=== PATIENT | female | born 1930 | race Caucasian/White ===

== ENCOUNTER 2018-11-11 19:20 | Emergency (ER) | payer OTHER ==
[~2018-11-11] VITALS: Ht 142.2 cm; Wt 69.4 kg
--- OUTSIDE RECORDS SUMMARY | 2018-11-11 19:28 | XMS REPORT | CCD ---
Author Author [facility] Address [address] [place] [address] Phone Care Team Providers Care Intensive Care Unit Nurse Name Role Phone PP Unavailable CCM Unavailable Summary Purpose Interface Exchange Insurance Providers Payer name Policy type / Coverage type Covered republican ID Effective Begin Date Effective End Date [employer] CLAIMS Commercial Insurance [id number] 2017 Unknown Family History Family History data not found Social History Social History Element Codes Description Effective Dates Marital status Unknown [place] 12/08/2017 Number of children Unknown 2 12/08/2017 Employment Unknown Retired 12/08/[address]: 053894030 Never smoker 12/08/[address]: 206668453 Never drinks alcohol 12/08/2017 Allergies, Adverse Reactions, Alerts Substance Reaction Codes Entered Date Inactivated Date Status * NO KNOWN DRUG ALLERGIES Unknown 01/03/2018 No Inactive Date Active Past Medical History Illness Codes Condition Status Onset Date Resolved Date Dizziness and giddiness ICD-9: 780.4 ICD-10: R42 Active 11/07/2018 Unknown Dysuria ICD-9: 788.1 ICD-10: R30.0 Active 11/07/2018 Unknown Atrophy of thyroid (acquired) ICD-9: 244.8 ICD-10: E03.4 Active 01/03/2018 Unknown Chronic kidney disease, stage 3 (moderate) ICD-9: 585.3 ICD-10: N18.3 Active 12/08/2017 Unknown Essential (primary) hypertension ICD-9: 401.1 ICD-10: I10 Active 12/08/2017 Unknown Type 2 diabetes mellitus without complications ICD-9: 250.00 ICD-10: E11.9 Active 12/08/2017 Unknown Encounter for immunization ICD-9: V04.81 ICD-10: Z23 Active 07/18/2018 Unknown Urgency of urination ICD-9: 788.63 ICD-10: R39.15 Active 03/19/2018 Unknown Orthostatic hypotension ICD-9: 458.0 ICD-10: I95.1 Active 02/08/2018 Unknown Urinary tract infection, site not specified ICD-9: 599.0 ICD-10: N39.0 Active 02/08/2018 Unknown Diabetes Unknown Active 12/08/2017 Unknown Hypothryroidism Unknown Active 12/08/2017 Unknown Hypothyroidism, unspecified ICD-9: 244.9 ICD-10: E03.9 Active 12/08/2017 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 ICD-10: Z79.01 Active 12/08/2017 Unknown Problems Condition Codes Effective Dates Condition Status Dizziness and giddiness ICD-9: 780.4 ICD-10: R42 11/07/2018 Active Dysuria ICD-9: 788.1 ICD-10: R30.0 11/07/2018 Active Atrophy of thyroid (acquired) ICD-9: 244.8 ICD-10: E03.4 01/03/2018 Active Chronic kidney disease, stage 3 (moderate) ICD-9: 585.3 ICD-10: N18.3 12/08/2017 Active Essential (primary) hypertension ICD-9: 401.1 ICD-10: I10 12/08/2017 Active Type 2 diabetes mellitus without complications ICD-9: 250.00 ICD-10: E11.9 12/08/2017 Active Encounter for immunization ICD-9: V04.81 ICD-10: Z23 07/18/2018 Active Urgency of urination ICD-9: 788.63 ICD-10: R39.15 03/19/2018 Active Orthostatic hypotension ICD-9: 458.0 ICD-10: I95.1 02/08/2018 Active Urinary tract infection, site not specified ICD-9: 599.0 ICD-10: N39.0 02/08/2018 Active Diabetes Unknown 12/08/2017 Active Hypothryroidism Unknown 12/08/2017 Active Hypothyroidism, unspecified ICD-9: 244.9 ICD-10: E03.9 12/08/2017 Active correction (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 anticoagulants ICD-9: V58.61 ICD-10: Z79.01 12/08/2017 Active Medications Medication Codes Instructions Start Date Stop Date Status Fill Instructions Keflex 500 mg capsule RxNorm: 137282 1 Capsule(s) PO TID 201811/13/2018 Active clopidogrel 75 mg tablet RxNorm: 348622 1 Tablet(s) PO daily 11/01/2019 Active clopidogrel 75 mg tablet RxNorm: 428971 1 Tablet(s) PO daily 11/06/2018 Inactive clopidogrel 75 mg tablet RxNorm: 763453 1 Tablet(s) PO daily 10/29/2018 Inactive omeprazole 10 mg capsule,delayed release RxNorm: 216874 1 Capsule(s) PO daily 10/05/2018 12/28/2019 Active escitalopram 10 mg tablet RxNorm: 003664 TAKE 1 TABLET BY MOUTH ONCE DAILY IN THE EVENING 09/06/2018 No Stop Date Active omeprazole 10 mg capsule,delayed release RxNorm: 994733 1 Capsule(s) PO daily 09/06/2018 10/04/2018 Inactive cyanocobalamin (vit B-12) 1,000 mcg tablet RxNorm: 033090 1 Tablet(s) PO daily 08/08/2018 10/31/2019 Active cyanocobalamin (vit B-12) 1,000 mcg tablet RxNorm: 440877 1 Tablet(s) PO daily 08/08/2018 08/07/2018 Inactive levofloxacin 250 mg tablet RxNorm: 058913 1 Tablet(s) PO daily 06/04/2018 06/08/2018 Inactive levofloxacin 250 mg tablet RxNorm: 227688 1 Tablet(s) PO daily 06/04/2018 06/03/2018 Inactive lisinopril 10 mg tablet RxNorm: 371169 1 Tablet(s) PO daily 05/02/2019 Active Toprol XL 100 mg tablet,extended release RxNorm: 246696 1 Tablet(s) PO daily 05/08/2018 05/02/2019 Active atorvastatin 40 mg tablet RxNorm: 483659 1 Tablet(s) PO QHS No Stop Date Active gabapentin 300 mg capsule RxNorm: 963496 1 Capsule(s) PO TID 04/28/2019 Active levothyroxine 25 mcg tablet RxNorm: 401793 1 Tablet(s) PO daily 05/04/2018 04/28/2019 Active Toprol XL 100 mg tablet,extended release RxNorm: 954386 1 Tablet(s) PO daily 05/04/2018 05/07/2018 Inactive lisinopril 10 mg tablet RxNorm: 919628 1 Tablet(s) PO daily 05/07/2018 Inactive amlodipine 5 mg tablet RxNorm: 103928 1 Tablet(s) PO daily 03/31/2019 Active amlodipine 5 mg tablet RxNorm: 687169 1 Tablet(s) PO daily 07/201804/05/2018 Inactive tolterodine 2 mg tablet RxNorm: 757651 1 Tablet(s) PO QPM 03/1909/24/2018 Inactive nystatin 100,000 unit/gram topical cream RxNorm: 832030 1 Gram(s) TOP TID until healed et then PRN 01/09/2018 No Stop Date Active D/c powder escitalopram 10 mg tablet RxNorm: 887166 1 Tablet(s) PO QPM 07/31/2018 Inactive nystatin (bulk) 100 million unit powder RxNorm: 1 Miscellaneous QID 12/25/2017 01/08/2018 Inactive warfarin 2 mg tablet RxNorm: 312879 1 Tablet(s) PO daily 201701/02/2018 Inactive nystatin (bulk) 100 million unit powder RxNorm: 1 Miscellaneous QID 12/25/2017 12/24/2017 Inactive sitagliptin 50 mg tablet RxNorm: 682567 1 Tablet(s) PO daily 02/07/2018 Inactive tolterodine 1 mg tablet RxNorm: 173135 1 Tablet(s) PO BID 12/1903/18/2018 Inactive warfarin 3 mg tablet RxNorm: 686163 1 Tablet(s) PO UD MWF, 2mg T/Th/Sat/Sun 12/15/2017 01/02/2018 Inactive ciprofloxacin 250 mg tablet RxNorm: 530054 1 Tablet(s) PO BID 12/05/2017 12/09/2017 Inactive multivitamin oral RxNorm: 78847 oral No Start Date Active Xanax 0.25 mg tablet RxNorm: 048848 1 Tablet(s) PO daily as needed No Start Date Active Restasis MultiDose 0.05 % eye drops RxNorm: 348507 1 Drop(s) both ophthalmic (eye ) BID No Start Date Active hydrocodone 5 mg-acetaminophen 325 mg tablet RxNorm: 762182 1 Tablet(s) PO Q6 as needed No Start Date Active Oyster Calcium 375 mg-200 unit-800 unit tablet RxNorm: 2 Tablet(s) PO daily No Start Date Active cyanocobalamin (vit B-12) 1,000 mcg tablet RxNorm: 737813 1 Tablet(s) PO daily No Start Date Active aspirin 81 mg tablet RxNorm: 693286 1 Tablet(s) PO daily No Start Date Active lisinopril 10 mg tablet RxNorm: 842836 1 Tablet(s) PO daily No Start Date 05/03/2018 Inactive levothyroxine 25 mcg tablet RxNorm: 192700 1 Tablet(s) PO daily No Start Date 05/03/2018 Inactive warfarin 2 mg tablet RxNorm: 104763 1 Tablet(s) PO daily No Start Date 12/24/2017 Inactive tolterodine 1 mg tablet RxNorm: 421581 1 Tablet(s) PO BID No Start Date 12/18/2017 Inactive nystatin 100,000 unit/gram topical cream RxNorm: 586415 1 Gram(s) TOP TID until healed et then PRN No Start Date 2017 Inactive omeprazole 10 mg capsule,delayed release RxNorm: 392814 1 Capsule(s) PO daily No Start Date 09/05/2018 Inactive Toprol XL 100 mg tablet,extended release RxNorm: 665146 1 Tablet(s) PO daily No Start Date 05/03/2018 Inactive gabapentin 300 mg capsule RxNorm: 052271 1 Capsule(s) PO TID No Start Date 05/03/2018 Inactive atorvastatin 40 mg tablet RxNorm: 822102 1 Tablet(s) PO QHS No Start Date 05/03/2018 Inactive clopidogrel 75 mg tablet RxNorm: 736164 1 Tablet(s) PO daily No Start Date 10/25/2018 Inactive amlodipine 5 mg tablet RxNorm: 073036 1 Tablet(s) PO daily No Start Date 03/27/2018 Inactive sitagliptin 50 mg tablet RxNorm: 386954 1 Tablet(s) PO daily No Start Date 12/18/2017 Inactive Medication Administered No Medication Administered data Immunizations Vaccine Codes Date Status Influenza CVX: 141 07/18/2018 completed Assessments Condition Codes Effective Dates Dysuria ICD-10: R30.0 ICD-9: 788.1 11/07/2018 Dizziness and giddiness ICD-10: R42 ICD-9: 780.4 11/07/2018 Type 2 diabetes mellitus without complications ICD-10: E11.9 ICD-9: 250.00 09/25/2018 Essential (primary) hypertension ICD-10: I10 ICD-9: 401.1 09/25/2018 Atrophy of thyroid (acquired) ICD-10: E03.4 ICD-9: 244.8 09/25/2018 Chronic kidney disease, stage 3 (moderate) ICD-10: N18.3 ICD-9: 585.3 09/25/2018 Encounter for immunization ICD-10: Z23 ICD-9: V04.81 07/18/2018 Urgency of urination ICD-10: R39.15 ICD-9: 788.63 03/19/2018 Orthostatic hypotension ICD-10: I95.1 ICD-9: 458.0 02/08/2018 Urinary tract infection, site not specified ICD-10: N39.0 ICD-9: 599.0 02/08/2018 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 ICD-9: V58.61 12/08/2017 Other specified hypothyroidism ICD-10: E03.8 ICD-9: 244.8 12/08/2017 Reason For Visit Reason For Visit Effective Dates Notes syncope 11/07/2018 hypertension 09/25/2018 vaccination against influenza 07/18/2018 hypertension 03/19/2018 Hospital Follow Up 02/08/2018 hypertension 01/03/2018 Hospital Follow Up 12/08/2017 Results Observation Observation Code Item Item Code Result Date Urine Culture Ucult Complete >100,000 col/ml aerobic growth sent to ref lab 11/08/2018 Cbc With Differential Ord2 WBC 5.94 K/ul 09/28/2018 Cbc With Differential Ord2 RBC 4.02 M/ul 09/28/2018 Cbc With Differential Ord2 HGB 11.5 g/dl 09/28/2018 Cbc With Differential Ord2 HCT 36.5 % 09/28/2018 Cbc With Differential Ord2 Neut% 56.6 % 09/28/2018 Cbc With Differential Ord2 MCV 90.8 fl 09/28/2018 Cbc With Differential Ord2 Lymph% 32.5 % 09/28/2018 Cbc With Differential Ord2 MCH 28.6 pg 09/28/2018 Cbc With Differential Ord2 Bracken% 8.2 % 09/28/2018 Cbc With Differential Ord2 MCHC 31.5 pg 09/28/2018 Cbc With Differential Ord2 Eos% 2.4 % 09/28/2018 Cbc With Differential Ord2 PLT 191 K/ul 09/28/2018 Cbc With Differential Ord2 Baso% 0.3 % 09/28/2018 Cbc With Differential Ord2 RDW 14.9 % 09/28/2018 Cbc With Differential Ord2 Neut ABS# 3.36 K/ul 09/28/2018 Cbc With Differential Ord2 Lymph ABS# 1.93 K/ul 09/28/2018 Cbc With Differential Ord2 Bracken ABS# 0.5 K/ul 09/28/2018 Cbc With Differential Ord2 Eos ABS# 0.1 K/ul 09/28/2018 Cbc With Differential Ord2 Baso ABS# 0.0 K/ul 09/28/2018 %Hba1C Dsi829 % HbA1c 49786-5 6.6 % 09/28/2018 %Hba1C Tcc147 Gluc Ave 143 mg/dL 09/28/2018 Comp Metabolic Llv996 NA 142 mEq/L 09/28/2018 Comp Metabolic Qes474 K 4.2 mEq/L 09/28/2018 Comp Metabolic Wke490 CL 107 mEq/L 09/28/2018 Comp Metabolic Tba956 CO2 30.0 mEq/L 09/28/2018 Comp Metabolic Xci158 ANION GAP 9 09/28/2018 Comp Metabolic Tgs895 GLUCOSE 117 mg/dL 09/28/2018 Comp Metabolic Eak107 Creat 1.2 mg/dL 09/28/2018 Comp Metabolic Iiz452 eGFR 47 ml/min/1.73m2 09/28/2018 Comp Metabolic Uuh011 BUN 19 mg/dL 09/28/2018 Comp Metabolic Slp713 B/C Ratio 16.5 Ratio 09/28/2018 Comp Metabolic Ncf453 CALCIUM 8.6 mg/dL 09/28/2018 Comp Metabolic Bso914 ALK PHOS 101 U/L 09/28/2018 Comp Metabolic Hoy146 AST(SGOT) 16 U/L 09/28/2018 Comp Metabolic Bdc694 ALT(SGPT) 13 U/L 09/28/2018 Comp Metabolic Uje828 BILI T 0.4 mg/dL 09/28/2018 Comp Metabolic Cfv689 ALBUMIN 3.4 g/dL 09/28/2018 Comp Metabolic Xdc505 TPRO 6.1 g/dL 09/28/2018 Comp Metabolic Dsg114 GLOB 2.7 g/dL 09/28/2018 Comp Metabolic Uwn600 A/G Ratio 1.3 Ratio 09/28/2018 Comp Metabolic Qru542 Osmo 286 mOsmo 09/28/2018 Tsh Ord6 TSH (3rd IS) 0.80 uIU/mL 09/28/2018 Lipid Ord30 CHOL 89 mg/dL 09/28/2018 Lipid Ord30 HDL 33.0 mg/dl 09/28/2018 Lipid Ord30 TRIG 78 mg/dL 09/28/2018 Lipid Ord30 LDL 40 mg/dL 09/28/2018 Lipid Ord30 C/HDL 2.7 Ratio 09/28/2018 Pt Kbt8599 PT 17.8 seconds 12/15/2017 Pt Bew7343 INR 1.5 12/15/2017 Pt Sjl8966 Low Intensity - 1.5-2.0 12/15/2017 Pt Nol0400 Mod intensity - 2.0-3.0 12/15/2017 Pt Zgq5577 Hi intensity - 3.0-4.0 12/15/2017 Urinalysis Ord28 U-Color Yellow 12/12/2017 Urinalysis Ord28 U-Clarity Clear 12/12/2017 Urinalysis Ord28 U-Gluc Negative 12/12/2017 Urinalysis Ord28 U-Bili Negative 12/12/2017 Urinalysis Ord28 U-Ketone Negative 12/12/2017 Urinalysis Ord28 U-SG 1.015 12/12/2017 Urinalysis Ord28 U-Blood Negative 12/12/2017 Urinalysis Ord28 U-pH 7.0 12/12/2017 Urinalysis Ord28 U-Protein Negative 12/12/2017 Urinalysis Ord28 U-Urobilin 0.2 E.U./dL E.U./dL 12/12/2017 Urinalysis Ord28 U-Nitrites Negative 12/12/2017 Urinalysis Ord28 U-Leuk Trace 12/12/2017 Urinalysis Ord28 U-Bact RARE 12/12/2017 Urinalysis Ord28 U-Squamous Epi 0-5 per/HPF 12/12/2017 Urinalysis Ord28 U-Crystal None per/HPF 12/12/2017 Urinalysis Ord28 U-Mucus None 12/12/2017 Urinalysis Ord28 U-Renal tubular epi None 12/12/2017 Urinalysis Ord28 U-RBC None per/HPF 12/12/2017 Urinalysis Ord28 U-Transitional epi None per/HPF 12/12/2017 Urinalysis Ord28 U-WBC 0-2 per/HPF 12/12/2017 Urinalysis Ord28 U-Cast None per/HPF 12/12/2017 Urinalysis Ord28 U-VOL VOLUME SUFFICIENT (10mL) 12/12/2017 Urinalysis Ord28 U-Yeast NEGATIVE 12/12/2017 Urinalysis Ord28 U-Com Urine saved if culture needed (specimen acceptable for 48 hours from collection if refrigerated) 12/12/2017 Pt Pjl0901 PT 15.2 seconds 12/11/2017 Pt Jdp0655 INR 1.2 12/11/2017 Pt Fjn3612 Low Intensity - 1.5-2.0 12/11/2017 Pt Oyt6716 Mod intensity - 2.0-3.0 12/11/2017 Pt Fpq0751 Hi intensity - 3.0-4.0 12/11/2017 Pt Lxo6826 PT 14.7 seconds 12/08/2017 Pt Zdv2782 INR 1.2 12/08/2017 Pt Zpj9283 Low Intensity - 1.5-2.0 12/08/2017 Pt Mki1630 Mod intensity - 2.0-3.0 12/08/2017 Pt Vwt8824 Hi intensity - 3.0-4.0 12/08/2017 Review of Systems System Result Effective Dates Constitutional No recent illness 2018 Constitutional No chills 11/07/2018 Constitutional No diaphoresis 11/07/2018 Constitutional No fever 11/07/2018 Eyes No eye erythema 11/07/2018 Ears/Nose/Throat/Neck No nasal discharge 11/07/2018 Cardiovascular No chest pain/pressure Respiratory No cough 11/07/2018 Gastrointestinal No abdominal pain 2018 Genitourinary/Nephrology dysuria 2018 Genitourinary/Nephrology urinary urgency 11/07/2018 Genitourinary/Nephrology urinary frequency 11/07/2018 Neurologic No alteration of consciousness 11/07/2018 Neurologic No mental status change 2018 Neurologic syncope 11/07/2018 Constitutional No recent illness 2018 Constitutional No chills 09/25/2018 Constitutional No diaphoresis 09/25/2018 Constitutional No fever 09/25/2018 Eyes No blindness 09/25/2018 Ears/Nose/Throat/Neck No nasal allergies 09/25/2018 Ears/Nose/Throat/Neck No nasal discharge 09/25/2018 Ears/Nose/Throat/Neck No sore throat 04/2019 Ears/Nose/Throat/Neck No sinus congestion 09/25/2018 Cardiovascular No chest pain/pressure 04/2019 Cardiovascular No dyspnea 09/25/2018 Respiratory No chest congestion 2018 Respiratory No cough 09/25/2018 Gastrointestinal No abdominal pain 2018 Gastrointestinal constipation 09/25/2018 Gastrointestinal No diarrhea 09/25/2018 Gastrointestinal No nausea 09/25/2018 Gastrointestinal No vomiting 09/25/2018 Genitourinary/Nephrology nocturia 2018 Dermatologic No rash 09/25/2018 Neurologic No alteration of consciousness 09/25/2018 Psychiatric anxiety 09/25/2018 Psychiatric depression 09/25/2018 Ears/Nose/Throat/Neck dry mouth 2018 Constitutional No recent illness 2017 Constitutional No chills 03/19/2018 Constitutional No diaphoresis 03/19/2018 Constitutional No fever 03/19/2018 Eyes No blindness 03/19/2018 Ears/Nose/Throat/Neck No nasal allergies 03/19/2018 Ears/Nose/Throat/Neck No nasal discharge 03/19/2018 Ears/Nose/Throat/Neck No sore throat 10/2017 Ears/Nose/Throat/Neck No sinus congestion 03/19/2018 Cardiovascular No chest pain/pressure 10/2017 Cardiovascular No dyspnea 03/19/2018 Respiratory No chest congestion 2017 Respiratory No cough 03/19/2018 Gastrointestinal No abdominal pain 2017 Gastrointestinal constipation 03/19/2018 Gastrointestinal No diarrhea 03/19/2018 Gastrointestinal No nausea 03/19/2018 Gastrointestinal No vomiting 03/19/2018 Dermatologic No rash 03/19/2018 Neurologic No alteration of consciousness 03/19/2018 Psychiatric anxiety 03/19/2018 Psychiatric depression 03/19/2018 Genitourinary/Nephrology nocturia 2017 Constitutional No recent illness 2017 Constitutional No chills 02/08/2018 Constitutional No diaphoresis 02/08/2018 Constitutional No fever 02/08/2018 Eyes No blindness 02/08/2018 Ears/Nose/Throat/Neck No nasal allergies 02/08/2018 Ears/Nose/Throat/Neck No nasal discharge 02/08/2018 Ears/Nose/Throat/Neck No sore throat Ears/Nose/Throat/Neck No sinus congestion 02/08/2018 Cardiovascular No chest pain/pressure Cardiovascular No dyspnea 02/08/2018 Respiratory No chest congestion 2017 Respiratory No cough 02/08/2018 Gastrointestinal No abdominal pain 2017 Gastrointestinal No diarrhea 02/08/2018 Gastrointestinal No nausea 02/08/2018 Gastrointestinal No vomiting 02/08/2018 Musculoskeletal joint complaint 2017 Dermatologic No rash 02/08/2018 Neurologic No alteration of consciousness 02/08/2018 Psychiatric anxiety 02/08/2018 Psychiatric depression 02/08/2018 Constitutional No recent illness 2017 Constitutional No chills 01/03/2018 Constitutional No diaphoresis 01/03/2018 Constitutional No fever 01/03/2018 Eyes No blindness 01/03/2018 Ears/Nose/Throat/Neck No nasal allergies 01/03/2018 Ears/Nose/Throat/Neck No nasal discharge 01/03/2018 Ears/Nose/Throat/Neck No sinus congestion 01/03/2018 Ears/Nose/Throat/Neck No sore throat Cardiovascular No chest pain/pressure Cardiovascular No dyspnea 01/03/2018 Respiratory No chest congestion 2017 Respiratory No cough 01/03/2018 Gastrointestinal No abdominal pain 2017 Gastrointestinal constipation 01/03/2018 Gastrointestinal No diarrhea 01/03/2018 Gastrointestinal No nausea 01/03/2018 Gastrointestinal No vomiting 01/03/2018 Musculoskeletal joint complaint 2017 Dermatologic No rash 01/03/2018 Neurologic No alteration of consciousness 01/03/2018 Psychiatric depression 01/03/2018 Psychiatric anxiety 01/03/2018 Constitutional No recent illness 2017 Constitutional No chills 12/08/2017 Constitutional No diaphoresis 12/08/2017 Constitutional No fever 12/08/2017 Eyes No eye erythema 12/08/2017 Ears/Nose/Throat/Neck No nasal discharge 12/08/2017 Ears/Nose/Throat/Neck No nasal allergies 12/08/2017 Ears/Nose/Throat/Neck No sore throat Ears/Nose/Throat/Neck No sinus congestion 12/08/2017 Cardiovascular No chest pain/pressure Cardiovascular No dyspnea 12/08/2017 Respiratory No cough 12/08/2017 Respiratory No chest congestion 2017 Gastrointestinal No abdominal pain 2017 Gastrointestinal constipation 12/08/2017 Gastrointestinal No diarrhea 12/08/2017 Gastrointestinal No vomiting 12/08/2017 Gastrointestinal No nausea 12/08/2017 Musculoskeletal joint complaint 2017 Dermatologic No rash 12/08/2017 Neurologic No alteration of consciousness 12/08/2017 Physical Exam Exam Name System Name Item Name Status Result Effective Dates Notes Full Exam - General 1994 Constitutional general appearance Overall: well developed 11/07/2018 None Full Exam - General 1994 Constitutional general appearance Overall: in no acute distress 11/07/2018 None Full Exam - General 1994 Constitutional general appearance Overall: well nourished 11/07/2018 None Full Exam - General 1994 Eyes conjunctiva /eyelids Overall: conjunctiva clear 11/07/2018 None Full Exam - General 1994 Eyes conjunctiva /eyelids Overall: cornea clear 11/07/2018 None Full Exam - General 1994 Eyes conjunctiva /eyelids Overall: eyelids normal 11/07/2018 None Full Exam - General 1994 Ears/Nose/Throat lips/teeth/gingiva Overall: benign lips 11/07/2018 None Full Exam - General 1994 Ears/Nose/Throat oral cavity/pharynx/larynx Overall: oral mucosa clear 11/07/2018 None Full Exam - General 1994 Respiratory respiratory effort/rhythm Overall: no retractions 11/07/2018 None Full Exam - General 1994 Respiratory respiratory effort/rhythm Overall: normal rate 11/07/2018 None Full Exam - General 1994 Cardiovascular auscultation of heart Overall: regular rate 11/07/2018 None Full Exam - General 1994 Cardiovascular auscultation of heart Overall: normal heart sounds 11/07/2018 None Full Exam - General 1994 Musculoskeletal head and neck Overall: head atraumatic 11/07/2018 None Full Exam - General 1994 Neurologic cranial nerves Overall: crainial nerves 2 - 12 grossly intact 11/07/2018 None Full Exam - General 1994 Psychiatric orientation/consciousness Overall: oriented to person, place and time 11/07/2018 None Full Exam - General 1994 Psychiatric mood and affect Overall: normal mood and affect 11/07/2018 None Full Exam - General 1994 Constitutional general appearance Overall: well developed 09/25/2018 None Full Exam - General 1994 Constitutional general appearance Overall: in no acute distress 09/25/2018 None Full Exam - General 1994 Constitutional general appearance Overall: well nourished 09/25/2018 None Full Exam - General 1994 Eyes conjunctiva /eyelids Overall: conjunctiva clear 09/25/2018 None Full Exam - General 1995 Eyes conjunctiva /eyelids Overall: cornea clear 09/25/2018 None Full Exam - General 1994 Eyes conjunctiva /eyelids Overall: eyelids normal 09/25/2018 None Full Exam - General 1994 Eyes pupils and irises Overall: pupils equal, round, reactive to light and accomodation 09/25/2018 None Full Exam - General 1994 Ears/Nose/Throat otoscopic exam Overall: external auditory canals clear 09/25/2018 None Full Exam - General 1994 Ears/Nose/Throat otoscopic exam Overall: tympanic membranes clear 09/25/2018 None Full Exam - General 1994 Ears/Nose/Throat lips/teeth/gingiva Overall: benign lips 09/25/2018 None Full Exam - General 1994 Ears/Nose/Throat oral cavity/pharynx/larynx Overall: oral mucosa clear 09/25/2018 None Full Exam - General 1994 Respiratory auscultation Overall: breath sounds clear bilaterally 09/25/2018 None Full Exam - General 1994 Respiratory respiratory effort/rhythm Overall: no retractions 09/25/2018 None Full Exam - General 1994 Respiratory respiratory effort/rhythm Overall: normal rate 09/25/2018 None Full Exam - General 1994 Cardiovascular extremities Overall: no clubbing 09/25/2018 None Full Exam - General 1994 Cardiovascular auscultation of heart Rate: regular rate 09/25/2018 None Full Exam - General 1994 Cardiovascular auscultation of heart Rhythm: regular rhythm 09/25/2018 None Full Exam - General 1994 Abdomen abdominal exam Overall: no tenderness 09/25/2018 None Full Exam - General 1994 Abdomen abdominal exam Overall: normal bowel sounds 09/25/2018 None Full Exam - General 1994 Musculoskeletal head and neck Overall: head atraumatic 09/25/2018 None Full Exam - General 1994 Neurologic cranial nerves Overall: crainial nerves 2 - 12 grossly intact 09/25/2018 None Full Exam - General 1994 Psychiatric orientation/consciousness Overall: oriented to person, place and time 09/25/2018 None Full Exam - General 1994 Psychiatric mood and affect Overall: normal mood and affect 09/25/2018 None Full Exam - General 1994 Psychiatric appearance Overall: well-groomed, good eye contact 09/25/2018 None Full Exam - General 1994 Cardiovascular extremities Edema present: pitting 09/25/2018 2+ bilateral lower extremities Full Exam - General 1994 Constitutional general appearance Overall: well developed 03/19/2018 None Full Exam - General 1994 Constitutional general appearance Overall: in no acute distress 03/19/2018 None Full Exam - General 1994 Constitutional general appearance Overall: well nourished 03/19/2018 None Full Exam - General 1994 Eyes conjunctiva /eyelids Overall: conjunctiva clear 03/19/2018 None Full Exam - General 1994 Eyes conjunctiva /eyelids Overall: cornea clear 03/19/2018 None Full Exam - General 1994 Eyes conjunctiva /eyelids Overall: eyelids normal 03/19/2018 None Full Exam - General 1994 Eyes pupils and irises Overall: pupils equal, round, reactive to light and accomodation 03/19/2018 None Full Exam - General 1994 Ears/Nose/Throat otoscopic exam Overall: external auditory canals clear 03/19/2018 None Full Exam - General 1994 Ears/Nose/Throat otoscopic exam Overall: tympanic membranes clear 03/19/2018 None Full Exam - General 1994 Ears/Nose/Throat lips/teeth/gingiva Overall: benign lips 03/19/2018 None Full Exam - General 1994 Ears/Nose/Throat oral cavity/pharynx/larynx Overall: oral mucosa clear 03/19/2018 None Full Exam - General 1994 Respiratory auscultation Overall: breath sounds clear bilaterally 03/19/2018 None Full Exam - General 1994 Respiratory respiratory effort/rhythm Overall: no retractions 03/19/2018 None Full Exam - General 1994 Respiratory respiratory effort/rhythm Overall: normal rate 03/19/2018 None Full Exam - General 1994 Cardiovascular extremities Overall: no clubbing 03/19/2018 None Full Exam - General 1994 Cardiovascular auscultation of heart Rate: regular rate 03/19/2018 None Full Exam - General 1994 Cardiovascular auscultation of heart Rhythm: regular rhythm 03/19/2018 None Full Exam - General 1994 Abdomen abdominal exam Overall: no tenderness 03/19/2018 None Full Exam - General 1994 Abdomen abdominal exam Overall: normal bowel sounds 03/19/2018 None Full Exam - General 1994 Musculoskeletal head and neck Overall: head atraumatic 03/19/2018 None Full Exam - General 1994 Neurologic cranial nerves Overall: crainial nerves 2 - 12 grossly intact 03/19/2018 None Full Exam - General 1994 Psychiatric orientation/consciousness Overall: oriented to person, place and time 03/19/2018 None Full Exam - General 1994 Psychiatric mood and affect Overall: normal mood and affect 03/19/2018 None Full Exam - General 1994 Psychiatric appearance Overall: well-groomed, good eye contact 03/19/2018 None Full Exam - General 1994 Constitutional general appearance Overall: well developed 02/08/2018 None Full Exam - General 1994 Constitutional general appearance Overall: in no acute distress 02/08/2018 None Full Exam - General 1994 Constitutional general appearance Overall: well nourished 02/08/2018 None Full Exam - General 1994 Eyes conjunctiva /eyelids Overall: conjunctiva clear 02/08/2018 None Full Exam - General 1994 Eyes conjunctiva /eyelids Overall: cornea clear 02/08/2018 None Full Exam - General 1994 Eyes conjunctiva /eyelids Overall: eyelids normal 02/08/2018 None Full Exam - General 1994 Eyes pupils and irises Overall: pupils equal, round, reactive to light and accomodation 02/08/2018 None Full Exam - General 1994 Ears/Nose/Throat otoscopic exam Overall: external auditory canals clear 02/08/2018 None Full Exam - General 1994 Ears/Nose/Throat otoscopic exam Overall: tympanic membranes clear 02/08/2018 None Full Exam - General 1994 Ears/Nose/Throat lips/teeth/gingiva Overall: benign lips 02/08/2018 None Full Exam - General 1994 Ears/Nose/Throat oral cavity/pharynx/larynx Overall: oral mucosa clear 02/08/2018 None Full Exam - General 1994 Respiratory auscultation Overall: breath sounds clear bilaterally 02/08/2018 None Full Exam - General 1994 Respiratory respiratory effort/rhythm Overall: no retractions 02/08/2018 None Full Exam - General 1994 Respiratory respiratory effort/rhythm Overall: normal rate 02/08/2018 None Full Exam - General 1994 Cardiovascular extremities Overall: no clubbing 02/08/2018 None Full Exam - General 1994 Cardiovascular auscultation of heart Rate: regular rate 02/08/2018 None Full Exam - General 1994 Cardiovascular auscultation of heart Rhythm: regular rhythm 02/08/2018 None Full Exam - General 1994 Abdomen abdominal exam Overall: no tenderness 02/08/2018 None Full Exam - General 1994 Abdomen abdominal exam Overall: normal bowel sounds 02/08/2018 None Full Exam - General 1994 Musculoskeletal head and neck Overall: head atraumatic 02/08/2018 None Full Exam - General 1994 Neurologic cranial nerves Overall: crainial nerves 2 - 12 grossly intact 02/08/2018 None Full Exam - General 1994 Psychiatric orientation/consciousness Overall: oriented to person, place and time 02/08/2018 None Full Exam - General 1994 Psychiatric mood and affect Overall: normal mood and affect 02/08/2018 None Full Exam - General 1994 Psychiatric appearance Overall: well-groomed, good eye contact 02/08/2018 None Full Exam - General 1994 Integument inspection of skin Location: right leg 02/08/2018 bruising right hip Full Exam - General 1994 Constitutional general appearance Overall: well developed 01/03/2018 None Full Exam - General 1994 Constitutional general appearance Overall: in no acute distress 01/03/2018 None Full Exam - General 1994 Constitutional general appearance Overall: well nourished 01/03/2018 None Full Exam - General 1994 Eyes conjunctiva /eyelids Overall: conjunctiva clear 01/03/2018 None Full Exam - General 1994 Eyes conjunctiva /eyelids Overall: cornea clear 01/03/2018 None Full Exam - General 1994 Eyes conjunctiva /eyelids Overall: eyelids normal 01/03/2018 None Full Exam - General 1994 Eyes pupils and irises Overall: pupils equal, round, reactive to light and accomodation 01/03/2018 None Full Exam - General 1994 Ears/Nose/Throat otoscopic exam Overall: external auditory canals clear 01/03/2018 None Full Exam - General 1994 Ears/Nose/Throat otoscopic exam Overall: tympanic membranes clear 01/03/2018 None Full Exam - General 1994 Ears/Nose/Throat lips/teeth/gingiva Overall: benign lips 01/03/2018 None Full Exam - General 1994 Ears/Nose/Throat oral cavity/pharynx/larynx Overall: oral mucosa clear 01/03/2018 None Full Exam - General 1994 Respiratory auscultation Overall: breath sounds clear bilaterally 01/03/2018 None Full Exam - General 1994 Respiratory respiratory effort/rhythm Overall: no retractions 01/03/2018 None Full Exam - General 1994 Respiratory respiratory effort/rhythm Overall: normal rate 01/03/2018 None Full Exam - General 1994 Cardiovascular extremities Overall: no clubbing 01/03/2018 None Full Exam - General 1994 Cardiovascular auscultation of heart Rate: regular rate 01/03/2018 None Full Exam - General 1994 Cardiovascular auscultation of heart Rhythm: regular rhythm 01/03/2018 None Full Exam - General 1994 Abdomen abdominal exam Overall: no tenderness 01/03/2018 None Full Exam - General 1994 Abdomen abdominal exam Overall: normal bowel sounds 01/03/2018 None Full Exam - General 1994 Musculoskeletal head and neck Overall: head atraumatic 01/03/2018 None Full Exam - General 1994 Neurologic cranial nerves Overall: crainial nerves 2 - 12 grossly intact 01/03/2018 None Full Exam - General 1994 Psychiatric orientation/consciousness Overall: oriented to person, place and time 01/03/2018 None Full Exam - General 1994 Psychiatric mood and affect Overall: normal mood and affect 01/03/2018 None Full Exam - General 1994 Psychiatric appearance Overall: well-groomed, good eye contact 01/03/2018 None Full Exam - General 1994 Constitutional general appearance Overall: well developed 12/08/2017 None Full Exam - General 1994 Constitutional general appearance Overall: in no acute distress 12/08/2017 None Full Exam - General 1994 Constitutional general appearance Overall: well nourished 12/08/2017 None Full Exam - General 1994 Eyes conjunctiva /eyelids Overall: conjunctiva clear 12/08/2017 None Full Exam - General 1994 Eyes conjunctiva /eyelids Overall: cornea clear 12/08/2017 None Full Exam - General 1994 Eyes conjunctiva /eyelids Overall: eyelids normal 12/08/2017 None Full Exam - General 1994 Eyes pupils and irises Overall: pupils equal, round, reactive to light and accomodation 12/08/2017 None Full Exam - General 1994 Ears/Nose/Throat otoscopic exam Overall: external auditory canals clear 12/08/2017 None Full Exam - General 1994 Ears/Nose/Throat otoscopic exam Overall: tympanic membranes clear 12/08/2017 None Full Exam - General 1994 Ears/Nose/Throat lips/teeth/gingiva Overall: benign lips 12/08/2017 None Full Exam - General 1994 Ears/Nose/Throat oral cavity/pharynx/larynx Overall: oral mucosa clear 12/08/2017 None Full Exam - General 1994 Respiratory respiratory effort/rhythm Overall: normal rate 12/08/2017 None Full Exam - General 1994 Respiratory respiratory effort/rhythm Overall: no retractions 12/08/2017 None Full Exam - General 1994 Respiratory auscultation Overall: breath sounds clear bilaterally 12/08/2017 None Full Exam - General 1994 Cardiovascular auscultation of heart Rhythm: regular rhythm 12/08/2017 None Full Exam - General 1994 Cardiovascular auscultation of heart Rate: regular rate 12/08/2017 None Full Exam - General 1994 Cardiovascular extremities Overall: no clubbing 12/08/2017 None Full Exam - General 1994 Abdomen abdominal exam Overall: normal bowel sounds 12/08/2017 None Full Exam - General 1994 Abdomen abdominal exam Overall: no tenderness 12/08/2017 None Full Exam - General 1994 Musculoskeletal head and neck Overall: head atraumatic 12/08/2017 None Full Exam - General 1994 Neurologic cranial nerves Overall: crainial nerves 2 - 12 grossly intact 12/08/2017 None Full Exam - General 1994 Psychiatric orientation/consciousness Overall: oriented to person, place and time 12/08/2017 None Full Exam - General 1994 Psychiatric mood and affect Overall: normal mood and affect 12/08/2017 None Full Exam - General 1994 Psychiatric appearance Overall: well-groomed, good eye contact 12/08/2017 None Procedures Procedure Codes Date ADMIN INFLUENZA VIRUS VAC CPT-4: G0008 07/18/2018 FLU VACC PRSV FREE INC ANTIG CPT-4: 59357 07/18/2018 Vital Signs Date Vital 11/07/2018 Blood Pressure 1: 110/58 Code : 8480-6 BMI: 30.7 Code : 16549-9 Heart Rate 1 : 70 bpm Height: 4'11" SpO2: 97% Weight: 152 lbs 09/25/2018 Blood Pressure 1: 140/70 Code : 8480-6 BMI: 30.9 Code : 45963-8 Heart Rate 1 : 67 bpm Height: 4'11" SpO2: 91% Weight: 153 lbs 03/19/2018 Blood Pressure 1: 140/58 Code : 8480-6 BMI: 28.5 Code : 38263-7 Heart Rate 1 : 59 bpm Height: 4'11" SpO2: 98% Weight: 141 lbs 02/08/2018 Blood Pressure 1: 130/68 Code : 8480-6 BMI: 28.5 Code : 54424-5 Heart Rate 1 : 73 bpm Height: 4'11" SpO2: 98% Weight: 141 lbs 01/03/2018 Blood Pressure 1: 116/64 Code : 8480-6 BMI: 27.7 Code : 86034-0 Heart Rate 1 : 68 bpm Height: 4'11" SpO2: 98% Weight: 137 lbs 12/08/2017 Blood Pressure 1: 122/74 Code : 8480-6 Heart Rate 1: 79 bpm Height: 4'11" SpO2: 97% Weight: Functional Status No Functional Status data History of Present Illness Symptom Name Status Result Effective Date Notes Quality intermittent 11/07/2018 None Onset and Resolution sudden in onset 11/07/2018 None Onset of Symptom 2 days ago 11/07/2018 None Quality primary hypertension 09/25/2018 None Onset and Resolution ongoing 09/25/2018 None Onset of Symptom during adulthood 09/25/2018 None Blood Pressure Values pt checking blood pressure - see scanned document 09/25/2018 -Checks occasionally Alleviating Factors medication 09/25/2018 None Pertinent Findings Denies dizziness 09/25/2018 -occurs most days Pertinent Findings Denies dyspnea 09/25/2018 None Pertinent Findings edema 09/25/2018 None Quality non-insulin dependent 09/25/2018 None Alleviating Factors medication 09/25/2018 None Exacerbating Factors diet 09/25/2018 None Glucose monitoring Denies does not test 09/25/2018 None hypertension Quality primary hypertension 03/19/2018 None hypertension Onset and Resolution ongoing 03/19/2018 None hypertension Onset of Symptom during adulthood 03/19/2018 None hypertension Alleviating Factors medication 03/19/2018 None hypertension Pertinent Findings dizziness 03/19/2018 -occurs most days hypertension Pertinent Findings Denies dyspnea 03/19/2018 None diabetes mellitus Quality non-insulin dependent 03/19/2018 None diabetes mellitus Alleviating Factors medication 03/19/2018 None diabetes mellitus Exacerbating Factors diet 03/19/2018 None hypertension Blood Pressure Values pt checking blood pressure - see scanned document 03/19/2018 -Checks occasionally hypertension Pertinent Findings edema 03/19/2018 None diabetes mellitus Test results Pt checking blood glucose at home, see scanned readings 2017 None diabetes mellitus Glucose monitoring daily 03/19/2018 None nocturia Quality chronic 03/19/2018 None nocturia Onset and Resolution ongoing 03/19/2018 None nocturia Frequency of Episodes 4-5 times a night 03/19/2018 None nocturia Triggers no known associated factors 03/19/2018 None Hospital Follow Up _ Other: syncope, fall 02/08/2018 UTI, orthostatic hypotension Hospital Follow Up Quality acute 02/08/2018 None Hospital Follow Up Quality improving 02/08/2018 None hypertension Quality primary hypertension 01/03/2018 None hypertension Onset and Resolution ongoing 01/03/2018 None hypertension Onset of Symptom during adulthood 01/03/2018 None hypertension Alleviating Factors medication 01/03/2018 None diabetes mellitus Quality non-insulin dependent 01/03/2018 None diabetes mellitus Alleviating Factors medication 01/03/2018 None diabetes mellitus Exacerbating Factors diet 01/03/2018 None hypertension Blood Pressure Values patient checking blood pressure at home - did not bring in readings 01/03/2018 None hypertension Pertinent Findings Denies dizziness 01/03/2018 None hypertension Pertinent Findings Denies dyspnea 01/03/2018 None diabetes mellitus Test results Pt checking blood glucose readings, did not bring results to clinic 01/03/2018 None diabetes mellitus Glucose monitoring occasional glucose testing 01/03/2018 None hip pain Location on the left 01/03/2018 None hip pain Quality acute 01/03/2018 None hip pain Quality intermittent 01/03/2018 None hip pain Onset and Resolution ongoing 01/03/2018 None hip pain Pertinent Findings swelling 01/03/2018 None hypertension Quality stable 01/03/2018 None Hospital Follow Up _ Other: hip fracture 12/0112/08/2017 None Hospital Follow Up Onset of Symptom 1 weeks ago 12/08/2017 None Hospital Follow Up Onset and Resolution sudden in onset 12/08/2017 None Hospital Follow Up Significant Medical Conditions trauma 12/08/2017 None Hospital Follow Up Mechanism of injury fall 12/08/2017 None Advance Directives No Advance Directive data Encounters Encounter Performer Location Codes Date EST. PATIENT, LEVEL III Diagnosis: Dysuria[ICD10: R30.0] Diagnosis: Dizziness and giddiness[ICD10: R42] [facility] CPT-4: 33598 11/07/2018 [id number]) [id number] EST. PATIENT, LEVEL IV Diagnosis: Essential (primary) hypertension[ICD10: I10] Diagnosis: Chronic kidney disease, stage 3 (moderate)[ICD10: N18.3] Diagnosis: Atrophy of thyroid (acquired)[ICD10: E03.4] Diagnosis: Type 2 diabetes mellitus without complications[ICD10: E11.9] [facility] CPT-4: 70728 09/25/2018 ([id number]) 14560 EST. PATIENT, LEVEL IV Diagnosis: Type 2 diabetes mellitus without complications[ICD10: E11.9] Diagnosis: Atrophy of thyroid (acquired)[ICD10: E03.4] Diagnosis: Essential (primary) hypertension[ICD10: I10] Diagnosis: Urgency of urination[ICD10: R39.15] Jossie Booker MD, [facility] CPT-4: 50438 03/19/2018 ([id number] EST. PATIENT, LEVEL IV Diagnosis: Orthostatic hypotension[ICD10: I95.1] Diagnosis: Urinary tract infection, site not specified[ICD10: N39.0] Diagnosis: Type 2 diabetes mellitus without complications[ICD10: E11.9] Armida Booker MD, [facility] CPT-4: 74275 02/08/2018 ([id number]) [id number] EST. 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] Diagnosis: Type 2 diabetes mellitus without complications[ICD10: E11.9] Diagnosis: Chronic kidney disease, stage 3 (moderate)[ICD10: N18.3] Diagnosis: correction (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 anticoagulants[ICD10: Z79.01] Annika Booker MD, [facility] CPT-4: 28480 12/08/2017 Plan of Care Planned Activity Notes Codes Status Date Visit Plan: UTI - pt with positive urinalysis - culture sent if appropriate. Antibiotic electronically prescribed to pt's pharmacy of choice. Pt to call if symptoms do not improve. 11/07/2018 Appointment: Annika Nguyen WPtel: [address] [place], [place] [id number] (15 min) Moderate 11/07/2018 Patient Education: Patient Medication Summary Completed 11/07/2018 Visit Plan: Hypertension - well controlled - continue with current medications, continue with no added salt diet. Pt has been encouraged to exercise daily. The pt has been advised to call the office if there are any acute concerns about change in blood pressure readings at home. Diabetes Mellitus - controlled - per recent FSBS reports. I have recommended for the patient to have follow up labs prior to the next office visit. The patient has been instructed to continue with current medications as previously directed, continue with regular FSBS monitoring to assure continued control of diabetes. Pt to call for any acute concerns, complaints, or if the blood glucose readings are starting to become less controlled. Dry mouth - stop the TOVIAZ (generic name is Tolterodine) 2mg - as this may be causing the dry mouth - if this does not help the dry mouth - and your bladder spasms start to come back, give the office a call. CKD - check labs. Hypothyroidism - pt with chronic hypothyroidism , continue with current medication, will monitor pt to signs or symptoms of lack of adequate supplementation. Pt is to continue with current dose of medication unless directed otherwise. Check labs at regular intervals q 3 months or q 6 months based on previous levels of control. 09/25/2018 Appointment: Jossie Booker WPtel: [address] [place], [place] [id number] (15 min) Moderate 09/25/2018 Patient Education: Patient Medication Summary Completed 09/25/2018 Patient Education: Diabetes Completed 09/25/2018 Care Plan: Comp Metabolic Pending 09/25/2018 Care Plan: Cbc With Differential Pending 09/25/2018 Care Plan: %Hba1C LOINC : 32211-5 Pending 09/25/2018 Care Plan: Lipid Pending 09/25/2018 Care Plan: Tsh Pending 09/25/2018 Appointment: Injection 07/18/2018 Patient Education: Patient Medication Summary Completed 07/18/2018 Visit Plan: Diabetes Mellitus - controlled - per recent FSBS reports. I have recommended for the patient to have follow up labs prior to the next office visit. The patient has been instructed to continue with current medications as previously directed, continue with regular FSBS monitoring to assure continued control of diabetes. Pt to call for any acute concerns, complaints, or if the blood glucose readings are starting to become less controlled. Hypertension - well controlled - continue with current medications, continue with no added salt diet. Pt has been encouraged to exercise daily. The pt has been advised to call the office if there are any acute concerns about change in blood pressure readings at home. Urinary urgency - change the tolterodine to 2 mg at bedtime. Hypothyroidism - pt with chronic hypothyroidism, continue with current medication, will monitor pt to signs or symptoms of lack of adequate supplementation. Pt is to continue with current dose of medication unless directed otherwise. Check labs at regular intervals wither q 3 months or q 6 months based on previous levels of control. 03/19/2018 Appointment: Jossie Booker WPtel: [address] [facility] [place] (15 min) Moderate 03/19/2018 Patient Education: Patient Medication Summary Completed 03/19/2018 Visit Plan: Sleumbdvnrr-drwzfvsf-bpggacy blood pressures DM -okay to stay off januvia-monitor blood sugars and call if they become elevated UTI-finished treatment 02/08/2018 App[facility]ment: [facility] [phone] [phone] [place] (15 min) Moderate 02/08/2018 Patient Education: Patient Medication Summary Completed 02/08/2018 Visit Plan: Hypertension - well controlled - continue with current medications, continue with no added salt diet. Pt has been encouraged to exercise daily. The pt has been advised to call the office if there are any acute concerns about change in blood pressure readings at home. Diabetes Mellitus - Uncontrolled - per recent FSBS reports. I have recommended for the patient to have follow up labs prior to the next office visit. The patient has been instructed to continue with current medications as previously directed, continue with regular FSBS monitoring to assure continued control of diabetes. Pt to call for any acute concerns, complaints, or if the blood glucose readings are starting to become less controlled. I have recommended for the patient to follow more strictly to the diabetic diet as discussed in clinic to allow for greater blood glucose control. Hypothyroidism - pt with chronic hypothyroidism, continue with current medication, will monitor pt to signs or symptoms of lack of adequate supplementation. Pt is to continue with current dose of medication unless directed otherwise. Check labs at regular intervals wither q 3 months or q 6 months based on previous levels of control. Left hip fracture - healing well - continue with therapy. Depression and anxiety - rx for lexapro to be sent to pharmacy. 01/03/2018 [facility]ment[facility] [phone] [phone] (15 min) Moderate 01/03/2018 Patient Education: Patient Medication Summary Completed 01/03/2018 Visit Plan: Hypertension - well controlled - continue with current medications, continue with no added salt diet. Pt has been encouraged to exercise daily. The pt has been advised to call the office if there are any acute concerns about change in blood pressure readings at home. Diabetes Mellitus - Uncontrolled - per recent FSBS reports. I have recommended for the patient to have follow up labs prior to the next office visit. The patient has been instructed to continue with current medications as previously directed, continue with regular FSBS monitoring to assure continued control of diabetes. Pt to call for any acute concerns, complaints, or if the blood glucose readings are starting to become less controlled. I have recommended for the patient to follow more strictly to the diabetic diet as discussed in clinic to allow for greater blood glucose control. Hypothyroidism - pt with chronic hypothyroidism, continue with current medication, will monitor pt to signs or symptoms of lack of adequate supplementation. Pt is to continue with current dose of medication unless directed otherwise. Check labs at regular intervals wither q 3 months or q 6 months based on previous levels of control. 12/08/2017 Appointment: Annika Nguyen [facility] [facility] Patient 12/08/2017 Patient Education: Patient Medication Summary Completed 12/08/2017 Instructions Comment . Hypertension - well controlled - continue with current medications, continue with no added salt diet. Pt has been encouraged to exercise daily. The pt has been advised to call the office if there are any acute concerns about change in blood pressure readings at home. Diabetes Mellitus - Uncontrolled - per recent FSBS reports. I have recommended for the patient to have follow up labs prior to the next office visit. The patient has been instructed to continue with current medications as previously directed, continue with regular FSBS monitoring to assure continued control of diabetes. Pt to call for any acute concerns, complaints, or if the blood glucose readings are starting to become less controlled. I have recommended for the patient to follow more strictly to the diabetic diet as discussed in clinic to allow for greater blood glucose control. Hypothyroidism - pt with chronic hypothyroidism, continue with current medication, will monitor pt to signs or symptoms of lack of adequate supplementation. Pt is to continue with current dose of medication unless directed otherwise. Check labs at regular intervals wither q 3 months or q 6 months based on previous levels of control. . UTI - pt with positive urinalysis - culture sent if appropriate. Antibiotic electronically prescribed to pt's pharmacy of choice. Pt to call if symptoms do not improve. SIGN A RELEASE SO WE CAN GET YOUR RECORDS FROM [facility] . Jtezhbeqrvm-eguixstx-mvnibqp blood pressures DM-okay to stay off januvia-monitor blood sugars and call if they become elevated UTI-finished treatment stop the TOVIAZ (generic name is Tolterodine) 2mg - as this may be causing the dry mouth - if this does not help the dry mouth - and your bladder spasms start to come back, give the office a call . Hypertension - well controlled - continue with current medications, continue with no added salt diet. Pt has been encouraged to exercise daily. The pt has been advised to call the office if there are any acute concerns about change in blood pressure readings at home. Diabetes Mellitus - controlled - per recent FSBS reports. I have recommended for the patient to have follow up labs prior to the next office visit. The patient has been instructed to continue with current medications as previously directed, continue with regular FSBS monitoring to assure continued control of diabetes. Pt to call for any acute concerns, complaints, or if the blood glucose readings are starting to become less controlled. Dry mouth - stop the TOVIAZ (generic name is Tolterodine) 2mg - as this may be causing the dry mouth - if this does not help the dry mouth - and your bladder spasms start to come back, give the office a call. CKD - check labs. Hypothyroidism - pt with chronic hypothyroidism, continue with current medication, will monitor pt to signs or symptoms of lack of adequate supplementation. Pt is to continue with current dose of medication unless directed otherwise. Check labs at regular intervals q 3 months or q 6 months based on previous levels of control. change the tolterodine to 2 mg at bedtime. . Diabetes Mellitus - controlled - per recent FSBS reports. I have recommended for the patient to have follow up labs prior to the next office visit. The patient has been instructed to continue with current medications as previously directed, continue with regular FSBS monitoring to assure continued control of diabetes. Pt to call for any acute concerns, complaints, or if the blood glucose readings are starting to become less controlled. Hypertension - well controlled - continue with current medications, continue with no added salt diet. Pt has been encouraged to exercise daily. The pt has been advised to call the office if there are any acute concerns about change in blood pressure readings at home. Urinary urgency - change the tolterodine to 2 mg at bedtime. Hypothyroidism - pt with chronic hypothyroidism, continue with current medication, will monitor pt to signs or symptoms of lack of adequate supplementation. Pt is to continue with current dose of medication unless directed otherwise. Check labs at regular intervals wither q 3 months or q 6 months based on previous levels of control. . Hypertension - well controlled - continue with current medications, continue with no added salt diet. Pt has been encouraged to exercise daily. The pt has been advised to call the office if there are any acute concerns about change in blood pressure readings at home. Diabetes Mellitus - Uncontrolled - per recent FSBS reports. I have recommended for the patient to have follow up labs prior to the next office visit. The patient has been instructed to continue with current medications as previously directed, continue with regular FSBS monitoring to assure continued control of diabetes. Pt to call for any acute concerns, complaints, or if the blood glucose readings are starting to become less controlled. I have recommended for the patient to follow more strictly to the diabetic diet as discussed in clinic to allow for greater blood glucose control. Hypothyroidism - pt with chronic hypothyroidism, continue with current medication, will monitor pt to signs or symptoms of lack of adequate supplementation. Pt is to continue with current dose of medication unless directed otherwise. Check labs at regular intervals wither q 3 months or q 6 months based on previous levels of control. Left hip fracture - healing well - continue with therapy. Depression and anxiety - rx for lexapro to be sent to pharmacy.
--- OUTSIDE RECORDS SUMMARY | 2018-11-11 19:29 | XMS REPORT | CCD ---
Author Author [facility] Address [address] [place] [address] Phone Care Team Providers Care Outside Plant Engineer Name Role Phone PP Unavailable CCM Unavailable Summary Purpose Interface Exchange Insurance Providers Payer name Policy type / Coverage type Covered green party ID Effective Begin Date Effective End Date [employer] CLAIMS Commercial Insurance [id number] 2017 Unknown Family History Family History data not found Social History Social History Element Codes Description Effective Dates Marital status Unknown [place] 12/08/2017 Number of children Unknown 2 12/08/2017 Employment Unknown Retired 12/08/[address]: 942586035 Never smoker 12/08/[address]: 448224547 Never drinks alcohol 12/08/2017 Allergies, Adverse Reactions, Alerts Substance Reaction Codes Entered Date Inactivated Date Status * NO KNOWN DRUG ALLERGIES Unknown 01/03/2018 No Inactive Date Active Past Medical History Illness Codes Condition Status Onset Date Resolved Date Dysuria ICD-9: 788.1 ICD-10: R30.0 Active 11/07/2018 [...] ICD-9: 244.9 ICD-10: E03.9 Active 12/08/2017 Unknown lobsterman (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 anticoagulants ICD-9: V58.61 ICD-10: Z79.01 Active 12/08/2017 Unknown Problems Condition Codes Effective Dates Condition Status Dysuria ICD-9: 788.1 ICD-10: R30.0 11/07/2018 Active [...] unspecified ICD-9: 244.9 ICD-10: E03.9 12/08/2017 Active lobsterman (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 anticoagulants ICD-9: V58.61 ICD-10: Z79.01 12/08/2017 Active Medications Medication Codes Instructions Start Date Stop Date Status Fill Instructions Keflex 500 mg capsule RxNorm: 982370 1 Capsule(s) PO TID 201811/13/2018 Active clopidogrel 75 mg tablet RxNorm: 099317 1 Tablet(s) PO daily 11/01/2019 Active clopidogrel 75 mg tablet RxNorm: 548053 1 Tablet(s) PO daily 11/06/2018 Inactive clopidogrel 75 mg tablet RxNorm: 088572 1 Tablet(s) PO daily 10/29/2018 Inactive omeprazole 10 mg capsule,delayed release RxNorm: 334305 1 Capsule(s) PO daily 10/05/2018 12/28/2019 Active escitalopram 10 mg tablet RxNorm: 995035 TAKE 1 TABLET BY MOUTH ONCE DAILY IN THE EVENING 09/06/2018 No Stop Date Active omeprazole 10 mg capsule,delayed release RxNorm: 993446 1 Capsule(s) PO daily 09/06/2018 10/04/2018 Inactive cyanocobalamin (vit B-12) 1,000 mcg tablet RxNorm: 096490 1 Tablet(s) PO daily 08/08/2018 10/31/2019 Active cyanocobalamin (vit B-12) 1,000 mcg tablet RxNorm: 086380 1 Tablet(s) PO daily 08/08/2018 08/07/2018 Inactive levofloxacin 250 mg tablet RxNorm: 551750 1 Tablet(s) PO daily 06/04/2018 06/08/2018 Inactive levofloxacin 250 mg tablet RxNorm: 303022 1 Tablet(s) PO daily 06/04/2018 06/03/2018 Inactive lisinopril 10 mg tablet RxNorm: 961595 1 Tablet(s) PO daily 05/02/2019 Active Toprol XL 100 mg tablet,extended release RxNorm: 986246 1 Tablet(s) PO daily 05/08/2018 05/02/2019 Active atorvastatin 40 mg tablet RxNorm: 364714 1 Tablet(s) PO QHS No Stop Date Active gabapentin 300 mg capsule RxNorm: 512270 1 Capsule(s) PO TID 04/28/2019 Active levothyroxine 25 mcg tablet RxNorm: 136584 1 Tablet(s) PO daily 05/04/2018 04/28/2019 Active Toprol XL 100 mg tablet,extended release RxNorm: 087595 1 Tablet(s) PO daily 05/04/2018 05/07/2018 Inactive lisinopril 10 mg tablet RxNorm: 258288 1 Tablet(s) PO daily 05/07/2018 Inactive amlodipine 5 mg tablet RxNorm: 068695 1 Tablet(s) PO daily 03/31/2019 Active amlodipine 5 mg tablet RxNorm: 733132 1 Tablet(s) PO daily 07/201804/05/2018 Inactive tolterodine 2 mg tablet RxNorm: 690623 1 Tablet(s) PO QPM 03/1909/24/2018 Inactive nystatin 100,000 unit/gram topical cream RxNorm: 025598 1 Gram(s) TOP TID until healed et then PRN 01/09/2018 No Stop Date Active D/c powder escitalopram 10 mg tablet RxNorm: 251807 1 Tablet(s) PO QPM 07/31/2018 Inactive nystatin (bulk) 100 million unit powder RxNorm: 1 Miscellaneous QID 12/25/2017 01/08/2018 Inactive warfarin 2 mg tablet RxNorm: 341774 1 Tablet(s) PO daily 201701/02/2018 Inactive nystatin (bulk) 100 million unit powder RxNorm: 1 Miscellaneous QID 12/25/2017 12/24/2017 Inactive sitagliptin 50 mg tablet RxNorm: 494365 1 Tablet(s) PO daily 02/07/2018 Inactive tolterodine 1 mg tablet RxNorm: 542810 1 Tablet(s) PO BID 12/1903/18/2018 Inactive warfarin 3 mg tablet RxNorm: 803109 1 Tablet(s) PO UD MWF, 2mg T/Th/Sat/Sun 12/15/2017 01/02/2018 Inactive ciprofloxacin 250 mg tablet RxNorm: 107475 1 Tablet(s) PO BID 12/05/2017 12/09/2017 Inactive multivitamin oral RxNorm: 46593 oral No Start Date Active Xanax 0.25 mg tablet RxNorm: 695810 1 Tablet(s) PO daily as needed No Start Date Active Restasis MultiDose 0.05 % eye drops RxNorm: 544420 1 Drop(s) both ophthalmic (eye ) BID No Start Date Active hydrocodone 5 mg-acetaminophen 325 mg tablet RxNorm: 698452 1 Tablet(s) PO Q6 as needed No Start Date Active Oyster Calcium 375 mg-200 unit-800 unit tablet RxNorm: 2 Tablet(s) PO daily No Start Date Active cyanocobalamin (vit B-12) 1,000 mcg tablet RxNorm: 677892 1 Tablet(s) PO daily No Start Date Active aspirin 81 mg tablet RxNorm: 361655 1 Tablet(s) PO daily No Start Date Active lisinopril 10 mg tablet RxNorm: 056118 1 Tablet(s) PO daily No Start Date 05/03/2018 Inactive levothyroxine 25 mcg tablet RxNorm: 115287 1 Tablet(s) PO daily No Start Date 05/03/2018 Inactive warfarin 2 mg tablet RxNorm: 458518 1 Tablet(s) PO daily No Start Date 12/24/2017 Inactive tolterodine 1 mg tablet RxNorm: 340134 1 Tablet(s) PO BID No Start Date 12/18/2017 Inactive nystatin 100,000 unit/gram topical cream RxNorm: 297361 1 Gram(s) TOP TID until healed et then PRN No Start Date 2017 Inactive omeprazole 10 mg capsule,delayed release RxNorm: 170919 1 Capsule(s) PO daily No Start Date 09/05/2018 Inactive Toprol XL 100 mg tablet,extended release RxNorm: 514728 1 Tablet(s) PO daily No Start Date 05/03/2018 Inactive gabapentin 300 mg capsule RxNorm: 542747 1 Capsule(s) PO TID No Start Date 05/03/2018 Inactive atorvastatin 40 mg tablet RxNorm: 037599 1 Tablet(s) PO QHS No Start Date 05/03/2018 Inactive clopidogrel 75 mg tablet RxNorm: 049735 1 Tablet(s) PO daily No Start Date 10/25/2018 Inactive amlodipine 5 mg tablet RxNorm: 517073 1 Tablet(s) PO daily No Start Date 03/27/2018 Inactive sitagliptin 50 mg tablet RxNorm: 093709 1 Tablet(s) PO daily No Start Date 12/18/2017 Inactive Medication Administered No Medication Administered data Immunizations Vaccine Codes Date Status Influenza CVX: 141 07/18/2018 completed Assessments Condition Codes Effective Dates Type 2 diabetes mellitus without complications ICD-10: E11.9 ICD-9: 250.00 09/25/2018 Chronic kidney disease, stage 3 (moderate) ICD-10: N18.3 ICD-9: 585.3 09/25/2018 Atrophy of thyroid (acquired) ICD-10: E03.4 ICD-9: 244.8 09/25/2018 Essential (primary) hypertension ICD-10: I10 ICD-9: 401.1 09/25/2018 Encounter for immunization ICD-10: Z23 ICD-9: V04.81 07/18/2018 Urgency of urination ICD-10: R39.15 ICD-9: 788.63 03/19/2018 Urinary tract infection, site not specified ICD-10: N39.0 ICD-9: 599.0 02/08/2018 Orthostatic hypotension ICD-10: I95.1 ICD-9: 458.0 02/08/2018 Other specified hypothyroidism ICD-10: E03.8 ICD-9: 244.8 12/08/2017 lobsterman (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 anticoagulants ICD-10: Z79.01 ICD-9: V58.61 12/08/2017 Reason For Visit Reason For Visit Effective Dates Notes hypertension 09/25/2018 vaccination against influenza 07/18/2018 hypertension 03/19/2018 Hospital Follow Up 02/08/2018 hypertension 01/03/2018 Hospital Follow Up 12/08/2017 Results Observation Observation Code Item Item Code Result Date Lipid Ord30 CHOL 89 mg/dL 09/28/2018 Lipid Ord30 HDL 33.0 mg/dl 09/28/2018 Lipid Ord30 TRIG 78 mg/dL 09/28/2018 Lipid Ord30 LDL 40 mg/dL 09/28/2018 Lipid Ord30 C/HDL 2.7 Ratio 09/28/2018 Tsh Ord6 TSH (3rd IS) 0.80 uIU/mL 09/28/2018 Comp Metabolic Glo729 NA 142 mEq/L 09/28/2018 Comp Metabolic Zrs963 K 4.2 mEq/L 09/28/2018 Comp Metabolic Lfy857 CL 107 mEq/L 09/28/2018 Comp Metabolic Jnj831 CO2 30.0 mEq/L 09/28/2018 Comp Metabolic Gmd311 ANION GAP 9 09/28/2018 Comp Metabolic Sjo406 GLUCOSE 117 mg/dL 09/28/2018 Comp Metabolic Cnu834 Creat 1.2 mg/dL 09/28/2018 Comp Metabolic Tru421 eGFR 47 ml/min/1.73m2 09/28/2018 Comp Metabolic Dnc905 BUN 19 mg/dL 09/28/2018 Comp Metabolic Gfd861 B/C Ratio 16.5 Ratio 09/28/2018 Comp Metabolic Qdk215 CALCIUM 8.6 mg/dL 09/28/2018 Comp Metabolic Hwh648 ALK PHOS 101 U/L 09/28/2018 Comp Metabolic Tht599 AST(SGOT) 16 U/L 09/28/2018 Comp Metabolic Qjc778 ALT(SGPT) 13 U/L 09/28/2018 Comp Metabolic Ocs987 BILI T 0.4 mg/dL 09/28/2018 Comp Metabolic Xnd876 ALBUMIN 3.4 g/dL 09/28/2018 Comp Metabolic Vxs227 TPRO 6.1 g/dL 09/28/2018 Comp Metabolic Bds887 GLOB 2.7 g/dL 09/28/2018 Comp Metabolic Kzq620 A/G Ratio 1.3 Ratio 09/28/2018 Comp Metabolic Vmf766 Osmo 286 mOsmo 09/28/2018 %Hba1C Vte928 % HbA1c 13807-5 6.6 % 09/28/2018 %Hba1C Lhq420 Gluc Ave 143 mg/dL 09/28/2018 Cbc With Differential Ord2 WBC 5.94 K/ul [...] 28.6 pg 09/28/2018 Cbc With Differential Ord2 [place]% 8.2 % 09/28/2018 Cbc With Differential Ord2 Eos% 2.4 % 09/28/2018 Cbc With Differential Ord2 MCHC 31.5 pg 09/28/2018 Cbc With Differential Ord2 PLT 191 K/ul 09/28/2018 Cbc With Differential Ord2 Baso% 0.3 % 09/28/2018 Cbc With Differential Ord2 RDW 14.9 % 09/28/2018 Cbc With Differential Ord2 Neut ABS# 3.36 K/ul 09/28/2018 Cbc With Differential Ord2 Lymph ABS# 1.93 K/ul 09/28/2018 Cbc With Differential Ord2 [place] ABS# 0.5 K/ul 09/28/2018 Cbc With Differential Ord2 Eos ABS# 0.1 K/ul 09/28/2018 Cbc With Differential Ord2 Baso ABS# 0.0 K/ul 09/28/2018 Pt Czq1437 PT 17.8 seconds 12/15/2017 Pt Iby2670 INR 1.5 12/15/2017 Pt Ycm0338 Low Intensity - 1.5-2.0 12/15/2017 Pt Axy9390 Mod intensity - 2.0-3.0 12/15/2017 Pt Hif9525 Hi intensity - 3.0-4.0 12/15/2017 Urinalysis Ord28 [...] hours from collection if refrigerated) 12/12/2017 Pt Vzz5484 PT 15.2 seconds 12/11/2017 Pt Esl8090 INR 1.2 12/11/2017 Pt Gow5494 Low Intensity - 1.5-2.0 12/11/2017 Pt Gym2455 Mod intensity - 2.0-3.0 12/11/2017 Pt Uii8311 Hi intensity - 3.0-4.0 12/11/2017 Pt Dsr1935 PT 14.7 seconds 12/08/2017 Pt Qnm3619 INR 1.2 12/08/2017 Pt Xxk2313 Low Intensity - 1.5-2.0 12/08/2017 Pt Txq9894 Mod intensity - 2.0-3.0 12/08/2017 Pt Bzp2885 Hi intensity - 3.0-4.0 12/08/2017 Review of [...] 1994 Eyes conjunctiva /eyelids Overall: cornea clear 09/25/2018 None Full Exam - General 1994 Eyes conjunctiva /eyelids Overall: eyelids normal 09/25/2018 None Full Exam - General 1994 Eyes pupils and irises Overall: pupils equal, round, reactive to light and accomodation 09/25/2018 None Full Exam - General 1995 Ears/Nose/Throat otoscopic exam Overall: external auditory canals clear 09/25/2018 None Full Exam - General 1995 Ears/Nose/Throat otoscopic exam Overall: tympanic membranes clear 09/25/2018 None Full Exam - General 1995 Ears/Nose/Throat lips/teeth/gingiva Overall: benign lips 09/25/2018 None [...] FLU VACC PRSV FREE INC ANTIG CPT-4: 20485 07/18/2018 Vital Signs Date Vital 09/25/2018 Blood Pressure 1: 140/70 Code : 8480-6 BMI: 30.9 Code : 66216-1 Heart Rate 1 : 67 bpm Height: 4'11" SpO2: 91% Weight: 153 lbs 03/19/2018 Blood Pressure 1: 140/58 Code : 8480-6 BMI: 28.5 Code : 69687-6 Heart Rate 1 : 59 bpm Height: 4'11" SpO2: 98% Weight: 141 lbs 02/08/2018 Blood Pressure 1: 130/68 Code : 8480-6 BMI: 28.5 Code : 46644-0 Heart Rate 1 : 73 bpm Height: 4'11" SpO2: 98% Weight: 141 lbs 01/03/2018 Blood Pressure 1: 116/64 Code : 8480-6 BMI: 27.7 Code : 68102-6 Heart Rate 1 : 68 bpm Height: 4'11" SpO2: 98% Weight: 137 lbs 12/08/2017 Blood Pressure 1: 122/74 Code : 8480-6 Heart Rate 1: 79 bpm Height: 4'11" SpO2: 97% Weight: Functional Status No Functional Status data History of Present Illness Symptom Name Status Result Effective Date Notes Quality primary hypertension 09/25/2018 None Onset and [...] data Encounters Encounter Performer Location Codes Date ([id number]) [id number] EST. PATIENT, LEVEL IV Diagnosis: Essential (primary) hypertension[ICD10: I10] Diagnosis: Chronic kidney disease, stage 3 (moderate)[ICD10: N18.3] Diagnosis: Atrophy of thyroid (acquired)[ICD10: E03.4] Diagnosis: Type 2 diabetes mellitus without complications[ICD10: E11.9] Jossie Booker MD, [facility] CPT-4: 71256 09/25/[id number]) [id number] EST. PATIENT, LEVEL IV Diagnosis: Type 2 diabetes mellitus without complications[ICD10: E11.9] Diagnosis: Atrophy of thyroid (acquired)[ICD10: E03.4] Diagnosis: Essential (primary) hypertension[ICD10: I10] Diagnosis: Urgency of urination[ICD10: R39.15] Jossie Booker MD, [facility] CPT-4: 79532 03/19/2018 ([id number]) [id number] EST. PATIENT, LEVEL IV Diagnosis: Orthostatic hypotension[ICD10: I95.1] Diagnosis: Urinary tract infection, site not specified[ICD10: N39.0] Diagnosis: Type 2 diabetes mellitus without complications[ICD10: E11.9] Armida Booker MD, [facility] CPT-4: 64185 02/08/2018 ([id number]) [id number] EST. PATIENT, LEVEL IV Diagnosis: Type 2 diabetes mellitus without complications[ICD10: E11.9] Diagnosis: Essential (primary) hypertension[ICD10: I10] Diagnosis: Atrophy of thyroid (acquired)[ICD10: E03.4] Jossie Booker MD, [facility] CPT-4: 47039 01/03/2018 ([id number]) [id number] EST. 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] Diagnosis: Type 2 diabetes mellitus without complications[ICD10: E11.9] Diagnosis: Chronic kidney disease, stage 3 (moderate)[ICD10: N18.3] Diagnosis: lobsterman (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 anticoagulants[ICD10: Z79.01] [facility] CPT-4: 58622 12/08/2017 Plan of Care Planned Activity Notes Codes Status Date Visit Plan: Hypertension - well controlled - [...] of control. 09/25/2018 Appointment: [facility] (15 min) Moderate 09/25/2018 Patient Education: Patient Medication Summary Completed 09/25/2018 Patient Education: Diabetes Completed 09/25/2018 Care Plan: Comp Metabolic Pending 09/25/2018 Care Plan: Cbc With Differential Pending 09/25/2018 Care Plan: %Hba1C LOINC : 14698-0 Pending 09/25/2018 Care Plan: Lipid Pending 09/25/2018 [...] of control. 03/19/2018 Appointment: Jossie Booker WPtel: [phone] [facility] [place] (15 min) Moderate 03/19/2018 Patient Education: Patient Medication Summary Completed 03/19/2018 Visit Plan: Juiakcsvpzk-hllcgaee-gdtytep blood pressures DM -okay to stay off januvia-monitor blood sugars and call if they become elevated UTI-finished treatment 02/08/2018 App[facility]ment: [phone] [phone] [place] (15 min) Moderate 02/08/2018 Patient Education: [...] to pharmacy. 01/03/2018 Appointment: Jossie Booker WPtel: [phone] [facility] (15 min) Moderate 01/03/2018 Patient Education: Patient [...] of control. 12/08/2017 Appointment: Annika Nguyen WPtel: [phone] [facility] New Patient 12/08/2017 Patient Education: Patient Medication [...] months based on previous levels of control. SIGN A RELEASE SO WE CAN GET YOUR RECORDS FROM [facility] . Fuearqhpuue-buofjazx-uwqofnd blood pressures DM-okay to stay off januvia-monitor [...]
--- OUTSIDE RECORDS SUMMARY | 2018-11-11 19:29 | XMS REPORT | CCD ---
Author Author [facility] Address [address] [place] [address] Phone Care Team Providers Care Warehouse Shipping Associate Name Role Phone PP Unavailable CCM Unavailable Summary Purpose Interface Exchange Insurance Providers Payer name Policy type / Coverage type Covered republican ID Effective Begin Date Effective End Date HUMA[employer] CLAIMS Commercial Insurance [id number] 2017 Unknown Family History Family History data not found Social History Social History Element Codes Description Effective Dates Marital status Unknown [place] 12/08/2017 Number of children Unknown 2 12/08/2017 Employment Unknown Retired 12/08/[address]: 414972484 Never smoker 12/08/[address]: 129400231 Never drinks alcohol 12/08/2017 Allergies, Adverse Reactions, Alerts Substance Reaction Codes Entered Date Inactivated Date Status * NO KNOWN DRUG ALLERGIES Unknown 01/03/2018 No Inactive Date Active Past Medical History Illness Codes Condition Status Onset Date Resolved Date Atrophy of thyroid (acquired) ICD-9: 244.8 ICD-10: [...] ICD-9: 244.9 ICD-10: E03.9 Active 12/08/2017 Unknown 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 anticoagulants ICD-9: V58.61 ICD-10: Z79.01 Active 12/08/2017 Unknown Problems Condition Codes Effective Dates Condition Status Atrophy of thyroid (acquired) ICD-9: 244.8 ICD-10: [...] unspecified ICD-9: 244.9 ICD-10: E03.9 12/08/2017 Active 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 anticoagulants ICD-9: V58.61 ICD-10: Z79.01 12/08/2017 Active Medications Medication Codes Instructions Start Date Stop Date Status Fill Instructions clopidogrel 75 mg tablet RxNorm: 445981 1 Tablet(s) PO daily 10/24/2019 Active clopidogrel 75 mg tablet RxNorm: 961675 1 Tablet(s) PO daily 10/29/2018 Inactive omeprazole 10 mg capsule,delayed release RxNorm: 009126 1 Capsule(s) PO daily 10/05/2018 12/28/2019 Active escitalopram 10 mg tablet RxNorm: 602902 TAKE 1 TABLET BY MOUTH ONCE DAILY IN THE EVENING 09/06/2018 No Stop Date Active omeprazole 10 mg capsule,delayed release RxNorm: 707143 1 Capsule(s) PO daily 09/06/2018 10/04/2018 Inactive cyanocobalamin (vit B-12) 1,000 mcg tablet RxNorm: 090246 1 Tablet(s) PO daily 08/08/2018 10/31/2019 Active cyanocobalamin (vit B-12) 1,000 mcg tablet RxNorm: 683065 1 Tablet(s) PO daily 08/08/2018 08/07/2018 Inactive levofloxacin 250 mg tablet RxNorm: 796252 1 Tablet(s) PO daily 06/04/2018 06/08/2018 Inactive levofloxacin 250 mg tablet RxNorm: 186197 1 Tablet(s) PO daily 06/04/2018 06/03/2018 Inactive lisinopril 10 mg tablet RxNorm: 663794 1 Tablet(s) PO daily 05/02/2019 Active Toprol XL 100 mg tablet,extended release RxNorm: 086461 1 Tablet(s) PO daily 05/08/2018 05/02/2019 Active atorvastatin 40 mg tablet RxNorm: 209936 1 Tablet(s) PO QHS No Stop Date Active gabapentin 300 mg capsule RxNorm: 531374 1 Capsule(s) PO TID 04/28/2019 Active levothyroxine 25 mcg tablet RxNorm: 957416 1 Tablet(s) PO daily 05/04/2018 04/28/2019 Active Toprol XL 100 mg tablet,extended release RxNorm: 798641 1 Tablet(s) PO daily 05/04/2018 05/07/2018 Inactive lisinopril 10 mg tablet RxNorm: 555975 1 Tablet(s) PO daily 05/07/2018 Inactive amlodipine 5 mg tablet RxNorm: 439219 1 Tablet(s) PO daily 03/31/2019 Active amlodipine 5 mg tablet RxNorm: 076939 1 Tablet(s) PO daily 07/201804/05/2018 Inactive tolterodine 2 mg tablet RxNorm: 758027 1 Tablet(s) PO QPM 03/1909/24/2018 Inactive nystatin 100,000 unit/gram topical cream RxNorm: 408730 1 Gram(s) TOP TID until healed et then PRN 01/09/2018 No Stop Date Active D/c powder escitalopram 10 mg tablet RxNorm: 050550 1 Tablet(s) PO QPM 07/31/2018 Inactive nystatin (bulk) 100 million unit powder RxNorm: 1 Miscellaneous QID 12/25/2017 01/08/2018 Inactive warfarin 2 mg tablet RxNorm: 492522 1 Tablet(s) PO daily 201701/02/2018 Inactive nystatin (bulk) 100 million unit powder RxNorm: 1 Miscellaneous QID 12/25/2017 12/24/2017 Inactive sitagliptin 50 mg tablet RxNorm: 569927 1 Tablet(s) PO daily 02/07/2018 Inactive tolterodine 1 mg tablet RxNorm: 314749 1 Tablet(s) PO BID 12/1903/18/2018 Inactive warfarin 3 mg tablet RxNorm: 698142 1 Tablet(s) PO UD MWF, 2mg //Sat/Sun 12/15/2017 01/02/2018 Inactive ciprofloxacin 250 mg tablet RxNorm: 789799 1 Tablet(s) PO BID 12/05/2017 12/09/2017 Inactive multivitamin oral RxNorm: 80308 oral No Start Date Active Xanax 0.25 mg tablet RxNorm: 998307 1 Tablet(s) PO daily as needed No Start Date Active Restasis MultiDose 0.05 % eye drops RxNorm: 940003 1 Drop(s) both ophthalmic (eye ) BID No Start Date Active hydrocodone 5 mg-acetaminophen 325 mg tablet RxNorm: 849842 1 Tablet(s) PO Q6 as needed No Start Date Active Oyster Calcium 375 mg-200 unit-800 unit tablet RxNorm: 2 Tablet(s) PO daily No Start Date Active cyanocobalamin (vit B-12) 1,000 mcg tablet RxNorm: 357228 1 Tablet(s) PO daily No Start Date Active aspirin 81 mg tablet RxNorm: 883626 1 Tablet(s) PO daily No Start Date Active lisinopril 10 mg tablet RxNorm: 413476 1 Tablet(s) PO daily No Start Date 05/03/2018 Inactive levothyroxine 25 mcg tablet RxNorm: 210306 1 Tablet(s) PO daily No Start Date 05/03/2018 Inactive warfarin 2 mg tablet RxNorm: 595523 1 Tablet(s) PO daily No Start Date 12/24/2017 Inactive tolterodine 1 mg tablet RxNorm: 069005 1 Tablet(s) PO BID No Start Date 12/18/2017 Inactive nystatin 100,000 unit/gram topical cream RxNorm: 799257 1 Gram(s) TOP TID until healed et then PRN No Start Date 2017 Inactive omeprazole 10 mg capsule,delayed release RxNorm: 136885 1 Capsule(s) PO daily No Start Date 09/05/2018 Inactive Toprol XL 100 mg tablet,extended release RxNorm: 127541 1 Tablet(s) PO daily No Start Date 05/03/2018 Inactive gabapentin 300 mg capsule RxNorm: 054301 1 Capsule(s) PO TID No Start Date 05/03/2018 Inactive atorvastatin 40 mg tablet RxNorm: 639940 1 Tablet(s) PO QHS No Start Date 05/03/2018 Inactive clopidogrel 75 mg tablet RxNorm: 405078 1 Tablet(s) PO daily No Start Date 10/25/2018 Inactive amlodipine 5 mg tablet RxNorm: 551643 1 Tablet(s) PO daily No Start Date 03/27/2018 Inactive sitagliptin 50 mg tablet RxNorm: 723993 1 Tablet(s) PO daily No Start Date [...] not specified ICD-10: N39.0 ICD-9: 599.0 02/08/2018 half-way (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 anticoagulants ICD-10: Z79.01 ICD-9: V58.61 12/08/2017 Other specified hypothyroidism ICD-10: E03.8 ICD-9: 244.8 12/08/2017 Reason For Visit Reason For Visit Effective Dates Notes hypertension 09/25/2018 vaccination against influenza 07/18/2018 hypertension 03/19/2018 Hospital Follow Up 02/08/2018 hypertension 01/03/2018 Hospital Follow Up 12/08/2017 Results Observation Observation Code Item Item Code Result Date Tsh Ord6 TSH (3rd IS) 0.80 uIU/mL 09/28/2018 Lipid Ord30 CHOL 89 mg/dL 09/28/2018 Lipid Ord30 HDL 33.0 mg/dl 09/28/2018 Lipid Ord30 TRIG 78 mg/dL 09/28/2018 Lipid Ord30 LDL 40 mg/dL 09/28/2018 Lipid Ord30 C/HDL 2.7 Ratio 09/28/2018 Comp Metabolic Vkn821 NA 142 mEq/L 09/28/2018 Comp Metabolic Ogb834 K 4.2 mEq/L 09/28/2018 Comp Metabolic Nat540 CL 107 mEq/L 09/28/2018 Comp Metabolic Kti744 CO2 30.0 mEq/L 09/28/2018 Comp Metabolic Gjp742 ANION GAP 9 09/28/2018 Comp Metabolic Bju507 GLUCOSE 117 mg/dL 09/28/2018 Comp Metabolic Jwf818 Creat 1.2 mg/dL 09/28/2018 Comp Metabolic Ekq420 eGFR 47 ml/min/1.73m2 09/28/2018 Comp Metabolic Zjl157 BUN 19 mg/dL 09/28/2018 Comp Metabolic Amj964 B/C Ratio 16.5 Ratio 09/28/2018 Comp Metabolic Euf772 CALCIUM 8.6 mg/dL 09/28/2018 Comp Metabolic Afg778 ALK PHOS 101 U/L 09/28/2018 Comp Metabolic Zxc732 AST(SGOT) 16 U/L 09/28/2018 Comp Metabolic Xjv221 ALT(SGPT) 13 U/L 09/28/2018 Comp Metabolic Ybe365 BILI T 0.4 mg/dL 09/28/2018 Comp Metabolic Fhx652 ALBUMIN 3.4 g/dL 09/28/2018 Comp Metabolic Dgw438 TPRO 6.1 g/dL 09/28/2018 Comp Metabolic Zhy394 GLOB 2.7 g/dL 09/28/2018 Comp Metabolic Fpc523 A/G Ratio 1.3 Ratio 09/28/2018 Comp Metabolic Ipp776 Osmo 286 mOsmo 09/28/2018 %Hba1C Ana260 % HbA1c 17330-3 6.6 % 09/28/2018 %Hba1C Nlr779 Gluc Ave 143 mg/dL 09/28/2018 Cbc With [...] 28.6 pg 09/28/2018 Cbc With Differential Ord2 Miner% 8.2 % 09/28/2018 Cbc With Differential Ord2 [...] 1.93 K/ul 09/28/2018 Cbc With Differential Ord2 Miner ABS# 0.5 K/ul 09/28/2018 Cbc With Differential Ord2 Eos ABS# 0.1 K/ul 09/28/2018 Cbc With Differential Ord2 Baso ABS# 0.0 K/ul 09/28/2018 Pt Etq8588 PT 17.8 seconds 12/15/2017 Pt Bvz1552 INR 1.5 12/15/2017 Pt Aca7765 Low Intensity - 1.5-2.0 12/15/2017 Pt Ull4567 Mod intensity - 2.0-3.0 12/15/2017 Pt Xun9081 Hi intensity - 3.0-4.0 12/15/2017 Urinalysis Ord28 [...] hours from collection if refrigerated) 12/12/2017 Pt Qsv2541 PT 15.2 seconds 12/11/2017 Pt Jau7593 INR 1.2 12/11/2017 Pt Ypy2508 Low Intensity - 1.5-2.0 12/11/2017 Pt Okx8958 Mod intensity - 2.0-3.0 12/11/2017 Pt Ylz9643 Hi intensity - 3.0-4.0 12/11/2017 Pt Lib2046 PT 14.7 seconds 12/08/2017 Pt Vbn8642 INR 1.2 12/08/2017 Pt Xza3044 Low Intensity - 1.5-2.0 12/08/2017 Pt Nwv9558 Mod intensity - 2.0-3.0 12/08/2017 Pt Gvo9456 Hi intensity - 3.0-4.0 12/08/2017 Review of [...] FLU VACC PRSV FREE INC ANTIG CPT-4: 59695 07/18/2018 Vital Signs Date Vital 09/25/2018 Blood Pressure 1: 140/70 Code : 8480-6 BMI: 30.9 Code : 15594-4 Heart Rate 1 : 67 bpm Height: 4'11" SpO2: 91% Weight: 153 lbs 03/19/2018 Blood Pressure 1: 140/58 Code : 8480-6 BMI: 28.5 Code : 10221-9 Heart Rate 1 : 59 bpm Height: 4'11" SpO2: 98% Weight: 141 lbs 02/08/2018 Blood Pressure 1: 130/68 Code : 8480-6 BMI: 28.5 Code : 44018-8 Heart Rate 1 : 73 bpm Height: 4'11" SpO2: 98% Weight: 141 lbs 01/03/2018 Blood Pressure 1: 116/64 Code : 8480-6 BMI: 27.7 Code : 62750-6 Heart Rate 1 : 68 bpm Height: [...] Hospital Follow Up _ Other: hip fracture 3/16 12/08/2017 None Hospital Follow Up Onset of Symptom 1 weeks ago 12/08/2017 None Hospital Follow Up Onset and Resolution sudden in onset 12/08/2017 None Hospital Follow Up Significant Medical Conditions trauma 12/08/2017 None Hospital Follow Up Mechanism of injury fall 12/08/2017 None Advance Directives No Advance Directive data Encounters Encounter Performer Location Codes Date ([id number]) [id number] EST. PATIENT, LEVEL IV Diagnosis: Essential (primary) hypertension[ICD10: I10] Diagnosis: Chronic kidney disease, stage 3 (moderate)[ICD10: N18.3] Diagnosis: Atrophy of thyroid (acquired)[ICD10: E03.4] Diagnosis: Type 2 diabetes mellitus without complications[ICD10: E11.9] Jossie Booker MD, [facility] CPT-4: 91698 09/25/2018 ([id number]) [id number] EST. PATIENT, LEVEL IV Diagnosis: Type 2 diabetes mellitus without complications[ICD10: E11.9] Diagnosis: Atrophy of thyroid (acquired)[ICD10: E03.4] Diagnosis: Essential (primary) hypertension[ICD10: I10] Diagnosis: Urgency of urination[ICD10: R39.15] Jossie Booker MD, [facility] CPT-4: 07949 03/19/2018 ([id number]) [id number] EST. PATIENT, LEVEL IV Diagnosis: Orthostatic hypotension[ICD10: I95.1] Diagnosis: Urinary tract infection, site not specified[ICD10: N39.0] Diagnosis: Type 2 diabetes mellitus without complications[ICD10: E11.9] Armida Booker MD, [facility] CPT-4: 56909 02/08/2018 ([id number]) [id number] EST. PATIENT, LEVEL IV Diagnosis: Type 2 diabetes mellitus without complications[ICD10: E11.9] Diagnosis: Essential (primary) hypertension[ICD10: I10] Diagnosis: Atrophy of thyroid (acquired)[ICD10: E03.4] Jossie Booker MD, [facility] CPT-4: 88841 01/03/2018 ([id number]) [id number] EST. 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] Diagnosis: Type 2 diabetes mellitus without complications[ICD10: E11.9] Diagnosis: Chronic kidney disease, stage 3 (moderate)[ICD10: N18.3] Diagnosis: half-way (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 anticoagulants[ICD10: Z79.01] [facility] CPT-4: 91593 12/08/2017 Plan of Care Planned Activity Notes [...] of control. 09/25/2018 Appointment: Jossie Booker WPtel: [address] [place], [place] [id number] (15 min) Moderate 09/25/2018 Patient Education: Patient Medication Summary Completed 09/25/2018 Patient Education: Diabetes Completed 09/25/2018 Care Plan: Comp Metabolic Pending 09/25/2018 Care Plan: Cbc With Differential Pending 09/25/2018 Care Plan: %Hba1C LOINC : 30739-9 Pending 09/25/2018 Care Plan: Lipid Pending 09/25/2018 [...] of control. 03/19/2018 Appointment: Jossie Booker WPtel: [phone] [facility] (15 min) Moderate 03/19/2018 Patient Education: Patient Medication Summary Completed 03/19/2018 Visit Plan: Xlahrpleiah-mbznripj-zphebhi blood pressures DM -okay to stay off januvia-monitor blood sugars and call if they become elevated UTI-finished treatment 02/08/2018 Appointment: Armida Nicolas WPtel: [phone] (15 min) Moderate 02/08/2018 Patient Education: Patient [...] pharmacy. 01/03/2018 Appointment: [facility] Booker [facility] [phone] [facility] [place] (15 min) Moderate 01/03/2018 Patient Education: Patient [...] of control. 12/08/2017 Appointment: Annika Nguyen WPtel: [phone] [facility] New Patient 12/08/2017 Patient Education: Patient Medication [...] CAN GET YOUR RECORDS FROM [facility] . Wfxuffnrddq-lrsivnrk-lvimdli blood pressures DM-okay to stay off januvia-monitor [...]
--- OUTSIDE RECORDS SUMMARY | 2018-11-11 19:30 | XMS REPORT | CCD ---
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 Role Phone PP Unavailable CCM Unavailable Summary Purpose Interface Exchange Insurance Providers Payer name Policy type / Coverage type Covered green party ID Effective Begin Date Effective End Date [employer] CLAIMS Commercial Insurance [id number] 2017 Unknown Family History Family History data not found Social History Social History Element Codes Description Effective Dates Marital status Unknown [place] 12/08/2017 Number of children Unknown 2 12/08/2017 Employment Unknown Retired 12/08/[address]: 878539534 Never smoker 12/08/[address]: 934413765 Never drinks alcohol 12/08/2017 Allergies, Adverse Reactions, [...] ICD-9: 244.9 ICD-10: E03.9 Active 12/08/2017 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 ICD-9: V58.61 ICD-10: [...] unspecified ICD-9: 244.9 ICD-10: E03.9 12/08/2017 Active 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 ICD-9: V58.61 ICD-10: Z79.01 12/08/2017 Active Medications Medication Codes Instructions Start Date Stop Date Status Fill Instructions clopidogrel 75 mg tablet RxNorm: 155671 1 Tablet(s) PO daily 10/20/2019 Active omeprazole 10 mg capsule,delayed release RxNorm: 271711 1 Capsule(s) PO daily 10/05/2018 12/28/2019 Active escitalopram 10 mg tablet RxNorm: 891215 TAKE 1 TABLET BY MOUTH ONCE DAILY IN THE EVENING 09/06/2018 No Stop Date Active omeprazole 10 mg capsule,delayed release RxNorm: 154050 1 Capsule(s) PO daily 09/06/2018 10/04/2018 Inactive cyanocobalamin (vit B-12) 1,000 mcg tablet RxNorm: 013882 1 Tablet(s) PO daily 08/08/2018 10/31/2019 Active cyanocobalamin (vit B-12) 1,000 mcg tablet RxNorm: 221252 1 Tablet(s) PO daily 08/08/2018 08/07/2018 Inactive levofloxacin 250 mg tablet RxNorm: 294486 1 Tablet(s) PO daily 06/04/2018 06/08/2018 Inactive levofloxacin 250 mg tablet RxNorm: 306196 1 Tablet(s) PO daily 06/04/2018 06/03/2018 Inactive lisinopril 10 mg tablet RxNorm: 421897 1 Tablet(s) PO daily 05/02/2019 Active Toprol XL 100 mg tablet,extended release RxNorm: 713933 1 Tablet(s) PO daily 05/08/2018 05/02/2019 Active atorvastatin 40 mg tablet RxNorm: 655839 1 Tablet(s) PO QHS No Stop Date Active gabapentin 300 mg capsule RxNorm: 578910 1 Capsule(s) PO TID 04/28/2019 Active levothyroxine 25 mcg tablet RxNorm: 922024 1 Tablet(s) PO daily 05/04/2018 04/28/2019 Active Toprol XL 100 mg tablet,extended release RxNorm: 562983 1 Tablet(s) PO daily 05/04/2018 05/07/2018 Inactive lisinopril 10 mg tablet RxNorm: 566840 1 Tablet(s) PO daily 05/07/2018 Inactive amlodipine 5 mg tablet RxNorm: 014810 1 Tablet(s) PO daily 03/31/2019 Active amlodipine 5 mg tablet RxNorm: 810847 1 Tablet(s) PO daily 07/201804/05/2018 Inactive tolterodine 2 mg tablet RxNorm: 475493 1 Tablet(s) PO QPM 03/1909/24/2018 Inactive nystatin 100,000 unit/gram topical cream RxNorm: 550596 1 Gram(s) TOP TID until healed et then PRN 01/09/2018 No Stop Date Active D/c powder escitalopram 10 mg tablet RxNorm: 485346 1 Tablet(s) PO QPM 07/31/2018 Inactive nystatin (bulk) 100 million unit powder RxNorm: 1 Miscellaneous QID 12/25/2017 01/08/2018 Inactive warfarin 2 mg tablet RxNorm: 128769 1 Tablet(s) PO daily 201701/02/2018 Inactive nystatin (bulk) 100 million unit powder RxNorm: 1 Miscellaneous QID 12/25/2017 12/24/2017 Inactive sitagliptin 50 mg tablet RxNorm: 458471 1 Tablet(s) PO daily 02/07/2018 Inactive tolterodine 1 mg tablet RxNorm: 153236 1 Tablet(s) PO BID 12/1903/18/2018 Inactive warfarin 3 mg tablet RxNorm: 442826 1 Tablet(s) PO UD MWF, 2mg T/Th/Sat/Sun 12/15/2017 01/02/2018 Inactive ciprofloxacin 250 mg tablet RxNorm: 205599 1 Tablet(s) PO BID 12/05/2017 12/09/2017 Inactive multivitamin oral RxNorm: 55087 oral No Start Date Active Xanax 0.25 mg tablet RxNorm: 772542 1 Tablet(s) PO daily as needed No Start Date Active Restasis MultiDose 0.05 % eye drops RxNorm: 144589 1 Drop(s) both ophthalmic (eye ) BID No Start Date Active hydrocodone 5 mg-acetaminophen 325 mg tablet RxNorm: 800672 1 Tablet(s) PO Q6 as needed No Start Date Active Oyster Calcium 375 mg-200 unit-800 unit tablet RxNorm: 2 Tablet(s) PO daily No Start Date Active cyanocobalamin (vit B-12) 1,000 mcg tablet RxNorm: 909546 1 Tablet(s) PO daily No Start Date Active aspirin 81 mg tablet RxNorm: 359428 1 Tablet(s) PO daily No Start Date Active lisinopril 10 mg tablet RxNorm: 612893 1 Tablet(s) PO daily No Start Date 05/03/2018 Inactive levothyroxine 25 mcg tablet RxNorm: 808442 1 Tablet(s) PO daily No Start Date 05/03/2018 Inactive warfarin 2 mg tablet RxNorm: 177356 1 Tablet(s) PO daily No Start Date 12/24/2017 Inactive tolterodine 1 mg tablet RxNorm: 537221 1 Tablet(s) PO BID No Start Date 12/18/2017 Inactive nystatin 100,000 unit/gram topical cream RxNorm: 987577 1 Gram(s) TOP TID until healed et then PRN No Start Date 2017 Inactive omeprazole 10 mg capsule,delayed release RxNorm: 038991 1 Capsule(s) PO daily No Start Date 09/05/2018 Inactive Toprol XL 100 mg tablet,extended release RxNorm: 678580 1 Tablet(s) PO daily No Start Date 05/03/2018 Inactive gabapentin 300 mg capsule RxNorm: 363388 1 Capsule(s) PO TID No Start Date 05/03/2018 Inactive atorvastatin 40 mg tablet RxNorm: 298441 1 Tablet(s) PO QHS No Start Date 05/03/2018 Inactive clopidogrel 75 mg tablet RxNorm: 166915 1 Tablet(s) PO daily No Start Date 10/25/2018 Inactive amlodipine 5 mg tablet RxNorm: 767539 1 Tablet(s) PO daily No Start Date 03/27/2018 Inactive sitagliptin 50 mg tablet RxNorm: 982035 1 Tablet(s) PO daily No Start Date [...] not specified ICD-10: N39.0 ICD-9: 599.0 02/08/2018 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 ICD-10: Z79.01 ICD-9: V58.61 12/08/2017 Other specified hypothyroidism ICD-10: E03.8 ICD-9: 244.8 12/08/2017 Reason For Visit Reason For Visit Effective Dates Notes hypertension 09/25/2018 vaccination against influenza 07/18/2018 hypertension 03/19/2018 Hospital Follow Up 02/08/2018 hypertension 01/03/2018 Hospital Follow Up 12/08/2017 Results Observation Observation Code Item Item Code Result Date Cbc With Differential Ord2 WBC 5.94 K/ul [...] 28.6 pg 09/28/2018 Cbc With Differential Ord2 Benzie% 8.2 % 09/28/2018 Cbc With Differential Ord2 [...] 1.93 K/ul 09/28/2018 Cbc With Differential Ord2 Benzie ABS# 0.5 K/ul 09/28/2018 Cbc With Differential Ord2 Eos ABS# 0.1 K/ul 09/28/2018 Cbc With Differential Ord2 Baso ABS# 0.0 K/ul 09/28/2018 %Hba1C Vtd151 % HbA1c 34759-0 6.6 % 09/28/2018 %Hba1C Hon124 Gluc Ave 143 mg/dL 09/28/2018 Comp Metabolic Ahi871 NA 142 mEq/L 09/28/2018 Comp Metabolic Fnk400 K 4.2 mEq/L 09/28/2018 Comp Metabolic Bua029 CL 107 mEq/L 09/28/2018 Comp Metabolic Ndp630 CO2 30.0 mEq/L 09/28/2018 Comp Metabolic Yzh077 ANION GAP 9 09/28/2018 Comp Metabolic Vnu797 GLUCOSE 117 mg/dL 09/28/2018 Comp Metabolic Nan076 Creat 1.2 mg/dL 09/28/2018 Comp Metabolic Ywm828 eGFR 47 ml/min/1.73m2 09/28/2018 Comp Metabolic Sst340 BUN 19 mg/dL 09/28/2018 Comp Metabolic Vnf914 B/C Ratio 16.5 Ratio 09/28/2018 Comp Metabolic Nhq127 CALCIUM 8.6 mg/dL 09/28/2018 Comp Metabolic Lrw543 ALK PHOS 101 U/L 09/28/2018 Comp Metabolic Obx967 AST(SGOT) 16 U/L 09/28/2018 Comp Metabolic Ebc389 ALT(SGPT) 13 U/L 09/28/2018 Comp Metabolic Pvr766 BILI T 0.4 mg/dL 09/28/2018 Comp Metabolic Kfh258 ALBUMIN 3.4 g/dL 09/28/2018 Comp Metabolic Ujt743 TPRO 6.1 g/dL 09/28/2018 Comp Metabolic Lrh604 GLOB 2.7 g/dL 09/28/2018 Comp Metabolic Awi769 A/G Ratio 1.3 Ratio 09/28/2018 Comp Metabolic Rfc983 Osmo 286 mOsmo 09/28/2018 Tsh Ord6 TSH (3rd IS) 0.80 uIU/mL 09/28/2018 Lipid Ord30 CHOL 89 mg/dL 09/28/2018 Lipid Ord30 HDL 33.0 mg/dl 09/28/2018 Lipid Ord30 TRIG 78 mg/dL 09/28/2018 Lipid Ord30 LDL 40 mg/dL 09/28/2018 Lipid Ord30 C/HDL 2.7 Ratio 09/28/2018 Pt Ued3322 PT 17.8 seconds 12/15/2017 Pt Hft7554 INR 1.5 12/15/2017 Pt Qth3671 Low Intensity - 1.5-2.0 12/15/2017 Pt Biy9355 Mod intensity - 2.0-3.0 12/15/2017 Pt Sjv0524 Hi intensity - 3.0-4.0 12/15/2017 Urinalysis Ord28 [...] hours from collection if refrigerated) 12/12/2017 Pt Avg5226 PT 15.2 seconds 12/11/2017 Pt Xrq8136 INR 1.2 12/11/2017 Pt Gns0302 Low Intensity - 1.5-2.0 12/11/2017 Pt Hfr8203 Mod intensity - 2.0-3.0 12/11/2017 Pt Gmi3251 Hi intensity - 3.0-4.0 12/11/2017 Pt Fea6998 PT 14.7 seconds 12/08/2017 Pt Fbf4921 INR 1.2 12/08/2017 Pt Ikx0340 Low Intensity - 1.5-2.0 12/08/2017 Pt Esk9101 Mod intensity - 2.0-3.0 12/08/2017 Pt Ogj2599 Hi intensity - 3.0-4.0 12/08/2017 Review of [...] FLU VACC PRSV FREE INC ANTIG CPT-4: 81018 07/18/2018 Vital Signs Date Vital 09/25/2018 Blood Pressure 1: 140/70 Code : 8480-6 BMI: 30.9 Code : 61985-1 Heart Rate 1 : 67 bpm Height: 4'11" SpO2: 91% Weight: 153 lbs 03/19/2018 Blood Pressure 1: 140/58 Code : 8480-6 BMI: 28.5 Code : 21751-3 Heart Rate 1 : 59 bpm Height: 4'11" SpO2: 98% Weight: 141 lbs 02/08/2018 Blood Pressure 1: 130/68 Code : 8480-6 BMI: 28.5 Code : 28361-4 Heart Rate 1 : 73 bpm Height: 4'11" SpO2: 98% Weight: 141 lbs 01/03/2018 Blood Pressure 1: 116/64 Code : 8480-6 BMI: 27.7 Code : 87072-4 Heart Rate 1 : 68 bpm Height: [...] data Encounters Encounter Performer Location Codes Date ([id number]) [id number] EST. PATIENT, LEVEL IV Diagnosis: Essential (primary) hypertension[ICD10: I10] Diagnosis: Chronic kidney disease, stage 3 (moderate)[ICD10: N18.3] Diagnosis: Atrophy of thyroid (acquired)[ICD10: E03.4] Diagnosis: Type 2 diabetes mellitus without complications[ICD10: E11.9] Jossie Booker MD, [facility] CPT-4: 24522 09/25/2018 ([id number]) [id number] EST. PATIENT, LEVEL IV Diagnosis: Type 2 diabetes mellitus without complications[ICD10: E11.9] Diagnosis: Atrophy of thyroid (acquired)[ICD10: E03.4] Diagnosis: Essential (primary) hypertension[ICD10: I10] Diagnosis: Urgency of urination[ICD10: R39.15] Jossie Booker MD, [facility] CPT-4: 07357 03/19/2018 ([id number]) [id number] EST. PATIENT, LEVEL IV Diagnosis: Orthostatic hypotension[ICD10: I95.1] Diagnosis: Urinary tract infection, site not specified[ICD10: N39.0] Diagnosis: Type 2 diabetes mellitus without complications[ICD10: E11.9] Armida Booker MD, [facility] CPT-4: 60136 02/08/2018 ([id number]) 91620 EST. PATIENT, LEVEL IV Diagnosis: Type 2 diabetes mellitus without complications[ICD10: E11.9] Diagnosis: Essential (primary) hypertension[ICD10: I10] Diagnosis: Atrophy of thyroid (acquired)[ICD10: E03.4] Jossie Booker MD, [facility] CPT-4: 90895 01/03/2018 ([id number]) 53979 EST. 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] Diagnosis: Type 2 diabetes mellitus without complications[ICD10: E11.9] Diagnosis: Chronic kidney disease, stage 3 (moderate)[ICD10: N18.3] Diagnosis: [facility] (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 anticoagulants[ICD10: Z79.01] Annika Booker MD, [facility] CPT-4: 01258 12/08/2017 Plan of Care Planned Activity Notes [...] of control. 09/25/2018 Appointment: Jossie Booker WPtel: [address] [place], [place] [phone] (15 min) Moderate 09/25/2018 Patient Education: Patient Medication Summary Completed 09/25/2018 Patient Education: Diabetes Completed 09/25/2018 Care Plan: Comp Metabolic Pending 09/25/2018 Care Plan: Cbc With Differential Pending 09/25/2018 Care Plan: %Hba1C LOINC : 42339-6 Pending 09/25/2018 Care Plan: Lipid Pending 09/25/2018 [...] of control. 03/19/2018 Appointment: Jossie Booker WPtel: [phone] [facility] [place] (15 min) Moderate 03/19/2018 Patient Education: Patient Medication Summary Completed 03/19/2018 Visit Plan: Zrndtfcilem-cppbefly-ffigkas blood pressures DM -okay to stay off januvia-monitor blood sugars and call if they become elevated UTI-finished treatment 02/08/2018 Appointment: Armida Nicolas WPtel: [phone] [phone] [place] (15 min) Moderate 02/08/2018 Patient Education: [...] pharmacy. 01/03/2018 Appointment: Jossie Booker WPtel: [phone] [facility] [place] (15 min) Moderate 01/03/2018 Patient Education: Patient [...] control. 12/08/2017 [facility] [phone] [phone] [place] New [facility] 12/08/2017 Patient Education: Patient Medication [...] CAN GET YOUR RECORDS FROM [facility] . Ykfmqdjwkig-lxamutrf-syqieox blood pressures DM-okay to stay off januvia-monitor [...]
--- OUTSIDE RECORDS SUMMARY | 2018-11-11 19:31 | XMS REPORT | CCD ---
Author Author [facility] Address [address] [place] [address] Phone Care Team Providers Care Dentist Private Practice Name Role Phone PP Unavailable CCM Unavailable Summary Purpose Interface Exchange Insurance Providers Payer name Policy type / Coverage type Covered democrat ID Effective Begin Date Effective End Date HUMANA CLAIMS Commercial Insurance [id number] 2017 Unknown Family History Family History data not found Social History Social History Element Codes Description Effective Dates Marital status Unknown [place] 12/08/2017 Number of children Unknown 2 12/08/2017 Employment Unknown Retired 12/08/[address]: 766837820 Never smoker 12/08/[address]: 694870160 Never drinks alcohol 12/08/2017 Allergies, Adverse Reactions, [...] ICD-9: 244.9 ICD-10: E03.9 Active 12/08/2017 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 ICD-9: V58.61 ICD-10: [...] unspecified ICD-9: 244.9 ICD-10: E03.9 12/08/2017 Active 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 ICD-9: V58.61 ICD-10: Z79.01 12/08/2017 Active Medications Medication Codes Instructions Start Date Stop Date Status Fill Instructions omeprazole 10 mg capsule,delayed release RxNorm: 703130 1 Capsule(s) PO daily 10/05/2018 12/28/2019 Active escitalopram 10 mg tablet RxNorm: 737486 TAKE 1 TABLET BY MOUTH ONCE DAILY IN THE EVENING 09/06/2018 No Stop Date Active omeprazole 10 mg capsule,delayed release RxNorm: 579017 1 Capsule(s) PO daily 09/06/2018 10/04/2018 Inactive cyanocobalamin (vit B-12) 1,000 mcg tablet RxNorm: 817414 1 Tablet(s) PO daily 08/08/2018 10/31/2019 Active cyanocobalamin (vit B-12) 1,000 mcg tablet RxNorm: 561465 1 Tablet(s) PO daily 08/08/2018 08/07/2018 Inactive levofloxacin 250 mg tablet RxNorm: 835048 1 Tablet(s) PO daily 06/04/2018 06/08/2018 Inactive levofloxacin 250 mg tablet RxNorm: 735203 1 Tablet(s) PO daily 06/04/2018 06/03/2018 Inactive lisinopril 10 mg tablet RxNorm: 389470 1 Tablet(s) PO daily 05/02/2019 Active Toprol XL 100 mg tablet,extended release RxNorm: 940628 1 Tablet(s) PO daily 05/08/2018 05/02/2019 Active atorvastatin 40 mg tablet RxNorm: 860257 1 Tablet(s) PO QHS No Stop Date Active gabapentin 300 mg capsule RxNorm: 969659 1 Capsule(s) PO TID 04/28/2019 Active levothyroxine 25 mcg tablet RxNorm: 373741 1 Tablet(s) PO daily 05/04/2018 04/28/2019 Active Toprol XL 100 mg tablet,extended release RxNorm: 333439 1 Tablet(s) PO daily 05/04/2018 05/07/2018 Inactive lisinopril 10 mg tablet RxNorm: 896812 1 Tablet(s) PO daily 05/07/2018 Inactive amlodipine 5 mg tablet RxNorm: 465981 1 Tablet(s) PO daily 03/31/2019 Active amlodipine 5 mg tablet RxNorm: 566540 1 Tablet(s) PO daily 07/201804/05/2018 Inactive tolterodine 2 mg tablet RxNorm: 599235 1 Tablet(s) PO QPM 03/1909/24/2018 Inactive nystatin 100,000 unit/gram topical cream RxNorm: 190334 1 Gram(s) TOP TID until healed et then PRN 01/09/2018 No Stop Date Active D/c powder escitalopram 10 mg tablet RxNorm: 289041 1 Tablet(s) PO QPM 07/31/2018 Inactive nystatin (bulk) 100 million unit powder RxNorm: 1 Miscellaneous QID 12/25/2017 01/08/2018 Inactive warfarin 2 mg tablet RxNorm: 738260 1 Tablet(s) PO daily 201701/02/2018 Inactive nystatin (bulk) 100 million unit powder RxNorm: 1 Miscellaneous QID 12/25/2017 12/24/2017 Inactive sitagliptin 50 mg tablet RxNorm: 676872 1 Tablet(s) PO daily 02/07/2018 Inactive tolterodine 1 mg tablet RxNorm: 832523 1 Tablet(s) PO BID 12/1903/18/2018 Inactive warfarin 3 mg tablet RxNorm: 533121 1 Tablet(s) PO UD MWF, 2mg //Sat/Sun 12/15/2017 01/02/2018 Inactive ciprofloxacin 250 mg tablet RxNorm: 362470 1 Tablet(s) PO BID 12/05/2017 12/09/2017 Inactive multivitamin oral RxNorm: 74491 oral No Start Date Active Xanax 0.25 mg tablet RxNorm: 158311 1 Tablet(s) PO daily as needed No Start Date Active Restasis MultiDose 0.05 % eye drops RxNorm: 072765 1 Drop(s) both ophthalmic (eye ) BID No Start Date Active hydrocodone 5 mg-acetaminophen 325 mg tablet RxNorm: 359214 1 Tablet(s) PO Q6 as needed No Start Date Active clopidogrel 75 mg tablet RxNorm: 336414 1 Tablet(s) PO daily No Start Date Active Oyster Calcium 375 mg-200 unit-800 unit tablet RxNorm: 2 Tablet(s) PO daily No Start Date Active cyanocobalamin (vit B-12) 1,000 mcg tablet RxNorm: 313843 1 Tablet(s) PO daily No Start Date Active aspirin 81 mg tablet RxNorm: 679406 1 Tablet(s) PO daily No Start Date Active lisinopril 10 mg tablet RxNorm: 055532 1 Tablet(s) PO daily No Start Date 05/03/2018 Inactive levothyroxine 25 mcg tablet RxNorm: 539970 1 Tablet(s) PO daily No Start Date 05/03/2018 Inactive warfarin 2 mg tablet RxNorm: 304195 1 Tablet(s) PO daily No Start Date 12/24/2017 Inactive tolterodine 1 mg tablet RxNorm: 002400 1 Tablet(s) PO BID No Start Date 12/18/2017 Inactive nystatin 100,000 unit/gram topical cream RxNorm: 655509 1 Gram(s) TOP TID until healed et then PRN No Start Date 2017 Inactive omeprazole 10 mg capsule,delayed release RxNorm: 242322 1 Capsule(s) PO daily No Start Date 09/05/2018 Inactive Toprol XL 100 mg tablet,extended release RxNorm: 602196 1 Tablet(s) PO daily No Start Date 05/03/2018 Inactive gabapentin 300 mg capsule RxNorm: 356765 1 Capsule(s) PO TID No Start Date 05/03/2018 Inactive atorvastatin 40 mg tablet RxNorm: 464421 1 Tablet(s) PO QHS No Start Date 05/03/2018 Inactive amlodipine 5 mg tablet RxNorm: 290891 1 Tablet(s) PO daily No Start Date 03/27/2018 Inactive sitagliptin 50 mg tablet RxNorm: 890938 1 Tablet(s) PO daily No Start Date [...] not specified ICD-10: N39.0 ICD-9: 599.0 02/08/2018 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 ICD-10: Z79.01 ICD-9: [...] 28.6 pg 09/28/2018 Cbc With Differential Ord2 Oliver% 8.2 % 09/28/2018 Cbc With Differential Ord2 [...] 1.93 K/ul 09/28/2018 Cbc With Differential Ord2 Oliver ABS# 0.5 K/ul 09/28/2018 Cbc With Differential Ord2 Eos ABS# 0.1 K/ul 09/28/2018 Cbc With Differential Ord2 Baso ABS# 0.0 K/ul 09/28/2018 %Hba1C Zkd361 % HbA1c 05838-5 6.6 % 09/28/2018 %Hba1C Vti800 Gluc Ave 143 mg/dL 09/28/2018 Comp Metabolic Jck318 NA 142 mEq/L 09/28/2018 Comp Metabolic Xom956 K 4.2 mEq/L 09/28/2018 Comp Metabolic Gdf337 CL 107 mEq/L 09/28/2018 Comp Metabolic Seg179 CO2 30.0 mEq/L 09/28/2018 Comp Metabolic Cmr530 ANION GAP 9 09/28/2018 Comp Metabolic Mgv133 GLUCOSE 117 mg/dL 09/28/2018 Comp Metabolic Eqt768 Creat 1.2 mg/dL 09/28/2018 Comp Metabolic Qfu982 eGFR 47 ml/min/1.73m2 09/28/2018 Comp Metabolic Dna382 BUN 19 mg/dL 09/28/2018 Comp Metabolic Sno270 B/C Ratio 16.5 Ratio 09/28/2018 Comp Metabolic Aot218 CALCIUM 8.6 mg/dL 09/28/2018 Comp Metabolic Dtt973 ALK PHOS 101 U/L 09/28/2018 Comp Metabolic Cro540 AST(SGOT) 16 U/L 09/28/2018 Comp Metabolic Iwe677 ALT(SGPT) 13 U/L 09/28/2018 Comp Metabolic Kft135 BILI T 0.4 mg/dL 09/28/2018 Comp Metabolic Tqz438 ALBUMIN 3.4 g/dL 09/28/2018 Comp Metabolic Jnk413 TPRO 6.1 g/dL 09/28/2018 Comp Metabolic Syj899 GLOB 2.7 g/dL 09/28/2018 Comp Metabolic Nhr652 A/G Ratio 1.3 Ratio 09/28/2018 Comp Metabolic Xlf306 Osmo 286 mOsmo 09/28/2018 Tsh Ord6 TSH (3rd IS) 0.80 uIU/mL 09/28/2018 Lipid Ord30 CHOL 89 mg/dL 09/28/2018 Lipid Ord30 HDL 33.0 mg/dl 09/28/2018 Lipid Ord30 TRIG 78 mg/dL 09/28/2018 Lipid Ord30 LDL 40 mg/dL 09/28/2018 Lipid Ord30 C/HDL 2.7 Ratio 09/28/2018 Pt Luo0443 PT 17.8 seconds 12/15/2017 Pt Hun2101 INR 1.5 12/15/2017 Pt Fdi0917 Low Intensity - 1.5-2.0 12/15/2017 Pt Vvy4304 Mod intensity - 2.0-3.0 12/15/2017 Pt Kgn1056 Hi intensity - 3.0-4.0 12/15/2017 Urinalysis Ord28 [...] hours from collection if refrigerated) 12/12/2017 Pt Ajv6626 PT 15.2 seconds 12/11/2017 Pt Onf4202 INR 1.2 12/11/2017 Pt Zep4037 Low Intensity - 1.5-2.0 12/11/2017 Pt Eis2968 Mod intensity - 2.0-3.0 12/11/2017 Pt Ccm6674 Hi intensity - 3.0-4.0 12/11/2017 Pt Pjb7891 PT 14.7 seconds 12/08/2017 Pt Rpu2359 INR 1.2 12/08/2017 Pt Pzu2205 Low Intensity - 1.5-2.0 12/08/2017 Pt Xfm7938 Mod intensity - 2.0-3.0 12/08/2017 Pt Irq9182 Hi intensity - 3.0-4.0 12/08/2017 Review of [...] FLU VACC PRSV FREE INC ANTIG CPT-4: 56786 07/18/2018 Vital Signs Date Vital 09/25/2018 Blood Pressure 1: 140/70 Code : 8480-6 BMI: 30.9 Code : 43449-8 Heart Rate 1 : 67 bpm Height: 4'11" SpO2: 91% Weight: 153 lbs 03/19/2018 Blood Pressure 1: 140/58 Code : 8480-6 BMI: 28.5 Code : 57322-0 Heart Rate 1 : 59 bpm Height: 4'11" SpO2: 98% Weight: 141 lbs 02/08/2018 Blood Pressure 1: 130/68 Code : 8480-6 BMI: 28.5 Code : 26905-9 Heart Rate 1 : 73 bpm Height: 4'11" SpO2: 98% Weight: 141 lbs 01/03/2018 Blood Pressure 1: 116/64 Code : 8480-6 BMI: 27.7 Code : 63724-3 Heart Rate 1 : 68 bpm Height: [...] Directive data Encounters Encounter Performer Location Codes ([id number]) 30888 EST. PATIENT, LEVEL IV Diagnosis: Essential (primary) hypertension[ICD10: I10] Diagnosis: Chronic kidney disease, stage 3 (moderate)[ICD10: N18.3] Diagnosis: Atrophy of thyroid (acquired)[ICD10: E03.4] Diagnosis: Type 2 diabetes mellitus without complications[ICD10: E11.9] [facility] CPT-4: 87699 09/25/2018 ([id number] EST. PATIENT, LEVEL IV Diagnosis: Type 2 diabetes mellitus without complications[ICD10: E11.9] Diagnosis: Atrophy of thyroid (acquired)[ICD10: E03.4] Diagnosis: Essential (primary) hypertension[ICD10: I10] Diagnosis: Urgency of urination[ICD10: R39.15] Jossie Booker MD, [facility] CPT-4: 71925 03/19/2018 ([id number]) [id number] EST. PATIENT, LEVEL IV Diagnosis: Orthostatic hypotension[ICD10: I95.1] Diagnosis: Urinary tract infection, site not specified[ICD10: N39.0] Diagnosis: Type 2 diabetes mellitus without complications[ICD10: E11.9] Armida Booker MD, [facility] CPT-4: 78657 02/08/2018 ([id number]) 41902 EST. PATIENT, LEVEL IV Diagnosis: Type 2 diabetes mellitus without complications[ICD10: E11.9] Diagnosis: Essential (primary) hypertension[ICD10: I10] Diagnosis: Atrophy of thyroid (acquired)[ICD10: E03.4] Jossie Booker MD, [facility] CPT-4: 42283 01/03/2018 ([id number] [id number] EST. 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 09/25/2018 Appointment: [facility]oss[facility] Booker [facility] [phone] [facility] [place] (15 min) Moderate 09/25/2018 Patient Education: Patient Medication Summary Completed 09/25/2018 Patient Education: Diabetes Completed 09/25/2018 Care Plan: Comp Metabolic Pending 09/25/2018 Care Plan: Cbc With Differential Pending 09/25/2018 Care Plan: %Hba1C LOINC : 22794-2 Pending 09/25/2018 Care Plan: Lipid Pending 09/25/2018 [...] of control. 03/19/2018 Appointment: Jossie Booker WPtel: [phone] [facility] [place] (15 min) Moderate 03/19/2018 Patient Education: Patient Medication Summary Completed 03/19/2018 Visit Plan: [place]wbx-wifovxwj-lyxnsdu blood pressures DM -okay to stay off januvia-monitor blood sugars and call if they become elevated UTI-finished treatment 02/08/2018 Appointment: Armida Nicolas WPtel: [phone] [phone] [place] (15 min) Moderate 02/08/2018 Patient [...] to pharmacy. 01/03/2018 Appointment: Jossie Booker WPtel: [facility] [place] (15 min) Moderate 01/03/2018 Patient [...] of control. 12/08/2017 Appointment: Annika Nguyen WPtel: [facility] [place] New Patient 12/08/2017 Patient Education: Patient Medication [...] CAN GET YOUR RECORDS FROM EMA . Axouzecuwsj-ttzpelbb-dsixqft blood pressures DM-okay to stay off januvia-monitor [...]
--- OUTSIDE RECORDS SUMMARY | 2018-11-11 19:32 | XMS REPORT | CCD ---
Author Author [facility] Address [address] [place] [address] Phone Care Team Providers Care Cardiology Consultant Name Role Phone PP Unavailable CCM Unavailable Summary Purpose Interface Exchange Insurance Providers Payer name Policy type / Coverage type Covered republican ID Effective Begin Date Effective End Date HUMANA CLAIMS Commercial Insurance [id number] 2017 Unknown Family History Family History data not found Social History Social History Element Codes Description Effective Dates Marital status Unknown [place] 12/08/2017 Number of children Unknown 2 12/08/2017 Employment Unknown Retired 12/08/[address]: 368077558 Never smoker 12/08/[address]: 744548671 Never drinks alcohol 12/08/2017 Allergies, Adverse Reactions, [...] ICD-10: E03.9 Active 12/08/2017 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 ICD-9: V58.61 ICD-10: [...] 244.9 ICD-10: E03.9 12/08/2017 Active 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 ICD-9: V58.61 ICD-10: Z79.01 12/08/2017 Active Medications Medication Codes Instructions Start Date Stop Date Status Fill Instructions omeprazole 10 mg capsule,delayed release RxNorm: 392071 1 Capsule(s) PO daily 09/06/2018 11/29/2019 Active escitalopram 10 mg tablet RxNorm: 375422 TAKE 1 TABLET BY MOUTH ONCE DAILY IN THE EVENING 09/06/2018 No Stop Date Active cyanocobalamin (vit B-12) 1,000 mcg tablet RxNorm: 824405 1 Tablet(s) PO daily 08/08/2018 10/31/2019 Active cyanocobalamin (vit B-12) 1,000 mcg tablet RxNorm: 319444 1 Tablet(s) PO daily 08/08/2018 08/07/2018 Inactive levofloxacin 250 mg tablet RxNorm: 492344 1 Tablet(s) PO daily 06/04/2018 06/08/2018 Inactive levofloxacin 250 mg tablet RxNorm: 840544 1 Tablet(s) PO daily 06/04/2018 06/03/2018 Inactive lisinopril 10 mg tablet RxNorm: 096839 1 Tablet(s) PO daily 05/02/2019 Active Toprol XL 100 mg tablet,extended release RxNorm: 637070 1 Tablet(s) PO daily 05/08/2018 05/02/2019 Active atorvastatin 40 mg tablet RxNorm: 223256 1 Tablet(s) PO QHS No Stop Date Active gabapentin 300 mg capsule RxNorm: 316150 1 Capsule(s) PO TID 04/28/2019 Active levothyroxine 25 mcg tablet RxNorm: 379043 1 Tablet(s) PO daily 05/04/2018 04/28/2019 Active Toprol XL 100 mg tablet,extended release RxNorm: 045057 1 Tablet(s) PO daily 05/04/2018 05/07/2018 Inactive lisinopril 10 mg tablet RxNorm: 118765 1 Tablet(s) PO daily 05/07/2018 Inactive amlodipine 5 mg tablet RxNorm: 813706 1 Tablet(s) PO daily 03/31/2019 Active amlodipine 5 mg tablet RxNorm: 513471 1 Tablet(s) PO daily 07/201804/05/2018 Inactive tolterodine 2 mg tablet RxNorm: 934284 1 Tablet(s) PO QPM 03/1909/24/2018 Inactive nystatin 100,000 unit/gram topical cream RxNorm: 332666 1 Gram(s) TOP TID until healed et then PRN 01/09/2018 No Stop Date Active D/c powder escitalopram 10 mg tablet RxNorm: 263241 1 Tablet(s) PO QPM 07/31/2018 Inactive nystatin (bulk) 100 million unit powder RxNorm: 1 Miscellaneous QID 12/25/2017 01/08/2018 Inactive warfarin 2 mg tablet RxNorm: 385067 1 Tablet(s) PO daily 201701/02/2018 Inactive nystatin (bulk) 100 million unit powder RxNorm: 1 Miscellaneous QID 12/25/2017 12/24/2017 Inactive sitagliptin 50 mg tablet RxNorm: 427060 1 Tablet(s) PO daily 02/07/2018 Inactive tolterodine 1 mg tablet RxNorm: 019247 1 Tablet(s) PO BID 12/1903/18/2018 Inactive warfarin 3 mg tablet RxNorm: 437795 1 Tablet(s) PO UD MWF, 2mg T/Th/Sat/Sun 12/15/2017 01/02/2018 Inactive ciprofloxacin 250 mg tablet RxNorm: 044135 1 Tablet(s) PO BID 12/05/2017 12/09/2017 Inactive multivitamin oral RxNorm: 38030 oral No Start Date Active Xanax 0.25 mg tablet RxNorm: 262700 1 Tablet(s) PO daily as needed No Start Date Active Restasis MultiDose 0.05 % eye drops RxNorm: 881638 1 Drop(s) both ophthalmic (eye ) BID No Start Date Active hydrocodone 5 mg-acetaminophen 325 mg tablet RxNorm: 836937 1 Tablet(s) PO Q6 as needed No Start Date Active clopidogrel 75 mg tablet RxNorm: 765340 1 Tablet(s) PO daily No Start Date Active Oyster Calcium 375 mg-200 unit-800 unit tablet RxNorm: 2 Tablet(s) PO daily No Start Date Active cyanocobalamin (vit B-12) 1,000 mcg tablet RxNorm: 172846 1 Tablet(s) PO daily No Start Date Active aspirin 81 mg tablet RxNorm: 372885 1 Tablet(s) PO daily No Start Date Active lisinopril 10 mg tablet RxNorm: 950200 1 Tablet(s) PO daily No Start Date 05/03/2018 Inactive levothyroxine 25 mcg tablet RxNorm: 322317 1 Tablet(s) PO daily No Start Date 05/03/2018 Inactive warfarin 2 mg tablet RxNorm: 694817 1 Tablet(s) PO daily No Start Date 12/24/2017 Inactive tolterodine 1 mg tablet RxNorm: 702119 1 Tablet(s) PO BID No Start Date 12/18/2017 Inactive nystatin 100,000 unit/gram topical cream RxNorm: 710489 1 Gram(s) TOP TID until healed et then PRN No Start Date 2017 Inactive omeprazole 10 mg capsule,delayed release RxNorm: 942167 1 Capsule(s) PO daily No Start Date 09/05/2018 Inactive Toprol XL 100 mg tablet,extended release RxNorm: 432637 1 Tablet(s) PO daily No Start Date 05/03/2018 Inactive gabapentin 300 mg capsule RxNorm: 668174 1 Capsule(s) PO TID No Start Date 05/03/2018 Inactive atorvastatin 40 mg tablet RxNorm: 252895 1 Tablet(s) PO QHS No Start Date 05/03/2018 Inactive amlodipine 5 mg tablet RxNorm: 947872 1 Tablet(s) PO daily No Start Date 03/27/2018 Inactive sitagliptin 50 mg tablet RxNorm: 223460 1 Tablet(s) PO daily No Start Date [...] not specified ICD-10: N39.0 ICD-9: 599.0 02/08/2018 [facility] (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 anticoagulants ICD-10: Z79.01 ICD-9: [...] 28.6 pg 09/28/2018 Cbc With Differential Ord2 [place]% 8.2 % 09/28/2018 Cbc With Differential Ord2 [...] 1.93 K/ul 09/28/2018 Cbc With Differential Ord2 [place] ABS# 0.5 K/ul 09/28/2018 Cbc With Differential Ord2 Eos ABS# 0.1 K/ul 09/28/2018 Cbc With Differential Ord2 Baso ABS# 0.0 K/ul 09/28/2018 Pt Sal0962 PT 17.8 seconds 12/15/2017 Pt Zim7040 INR 1.5 12/15/2017 Pt Hre8792 Low Intensity - 1.5-2.0 12/15/2017 Pt Vdm3357 Mod intensity - 2.0-3.0 12/15/2017 Pt Ckq9378 Hi intensity - 3.0-4.0 12/15/2017 Urinalysis Ord28 [...] hours from collection if refrigerated) 12/12/2017 Pt Mbk0153 PT 15.2 seconds 12/11/2017 Pt Fvw9874 INR 1.2 12/11/2017 Pt Dpr5303 Low Intensity - 1.5-2.0 12/11/2017 Pt Ynz3952 Mod intensity - 2.0-3.0 12/11/2017 Pt Yxv6580 Hi intensity - 3.0-4.0 12/11/2017 Pt Txl4834 PT 14.7 seconds 12/08/2017 Pt Gkg2614 INR 1.2 12/08/2017 Pt Dre2552 Low Intensity - 1.5-2.0 12/08/2017 Pt Bjd1686 Mod intensity - 2.0-3.0 12/08/2017 Pt Qpk1805 Hi intensity - 3.0-4.0 12/08/2017 Review of [...] FLU VACC PRSV FREE INC ANTIG CPT-4: 94864 07/18/2018 Vital Signs Date Vital 09/25/2018 Blood Pressure 1: 140/70 Code : 8480-6 BMI: 30.9 Code : 57960-9 Heart Rate 1 : 67 bpm Height: 4'11" SpO2: 91% Weight: 153 lbs 03/19/2018 Blood Pressure 1: 140/58 Code : 8480-6 BMI: 28.5 Code : 85600-0 Heart Rate 1 : 59 bpm Height: 4'11" SpO2: 98% Weight: 141 lbs 02/08/2018 Blood Pressure 1: 130/68 Code : 8480-6 BMI: 28.5 Code : 23957-6 Heart Rate 1 : 73 bpm Height: 4'11" SpO2: 98% Weight: 141 lbs 01/03/2018 Blood Pressure 1: 116/64 Code : 8480-6 BMI: 27.7 Code : 67043-5 Heart Rate 1 : 68 bpm Height: [...] Hospital Follow Up _ Other: hip fracture 16 12/08/2017 None Hospital Follow Up Onset of Symptom 1 weeks ago 12/08/2017 None Hospital Follow Up Onset and Resolution sudden in onset 12/08/2017 None Hospital Follow Up Significant Medical Conditions trauma 12/08/2017 None Hospital Follow Up Mechanism of injury fall 12/08/2017 None Advance Directives No Advance Directive data Encounters Encounter Performer Location Codes Date ([id number]) 58696 EST. PATIENT, LEVEL IV Diagnosis: Essential (primary) hypertension[ICD10: I10] Diagnosis: Chronic kidney disease, stage 3 (moderate)[ICD10: N18.3] Diagnosis: Atrophy of thyroid (acquired)[ICD10: E03.4] Diagnosis: Type 2 diabetes mellitus without complications[ICD10: E11.9] Jossie Booker MD, [facility] CPT-4: 16097 09/25/2018 ([id number]) 58513 EST. PATIENT, LEVEL IV Diagnosis: Type 2 diabetes mellitus without complications[ICD10: E11.9] Diagnosis: Atrophy of thyroid (acquired)[ICD10: E03.4] Diagnosis: Essential (primary) hypertension[ICD10: I10] Diagnosis: Urgency of urination[ICD10: R39.15] Jossie Booker MD, [facility] CPT-4: 02936 03/19/2018 ([id number]) 06809 EST. PATIENT, LEVEL IV Diagnosis: Orthostatic hypotension[ICD10: I95.1] Diagnosis: Urinary tract infection, site not specified[ICD10: N39.0] Diagnosis: Type 2 diabetes mellitus without complications[ICD10: E11.9] Armida Booker MD, [facility] CPT-4: 82008 02/08/2018 ([id number]) 20357 EST. PATIENT, LEVEL IV Diagnosis: Type 2 diabetes mellitus without complications[ICD10: E11.9] Diagnosis: Essential (primary) hypertension[ICD10: I10] Diagnosis: Atrophy of thyroid (acquired)[ICD10: E03.4] Jossie Booker MD, [facility] CPT-4: 98974 01/03/2018 ([id number]) 42997 EST. 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] Diagnosis: Type 2 diabetes mellitus without complications[ICD10: E11.9] Diagnosis: Chronic kidney disease, stage 3 (moderate)[ICD10: N18.3] Diagnosis: [facility] (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 anticoagulants[ICD10: Z79.01] Annika Booker MD, [facility] CPT-4: 50885 12/08/2017 Plan of Care Planned Activity Notes [...] control. 09/25/2018 Appointment: [facility]el[phone] [facility] (15 min) Moderate 09/25/2018 Patient Education: Patient Medication Summary Completed 09/25/2018 Patient Education: Diabetes Completed 09/25/2018 Care Plan: Comp Metabolic Pending 09/25/2018 Care Plan: Cbc With Differential Pending 09/25/2018 Care Plan: %Hba1C LOINC : 39384-2 Pending 09/25/2018 Care Plan: Lipid Pending 09/25/2018 [...] of control. 03/19/2018 Appointment: Jossie Booker WPtel: [phone] [facility] [place] (15 min) Moderate 03/19/2018 Patient Education: Patient Medication Summary Completed 03/19/2018 Visit Plan: Aiiyqkgnget-wftqozhs-kftdefj blood pressures DM -okay to stay off januvia-monitor blood sugars and call if they become elevated UTI-finished treatment 02/08/2018 Appointment: Armida Nicolas WPtel: [phone] [phone] [place] (15 min) Moderate 02/08/2018 Patient Education: [...] pharmacy. 01/03/2018 Appointment: Jossie Booker WPtel: [phone] [facility] [place] (15 min) Moderate 01/03/2018 Patient Education: [...] of control. 12/08/2017 Appointment: Annika Nguyen WPtel: [facility] [facility] 12/08/2017 Patient Education: Patient [...] CAN GET YOUR RECORDS FROM EMA . Kjjepvwemcf-jgnxixoz-bvlgpri blood pressures DM-okay to stay off januvia-monitor [...]
--- OUTSIDE RECORDS SUMMARY | 2018-11-11 19:33 | XMS REPORT | CCD ---
Author Author [facility] Address [address] [place] [address] Phone Care Team Providers Care Laboratory Tech Name Role Phone PP Unavailable CCM Unavailable Summary Purpose Interface Exchange Insurance Providers Payer name Policy type / Coverage type Covered green party ID Effective Begin Date Effective End Date HUMANA CLAIMS Commercial Insurance [id number] 2017 Unknown Family History Family History data not found Social History Social History Element Codes Description Effective Dates Marital status Unknown [place] 12/08/2017 Number of children Unknown 2 12/08/2017 Employment Unknown Retired 12/08/[address]: 796730058 Never smoker 12/08/[address]: 427472930 Never drinks alcohol 12/08/2017 Allergies, Adverse Reactions, [...] ICD-9: 244.9 ICD-10: E03.9 Active 12/08/2017 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 ICD-9: V58.61 ICD-10: [...] unspecified ICD-9: 244.9 ICD-10: E03.9 12/08/2017 Active 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 ICD-9: V58.61 ICD-10: Z79.01 12/08/2017 Active Medications Medication Codes Instructions Start Date Stop Date Status Fill Instructions omeprazole 10 mg capsule,delayed release RxNorm: 278795 1 Capsule(s) PO daily 09/06/2018 11/29/2019 Active escitalopram 10 mg tablet RxNorm: 556465 TAKE 1 TABLET BY MOUTH ONCE DAILY IN THE EVENING 09/06/2018 No Stop Date Active cyanocobalamin (vit B-12) 1,000 mcg tablet RxNorm: 482625 1 Tablet(s) PO daily 08/08/2018 10/31/2019 Active cyanocobalamin (vit B-12) 1,000 mcg tablet RxNorm: 913157 1 Tablet(s) PO daily 08/08/2018 08/07/2018 Inactive levofloxacin 250 mg tablet RxNorm: 367773 1 Tablet(s) PO daily 06/04/2018 06/08/2018 Inactive levofloxacin 250 mg tablet RxNorm: 907779 1 Tablet(s) PO daily 06/04/2018 06/03/2018 Inactive lisinopril 10 mg tablet RxNorm: 159290 1 Tablet(s) PO daily 05/02/2019 Active Toprol XL 100 mg tablet,extended release RxNorm: 882892 1 Tablet(s) PO daily 05/08/2018 05/02/2019 Active atorvastatin 40 mg tablet RxNorm: 591192 1 Tablet(s) PO QHS No Stop Date Active gabapentin 300 mg capsule RxNorm: 390313 1 Capsule(s) PO TID 04/28/2019 Active levothyroxine 25 mcg tablet RxNorm: 626707 1 Tablet(s) PO daily 05/04/2018 04/28/2019 Active Toprol XL 100 mg tablet,extended release RxNorm: 090949 1 Tablet(s) PO daily 05/04/2018 05/07/2018 Inactive lisinopril 10 mg tablet RxNorm: 745979 1 Tablet(s) PO daily 05/07/2018 Inactive amlodipine 5 mg tablet RxNorm: 320621 1 Tablet(s) PO daily 03/31/2019 Active amlodipine 5 mg tablet RxNorm: 964604 1 Tablet(s) PO daily 07/201804/05/2018 Inactive tolterodine 2 mg tablet RxNorm: 471176 1 Tablet(s) PO QPM 03/1909/24/2018 Inactive nystatin 100,000 unit/gram topical cream RxNorm: 358774 1 Gram(s) TOP TID until healed et then PRN 01/09/2018 No Stop Date Active D/c powder escitalopram 10 mg tablet RxNorm: 598775 1 Tablet(s) PO QPM 07/31/2018 Inactive nystatin (bulk) 100 million unit powder RxNorm: 1 Miscellaneous QID 12/25/2017 01/08/2018 Inactive warfarin 2 mg tablet RxNorm: 321591 1 Tablet(s) PO daily 201701/02/2018 Inactive nystatin (bulk) 100 million unit powder RxNorm: 1 Miscellaneous QID 12/25/2017 12/24/2017 Inactive sitagliptin 50 mg tablet RxNorm: 859039 1 Tablet(s) PO daily 02/07/2018 Inactive tolterodine 1 mg tablet RxNorm: 467428 1 Tablet(s) PO BID 12/1903/18/2018 Inactive warfarin 3 mg tablet RxNorm: 739801 1 Tablet(s) PO UD MWF, 2mg T/Th/Sat/Sun 12/15/2017 01/02/2018 Inactive ciprofloxacin 250 mg tablet RxNorm: 322650 1 Tablet(s) PO BID 12/05/2017 12/09/2017 Inactive multivitamin oral RxNorm: 08531 oral No Start Date Active Xanax 0.25 mg tablet RxNorm: 395280 1 Tablet(s) PO daily as needed No Start Date Active Restasis MultiDose 0.05 % eye drops RxNorm: 488332 1 Drop(s) both ophthalmic (eye ) BID No Start Date Active hydrocodone 5 mg-acetaminophen 325 mg tablet RxNorm: 894767 1 Tablet(s) PO Q6 as needed No Start Date Active clopidogrel 75 mg tablet RxNorm: 540566 1 Tablet(s) PO daily No Start Date Active Oyster Calcium 375 mg-200 unit-800 unit tablet RxNorm: 2 Tablet(s) PO daily No Start Date Active cyanocobalamin (vit B-12) 1,000 mcg tablet RxNorm: 166512 1 Tablet(s) PO daily No Start Date Active aspirin 81 mg tablet RxNorm: 537597 1 Tablet(s) PO daily No Start Date Active lisinopril 10 mg tablet RxNorm: 551073 1 Tablet(s) PO daily No Start Date 05/03/2018 Inactive levothyroxine 25 mcg tablet RxNorm: 558829 1 Tablet(s) PO daily No Start Date 05/03/2018 Inactive warfarin 2 mg tablet RxNorm: 590625 1 Tablet(s) PO daily No Start Date 12/24/2017 Inactive tolterodine 1 mg tablet RxNorm: 985767 1 Tablet(s) PO BID No Start Date 12/18/2017 Inactive nystatin 100,000 unit/gram topical cream RxNorm: 422559 1 Gram(s) TOP TID until healed et then PRN No Start Date 2017 Inactive omeprazole 10 mg capsule,delayed release RxNorm: 759253 1 Capsule(s) PO daily No Start Date 09/05/2018 Inactive Toprol XL 100 mg tablet,extended release RxNorm: 061054 1 Tablet(s) PO daily No Start Date 05/03/2018 Inactive gabapentin 300 mg capsule RxNorm: 226317 1 Capsule(s) PO TID No Start Date 05/03/2018 Inactive atorvastatin 40 mg tablet RxNorm: 961378 1 Tablet(s) PO QHS No Start Date 05/03/2018 Inactive amlodipine 5 mg tablet RxNorm: 122792 1 Tablet(s) PO daily No Start Date 03/27/2018 Inactive sitagliptin 50 mg tablet RxNorm: 480414 1 Tablet(s) PO daily No Start Date [...] not specified ICD-10: N39.0 ICD-9: 599.0 02/08/2018 [facility] (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 anticoagulants ICD-10: Z79.01 ICD-9: V58.61 12/08/2017 Other specified hypothyroidism ICD-10: E03.8 ICD-9: 244.8 12/08/2017 Reason For Visit Reason For Visit Effective Dates Notes hypertension 09/25/2018 vaccination against influenza 07/18/2018 hypertension 03/19/2018 Hospital Follow Up 02/08/2018 hypertension 01/03/2018 Hospital Follow Up 12/08/2017 Results Observation Observation Code Item Item Code Result Date Pt [id number] PT 17.8 seconds 12/15/2017 Pt Ntg1427 INR 1.5 12/15/2017 Pt Lio4598 Low Intensity - 1.5-2.0 12/15/2017 Pt Jga6039 Mod intensity - 2.0-3.0 12/15/2017 Pt Oub8056 Hi intensity - 3.0-4.0 12/15/2017 Urinalysis Ord28 [...] hours from collection if refrigerated) 12/12/2017 Pt Vxx2870 PT 15.2 seconds 12/11/2017 Pt Fjm5742 INR 1.2 12/11/2017 Pt Lxt7135 Low Intensity - 1.5-2.0 12/11/2017 Pt Zvq9753 Mod intensity - 2.0-3.0 12/11/2017 Pt Bqe9792 Hi intensity - 3.0-4.0 12/11/2017 Pt Glx8755 PT 14.7 seconds 12/08/2017 Pt Vff5495 INR 1.2 12/08/2017 Pt Gma6584 Low Intensity - 1.5-2.0 12/08/2017 Pt Yrp3381 Mod intensity - 2.0-3.0 12/08/2017 Pt Mtz3340 Hi intensity - 3.0-4.0 12/08/2017 Review of [...] FLU VACC PRSV FREE INC ANTIG CPT-4: 63082 07/18/2018 Vital Signs Date Vital 09/25/2018 Blood Pressure 1: 140/70 Code : 8480-6 BMI: 30.9 Code : 51170-0 Heart Rate 1 : 67 bpm Height: 4'11" SpO2: 91% Weight: 153 lbs 03/19/2018 Blood Pressure 1: 140/58 Code : 8480-6 BMI: 28.5 Code : 16067-7 Heart Rate 1 : 59 bpm Height: 4'11" SpO2: 98% Weight: 141 lbs 02/08/2018 Blood Pressure 1: 130/68 Code : 8480-6 BMI: 28.5 Code : 04789-5 Heart Rate 1 : 73 bpm Height: 4'11" SpO2: 98% Weight: 141 lbs 01/03/2018 Blood Pressure 1: 116/64 Code : 8480-6 BMI: 27.7 Code : 38337-9 Heart Rate 1 : 68 bpm Height: [...] data Encounters Encounter Performer Location Codes Date ([id number]) [id number] EST. PATIENT, LEVEL IV Diagnosis: Essential (primary) hypertension[ICD10: I10] Diagnosis: Chronic kidney disease, stage 3 (moderate)[ICD10: N18.3] Diagnosis: Atrophy of thyroid (acquired)[ICD10: E03.4] Diagnosis: Type 2 diabetes mellitus without complications[ICD10: E11.9] Jossie Booker MD, [facility] CPT-4: 19797 09/25/2018 ([id number]) [id number] EST. PATIENT, LEVEL IV Diagnosis: Type 2 diabetes mellitus without complications[ICD10: E11.9] Diagnosis: Atrophy of thyroid (acquired)[ICD10: E03.4] Diagnosis: Essential (primary) hypertension[ICD10: I10] Diagnosis: Urgency of urination[ICD10: R39.15] Jossie Booker MD, [facility] CPT-4: 44320 03/19/2018 [id number]) [id number] EST. PATIENT, LEVEL IV Diagnosis: Orthostatic hypotension[ICD10: I95.1] Diagnosis: Urinary tract infection, site not specified[ICD10: N39.0] Diagnosis: Type 2 diabetes mellitus without complications[ICD10: E11.9] [facility] CPT-4: 43264 02/08/2018 [id number] EST. PATIENT, LEVEL IV Diagnosis: Type 2 diabetes mellitus without complications[ICD10: E11.9] Diagnosis: Essential (primary) hypertension[ICD10: I10] Diagnosis: Atrophy of thyroid (acquired)[ICD10: E03.4] [facility] CPT-4: 66788 01/03/2018 ([id number]) [id number] EST. 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] Diagnosis: Type 2 diabetes mellitus without complications[ICD10: E11.9] Diagnosis: Chronic kidney disease, stage 3 (moderate)[ICD10: N18.3] Diagnosis: [facility] (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 anticoagulants[ICD10: Z79.01] [facility] CPT-4: 22001 12/08/2017 Plan of Care Planned Activity Notes [...] based on previous levels of control. 09/25/2018 Patient Education: Patient Medication Summary Completed 09/25/2018 Patient Education: Diabetes Completed 09/25/2018 Care Plan: Comp Metabolic Pending 09/25/2018 Care Plan: Cbc With Differential Pending 09/25/2018 Care Plan: %Hba1C LOINC : 39108-3 Pending 09/25/2018 Care Plan: Lipid Pending 09/25/2018 [...] control. 03/19/2018 Appointment: Jossie Booker WPtel: [phone] [facility] (15 min) Moderate 03/19/2018 Patient Education: Patient Medication Summary Completed 03/19/2018 Visit Plan: Widfnkdrgvf-emfyuvxq-ihckblr blood pressures DM -okay to stay off januvia-monitor blood sugars and call if they become elevated UTI-finished treatment 02/08/2018 Appointment: Armida Nicolas WPtel: [phone] [phone] [place] (15 min) Moderate 02/08/2018 Patient Education: [...] 01/03/2018 Appointment: Jossie Booker WPtel: [phone] [facility] (15 min) Moderate 01/03/2018 Patient Education: Patient [...] of control. 12/08/2017 App[facility]ment: [phone] [facility] New Patient 12/08/2017 Patient Education: Patient Medication [...] CAN GET YOUR RECORDS FROM EMA . Glvexinvpum-pxfitqyp-tvoxste blood pressures DM-okay to stay off januvia-monitor [...]
--- OUTSIDE RECORDS SUMMARY | 2018-11-11 19:33 | XMS REPORT | CCD ---
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 Name Role Phone PP Unavailable CCM Unavailable Summary Purpose Interface Exchange Insurance Providers Payer name Policy type / Coverage type Covered alliance party ID Effective Begin Date Effective End Date HU[employer] CLAIMS Commercial Insurance [id number] 2017 Unknown Family History Family History data not found Social History Social History Element Codes Description Effective Dates Marital status Unknown [place] 12/08/2017 Number of children Unknown 2 12/08/2017 Employment Unknown Retired 12/08/[address]: 232605876 Never smoker 12/08/[address]: 474813358 Never drinks alcohol 12/08/2017 Allergies, Adverse Reactions, Alerts Substance Reaction Codes Entered Date Inactivated Date Status * NO KNOWN DRUG ALLERGIES Unknown 01/03/2018 No Inactive Date Active Past Medical History Illness Codes Condition Status Onset Date Resolved Date Encounter for immunization ICD-9: V04.81 ICD-10: Z23 Active 07/18/2018 Unknown Atrophy of thyroid (acquired) ICD-9: 244.8 ICD-10: E03.4 Active 01/03/2018 Unknown Essential (primary) hypertension ICD-9: 401.1 ICD-10: I10 Active 12/08/2017 Unknown Type 2 diabetes mellitus without complications ICD-9: 250.00 ICD-10: E11.9 Active 12/08/2017 Unknown Urgency of urination ICD-9: 788.63 ICD-10: R39.15 Active 03/19/2018 Unknown Orthostatic hypotension ICD-9: 458.0 ICD-10: I95.1 Active 02/08/2018 Unknown Urinary tract infection, site not specified ICD-9: 599.0 ICD-10: N39.0 Active 02/08/2018 Unknown Diabetes Unknown Active 12/08/2017 Unknown Hypothryroidism Unknown Active 12/08/2017 Unknown Chronic kidney disease, stage 3 (moderate) ICD-9: 585.3 ICD-10: N18.3 Active 12/08/2017 Unknown Hypothyroidism, unspecified ICD-9: 244.9 ICD-10: E03.9 Active 12/08/2017 Unknown 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 ICD-9: V58.61 ICD-10: Z79.01 Active 12/08/2017 Unknown Problems Condition Codes Effective Dates Condition Status Encounter for immunization ICD-9: V04.81 ICD-10: Z23 07/18/2018 Active Atrophy of thyroid (acquired) ICD-9: 244.8 ICD-10: E03.4 01/03/2018 Active Essential (primary) hypertension ICD-9: 401.1 ICD-10: I10 12/08/2017 Active Type 2 diabetes mellitus without complications ICD-9: 250.00 ICD-10: E11.9 12/08/2017 Active Urgency of urination ICD-9: 788.63 ICD-10: R39.15 03/19/2018 Active Orthostatic hypotension ICD-9: 458.0 ICD-10: I95.1 02/08/2018 Active Urinary tract infection, site not specified ICD-9: 599.0 ICD-10: N39.0 02/08/2018 Active Diabetes Unknown 12/08/2017 Active Hypothryroidism Unknown 12/08/2017 Active Chronic kidney disease, stage 3 (moderate) ICD-9: 585.3 ICD-10: N18.3 12/08/2017 Active Hypothyroidism, unspecified ICD-9: 244.9 ICD-10: E03.9 12/08/2017 Active 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 ICD-9: V58.61 ICD-10: Z79.01 12/08/2017 Active Medications Medication Codes Instructions Start Date Stop Date Status Fill Instructions omeprazole 10 mg capsule,delayed release RxNorm: 967290 1 Capsule(s) PO daily 09/06/2018 11/29/2019 Active escitalopram 10 mg tablet RxNorm: 712114 TAKE 1 TABLET BY MOUTH ONCE DAILY IN THE EVENING 09/06/2018 No Stop Date Active cyanocobalamin (vit B-12) 1,000 mcg tablet RxNorm: 527470 1 Tablet(s) PO daily 08/08/2018 10/31/2019 Active cyanocobalamin (vit B-12) 1,000 mcg tablet RxNorm: 687201 1 Tablet(s) PO daily 08/08/2018 08/07/2018 Inactive levofloxacin 250 mg tablet RxNorm: 677557 1 Tablet(s) PO daily 06/04/2018 06/08/2018 Inactive levofloxacin 250 mg tablet RxNorm: 715188 1 Tablet(s) PO daily 06/04/2018 06/03/2018 Inactive lisinopril 10 mg tablet RxNorm: 719288 1 Tablet(s) PO daily 05/02/2019 Active Toprol XL 100 mg tablet,extended release RxNorm: 373301 1 Tablet(s) PO daily 05/08/2018 05/02/2019 Active atorvastatin 40 mg tablet RxNorm: 452399 1 Tablet(s) PO QHS No Stop Date Active gabapentin 300 mg capsule RxNorm: 985716 1 Capsule(s) PO TID 04/28/2019 Active levothyroxine 25 mcg tablet RxNorm: 357944 1 Tablet(s) PO daily 05/04/2018 04/28/2019 Active Toprol XL 100 mg tablet,extended release RxNorm: 213769 1 Tablet(s) PO daily 05/04/2018 05/07/2018 Inactive lisinopril 10 mg tablet RxNorm: 269105 1 Tablet(s) PO daily 05/07/2018 Inactive amlodipine 5 mg tablet RxNorm: 727995 1 Tablet(s) PO daily 03/31/2019 Active amlodipine 5 mg tablet RxNorm: 501447 1 Tablet(s) PO daily 07/201804/05/2018 Inactive tolterodine 2 mg tablet RxNorm: 580247 1 Tablet(s) PO QPM 03/1910/14/2018 Active nystatin 100,000 unit/gram topical cream RxNorm: 376777 1 Gram(s) TOP TID until healed et then PRN 01/09/2018 No Stop Date Active D/c powder escitalopram 10 mg tablet RxNorm: 612444 1 Tablet(s) PO QPM 07/31/2018 Inactive nystatin (bulk) 100 million unit powder RxNorm: 1 Miscellaneous QID 12/25/2017 01/08/2018 Inactive warfarin 2 mg tablet RxNorm: 915625 1 Tablet(s) PO daily 201701/02/2018 Inactive nystatin (bulk) 100 million unit powder RxNorm: 1 Miscellaneous QID 12/25/2017 12/24/2017 Inactive sitagliptin 50 mg tablet RxNorm: 626613 1 Tablet(s) PO daily 02/07/2018 Inactive tolterodine 1 mg tablet RxNorm: 253484 1 Tablet(s) PO BID 12/1903/18/2018 Inactive warfarin 3 mg tablet RxNorm: 248694 1 Tablet(s) PO UD MWF, 2mg T/Th/Sat/Sun 12/15/2017 01/02/2018 Inactive ciprofloxacin 250 mg tablet RxNorm: 960183 1 Tablet(s) PO BID 12/05/2017 12/09/2017 Inactive multivitamin oral RxNorm: 15110 oral No Start Date Active Xanax 0.25 mg tablet RxNorm: 947002 1 Tablet(s) PO daily as needed No Start Date Active Restasis MultiDose 0.05 % eye drops RxNorm: 727726 1 Drop(s) both ophthalmic (eye ) BID No Start Date Active hydrocodone 5 mg-acetaminophen 325 mg tablet RxNorm: 294202 1 Tablet(s) PO Q6 as needed No Start Date Active clopidogrel 75 mg tablet RxNorm: 707697 1 Tablet(s) PO daily No Start Date Active Oyster Calcium 375 mg-200 unit-800 unit tablet RxNorm: 2 Tablet(s) PO daily No Start Date Active cyanocobalamin (vit B-12) 1,000 mcg tablet RxNorm: 615064 1 Tablet(s) PO daily No Start Date Active aspirin 81 mg tablet RxNorm: 118185 1 Tablet(s) PO daily No Start Date Active lisinopril 10 mg tablet RxNorm: 602112 1 Tablet(s) PO daily No Start Date 05/03/2018 Inactive levothyroxine 25 mcg tablet RxNorm: 709791 1 Tablet(s) PO daily No Start Date 05/03/2018 Inactive warfarin 2 mg tablet RxNorm: 449666 1 Tablet(s) PO daily No Start Date 12/24/2017 Inactive tolterodine 1 mg tablet RxNorm: 598658 1 Tablet(s) PO BID No Start Date 12/18/2017 Inactive nystatin 100,000 unit/gram topical cream RxNorm: 186284 1 Gram(s) TOP TID until healed et then PRN No Start Date 2017 Inactive omeprazole 10 mg capsule,delayed release RxNorm: 625749 1 Capsule(s) PO daily No Start Date 09/05/2018 Inactive Toprol XL 100 mg tablet,extended release RxNorm: 709590 1 Tablet(s) PO daily No Start Date 05/03/2018 Inactive gabapentin 300 mg capsule RxNorm: 085097 1 Capsule(s) PO TID No Start Date 05/03/2018 Inactive atorvastatin 40 mg tablet RxNorm: 097175 1 Tablet(s) PO QHS No Start Date 05/03/2018 Inactive amlodipine 5 mg tablet RxNorm: 332821 1 Tablet(s) PO daily No Start Date 03/27/2018 Inactive sitagliptin 50 mg tablet RxNorm: 865358 1 Tablet(s) PO daily No Start Date 12/18/2017 Inactive Medication Administered No Medication Administered data Immunizations Vaccine Codes Date Status Influenza CVX: 141 07/18/2018 completed Assessments Condition Codes Effective Dates Encounter for immunization ICD-10: Z23 ICD-9: V04.81 07/18/2018 Urgency of urination ICD-10: R39.15 ICD-9: 788.63 03/19/2018 Atrophy of thyroid (acquired) ICD-10: E03.4 ICD-9: 244.8 03/19/2018 Type 2 diabetes mellitus without complications ICD-10: E11.9 ICD-9: 250.00 03/19/2018 Essential (primary) hypertension ICD-10: I10 ICD-9: 401.1 03/19/2018 Orthostatic hypotension ICD-10: I95.1 ICD-9: 458.0 02/08/2018 Urinary tract infection, site not specified ICD-10: N39.0 ICD-9: 599.0 02/08/2018 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 ICD-10: Z79.01 ICD-9: V58.61 12/08/2017 Other specified hypothyroidism ICD-10: E03.8 ICD-9: 244.8 12/08/2017 Chronic kidney disease, stage 3 (moderate) ICD-10: N18.3 ICD-9: 585.3 12/08/2017 Reason For Visit Reason For Visit Effective Dates Notes vaccination against influenza 07/18/2018 hypertension 03/19/2018 Hospital Follow Up 02/08/2018 hypertension 01/03/2018 Hospital Follow Up 12/08/2017 Results Observation Observation Code Item Item Code Result Date Pt Ktp8151 PT 17.8 seconds 12/15/2017 Pt Aoj0279 INR 1.5 12/15/2017 Pt Bnh6701 Low Intensity - 1.5-2.0 12/15/2017 Pt Ffg0936 Mod intensity - 2.0-3.0 12/15/2017 Pt Kna0282 Hi intensity - 3.0-4.0 12/15/2017 Urinalysis Ord28 [...] hours from collection if refrigerated) 12/12/2017 Pt Zsd6139 PT 15.2 seconds 12/11/2017 Pt Sej4395 INR 1.2 12/11/2017 Pt Ncy3076 Low Intensity - 1.5-2.0 12/11/2017 Pt Rgo5246 Mod intensity - 2.0-3.0 12/11/2017 Pt Eok1972 Hi intensity - 3.0-4.0 12/11/2017 Pt Fmm5365 PT 14.7 seconds 12/08/2017 Pt Ebz4908 INR 1.2 12/08/2017 Pt Dps9374 Low Intensity - 1.5-2.0 12/08/2017 Pt Pwu4046 Mod intensity - 2.0-3.0 12/08/2017 Pt Xqe8252 Hi intensity - 3.0-4.0 12/08/2017 Review of Systems System Result Effective Dates Constitutional No recent illness 2017 Constitutional No [...] FLU VACC PRSV FREE INC ANTIG CPT-4: 35409 07/18/2018 Vital Signs Date Vital 03/19/2018 Blood Pressure 1: 140/58 Code : 8480-6 BMI: 28.5 Code : 80199-1 Heart Rate 1 : 59 bpm Height: 4'11" SpO2: 98% Weight: 141 lbs 02/08/2018 Blood Pressure 1: 130/68 Code : 8480-6 BMI: 28.5 Code : 05406-1 Heart Rate 1 : 73 bpm Height: 4'11" SpO2: 98% Weight: 141 lbs 01/03/2018 Blood Pressure 1: 116/64 Code : 8480-6 BMI: 27.7 Code : 17611-2 Heart Rate 1 : 68 bpm Height: 4'11" SpO2: 98% Weight: 137 lbs 12/08/2017 Blood Pressure 1: 122/74 Code : 8480-6 Heart Rate 1: 79 bpm Height: 4'11" SpO2: 97% Weight: Functional Status No Functional Status data History of Present Illness Symptom Name Status Result Effective Date Notes hypertension Quality primary hypertension 03/19/2018 None hypertension [...] data Encounters Encounter Performer Location Codes Date ([id number]) 44429 EST. PATIENT, LEVEL IV Diagnosis: Type 2 diabetes mellitus without complications[ICD10: E11.9] Diagnosis: Atrophy of thyroid (acquired)[ICD10: E03.4] Diagnosis: Essential (primary) hypertension[ICD10: I10] Diagnosis: Urgency of urination[ICD10: R39.15] Jossie Booker MD, [facility] CPT-4: 10843 03/19/2018 [id number]) [id number] EST. PATIENT, LEVEL IV Diagnosis: Orthostatic hypotension[ICD10: I95.1] Diagnosis: Urinary tract infection, site not specified[ICD10: N39.0] Diagnosis: Type 2 diabetes mellitus without complications[ICD10: E11.9] Armida Booker MD, [facility] CPT-4: 50555 02/08/2018 ([id number]) 62419 EST. PATIENT, LEVEL IV Diagnosis: Type 2 diabetes mellitus without complications[ICD10: E11.9] Diagnosis: Essential (primary) hypertension[ICD10: I10] Diagnosis: Atrophy of thyroid (acquired)[ICD10: E03.4] Jossie Booker MD, [facility] CPT-4: 62638 01/03/2018 [id number]) [id number] EST. 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] Diagnosis: Type 2 diabetes mellitus without complications[ICD10: E11.9] Diagnosis: Chronic kidney disease, stage 3 (moderate)[ICD10: N18.3] Diagnosis: [facility] (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 anticoagulants[ICD10: Z79.01] [facility] CPT-4: 00723 12/08/2017 Plan of Care Planned Activity Notes Codes Status Date Appointment: Injection 07/18/2018 Patient Education: Patient Medication [...] control. 03/19/2018 Appointment: [phone] [facility] (15 min) Moderate 03/19/2018 Patient Education: Patient Medication Summary Completed 03/19/2018 Visit Plan: Raeiezboqxl-oqqfpjuv-pvhvrct blood pressures DM -okay to stay off januvia-monitor blood sugars and call if they become elevated UTI-finished treatment 02/08/2018 Appointment: [phone] [phone] (15 min) Moderate 02/08/2018 Patient Education: Patient [...] pharmacy. 01/03/2018 Appointment: Jossie Booker WPtel: [phone] [facility] (15 min) Moderate 01/03/2018 Patient Education: Patient [...] of control. 12/08/2017 Appointment: Annika Nguyen [phone] [facility] New Patient 12/08/2017 Patient Education: Patient Medication [...] CAN GET YOUR RECORDS FROM [facility] . Ftpvfgdytzc-fjpvnunp-rmtjgoo blood pressures DM-okay to stay off januvia-monitor blood sugars and call if they become elevated UTI-finished treatment change the tolterodine to 2 mg at [...]
--- OUTSIDE RECORDS SUMMARY | 2018-11-11 19:34 | XMS REPORT | CCD ---
Author Author [facility] Address [address] [place] [address] Phone Care Team Providers Care Italian Tutor Name Role Phone PP Unavailable CCM Unavailable Summary Purpose Interface Exchange Insurance Providers Payer name Policy type / Coverage type Covered democrat ID Effective Begin Date Effective End Date HUMANA CLAIMS Commercial Insurance [id number] 2017 Unknown Family History Family History data not found Social History Social History Element Codes Description Effective Dates Marital status Unknown [place] 12/08/2017 Number of children Unknown 2 12/08/2017 Employment Unknown Retired 12/08/[address]: 356704141 Never smoker 12/08/[address]: 835165187 Never drinks alcohol 12/08/2017 Allergies, Adverse Reactions, [...] ICD-9: 244.9 ICD-10: E03.9 Active 12/08/2017 Unknown 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 ICD-9: V58.61 ICD-10: [...] unspecified ICD-9: 244.9 ICD-10: E03.9 12/08/2017 Active 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 ICD-9: V58.61 ICD-10: Z79.01 12/08/2017 Active Medications Medication Codes Instructions Start Date Stop Date Status Fill Instructions escitalopram 10 mg tablet RxNorm: 902981 TAKE 1 TABLET BY MOUTH ONCE DAILY IN THE EVENING 09/06/2018 No Stop Date Active cyanocobalamin (vit B-12) 1,000 mcg tablet RxNorm: 763639 1 Tablet(s) PO daily 08/08/2018 10/31/2019 Active cyanocobalamin (vit B-12) 1,000 mcg tablet RxNorm: 832658 1 Tablet(s) PO daily 08/08/2018 08/07/2018 Inactive levofloxacin 250 mg tablet RxNorm: 651469 1 Tablet(s) PO daily 06/04/2018 06/08/2018 Inactive levofloxacin 250 mg tablet RxNorm: 368725 1 Tablet(s) PO daily 06/04/2018 06/03/2018 Inactive lisinopril 10 mg tablet RxNorm: 481888 1 Tablet(s) PO daily 05/02/2019 Active Toprol XL 100 mg tablet,extended release RxNorm: 459924 1 Tablet(s) PO daily 05/08/2018 05/02/2019 Active atorvastatin 40 mg tablet RxNorm: 939791 1 Tablet(s) PO QHS No Stop Date Active gabapentin 300 mg capsule RxNorm: 834248 1 Capsule(s) PO TID 04/28/2019 Active levothyroxine 25 mcg tablet RxNorm: 867305 1 Tablet(s) PO daily 05/04/2018 04/28/2019 Active Toprol XL 100 mg tablet,extended release RxNorm: 769279 1 Tablet(s) PO daily 05/04/2018 05/07/2018 Inactive lisinopril 10 mg tablet RxNorm: 889201 1 Tablet(s) PO daily 05/07/2018 Inactive amlodipine 5 mg tablet RxNorm: 526550 1 Tablet(s) PO daily 03/31/2019 Active amlodipine 5 mg tablet RxNorm: 160670 1 Tablet(s) PO daily 07/201804/05/2018 Inactive tolterodine 2 mg tablet RxNorm: 304249 1 Tablet(s) PO QPM 03/1910/14/2018 Active nystatin 100,000 unit/gram topical cream RxNorm: 996541 1 Gram(s) TOP TID until healed et then PRN 01/09/2018 No Stop Date Active D/c powder escitalopram 10 mg tablet RxNorm: 026001 1 Tablet(s) PO QPM 07/31/2018 Inactive nystatin (bulk) 100 million unit powder RxNorm: 1 Miscellaneous QID 12/25/2017 01/08/2018 Inactive warfarin 2 mg tablet RxNorm: 282061 1 Tablet(s) PO daily 201701/02/2018 Inactive nystatin (bulk) 100 million unit powder RxNorm: 1 Miscellaneous QID 12/25/2017 12/24/2017 Inactive sitagliptin 50 mg tablet RxNorm: 294726 1 Tablet(s) PO daily 02/07/2018 Inactive tolterodine 1 mg tablet RxNorm: 749063 1 Tablet(s) PO BID 12/1903/18/2018 Inactive warfarin 3 mg tablet RxNorm: 488662 1 Tablet(s) PO UD MWF, 2mg /Th/Sat/Sun 12/15/2017 01/02/2018 Inactive ciprofloxacin 250 mg tablet RxNorm: 326710 1 Tablet(s) PO BID 12/05/2017 12/09/2017 Inactive multivitamin oral RxNorm: 94742 oral No Start Date Active Xanax 0.25 mg tablet RxNorm: 847779 1 Tablet(s) PO daily as needed No Start Date Active Restasis MultiDose 0.05 % eye drops RxNorm: 671007 1 Drop(s) both ophthalmic (eye ) BID No Start Date Active omeprazole 10 mg capsule,delayed release RxNorm: 478523 1 Capsule(s) PO daily No Start Date Active hydrocodone 5 mg-acetaminophen 325 mg tablet RxNorm: 929404 1 Tablet(s) PO Q6 as needed No Start Date Active clopidogrel 75 mg tablet RxNorm: 813203 1 Tablet(s) PO daily No Start Date Active Oyster Calcium 375 mg-200 unit-800 unit tablet RxNorm: 2 Tablet(s) PO daily No Start Date Active cyanocobalamin (vit B-12) 1,000 mcg tablet RxNorm: 346092 1 Tablet(s) PO daily No Start Date Active aspirin 81 mg tablet RxNorm: 291812 1 Tablet(s) PO daily No Start Date Active lisinopril 10 mg tablet RxNorm: 685784 1 Tablet(s) PO daily No Start Date 05/03/2018 Inactive levothyroxine 25 mcg tablet RxNorm: 392455 1 Tablet(s) PO daily No Start Date 05/03/2018 Inactive warfarin 2 mg tablet RxNorm: 132975 1 Tablet(s) PO daily No Start Date 12/24/2017 Inactive tolterodine 1 mg tablet RxNorm: 799513 1 Tablet(s) PO BID No Start Date 12/18/2017 Inactive nystatin 100,000 unit/gram topical cream RxNorm: 948759 1 Gram(s) TOP TID until healed et then PRN No Start Date 2017 Inactive Toprol XL 100 mg tablet,extended release RxNorm: 596006 1 Tablet(s) PO daily No Start Date 05/03/2018 Inactive gabapentin 300 mg capsule RxNorm: 124443 1 Capsule(s) PO TID No Start Date 05/03/2018 Inactive atorvastatin 40 mg tablet RxNorm: 324396 1 Tablet(s) PO QHS No Start Date 05/03/2018 Inactive amlodipine 5 mg tablet RxNorm: 751316 1 Tablet(s) PO daily No Start Date 03/27/2018 Inactive sitagliptin 50 mg tablet RxNorm: 750283 1 Tablet(s) PO daily No Start Date 12/18/2017 Inactive Medication Administered No Medication Administered data Immunizations Vaccine Codes Date Status Influenza CVX: 141 07/18/2018 completed Assessments Condition Codes Effective Dates Encounter for immunization ICD-10: Z23 ICD-9: V04.81 07/18/2018 Urgency of urination ICD-10: R39.15 ICD-9: 788.63 03/19/2018 Atrophy of thyroid (acquired) ICD-10: E03.4 ICD-9: 244.8 03/19/2018 Essential (primary) hypertension ICD-10: I10 ICD-9: 401.1 03/19/2018 Type 2 diabetes mellitus without complications ICD-10: E11.9 ICD-9: 250.00 03/19/2018 Urinary tract infection, site not specified ICD-10: N39.0 ICD-9: 599.0 02/08/2018 Orthostatic hypotension ICD-10: I95.1 ICD-9: 458.0 02/08/2018 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 ICD-10: Z79.01 ICD-9: V58.61 12/08/2017 Other specified hypothyroidism ICD-10: E03.8 ICD-9: 244.8 12/08/2017 Chronic kidney disease, stage 3 (moderate) ICD-10: N18.3 ICD-9: 585.3 12/08/2017 Reason For Visit Reason For Visit Effective Dates Notes vaccination against influenza 07/18/2018 hypertension 03/19/2018 Hospital Follow Up 02/08/2018 hypertension 01/03/2018 Hospital Follow Up 12/08/2017 Results Observation Observation Code Item Item Code Result Date Pt Qgn4518 PT 17.8 seconds 12/15/2017 Pt Tsi0101 INR 1.5 12/15/2017 Pt Wxv8243 Low Intensity - 1.5-2.0 12/15/2017 Pt Djq9037 Mod intensity - 2.0-3.0 12/15/2017 Pt Lix5456 Hi intensity - 3.0-4.0 12/15/2017 Urinalysis Ord28 [...] U-VOL VOLUME SUFFICIENT (10mL) 12/12/2017 Urinalysis Ord28 U-Com Urine saved if culture needed (specimen acceptable for 48 hours from collection if refrigerated) 12/12/2017 Urinalysis Ord28 U-Yeast NEGATIVE 12/12/2017 Pt Mwc1625 PT 15.2 seconds 12/11/2017 Pt Awf3169 INR 1.2 12/11/2017 Pt Eex9505 Low Intensity - 1.5-2.0 12/11/2017 Pt Xjx9880 Mod intensity - 2.0-3.0 12/11/2017 Pt Mvx9632 Hi intensity - 3.0-4.0 12/11/2017 Pt Afz7139 PT 14.7 seconds 12/08/2017 Pt Hep9853 INR 1.2 12/08/2017 Pt Wbd2260 Low Intensity - 1.5-2.0 12/08/2017 Pt Ffq3664 Mod intensity - 2.0-3.0 12/08/2017 Pt Min2018 Hi intensity - 3.0-4.0 12/08/2017 Review of [...] FLU VACC PRSV FREE INC ANTIG CPT-4: 91021 07/18/2018 Vital Signs Date Vital 03/19/2018 Blood Pressure 1: 140/58 Code : 8480-6 BMI: 28.5 Code : 06227-1 Heart Rate 1 : 59 bpm Height: 4'11" SpO2: 98% Weight: 141 lbs 02/08/2018 Blood Pressure 1: 130/68 Code : 8480-6 BMI: 28.5 Code : 44110-0 Heart Rate 1 : 73 bpm Height: 4'11" SpO2: 98% Weight: 141 lbs 01/03/2018 Blood Pressure 1: 116/64 Code : 8480-6 BMI: 27.7 Code : 05351-9 Heart Rate 1 : 68 bpm Height: [...] Hospital Follow Up _ Other: hip fracture 12/01 12/08/2017 None Hospital Follow Up Onset of Symptom 1 weeks ago 12/08/2017 None Hospital Follow Up Onset and Resolution sudden in onset 12/08/2017 None Hospital Follow Up Significant Medical Conditions trauma 12/08/2017 None Hospital Follow Up Mechanism of injury fall 12/08/2017 None Advance Directives No Advance Directive data Encounters Encounter Performer Location Codes Date ([id number]) 53557 EST. PATIENT, LEVEL IV Diagnosis: Type 2 diabetes mellitus without complications[ICD10: E11.9] Diagnosis: Atrophy of thyroid (acquired)[ICD10: E03.4] Diagnosis: Essential (primary) hypertension[ICD10: I10] Diagnosis: Urgency of urination[ICD10: R39.15] Jossie Booker MD, [facility] CPT-4: 96897 03/19/[id number]) 23286 EST. PATIENT, LEVEL IV Diagnosis: Orthostatic hypotension[ICD10: I95.1] Diagnosis: Urinary tract infection, site not specified[ICD10: N39.0] Diagnosis: Type 2 diabetes mellitus without complications[ICD10: E11.9] [facility] CPT-4: 49945 02/08/2018 [id number]) 15925 EST. PATIENT, LEVEL IV Diagnosis: Type 2 diabetes mellitus without complications[ICD10: E11.9] Diagnosis: Essential (primary) hypertension[ICD10: I10] Diagnosis: Atrophy of thyroid (acquired)[ICD10: E03.4] [facility] CPT-4: 89219 01/03/2018 [id number]) 09258 EST. 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 03/19/2018 App[facility]ment: [facility] [phone] [facility] [place] (15 min) Moderate 03/19/2018 Patient Education: Patient Medication Summary Completed 03/19/2018 Visit Plan: Pdqfxmviuww-hyhnwikg-qcghwzb blood pressures DM -okay to stay off januvia-monitor blood sugars and call if they become elevated UTI-finished treatment 02/08/2018 Appointment: [facility] [phone] [facility] [place] (15 min) Moderate 02/08/2018 Patient Education: [...] pharmacy. 01/03/2018 Appointment: Jossie Booker WPtel: [phone] [facility] (15 min) Moderate 01/03/2018 Patient Education: Patient [...] control. 12/08/2017 App[facility]ment: [facility] Nguyen [facility] [phone] [facility] New Patient 12/08/2017 Patient Education: Patient Medication [...] CAN GET YOUR RECORDS FROM [facility] . Nfmskkgzimz-ygkcjxlz-bkhoepo blood pressures DM-okay to stay off januvia-monitor [...]
--- OUTSIDE RECORDS SUMMARY | 2018-11-11 19:35 | XMS REPORT | CCD ---
Author Author [facility] Address [address] [place] [address] Phone Care Team Providers Care Assistant Case Manager Name Role Phone PP Unavailable CCM Unavailable Summary Purpose Interface Exchange Insurance Providers Payer name Policy type / Coverage type Covered green party ID Effective Begin Date Effective End Date HUMANA CLAIMS Commercial Insurance [id number] 2017 Unknown Family History Family History data not found Social History Social History Element Codes Description Effective Dates Marital status Unknown [place] 12/08/2017 Number of children Unknown 2 12/08/2017 Employment Unknown Retired 12/08/[address]: 344380466 Never smoker 12/08/[address]: 351496231 Never drinks alcohol 12/08/2017 Allergies, Adverse Reactions, [...] ICD-9: 244.9 ICD-10: E03.9 Active 12/08/2017 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 ICD-9: V58.61 ICD-10: [...] unspecified ICD-9: 244.9 ICD-10: E03.9 12/08/2017 Active 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 ICD-9: V58.61 ICD-10: Z79.01 12/08/2017 Active Medications Medication Codes Instructions Start Date Stop Date Status Fill Instructions cyanocobalamin (vit B-12) 1,000 mcg tablet RxNorm: 781108 1 Tablet(s) PO daily 08/08/2018 10/31/2019 Active cyanocobalamin (vit B-12) 1,000 mcg tablet RxNorm: 520831 1 Tablet(s) PO daily 08/08/2018 08/07/2018 Inactive levofloxacin 250 mg tablet RxNorm: 983835 1 Tablet(s) PO daily 06/04/2018 06/08/2018 Inactive levofloxacin 250 mg tablet RxNorm: 719959 1 Tablet(s) PO daily 06/04/2018 06/03/2018 Inactive lisinopril 10 mg tablet RxNorm: 494641 1 Tablet(s) PO daily 05/02/2019 Active Toprol XL 100 mg tablet,extended release RxNorm: 183604 1 Tablet(s) PO daily 05/08/2018 05/02/2019 Active atorvastatin 40 mg tablet RxNorm: 642772 1 Tablet(s) PO QHS No Stop Date Active gabapentin 300 mg capsule RxNorm: 754993 1 Capsule(s) PO TID 04/28/2019 Active levothyroxine 25 mcg tablet RxNorm: 080457 1 Tablet(s) PO daily 05/04/2018 04/28/2019 Active Toprol XL 100 mg tablet,extended release RxNorm: 268429 1 Tablet(s) PO daily 05/04/2018 05/07/2018 Inactive lisinopril 10 mg tablet RxNorm: 994222 1 Tablet(s) PO daily 05/07/2018 Inactive amlodipine 5 mg tablet RxNorm: 653561 1 Tablet(s) PO daily 03/31/2019 Active amlodipine 5 mg tablet RxNorm: 459751 1 Tablet(s) PO daily 07/201804/05/2018 Inactive tolterodine 2 mg tablet RxNorm: 781693 1 Tablet(s) PO QPM 03/1910/14/2018 Active nystatin 100,000 unit/gram topical cream RxNorm: 608840 1 Gram(s) TOP TID until healed et then PRN 01/09/2018 No Stop Date Active D/c powder escitalopram 10 mg tablet RxNorm: 368871 1 Tablet(s) PO QPM 07/31/2018 Inactive nystatin (bulk) 100 million unit powder RxNorm: 1 Miscellaneous QID 12/25/2017 01/08/2018 Inactive warfarin 2 mg tablet RxNorm: 006021 1 Tablet(s) PO daily 201701/02/2018 Inactive nystatin (bulk) 100 million unit powder RxNorm: 1 Miscellaneous QID 12/25/2017 12/24/2017 Inactive sitagliptin 50 mg tablet RxNorm: 092141 1 Tablet(s) PO daily 02/07/2018 Inactive tolterodine 1 mg tablet RxNorm: 987645 1 Tablet(s) PO BID 12/1903/18/2018 Inactive warfarin 3 mg tablet RxNorm: 561321 1 Tablet(s) PO UD MWF, 2mg T/Th/Sat/Sun 12/15/2017 01/02/2018 Inactive ciprofloxacin 250 mg tablet RxNorm: 839521 1 Tablet(s) PO BID 12/05/2017 12/09/2017 Inactive multivitamin oral RxNorm: 50626 oral No Start Date Active Xanax 0.25 mg tablet RxNorm: 810000 1 Tablet(s) PO daily as needed No Start Date Active Restasis MultiDose 0.05 % eye drops RxNorm: 256933 1 Drop(s) both ophthalmic (eye ) BID No Start Date Active omeprazole 10 mg capsule,delayed release RxNorm: 393645 1 Capsule(s) PO daily No Start Date Active hydrocodone 5 mg-acetaminophen 325 mg tablet RxNorm: 916913 1 Tablet(s) PO Q6 as needed No Start Date Active clopidogrel 75 mg tablet RxNorm: 105863 1 Tablet(s) PO daily No Start Date Active Oyster Calcium 375 mg-200 unit-800 unit tablet RxNorm: 2 Tablet(s) PO daily No Start Date Active cyanocobalamin (vit B-12) 1,000 mcg tablet RxNorm: 830542 1 Tablet(s) PO daily No Start Date Active aspirin 81 mg tablet RxNorm: 253791 1 Tablet(s) PO daily No Start Date Active lisinopril 10 mg tablet RxNorm: 795044 1 Tablet(s) PO daily No Start Date 05/03/2018 Inactive levothyroxine 25 mcg tablet RxNorm: 355200 1 Tablet(s) PO daily No Start Date 05/03/2018 Inactive warfarin 2 mg tablet RxNorm: 208810 1 Tablet(s) PO daily No Start Date 12/24/2017 Inactive tolterodine 1 mg tablet RxNorm: 324981 1 Tablet(s) PO BID No Start Date 12/18/2017 Inactive nystatin 100,000 unit/gram topical cream RxNorm: 850503 1 Gram(s) TOP TID until healed et then PRN No Start Date 2017 Inactive Toprol XL 100 mg tablet,extended release RxNorm: 729893 1 Tablet(s) PO daily No Start Date 05/03/2018 Inactive gabapentin 300 mg capsule RxNorm: 684172 1 Capsule(s) PO TID No Start Date 05/03/2018 Inactive atorvastatin 40 mg tablet RxNorm: 768248 1 Tablet(s) PO QHS No Start Date 05/03/2018 Inactive amlodipine 5 mg tablet RxNorm: 219477 1 Tablet(s) PO daily No Start Date 03/27/2018 Inactive sitagliptin 50 mg tablet RxNorm: 129636 1 Tablet(s) PO daily No Start Date [...] without complications ICD-10: E11.9 ICD-9: 250.00 03/19/2018 Orthostatic hypotension ICD-10: I95.1 ICD-9: 458.0 02/08/2018 Urinary tract infection, site not specified ICD-10: N39.0 ICD-9: 599.0 02/08/2018 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 ICD-10: Z79.01 ICD-9: V58.61 12/08/2017 Chronic kidney disease, stage 3 (moderate) ICD-10: N18.3 ICD-9: 585.3 12/08/2017 Other specified hypothyroidism ICD-10: E03.8 ICD-9: 244.8 12/08/2017 Reason For Visit Reason For Visit Effective Dates Notes vaccination against influenza 07/18/2018 hypertension 03/19/2018 Hospital Follow Up 02/08/2018 hypertension 01/03/2018 Hospital Follow Up 12/08/2017 Results Observation Observation Code Item Item Code Result Date Pt Wni3900 PT 17.8 seconds 12/15/2017 Pt Bcb5295 INR 1.5 12/15/2017 Pt Ytu1208 Low Intensity - 1.5-2.0 12/15/2017 Pt Eii0817 Mod intensity - 2.0-3.0 12/15/2017 Pt Cye1795 Hi intensity - 3.0-4.0 12/15/2017 Urinalysis Ord28 [...] hours from collection if refrigerated) 12/12/2017 Pt Lqf6755 PT 15.2 seconds 12/11/2017 Pt Ssf1169 INR 1.2 12/11/2017 Pt Wgr0151 Low Intensity - 1.5-2.0 12/11/2017 Pt Hkg4714 Mod intensity - 2.0-3.0 12/11/2017 Pt Xqj9404 Hi intensity - 3.0-4.0 12/11/2017 Pt Vqo2937 PT 14.7 seconds 12/08/2017 Pt Mnf0326 INR 1.2 12/08/2017 Pt Vbe4548 Low Intensity - 1.5-2.0 12/08/2017 Pt Yxo1739 Mod intensity - 2.0-3.0 12/08/2017 Pt Wny8543 Hi intensity - 3.0-4.0 12/08/2017 Review of [...] FLU VACC PRSV FREE INC ANTIG CPT-4: 44224 07/18/2018 Vital Signs Date Vital 03/19/2018 Blood Pressure 1: 140/58 Code : 8480-6 BMI: 28.5 Code : 59810-7 Heart Rate 1 : 59 bpm Height: 4'11" SpO2: 98% Weight: 141 lbs 02/08/2018 Blood Pressure 1: 130/68 Code : 8480-6 BMI: 28.5 Code : 99612-2 Heart Rate 1 : 73 bpm Height: 4'11" SpO2: 98% Weight: 141 lbs 01/03/2018 Blood Pressure 1: 116/64 Code : 8480-6 BMI: 27.7 Code : 86708-8 Heart Rate 1 : 68 bpm Height: [...] data Encounters Encounter Performer Location Codes Date ([id number]) 91172 EST. PATIENT, LEVEL IV Diagnosis: Type 2 diabetes mellitus without complications[ICD10: E11.9] Diagnosis: Atrophy of thyroid (acquired)[ICD10: E03.4] Diagnosis: Essential (primary) hypertension[ICD10: I10] Diagnosis: Urgency of urination[ICD10: R39.15] Jossie Booker MD, [facility] CPT-4: 79297 03/19/2018 ([id number]) [id number] EST. PATIENT, LEVEL IV Diagnosis: Orthostatic hypotension[ICD10: I95.1] Diagnosis: Urinary tract infection, site not specified[ICD10: N39.0] Diagnosis: Type 2 diabetes mellitus without complications[ICD10: E11.9] Armida Booker MD, [facility] CPT-4: 70276 02/08/2018 ([id number]) 34214 EST. PATIENT, LEVEL IV Diagnosis: Type 2 diabetes mellitus without complications[ICD10: E11.9] Diagnosis: Essential (primary) hypertension[ICD10: I10] Diagnosis: Atrophy of thyroid (acquired)[ICD10: E03.4] Jossie Booker MD, [facility] CPT-4: 66779 01/03/2018 ([id number]) 62115 EST. 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[ICD10: Z79.01] Annika Booker MD, [facility] CPT-4: 50503 12/08/2017 Plan of Care Planned Activity Notes Codes Status Date Appointment: Injection 07/18/2018 Patient Education: Patient Medication Summary Completed 07/18/2018 Appointment: Jossie Booker WPtel: [address] [place], [place] [address] [place] (15 min) Moderate 03/19/2018 Patient Education: Patient Medication Summary Completed 03/19/2018 [facility]ment: [facility] [phone] [facility] (15 min) Moderate 02/08/2018 Patient Education: Patient Medication Summary Completed 02/08/2018 Appointment: [facility] Booker [facility] [phone] [facility] (15 min) Moderate 01/03/2018 Patient Education: Patient Medication Summary Completed 01/03/2018 [facility]ment: [facility] [phone] [facility] New Patient 12/08/2017 Patient Education: Patient Medication Summary Completed 12/08/2017 Instructions No Instructions
--- OUTSIDE RECORDS SUMMARY | 2018-11-11 19:35 | XMS REPORT | CCD ---
Author Author [facility] Address [address] [place] [address] Phone Care Team Providers Care Oleo Hasher And Renderer Name Role Phone PP Unavailable CCM Unavailable Summary Purpose Interface Exchange Insurance Providers Payer name Policy type / Coverage type Covered green party ID Effective Begin Date Effective End Date HUMANA CLAIMS Commercial Insurance [id number] 2017 Unknown Family History Family History data not found Social History Social History Element Codes Description Effective Dates Marital status Unknown [place] 12/08/2017 Number of children Unknown 2 12/08/2017 Employment Unknown Retired 12/08/[address]: 288961481 Never smoker 12/08/[address]: 771342992 Never drinks alcohol 12/08/2017 Allergies, Adverse Reactions, [...] 244.9 ICD-10: E03.9 Active 12/08/2017 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 ICD-9: V58.61 ICD-10: [...] ICD-9: 244.9 ICD-10: E03.9 12/08/2017 Active 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 ICD-9: V58.61 ICD-10: Z79.01 12/08/2017 Active Medications Medication Codes Instructions Start Date Stop Date Status Fill Instructions levofloxacin 250 mg tablet RxNorm: 560025 1 Tablet(s) PO daily 06/04/2018 06/08/2018 Inactive levofloxacin 250 mg tablet RxNorm: 088458 1 Tablet(s) PO daily 06/04/2018 06/03/2018 Inactive lisinopril 10 mg tablet RxNorm: 109789 1 Tablet(s) PO daily 05/02/2019 Active Toprol XL 100 mg tablet,extended release RxNorm: 476500 1 Tablet(s) PO daily 05/08/2018 05/02/2019 Active atorvastatin 40 mg tablet RxNorm: 225554 1 Tablet(s) PO QHS No Stop Date Active gabapentin 300 mg capsule RxNorm: 577564 1 Capsule(s) PO TID 04/28/2019 Active levothyroxine 25 mcg tablet RxNorm: 918134 1 Tablet(s) PO daily 05/04/2018 04/28/2019 Active Toprol XL 100 mg tablet,extended release RxNorm: 167569 1 Tablet(s) PO daily 05/04/2018 05/07/2018 Inactive lisinopril 10 mg tablet RxNorm: 683553 1 Tablet(s) PO daily 05/07/2018 Inactive amlodipine 5 mg tablet RxNorm: 366897 1 Tablet(s) PO daily 03/31/2019 Active amlodipine 5 mg tablet RxNorm: 709802 1 Tablet(s) PO daily 07/201804/05/2018 Inactive tolterodine 2 mg tablet RxNorm: 045483 1 Tablet(s) PO QPM 03/1910/14/2018 Active nystatin 100,000 unit/gram topical cream RxNorm: 380527 1 Gram(s) TOP TID until healed et then PRN 01/09/2018 No Stop Date Active D/c powder escitalopram 10 mg tablet RxNorm: 281210 1 Tablet(s) PO QPM 07/31/2018 Active nystatin (bulk) 100 million unit powder RxNorm: 1 Miscellaneous QID 12/25/2017 01/08/2018 Inactive warfarin 2 mg tablet RxNorm: 615001 1 Tablet(s) PO daily 201701/02/2018 Inactive nystatin (bulk) 100 million unit powder RxNorm: 1 Miscellaneous QID 12/25/2017 12/24/2017 Inactive sitagliptin 50 mg tablet RxNorm: 031790 1 Tablet(s) PO daily 02/07/2018 Inactive tolterodine 1 mg tablet RxNorm: 464591 1 Tablet(s) PO BID 12/1903/18/2018 Inactive warfarin 3 mg tablet RxNorm: 314457 1 Tablet(s) PO UD MWF, 2mg T/Th/Sat/Sun 12/15/2017 01/02/2018 Inactive ciprofloxacin 250 mg tablet RxNorm: 390486 1 Tablet(s) PO BID 12/05/2017 12/09/2017 Inactive multivitamin oral RxNorm: 89195 oral No Start Date Active Xanax 0.25 mg tablet RxNorm: 711450 1 Tablet(s) PO daily as needed No Start Date Active Restasis MultiDose 0.05 % eye drops RxNorm: 403977 1 Drop(s) both ophthalmic (eye ) BID No Start Date Active omeprazole 10 mg capsule,delayed release RxNorm: 456715 1 Capsule(s) PO daily No Start Date Active hydrocodone 5 mg-acetaminophen 325 mg tablet RxNorm: 071474 1 Tablet(s) PO Q6 as needed No Start Date Active clopidogrel 75 mg tablet RxNorm: 725334 1 Tablet(s) PO daily No Start Date Active Oyster Calcium 375 mg-200 unit-800 unit tablet RxNorm: 2 Tablet(s) PO daily No Start Date Active cyanocobalamin (vit B-12) 1,000 mcg tablet RxNorm: 060974 1 Tablet(s) PO daily No Start Date Active aspirin 81 mg tablet RxNorm: 418158 1 Tablet(s) PO daily No Start Date Active lisinopril 10 mg tablet RxNorm: 831150 1 Tablet(s) PO daily No Start Date 05/03/2018 Inactive levothyroxine 25 mcg tablet RxNorm: 943916 1 Tablet(s) PO daily No Start Date 05/03/2018 Inactive warfarin 2 mg tablet RxNorm: 007962 1 Tablet(s) PO daily No Start Date 12/24/2017 Inactive tolterodine 1 mg tablet RxNorm: 204100 1 Tablet(s) PO BID No Start Date 12/18/2017 Inactive nystatin 100,000 unit/gram topical cream RxNorm: 827859 1 Gram(s) TOP TID until healed et then PRN No Start Date 2017 Inactive Toprol XL 100 mg tablet,extended release RxNorm: 583171 1 Tablet(s) PO daily No Start Date 05/03/2018 Inactive gabapentin 300 mg capsule RxNorm: 268325 1 Capsule(s) PO TID No Start Date 05/03/2018 Inactive atorvastatin 40 mg tablet RxNorm: 703333 1 Tablet(s) PO QHS No Start Date 05/03/2018 Inactive amlodipine 5 mg tablet RxNorm: 864815 1 Tablet(s) PO daily No Start Date 03/27/2018 Inactive sitagliptin 50 mg tablet RxNorm: 064955 1 Tablet(s) PO daily No Start Date 12/18/2017 Inactive Medication Administered No Medication Administered data Immunizations No Immunization data Assessments Condition Codes Effective Dates Encounter for [...] not specified ICD-10: N39.0 ICD-9: 599.0 02/08/2018 shelter (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 anticoagulants ICD-10: Z79.01 ICD-9: V58.61 12/08/2017 Other specified hypothyroidism ICD-10: E03.8 ICD-9: 244.8 12/08/2017 Chronic kidney disease, stage 3 (moderate) ICD-10: N18.3 ICD-9: 585.3 12/08/2017 Reason For Visit Reason For Visit Effective Dates Notes vaccination against influenza 07/18/2018 hypertension 03/19/2018 Hospital Follow Up 02/08/2018 hypertension 01/03/2018 Hospital Follow Up 12/08/2017 Results Observation Observation Code Item Item Code Result Date Pt Dsf7024 PT 17.8 seconds 12/15/2017 Pt Moh3550 INR 1.5 12/15/2017 Pt Rbk2256 Low Intensity - 1.5-2.0 12/15/2017 Pt Ixv2431 Mod intensity - 2.0-3.0 12/15/2017 Pt Afp4541 Hi intensity - 3.0-4.0 12/15/2017 Urinalysis Ord28 [...] hours from collection if refrigerated) 12/12/2017 Pt Sif2795 PT 15.2 seconds 12/11/2017 Pt Uyg4922 INR 1.2 12/11/2017 Pt Ibs8963 Low Intensity - 1.5-2.0 12/11/2017 Pt Voz8816 Mod intensity - 2.0-3.0 12/11/2017 Pt Tmb6564 Hi intensity - 3.0-4.0 12/11/2017 Pt Xim3582 PT 14.7 seconds 12/08/2017 Pt Lwn2721 INR 1.2 12/08/2017 Pt Vnz6690 Low Intensity - 1.5-2.0 12/08/2017 Pt Hxk9127 Mod intensity - 2.0-3.0 12/08/2017 Pt Ezo7794 Hi intensity - 3.0-4.0 12/08/2017 Review of [...] FLU VACC PRSV FREE INC ANTIG CPT-4: 69452 07/18/2018 Vital Signs Date Vital 03/19/2018 Blood Pressure 1: 140/58 Code : 8480-6 BMI: 28.5 Code : 04059-3 Heart Rate 1 : 59 bpm Height: 4'11" SpO2: 98% Weight: 141 lbs 02/08/2018 Blood Pressure 1: 130/68 Code : 8480-6 BMI: 28.5 Code : 21951-4 Heart Rate 1 : 73 bpm Height: 4'11" SpO2: 98% Weight: 141 lbs 01/03/2018 Blood Pressure 1: 116/64 Code : 8480-6 BMI: 27.7 Code : 09498-0 Heart Rate 1 : 68 bpm Height: [...] Hospital Follow Up _ Other: hip fracture /16 12/08/2017 None Hospital Follow Up Onset of Symptom 1 weeks ago 12/08/2017 None Hospital Follow Up Onset and Resolution sudden in onset 12/08/2017 None Hospital Follow Up Significant Medical Conditions trauma 12/08/2017 None Hospital Follow Up Mechanism of injury fall 12/08/2017 None Advance Directives No Advance Directive data Encounters Encounter Performer Location Codes Date ([id number]) [id number] EST. PATIENT, LEVEL IV Diagnosis: Type 2 diabetes mellitus without complications[ICD10: E11.9] Diagnosis: Atrophy of thyroid (acquired)[ICD10: E03.4] Diagnosis: Essential (primary) hypertension[ICD10: I10] Diagnosis: Urgency of urination[ICD10: R39.15] Jossie Booker MD, [facility] CPT-4: 57597 03/19/2018 ([id number]) [id number] EST. PATIENT, LEVEL IV Diagnosis: Orthostatic hypotension[ICD10: I95.1] Diagnosis: Urinary tract infection, site not specified[ICD10: N39.0] Diagnosis: Type 2 diabetes mellitus without complications[ICD10: E11.9] Armida Booker MD, [facility] CPT-4: 97317 02/08/2018 ([id number]) [id number] EST. PATIENT, LEVEL IV Diagnosis: Type 2 diabetes mellitus without complications[ICD10: E11.9] Diagnosis: Essential (primary) hypertension[ICD10: I10] Diagnosis: Atrophy of thyroid (acquired)[ICD10: E03.4] Jossie Booker MD, [facility] CPT-4: 96539 01/03/2018 [id number]) [id number] EST. 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] Diagnosis: Type 2 diabetes mellitus without complications[ICD10: E11.9] Diagnosis: Chronic kidney disease, stage 3 (moderate)[ICD10: N18.3] Diagnosis: shelter (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 anticoagulants[ICD10: Z79.01] Annika Booker MD, [facility] CPT-4: 69921 12/08/2017 Plan of Care Planned Activity Notes Codes Status Date Patient Education: Patient Medication Summary Completed 07/18/2018 Appointment: [facility]el[facility] [place] ([facility] min) Moderate 03/19/2018 Patient Education: Patient Medication Summary Completed 03/19/2018 Appointment: Armida Nicolas WPtel[facility] [place] (15 min) Moderate 02/08/2018 Patient Education: Patient Medication Summary Completed 02/08/2018 Appointment: [facility] Booker [facility] [phone] [facility] (15 min) Moderate 01/03/2018 Patient Education: Patient Medication Summary Completed 01/03/2018 Appointment: Annika Nguyen [facility]el[facility] [phone] [facility] New Patient 12/08/2017 Patient Education: Patient Medication Summary Completed 12/08/2017 Instructions No Instructions
--- OUTSIDE RECORDS SUMMARY | 2018-11-11 19:36 | XMS REPORT | CCD ---
Author Author [facility] Address [address] [place] [address] Phone Care Team Providers Care Vp Strategic Planning Name Role Phone PP Unavailable CCM Unavailable Summary Purpose Interface Exchange Insurance Providers Payer name Policy type / Coverage type Covered libertarian ID Effective Begin Date Effective End Date HUMANA CLAIMS Commercial Insurance [id number] 2017 Unknown Family History Family History data not found Social History Social History Element Codes Description Effective Dates Marital status Unknown [place] 12/08/2017 Number of children Unknown 2 12/08/2017 Employment Unknown Retired 12/08/[address]: 600147537 Never smoker 12/08/[address]: 412486287 Never drinks alcohol 12/08/2017 Allergies, Adverse Reactions, [...] 244.9 ICD-10: E03.9 Active 12/08/2017 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 ICD-9: V58.61 ICD-10: [...] ICD-9: 244.9 ICD-10: E03.9 12/08/2017 Active 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 ICD-9: V58.61 ICD-10: Z79.01 12/08/2017 Active Medications Medication Codes Instructions Start Date Stop Date Status Fill Instructions lisinopril 10 mg tablet RxNorm: 429065 1 Tablet(s) PO daily 05/02/2019 Active Toprol XL 100 mg tablet,extended release RxNorm: 213895 1 Tablet(s) PO daily 05/08/2018 05/02/2019 Active atorvastatin 40 mg tablet RxNorm: 039089 1 Tablet(s) PO QHS No Stop Date Active gabapentin 300 mg capsule RxNorm: 296221 1 Capsule(s) PO TID 04/28/2019 Active levothyroxine 25 mcg tablet RxNorm: 614080 1 Tablet(s) PO daily 05/04/2018 04/28/2019 Active Toprol XL 100 mg tablet,extended release RxNorm: 902180 1 Tablet(s) PO daily 05/04/2018 05/07/2018 Inactive lisinopril 10 mg tablet RxNorm: 484760 1 Tablet(s) PO daily 05/07/2018 Inactive amlodipine 5 mg tablet RxNorm: 007652 1 Tablet(s) PO daily 03/31/2019 Active amlodipine 5 mg tablet RxNorm: 258950 1 Tablet(s) PO daily 07/201804/05/2018 Inactive tolterodine 2 mg tablet RxNorm: 245489 1 Tablet(s) PO QPM 03/1910/14/2018 Active nystatin 100,000 unit/gram topical cream RxNorm: 931493 1 Gram(s) TOP TID until healed et then PRN 01/09/2018 No Stop Date Active D/c powder escitalopram 10 mg tablet RxNorm: 757578 1 Tablet(s) PO QPM 07/31/2018 Active nystatin (bulk) 100 million unit powder RxNorm: 1 Miscellaneous QID 12/25/2017 01/08/2018 Inactive warfarin 2 mg tablet RxNorm: 795264 1 Tablet(s) PO daily 201701/02/2018 Inactive nystatin (bulk) 100 million unit powder RxNorm: 1 Miscellaneous QID 12/25/2017 12/24/2017 Inactive sitagliptin 50 mg tablet RxNorm: 606016 1 Tablet(s) PO daily 02/07/2018 Inactive tolterodine 1 mg tablet RxNorm: 151886 1 Tablet(s) PO BID 12/1903/18/2018 Inactive warfarin 3 mg tablet RxNorm: 070761 1 Tablet(s) PO UD MWF, 2mg T/Th/Sat/Sun 12/15/2017 01/02/2018 Inactive ciprofloxacin 250 mg tablet RxNorm: 362298 1 Tablet(s) PO BID 12/05/2017 12/09/2017 Inactive multivitamin oral RxNorm: 59745 oral No Start Date Active Xanax 0.25 mg tablet RxNorm: 305476 1 Tablet(s) PO daily as needed No Start Date Active Restasis MultiDose 0.05 % eye drops RxNorm: 116850 1 Drop(s) both ophthalmic (eye ) BID No Start Date Active omeprazole 10 mg capsule,delayed release RxNorm: 376945 1 Capsule(s) PO daily No Start Date Active hydrocodone 5 mg-acetaminophen 325 mg tablet RxNorm: 839168 1 Tablet(s) PO Q6 as needed No Start Date Active clopidogrel 75 mg tablet RxNorm: 709646 1 Tablet(s) PO daily No Start Date Active Oyster Calcium 375 mg-200 unit-800 unit tablet RxNorm: 2 Tablet(s) PO daily No Start Date Active cyanocobalamin (vit B-12) 1,000 mcg tablet RxNorm: 769620 1 Tablet(s) PO daily No Start Date Active aspirin 81 mg tablet RxNorm: 775811 1 Tablet(s) PO daily No Start Date Active lisinopril 10 mg tablet RxNorm: 743769 1 Tablet(s) PO daily No Start Date 05/03/2018 Inactive levothyroxine 25 mcg tablet RxNorm: 055006 1 Tablet(s) PO daily No Start Date 05/03/2018 Inactive warfarin 2 mg tablet RxNorm: 519530 1 Tablet(s) PO daily No Start Date 12/24/2017 Inactive tolterodine 1 mg tablet RxNorm: 653022 1 Tablet(s) PO BID No Start Date 12/18/2017 Inactive nystatin 100,000 unit/gram topical cream RxNorm: 844958 1 Gram(s) TOP TID until healed et then PRN No Start Date 2017 Inactive Toprol XL 100 mg tablet,extended release RxNorm: 197830 1 Tablet(s) PO daily No Start Date 05/03/2018 Inactive gabapentin 300 mg capsule RxNorm: 974907 1 Capsule(s) PO TID No Start Date 05/03/2018 Inactive atorvastatin 40 mg tablet RxNorm: 654659 1 Tablet(s) PO QHS No Start Date 05/03/2018 Inactive amlodipine 5 mg tablet RxNorm: 685160 1 Tablet(s) PO daily No Start Date 03/27/2018 Inactive sitagliptin 50 mg tablet RxNorm: 048578 1 Tablet(s) PO daily No Start Date 12/18/2017 Inactive Medication Administered No Medication Administered data Immunizations No Immunization data Assessments Condition Codes Effective Dates Urgency of urination ICD-10: R39.15 ICD-9: 788.63 03/19/2018 Atrophy of thyroid (acquired) ICD-10: E03.4 ICD-9: 244.8 03/19/2018 Type 2 diabetes mellitus without complications ICD-10: E11.9 ICD-9: 250.00 03/19/2018 Essential (primary) hypertension ICD-10: I10 ICD-9: 401.1 03/19/2018 Orthostatic hypotension ICD-10: I95.1 ICD-9: 458.0 02/08/2018 Urinary tract infection, site not specified ICD-10: N39.0 ICD-9: 599.0 02/08/2018 [facility] (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 anticoagulants ICD-10: Z79.01 ICD-9: V58.61 12/08/2017 Other specified hypothyroidism ICD-10: E03.8 ICD-9: 244.8 12/08/2017 Chronic kidney disease, stage 3 (moderate) ICD-10: N18.3 ICD-9: 585.3 12/08/2017 Reason For Visit Reason For Visit Effective Dates Notes hypertension 03/19/2018 Hospital Follow Up 02/08/2018 hypertension 01/03/2018 Hospital Follow Up 12/08/2017 Results Observation Observation Code Item Item Code Result Date Pt Gmv0194 PT 17.8 seconds 12/15/2017 Pt Bcm7159 INR 1.5 12/15/2017 Pt Aqy8801 Low Intensity - 1.5-2.0 12/15/2017 Pt Xse1121 Mod intensity - 2.0-3.0 12/15/2017 Pt Mwp7824 Hi intensity - 3.0-4.0 12/15/2017 Urinalysis Ord28 [...] 12/12/2017 Urinalysis Ord28 U-Yeast NEGATIVE 12/12/2017 Pt Wyc3015 PT 15.2 seconds 12/11/2017 Pt Zzw2592 INR 1.2 12/11/2017 Pt Cby4835 Low Intensity - 1.5-2.0 12/11/2017 Pt Lqd0413 Mod intensity - 2.0-3.0 12/11/2017 Pt Euk2121 Hi intensity - 3.0-4.0 12/11/2017 Pt Mxr4642 PT 14.7 seconds 12/08/2017 Pt Lgi0425 INR 1.2 12/08/2017 Pt Syn0389 Low Intensity - 1.5-2.0 12/08/2017 Pt Fsj5042 Mod intensity - 2.0-3.0 12/08/2017 Pt Uck8026 Hi intensity - 3.0-4.0 12/08/2017 Review of [...] well-groomed, good eye contact 12/08/2017 None Procedures No Procedures data Vital Signs Date Vital 03/19/2018 Blood Pressure 1: 140/58 Code : 8480-6 BMI: 28.5 Code : 55220-9 Heart Rate 1 : 59 bpm Height: 4'11" SpO2: 98% Weight: 141 lbs 02/08/2018 Blood Pressure 1: 130/68 Code : 8480-6 BMI: 28.5 Code : 67624-4 Heart Rate 1 : 73 bpm Height: 4'11" SpO2: 98% Weight: 141 lbs 01/03/2018 Blood Pressure 1: 116/64 Code : 8480-6 BMI: 27.7 Code : 98068-3 Heart Rate 1 : 68 bpm Height: [...] data Encounters Encounter Performer Location Codes Date [id number]) [id number] EST. PATIENT, LEVEL IV Diagnosis: Type 2 diabetes mellitus without complications[ICD10: E11.9] Diagnosis: Atrophy of thyroid (acquired)[ICD10: E03.4] Diagnosis: Essential (primary) hypertension[ICD10: I10] Diagnosis: Urgency of urination[ICD10: R39.15] Jossie Booker MD, [facility] CPT-4: 23942 03/19/2018 ([id number]) 39724 EST. PATIENT, LEVEL IV Diagnosis: Orthostatic hypotension[ICD10: I95.1] Diagnosis: Urinary tract infection, site not specified[ICD10: N39.0] Diagnosis: Type 2 diabetes mellitus without complications[ICD10: E11.9] [facility] CPT-4: 02845 02/08/2018 ([id number]) [id number] EST. PATIENT, LEVEL IV Diagnosis: Type 2 diabetes mellitus without complications[ICD10: E11.9] Diagnosis: Essential (primary) hypertension[ICD10: I10] Diagnosis: Atrophy of thyroid (acquired)[ICD10: E03.4] [facility] CPT-4: 28925 01/03/2018 ([id number] EST. 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] Diagnosis: Type 2 diabetes mellitus without complications[ICD10: E11.9] Diagnosis: Chronic kidney disease, stage 3 (moderate)[ICD10: N18.3] Diagnosis: [facility] (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 anticoagulants[ICD10: Z79.01] [facility] CPT-4: 67516 12/08/2017 Plan of Care Planned Activity Notes Codes Status Date Visit Plan: Diabetes Mellitus - controlled - [...] of control. 03/19/2018 Appointment: Jossie Booker WPtel: [address] [place] [address] (15 min) Moderate 03/19/2018 Patient Education: Patient Medication Summary Completed 03/19/2018 Visit Plan: Mkhrulepfbs-vyqihmzm-vtenobf blood pressures DM -okay to stay off januvia-monitor blood sugars and call if they become elevated UTI-finished treatment 02/08/2018 Appointment: [facility] [phone] [facility] [place] (15 min) Moderate 02/08/2018 [...] pharmacy. 01/03/2018 Appointment[facility] [phone] [facility] [place] (15 min) Moderate 01/03/2018 Patient Education: [...] of control. 12/08/2017 App[facility]ment: [facility] Nguyen [facility] [phone] [facility] [facility] 12/08/2017 Patient Education: [...] CAN GET YOUR RECORDS FROM [facility] . Bglkmsyqokg-sqozizjb-qphucjm blood pressures DM-okay to stay off januvia-monitor [...]
--- OUTSIDE RECORDS SUMMARY | 2018-11-11 19:36 | XMS REPORT | CCD ---
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 Phone PP Unavailable CCM Unavailable Summary Purpose Interface Exchange Insurance Providers Payer name Policy type / Coverage type Covered republican ID Effective Begin Date Effective End Date HUMANA CLAIMS Commercial Insurance [id number] 2017 Unknown Family History Family History data not found Social History Social History Element Codes Description Effective Dates Marital status Unknown [place] 12/08/2017 Number of children Unknown 2 12/08/2017 Employment Unknown Retired 12/08/[address]: 933830049 Never smoker 12/08/[address]: 178540738 Never drinks alcohol 12/08/2017 Allergies, Adverse Reactions, [...] ICD-9: 244.9 ICD-10: E03.9 Active 12/08/2017 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 ICD-9: V58.61 ICD-10: [...] unspecified ICD-9: 244.9 ICD-10: E03.9 12/08/2017 Active 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 ICD-9: V58.61 ICD-10: Z79.01 12/08/2017 Active Medications Medication Codes Instructions Start Date Stop Date Status Fill Instructions atorvastatin 40 mg tablet RxNorm: 991781 1 Tablet(s) PO QHS No Stop Date Active gabapentin 300 mg capsule RxNorm: 998106 1 Capsule(s) PO TID 04/28/2019 Active Toprol XL 100 mg tablet,extended release RxNorm: 800952 1 Tablet(s) PO daily 05/04/2018 04/28/2019 Active lisinopril 10 mg tablet RxNorm: 643356 1 Tablet(s) PO daily 04/28/2019 Active levothyroxine 25 mcg tablet RxNorm: 103474 1 Tablet(s) PO daily 05/04/2018 04/28/2019 Active amlodipine 5 mg tablet RxNorm: 414888 1 Tablet(s) PO daily 03/31/2019 Active amlodipine 5 mg tablet RxNorm: 143058 1 Tablet(s) PO daily 07/201804/05/2018 Inactive tolterodine 2 mg tablet RxNorm: 350970 1 Tablet(s) PO QPM 03/1910/14/2018 Active nystatin 100,000 unit/gram topical cream RxNorm: 924588 1 Gram(s) TOP TID until healed et then PRN 01/09/2018 No Stop Date Active D/c powder escitalopram 10 mg tablet RxNorm: 909937 1 Tablet(s) PO QPM 07/31/2018 Active nystatin (bulk) 100 million unit powder RxNorm: 1 Miscellaneous QID 12/25/2017 01/08/2018 Inactive warfarin 2 mg tablet RxNorm: 483379 1 Tablet(s) PO daily 201701/02/2018 Inactive nystatin (bulk) 100 million unit powder RxNorm: 1 Miscellaneous QID 12/25/2017 12/24/2017 Inactive sitagliptin 50 mg tablet RxNorm: 494252 1 Tablet(s) PO daily 02/07/2018 Inactive tolterodine 1 mg tablet RxNorm: 737666 1 Tablet(s) PO BID 12/1903/18/2018 Inactive warfarin 3 mg tablet RxNorm: 019429 1 Tablet(s) PO UD MWF, 2mg T/Th/Sat/Sun 12/15/2017 01/02/2018 Inactive ciprofloxacin 250 mg tablet RxNorm: 616345 1 Tablet(s) PO BID 12/05/2017 12/09/2017 Inactive multivitamin oral RxNorm: 41252 oral No Start Date Active Xanax 0.25 mg tablet RxNorm: 766307 1 Tablet(s) PO daily as needed No Start Date Active Restasis MultiDose 0.05 % eye drops RxNorm: 281509 1 Drop(s) both ophthalmic (eye ) BID No Start Date Active omeprazole 10 mg capsule,delayed release RxNorm: 334452 1 Capsule(s) PO daily No Start Date Active hydrocodone 5 mg-acetaminophen 325 mg tablet RxNorm: 128776 1 Tablet(s) PO Q6 as needed No Start Date Active clopidogrel 75 mg tablet RxNorm: 088718 1 Tablet(s) PO daily No Start Date Active Oyster Calcium 375 mg-200 unit-800 unit tablet RxNorm: 2 Tablet(s) PO daily No Start Date Active cyanocobalamin (vit B-12) 1,000 mcg tablet RxNorm: 130978 1 Tablet(s) PO daily No Start Date Active aspirin 81 mg tablet RxNorm: 547264 1 Tablet(s) PO daily No Start Date Active lisinopril 10 mg tablet RxNorm: 110449 1 Tablet(s) PO daily No Start Date 05/03/2018 Inactive levothyroxine 25 mcg tablet RxNorm: 691515 1 Tablet(s) PO daily No Start Date 05/03/2018 Inactive warfarin 2 mg tablet RxNorm: 310331 1 Tablet(s) PO daily No Start Date 12/24/2017 Inactive tolterodine 1 mg tablet RxNorm: 480644 1 Tablet(s) PO BID No Start Date 12/18/2017 Inactive nystatin 100,000 unit/gram topical cream RxNorm: 275344 1 Gram(s) TOP TID until healed et then PRN No Start Date 2017 Inactive Toprol XL 100 mg tablet,extended release RxNorm: 589721 1 Tablet(s) PO daily No Start Date 05/03/2018 Inactive gabapentin 300 mg capsule RxNorm: 445768 1 Capsule(s) PO TID No Start Date 05/03/2018 Inactive atorvastatin 40 mg tablet RxNorm: 784535 1 Tablet(s) PO QHS No Start Date 05/03/2018 Inactive amlodipine 5 mg tablet RxNorm: 448057 1 Tablet(s) PO daily No Start Date 03/27/2018 Inactive sitagliptin 50 mg tablet RxNorm: 851272 1 Tablet(s) PO daily No Start Date [...] not specified ICD-10: N39.0 ICD-9: 599.0 02/08/2018 halfway (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 anticoagulants ICD-10: Z79.01 ICD-9: V58.61 12/08/2017 Other specified hypothyroidism ICD-10: E03.8 ICD-9: 244.8 12/08/2017 Chronic kidney disease, stage 3 (moderate) ICD-10: N18.3 ICD-9: 585.3 12/08/2017 Reason For Visit Reason For Visit Effective Dates Notes hypertension 03/19/2018 Hospital Follow Up 02/08/2018 hypertension 01/03/2018 Hospital Follow Up 12/08/2017 Results Observation Observation Code Item Item Code Result Date Pt [id number] PT 17.8 seconds 12/15/2017 Pt Wbz4111 INR 1.5 12/15/2017 Pt Xoq7003 Low Intensity - 1.5-2.0 12/15/2017 Pt Xvj9376 Mod intensity - 2.0-3.0 12/15/2017 Pt Dqg2506 Hi intensity - 3.0-4.0 12/15/2017 Urinalysis Ord28 [...] hours from collection if refrigerated) 12/12/2017 Pt Nfo2328 PT 15.2 seconds 12/11/2017 Pt Yte6823 INR 1.2 12/11/2017 Pt Jvs7861 Low Intensity - 1.5-2.0 12/11/2017 Pt Kve1075 Mod intensity - 2.0-3.0 12/11/2017 Pt Stp4922 Hi intensity - 3.0-4.0 12/11/2017 Pt Jly1852 PT 14.7 seconds 12/08/2017 Pt Izm7664 INR 1.2 12/08/2017 Pt Xty0055 Low Intensity - 1.5-2.0 12/08/2017 Pt Vuw5728 Mod intensity - 2.0-3.0 12/08/2017 Pt Cpd1589 Hi intensity - 3.0-4.0 12/08/2017 Review of [...] Code : 8480-6 BMI: 28.5 Code : 41833-4 Heart Rate 1 : 59 bpm Height: 4'11" SpO2: 98% Weight: 141 lbs 02/08/2018 Blood Pressure 1: 130/68 Code : 8480-6 BMI: 28.5 Code : 18774-5 Heart Rate 1 : 73 bpm Height: 4'11" SpO2: 98% Weight: 141 lbs 01/03/2018 Blood Pressure 1: 116/64 Code : 8480-6 BMI: 27.7 Code : 51538-7 Heart Rate 1 : 68 bpm Height: [...] data Encounters Encounter Performer Location Codes Date 41620 EST. PATIENT, LEVEL IV Diagnosis: Type 2 diabetes mellitus without complications[ICD10: E11.9] Diagnosis: Atrophy of thyroid (acquired)[ICD10: E03.4] Diagnosis: Essential (primary) hypertension[ICD10: I10] Diagnosis: Urgency of urination[ICD10: R39.15] Jossie Booker MD, [facility] CPT-4: 53701 03/19/2018 ([id number]) 09655 EST. PATIENT, LEVEL IV Diagnosis: Orthostatic hypotension[ICD10: I95.1] Diagnosis: Urinary tract infection, site not specified[ICD10: N39.0] Diagnosis: Type 2 diabetes mellitus without complications[ICD10: E11.9] [facility] CPT-4: 61546 02/08/2018 ([id number]) 71823 EST. PATIENT, LEVEL IV Diagnosis: Type 2 diabetes mellitus without complications[ICD10: E11.9] Diagnosis: Essential (primary) hypertension[ICD10: I10] Diagnosis: Atrophy of thyroid (acquired)[ICD10: E03.4] [facility] CPT-4: 16182 01/03/2018 ([id number]) 48085 EST. 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 03/19/2018 Appointment: Jossie Booker WPtel: [facility]5 [facility] (15 min) Moderate 03/19/2018 Patient Education: Patient Medication Summary Completed 03/19/2018 Visit Plan: Rsqnyxxdxiz-vkzjdxcl-lqfnazt blood pressures DM -okay to stay off januvia-monitor blood sugars and call if they become elevated UTI-finished treatment 02/08/2018 Appointment: Armida Nicolas WPtel: [phone] (15 min) Moderate 02/08/2018 Patient Education: Patient [...] to pharmacy. 01/03/2018 Appointment: Jossie Booker WPtel: [facility] (15 min) Moderate 01/03/2018 Patient Education: Patient [...] of control. 12/08/2017 Appointment: Annika Nguyen WPtel: [facility] New Patient 12/08/2017 Patient Education: Patient Medication [...] CAN GET YOUR RECORDS FROM E[facility] . Xzsxvilyhrd-vbbtihnu-xuejksr blood pressures DM-okay to stay off januvia-monitor [...]
--- OUTSIDE RECORDS SUMMARY | 2018-11-11 19:37 | XMS REPORT | CCD ---
Author Author [facility] Address [address] [place] [address] Phone Care Team Providers Care Imaging System Administrator Name Role Phone PP Unavailable CCM Unavailable Summary Purpose Interface Exchange Insurance Providers Payer name Policy type / Coverage type Covered democrat ID Effective Begin Date Effective End Date HUMANA CLAIMS Commercial Insurance [id number] 2017 Unknown Family History Family History data not found Social History Social History Element Codes Description Effective Dates Marital status Unknown [place] 12/08/2017 Number of children Unknown 2 12/08/2017 Employment Unknown Retired 12/08/[address]: 804513764 Never smoker 12/08/[address]: 243450521 Never drinks alcohol 12/08/2017 Allergies, Adverse Reactions, [...] ICD-9: 244.9 ICD-10: E03.9 Active 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 ICD-10: [...] unspecified ICD-9: 244.9 ICD-10: E03.9 12/08/2017 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 ICD-10: Z79.01 12/08/2017 Active Medications Medication Codes Instructions Start Date Stop Date Status Fill Instructions atorvastatin 40 mg tablet RxNorm: 558318 1 Tablet(s) PO QHS No Stop Date Active gabapentin 300 mg capsule RxNorm: 397808 1 Capsule(s) PO TID 04/28/2019 Active levothyroxine 25 mcg tablet RxNorm: 762364 1 Tablet(s) PO daily 05/04/2018 04/28/2019 Active amlodipine 5 mg tablet RxNorm: 227119 1 Tablet(s) PO daily 03/31/2019 Active amlodipine 5 mg tablet RxNorm: 885867 1 Tablet(s) PO daily 07/201804/05/2018 Inactive tolterodine 2 mg tablet RxNorm: 125939 1 Tablet(s) PO QPM 03/1910/14/2018 Active nystatin 100,000 unit/gram topical cream RxNorm: 639810 1 Gram(s) TOP TID until healed et then PRN 01/09/2018 No Stop Date Active D/c powder escitalopram 10 mg tablet RxNorm: 443947 1 Tablet(s) PO QPM 07/31/2018 Active nystatin (bulk) 100 million unit powder RxNorm: 1 Miscellaneous QID 12/25/2017 01/08/2018 Inactive warfarin 2 mg tablet RxNorm: 495806 1 Tablet(s) PO daily 201701/02/2018 Inactive nystatin (bulk) 100 million unit powder RxNorm: 1 Miscellaneous QID 12/25/2017 12/24/2017 Inactive sitagliptin 50 mg tablet RxNorm: 527729 1 Tablet(s) PO daily 02/07/2018 Inactive tolterodine 1 mg tablet RxNorm: 617616 1 Tablet(s) PO BID 12/1903/18/2018 Inactive warfarin 3 mg tablet RxNorm: 496804 1 Tablet(s) PO UD MWF, 2mg T/Th/Sat/Sun 12/15/2017 01/02/2018 Inactive ciprofloxacin 250 mg tablet RxNorm: 493518 1 Tablet(s) PO BID 12/05/2017 12/09/2017 Inactive lisinopril 10 mg tablet RxNorm: 314404 1 Tablet(s) PO daily No Start Date Active multivitamin oral RxNorm: 45531 oral No Start Date Active Xanax 0.25 mg tablet RxNorm: 465110 1 Tablet(s) PO daily as needed No Start Date Active Restasis MultiDose 0.05 % eye drops RxNorm: 734352 1 Drop(s) both ophthalmic (eye ) BID No Start Date Active omeprazole 10 mg capsule,delayed release RxNorm: 225310 1 Capsule(s) PO daily No Start Date Active Toprol XL 100 mg tablet,extended release RxNorm: 350633 1 Tablet(s) PO daily No Start Date Active hydrocodone 5 mg-acetaminophen 325 mg tablet RxNorm: 077956 1 Tablet(s) PO Q6 as needed No Start Date Active clopidogrel 75 mg tablet RxNorm: 855721 1 Tablet(s) PO daily No Start Date Active Oyster Calcium 375 mg-200 unit-800 unit tablet RxNorm: 2 Tablet(s) PO daily No Start Date Active cyanocobalamin (vit B-12) 1,000 mcg tablet RxNorm: 322477 1 Tablet(s) PO daily No Start Date Active aspirin 81 mg tablet RxNorm: 578740 1 Tablet(s) PO daily No Start Date Active levothyroxine 25 mcg tablet RxNorm: 738464 1 Tablet(s) PO daily No Start Date 05/03/2018 Inactive warfarin 2 mg tablet RxNorm: 802518 1 Tablet(s) PO daily No Start Date 12/24/2017 Inactive tolterodine 1 mg tablet RxNorm: 672690 1 Tablet(s) PO BID No Start Date 12/18/2017 Inactive nystatin 100,000 unit/gram topical cream RxNorm: 744573 1 Gram(s) TOP TID until healed et then PRN No Start Date 2017 Inactive gabapentin 300 mg capsule RxNorm: 940990 1 Capsule(s) PO TID No Start Date 05/03/2018 Inactive atorvastatin 40 mg tablet RxNorm: 753079 1 Tablet(s) PO QHS No Start Date 05/03/2018 Inactive amlodipine 5 mg tablet RxNorm: 748280 1 Tablet(s) PO daily No Start Date 03/27/2018 Inactive sitagliptin 50 mg tablet RxNorm: 838638 1 Tablet(s) PO daily No Start Date [...] not specified ICD-10: N39.0 ICD-9: 599.0 02/08/2018 longterm (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 anticoagulants ICD-10: Z79.01 ICD-9: V58.61 12/08/2017 Other specified hypothyroidism ICD-10: E03.8 ICD-9: 244.8 12/08/2017 Chronic kidney disease, stage 3 (moderate) ICD-10: N18.3 ICD-9: 585.3 12/08/2017 Reason For Visit Reason For Visit Effective Dates Notes hypertension 03/19/2018 Hospital Follow Up 02/08/2018 hypertension 01/03/2018 Hospital Follow Up 12/08/2017 Results Observation Observation Code Item Item Code Result Date Pt Auo2821 PT 17.8 seconds 12/15/2017 Pt Cyc2255 INR 1.5 12/15/2017 Pt Zfb4699 Low Intensity - 1.5-2.0 12/15/2017 Pt Hja9476 Mod intensity - 2.0-3.0 12/15/2017 Pt Qqt8276 Hi intensity - 3.0-4.0 12/15/2017 Urinalysis Ord28 [...] hours from collection if refrigerated) 12/12/2017 Pt Gpv7396 PT 15.2 seconds 12/11/2017 Pt Swn0624 INR 1.2 12/11/2017 Pt Tpz5873 Low Intensity - 1.5-2.0 12/11/2017 Pt Gus9735 Mod intensity - 2.0-3.0 12/11/2017 Pt Tjc5259 Hi intensity - 3.0-4.0 12/11/2017 Pt Zpo2793 PT 14.7 seconds 12/08/2017 Pt Dyw5908 INR 1.2 12/08/2017 Pt Bok8983 Low Intensity - 1.5-2.0 12/08/2017 Pt Eqo2631 Mod intensity - 2.0-3.0 12/08/2017 Pt Lce2662 Hi intensity - 3.0-4.0 12/08/2017 Review of [...] Code : 8480-6 BMI: 28.5 Code : 18167-6 Heart Rate 1 : 59 bpm Height: 4'11" SpO2: 98% Weight: 141 lbs 02/08/2018 Blood Pressure 1: 130/68 Code : 8480-6 BMI: 28.5 Code : 00143-1 Heart Rate 1 : 73 bpm Height: 4'11" SpO2: 98% Weight: 141 lbs 01/03/2018 Blood Pressure 1: 116/64 Code : 8480-6 BMI: 27.7 Code : 96360-3 Heart Rate 1 : 68 bpm Height: [...] data Encounters Encounter Performer Location Codes Date ([id number]) 36844 EST. PATIENT, LEVEL IV Diagnosis: Type 2 diabetes mellitus without complications[ICD10: E11.9] Diagnosis: Atrophy of thyroid (acquired)[ICD10: E03.4] Diagnosis: Essential (primary) hypertension[ICD10: I10] Diagnosis: Urgency of urination[ICD10: R39.15] Jossie Booker MD, [facility] CPT-4: 47309 03/19/2018 ([id number]) 48656 EST. PATIENT, LEVEL IV Diagnosis: Orthostatic hypotension[ICD10: I95.1] Diagnosis: Urinary tract infection, site not specified[ICD10: N39.0] Diagnosis: Type 2 diabetes mellitus without complications[ICD10: E11.9] Armida Booker MD, [facility] CPT-4: 67554 02/08/2018 ([id number]) 82542 EST. PATIENT, LEVEL IV Diagnosis: Type 2 diabetes mellitus without complications[ICD10: E11.9] Diagnosis: Essential (primary) hypertension[ICD10: I10] Diagnosis: Atrophy of thyroid (acquired)[ICD10: E03.4] Jossie Booker MD, [facility] CPT-4: 86818 01/03/2018 ([id number]) 15876 EST. 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 03/19/2018 Appointment: Jossie Booker WPtel: [phone] [facility] (15 min) Moderate 03/19/2018 Patient Education: Patient Medication Summary Completed 03/19/2018 Visit Plan: Bchnedxnxel-ffqzatll-wmqmaep blood pressures DM -okay to stay off januvia-monitor blood sugars and call if they become elevated UTI-finished treatment 02/08/2018 Appointment: Armida Nicolas WPtel: [phone] (15 min) Moderate 02/08/2018 Patient Education: [...] pharmacy. 01/03/2018 Appointment: Jossie Booker WPtel: [phone] [facility] (15 min) Moderate 01/03/2018 Patient Education: Patient [...] control. 12/08/2017 [facility]ment: [facility] [phone] [facility] [facility] 12/08/2017 Patient Education: Patient [...] CAN GET YOUR RECORDS FROM EMA . Klrdbnzvilq-jfbxsewy-witduzk blood pressures DM-okay to stay off januvia-monitor [...]
[2018-11-11] MEDS ORDERED: NS IV 500 ML 500 ML IV ONE (20:22)
[2018-11-11] MEDS ORDERED: ACETAMINOPHEN 500 MG TAB (TYLENOL) PO ONE (20:30)
--- NOTE | 2018-11-11 20:30 | ED Back Pain ---
General Stated Complaint: BACK PAIN Source of Information: Patient, Family (Daughter) Exam Limitations: Other (Hard of hearing) History of Present Illness Date Seen by Provider: Nov 11, 2018 Time Seen by Provider: 20:05 Initial Comments The patient presents to ER by private conveyance walking and using her walker and a chief complaint of progressively worsening back pain. She had a fall a week ago and was examined in the ER at that time and nothing was found concerning. She followed up with her primary care doctor Monday, 4 days ago and was put on Keflex for a UTI. S but did not have any workup at that time done. She is on Plavix but no other blood thinners. She says her symptoms are improved but in the last 2 days her back pain has worsened. She had a fall 2 or 3 days ago as well. She is not having any weakness, numbness, double vision or other neurologic symptoms. The back pain is in her lumbar spine where she has had a surgery years ago. She is not having pain anywhere else. The pain does not radiate. It is achy, constant and progressively worsening over the last couple days. She's been using Tylenol and ibuprofen with her last dose of ibuprofen being yesterday. She's not had any Tylenol today. She did use a electric heater blanket today and ended up with some superficial liang and blistering of her back. Her daughter put some Silvadene cream she had left over over the liang. She denies any fevers chills nausea vomiting or diarrhea. She did take some prune juice today for some chronic constipation. Allergies and Home Medications Allergies Coded Allergies: gatifloxacin (Verified Allergy, Unknown, Tongue Turns Red and Swells, 11/11) Patient Home Medication List Home Medication List Reviewed: Yes Review of Systems Constitutional: No chills, No diaphoresis EENTM: No hearing loss, No ear pain Respiratory: No cough, No hemoptysis, No short of breath Cardiovascular: No chest pain, No edema Gastrointestinal: No abdominal pain; constipation; No diarrhea, No nausea, No vomiting Genitourinary: No discharge, No dysuria Musculoskeletal: see HPI, back pain; No joint pain Skin: other (Liang from electric heating pad on her back) Past Dwynqiv-Ebebqv-Hrdyia Hx Patient Social History Alcohol Use: Denies Use Recreational Drug Use: No Smoking Status: Never a Smoker Recent Foreign Travel: No Contact w/Someone Who Travel: No Physical Exam Vital Signs Capillary Refill : Height, Weight, BMI Height: '" Weight: lbs. oz. kg; BMI Method: General Appearance: No Apparent Distress, WD/WN HEENT: PERRL/EOMI, Pharynx Normal, Moist Mucous Membranes Neck: Full Range of Motion, Normal Inspection, Non Tender, Supple Cardiovascular: Regular Rate, Rhythm, No Edema, Normal Peripheral Pulses Respiratory: Lungs Clear, Normal Breath Sounds, No Accessory Muscle Use, No Respiratory Distress Peripheral Pulses: 2+ Dorsalis Pedis (R), 2+ Left Dors-Pedis (L) Gastrointestinal: Normal Bowel Sounds (Active), Non Tender, Soft; No Guarding Extremity: Normal Capillary Refill, No Pedal Edema Neurologic/Psychiatric: Alert, Oriented x3, No Motor/Sensory Deficits, Normal 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 Dermis appears to be intact. There is no drainage. Scant amount of white ointment on the skin.) Progress/Results/Core Measures Results/Orders Lab Results Laboratory Tests Test 11/11/18 20:26 11/11/18 21:13 Range/Units Urine Color YELLOW Urine Clarity SLIGHTLY CLOUDY Urine pH 5 5-9 Urine Specific [place] 1.020 1.016-1.022 Urine Protein 1+ H NEGATIVE Urine Glucose (UA) NEGATIVE NEGATIVE Urine Ketones NEGATIVE NEGATIVE Urine Nitrite NEGATIVE NEGATIVE Urine Bilirubin NEGATIVE NEGATIVE Urine Urobilinogen NORMAL NORMAL MG/DL Urine Leukocyte Esterase 1+ H NEGATIVE Urine RBC (Auto) 1+ H NEGATIVE Urine RBC RARE /HPF Urine WBC 2-5 /HPF Urine Squamous Epithelial Cells 2-5 /HPF Urine Crystals NONE /LPF Urine Bacteria NEGATIVE /HPF Urine Casts NONE /LPF Urine Mucus SMALL H /LPF Urine Culture Indicated NO White Blood Count 9.4 4.3-11.0 10^3/uL Red Blood Count 4.23 L 4.35-5.85 10^6/uL Hemoglobin 12.3 11.5-16.0 G/DL Hematocrit 38 35-52 % Mean Corpuscular Volume 89 80-99 FL Mean Corpuscular Hemoglobin 29 25-34 PG Mean Corpuscular Hemoglobin Concent 33 32-36 G/DL Red Cell Distribution Width 14.8 H 10.0-14.5 % Platelet Count 184 130-400 10^3/uL Mean Platelet Volume 9.7 7.4-10.4 FL Neutrophils (%) (Auto) 78 H 42-75 % Lymphocytes (%) (Auto) 13 12-44 % Monocytes (%) (Auto) 7 0-12 % Eosinophils (%) (Auto) 1 0-10 % Basophils (%) (Auto) 0 0-10 % Neutrophils # (Auto) 7.3 1.8-7.8 X 10^3 Lymphocytes # (Auto) 1.2 1.0-4.0 X 10^3 Monocytes # (Auto) 0.7 0.0-1.0 X 10^3 Eosinophils # (Auto) 0.1 0.0-0.3 10^3/uL Basophils # (Auto) 0.0 0.0-0.1 10^3/uL Sodium Level 138 135-145 MMOL/L Potassium Level 4.6 3.6-5.0 MMOL/L Chloride Level 102 98-107 MMOL/L Carbon Dioxide Level 24 21-32 MMOL/L Anion Gap 12 5-14 MMOL/L Blood Urea Nitrogen 23 H 7-18 MG/DL Creatinine 1.32 H 0.60-1.30 MG/DL Estimat Glomerular Filtration Rate 38 BUN/Creatinine Ratio 17 Glucose Level 149 H 70-105 MG/DL Calcium Level 9.4 8.5-10.1 MG/DL Corrected Calcium 9.6 8.5-10.1 MG/DL Total Bilirubin 0.5 0.1-1.0 MG/DL Aspartate Amino Transf (AST/SGOT) 22 5-34 U/L Alanine Aminotransferase (ALT/SGPT) 17 0-55 U/L Alkaline Phosphatase 124 40-136 U/L Total Protein 7.8 6.4-8.2 GM/DL Albumin 3.8 3.2-4.5 GM/DL My Orders Orders - KRISSY CAT Ua Culture If Indicated (11/11/18 19:44) Straight Cath For Spec.-Adult (11/11/18 20:22) Cbc With Automated Diff (11/11/18 20:22) Comprehensive Metabolic Panel (11/11/18 20:22) Ct Lumbar Spine Wo (11/11/18 20:22) Saline Lock/Iv-Start (11/11/18 20:22) Ns Iv 500 Ml (Sodium Chloride 0.9%) (11/11/18 20:22) Acetaminophen Tablet (Tylenol Tablet) (11/11/18 20:30) Fentanyl Injection (Sublimaze Injection (11/11/18 22:00) Medications Given in ED Current Medications Medications Dose Ordered Sig/Linda Route Start Time Stop Time Status Last Admin Dose Admin Acetaminophen 1,000 mg ONCE ONCE PO 11/11/18 20:30 11/11/18 20:31 DC 11/11/18 21:18 1,000 MG Sodium Chloride 500 ml @ 0 mls/hr Q0M ONCE IV 11/11/18 20:22 11/11/18 20:24 DC 11/11/18 21:17 500 MLS/HR Progress Progress Note : Time: 20:29 Progress Note Obtain some blood and urine sample from her. We'll give her half a liter fluids as she does clinically she does appear A little dry and oropharynx. We'll start with Tylenol and we'll give her Toradol if her kidney function is okay. We'll obtain a CT of her lumbar spine fracture. As far as the burn on her back to the superficial and if her labs are okay and her vital signs remain aseptic, afebrile could set her up for outpatient follow-up this week with primary care and use aloe vera and other similar lotions. We would have them discontinue the debriding Silvadene cream. Keflex twice a day should give modest coverage against streptococcal infections. Diagnostic Imaging Diagonstic Imaging: CT (Noncontrast) Plain Films/CT/US/NM/MRI: other (Lumbar spine) Comments [facility] [place], [place] NAME: KELSI ANGELO Connie [facility] REC#: [id number] PT STATUS: REG ER : 1930 PHYSICIAN: KRISSY CAT MD ADMIT DATE: 11/11/18/ER Draft Date of Exam:11/11/18 CT LUMBAR SPINE WO PROCEDURE: CT lumbar spine without contrast. TECHNIQUE: Multiple contiguous axial images were obtained through the lumbar spine without the use of intravenous contrast. Sagittal and coronal reformations were then performed. INDICATION: Recent fall. COMPARISON: None FINDINGS: Patient is status post previous laminectomy with posterior fusion of L4-S1. Bilateral interpedicular screws and posterior fusion rods are identified. Bilateral interpedicular screws are intact. The L4 screw on the right extends through the superior endplate into the intervertebral disc space. There is no evidence of loosening in regards to the interpedicular screws. Screws are intact. Posterior fusion rods are intact as well. Evaluation of the static alignment demonstrates grade 2 anterolisthesis at L4-L5. There is no evidence of jumped facets. There is age-indeterminate compression deformity involving the L3 vertebral body. There is also age-indeterminate concavity involving the inferior endplate of L2. There is no prior available for comparison. Otherwise, vertebral body heights are maintained. No bony fragments are seen within the spinal canal. There is no retropulsion. No unexpected radiopaque foreign bodies are seen. Pre-and paravertebral soft tissue structures are unremarkable. There is calcified aortic atherosclerosis. Evaluation of the spinal canal contents is suboptimal secondary to CT modality and lack of intrathecal contrast, but there is probable moderate spinal canal stenosis at L2-L3 and L3-L4. IMPRESSION: 1. Age indeterminate adjacent compression deformities of the endplates at L2 and L3 as described above. If there is concern for acute fracture, correlation with MRI is recommended. If MRI is contraindicated, nuclear medicine bone scan with SPECT imaging is recommended. 2. Postsurgical changes of previous laminectomy and posterior fusion L4-S1. There is no evidence of hardware fracture or failure. 3. Multilevel degenerative changes and probable at least some moderate stenosis of the spinal canal at L2-L3 and L3-L4. Dictated on workstation # [id number] Dict: 11/11/182102 Trans: 11/11/182116 [facility] [id number] Interpreted by: GIORGI OVIEDO MD Electronically signed by: Reviewed: Reviewed by Me Departure Impression Primary Impression: Closed lumbar vertebral fracture Qualified Codes: S32.038A - Other fracture of third lumbar vertebra, initial encounter for closed fracture Disposition: HOME, SELF-CARE Condition: Stable Departure-Patient Inst. Decision time for Depature: 22:02 Referrals: RHONA PRESCOTT MD (PCP/Family) Primary Care Physician DANIELA BUCKNER MD Patient Instructions: Vertebral Compression Fracture (DC) Add. Discharge Instructions: You can use Tylenol 1000 mg every 8 hours in addition to ibuprofen 400 mg every 8 hours as needed to control your back pain. If you still have severe back pain that you cannot tolerate you may take one tablet of tramadol every 6 hours as needed. Tramadol will cause constipation and drowsiness and increased risk of falls. Every day that you take tramadol then you should also take a capful of MiraLAX in a glass of fluid of your choice. Follow-up with primary care next week for further management of your pain and discuss whether physical therapy would be helpful. Call Dr. Buckner and request follow-up in the next week at [facility]. Scripts Tramadol HCl (Tramadol HCl) 50 Mg Tablet 50 MG PO Q6H PRN for PAIN, #20 TAB 0 Refills Prov: KRISSY CAT 11/11/18 Copy Copies To 1: RHONA PRESCOTT MD; DANIELA BUCKNER MD, TITUS J Nov 11, 2018 20:30
[2018-11-11 20:33] LABS: BILIRUBIN,URINE NEGATIVE (NEGATIVE); CLARITY,URINE SLIGHTLY CLOUDY; COLOR,URINE YELLOW; GLUCOSE, URINE (UA) NEGATIVE (NEGATIVE); KETONES,URINE NEGATIVE (NEGATIVE); LEUKOCYTE ESTERASE ,URINE 1+ (NEGATIVE); NITRITE,URINE NEGATIVE (NEGATIVE); PH,URINE 5 (5-9); PROTEIN,URINE 1+ (NEGATIVE); UROBILINOGEN,URINE NORMAL (NORMAL)
[2018-11-11 20:43] LABS: BACTERIA,URINE NEGATIVE /HPF; RBC,URINE RARE /HPF
--- NOTE | 2018-11-11 21:17 | Diagnostic Imaging Report ---
PROCEDURE: CT lumbar spine without contrast. TECHNIQUE: Multiple contiguous axial images were obtained through the lumbar spine without the use of intravenous contrast. Sagittal and coronal reformations were then performed. INDICATION: Recent fall. COMPARISON: None FINDINGS: Patient is status post previous laminectomy with posterior fusion of L4-S1. Bilateral interpedicular screws and posterior fusion rods are identified. Bilateral interpedicular screws are intact. The L4 screw on the right extends through the superior endplate into the intervertebral disc space. There is no evidence of loosening in regards to the interpedicular screws. Screws are intact. Posterior fusion rods are intact as well. Evaluation of the static alignment demonstrates grade 2 anterolisthesis at L4-L5. There is no evidence of jumped facets. There is age-indeterminate compression deformity involving the L3 vertebral body. There is also age-indeterminate concavity involving the inferior endplate of L2. There is no prior available for comparison. Otherwise, vertebral body heights are maintained. No bony fragments are seen within the spinal canal. There is no retropulsion. No unexpected radiopaque foreign bodies are seen. Pre-and paravertebral soft tissue structures are unremarkable. There is calcified aortic atherosclerosis. Evaluation of the spinal canal contents is suboptimal secondary to CT modality and lack of intrathecal contrast, but there is probable moderate spinal canal stenosis at L2-L3 and L3-L4. IMPRESSION: 1. Age indeterminate adjacent compression deformities of the endplates at L2 and L3 as described above. If there is concern for acute fracture, correlation with MRI is recommended. If MRI is contraindicated, nuclear medicine bone scan with SPECT imaging is recommended. 2. Postsurgical changes of previous laminectomy and posterior fusion L4-S1. There is no evidence of hardware fracture or failure. 3. Multilevel degenerative changes and probable at least some moderate stenosis of the spinal canal at L2-L3 and L3-L4. Dictated by: Dictated on workstation # [id number]
[2018-11-11 21:21] LABS: BASOPHILS % (AUTO) 0 % (0-10); EOSINOPHILS # (AUTO) 0.1 10^3/uL (0.0-0.3); EOSINOPHILS % (AUTO) 1 % (0-10); HEMATOCRIT 38 % (35-52); HEMOGLOBIN 12.3 G/DL (11.5-16.0); LYMPHOCYTES # (AUTO) 1.2 X 10^3 (1.0-4.0); LYMPHOCYTES % (AUTO) 13 % (12-44); MEAN CORPUSCULAR HEMOGLOBIN 29 PG (25-34); MEAN CORPUSCULAR HGB CONC 33 G/DL (32-36); MEAN CORPUSCULAR VOLUME 89 FL (80-99); MEAN PLATELET VOLUME 9.7 FL (7.4-10.4); MONOCYTES # (AUTO) 0.7 X 10^3 (0.0-1.0); MONOCYTES % (AUTO) 7 % (0-12); NEUTROPHILS # (AUTO) 7.3 X 10^3 (1.8-7.8); NEUTROPHILS % (AUTO) 78 % (42-75); PLATELET COUNT 184 10^3/uL (130-400); RED CELL DISTRIBUTION WIDTH 14.8 % (10.0-14.5); WHITE BLOOD COUNT 9.4 10^3/uL (4.3-11.0)
[2018-11-11 21:40] LABS: ALBUMIN 3.8 GM/DL (3.2-4.5); BILIRUBIN,TOTAL 0.5 MG/DL (0.1-1.0); CALCIUM 9.4 MG/DL (8.5-10.1); CREATININE SERUM 1.32 MG/DL (0.60-1.30); POTASSIUM 4.6 MMOL/L (3.6-5.0); TOTAL PROTEIN 7.8 GM/DL (6.4-8.2)
[2018-11-11] MEDS ORDERED: fentaNYL INJECTION 100 MCG/2 ML AMP IVP ONE (22:00)
[2018-11-11] MEDS ORDERED: TRAM50TA2 PO (22:04)
[2018-11-11] MEDS ORDERED: RX-TRAMADOL 50 MG (ULTRAM) TAB PPK#4 PO STA (22:06)
[2018-11-11 22:25] VITALS: BP 152/62
== END 2018-11-11 22:27 | disposition home or self-care (01) ==
LOC: ER 19:23
DX: S32.038A Other fracture of third lumbar vertebra, initial encounter for closed fracture (principal); Z88.8 Allergy status to other drugs, medicaments and biological substances; Z79.02 Long term (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 antithrombotics/antiplatelets; W19.XXXA Unspecified fall, initial encounter
CPT/HCPCS: 36415; 51701; 72131; 80053; 81000; 85025

== ENCOUNTER 2018-11-19 16:30 | Emergency (ER) | payer MEDICARE ==
[~2018-11-19] VITALS: Ht 149.9 cm; Wt 68.0 kg
[~2018-11-19 16:30] MED LIST: TRAM50TA2 PO
--- OUTSIDE RECORDS SUMMARY | 2018-11-19 16:36 | XMS REPORT | CCD ---
Author Author [facility] Address [address] [place] [address] Phone Care Team Providers Care Principal Archaeologist Name Role Phone PP Unavailable CCM Unavailable Summary Purpose Interface Exchange Insurance Providers Payer name Policy type / Coverage type Covered alliance party ID Effective Begin Date Effective End Date [employer] CLAIMS Commercial Insurance [id number] 2017 Unknown Family History Family History data not found Social History Social History Element Codes Description Effective Dates Marital status Unknown [place] 12/08/2017 Number of children Unknown 2 12/08/2017 Employment Unknown Retired 12/08/[address]: 097697278 Never smoker 12/08/[address]: 060240542 Never drinks alcohol 12/08/2017 Allergies, Adverse Reactions, [...] 244.9 ICD-10: E03.9 Active 12/08/2017 Unknown 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 ICD-9: V58.61 ICD-10: [...] unspecified ICD-9: 244.9 ICD-10: E03.9 12/08/2017 Active skilled nursing (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 anticoagulants ICD-9: V58.61 ICD-10: Z79.01 12/08/2017 Active Medications Medication Codes Instructions Start Date Stop Date Status Fill Instructions Keflex 500 mg capsule RxNorm: 993621 1 Capsule(s) PO TID 201811/13/2018 Active clopidogrel 75 mg tablet RxNorm: 266040 1 Tablet(s) PO daily 11/01/2019 Active clopidogrel 75 mg tablet RxNorm: 163824 1 Tablet(s) PO daily 11/06/2018 Inactive clopidogrel 75 mg tablet RxNorm: 519931 1 Tablet(s) PO daily 10/29/2018 Inactive omeprazole 10 mg capsule,delayed release RxNorm: 334604 1 Capsule(s) PO daily 10/05/2018 12/28/2019 Active escitalopram 10 mg tablet RxNorm: 819734 TAKE 1 TABLET BY MOUTH ONCE DAILY IN THE EVENING 09/06/2018 No Stop Date Active omeprazole 10 mg capsule,delayed release RxNorm: 352906 1 Capsule(s) PO daily 09/06/2018 10/04/2018 Inactive cyanocobalamin (vit B-12) 1,000 mcg tablet RxNorm: 561329 1 Tablet(s) PO daily 08/08/2018 10/31/2019 Active cyanocobalamin (vit B-12) 1,000 mcg tablet RxNorm: 938146 1 Tablet(s) PO daily 08/08/2018 08/07/2018 Inactive levofloxacin 250 mg tablet RxNorm: 795132 1 Tablet(s) PO daily 06/04/2018 06/08/2018 Inactive levofloxacin 250 mg tablet RxNorm: 461369 1 Tablet(s) PO daily 06/04/2018 06/03/2018 Inactive lisinopril 10 mg tablet RxNorm: 748704 1 Tablet(s) PO daily 05/02/2019 Active Toprol XL 100 mg tablet,extended release RxNorm: 866277 1 Tablet(s) PO daily 05/08/2018 05/02/2019 Active atorvastatin 40 mg tablet RxNorm: 835755 1 Tablet(s) PO QHS No Stop Date Active gabapentin 300 mg capsule RxNorm: 479969 1 Capsule(s) PO TID 04/28/2019 Active levothyroxine 25 mcg tablet RxNorm: 713345 1 Tablet(s) PO daily 05/04/2018 04/28/2019 Active Toprol XL 100 mg tablet,extended release RxNorm: 478703 1 Tablet(s) PO daily 05/04/2018 05/07/2018 Inactive lisinopril 10 mg tablet RxNorm: 247809 1 Tablet(s) PO daily 05/07/2018 Inactive amlodipine 5 mg tablet RxNorm: 192845 1 Tablet(s) PO daily 03/31/2019 Active amlodipine 5 mg tablet RxNorm: 681593 1 Tablet(s) PO daily 07/201804/05/2018 Inactive tolterodine 2 mg tablet RxNorm: 989065 1 Tablet(s) PO QPM 03/1909/24/2018 Inactive nystatin 100,000 unit/gram topical cream RxNorm: 072189 1 Gram(s) TOP TID until healed et then PRN 01/09/2018 No Stop Date Active D/c powder escitalopram 10 mg tablet RxNorm: 363251 1 Tablet(s) PO QPM 07/31/2018 Inactive nystatin (bulk) 100 million unit powder RxNorm: 1 Miscellaneous QID 12/25/2017 01/08/2018 Inactive warfarin 2 mg tablet RxNorm: 878725 1 Tablet(s) PO daily 201701/02/2018 Inactive nystatin (bulk) 100 million unit powder RxNorm: 1 Miscellaneous QID 12/25/2017 12/24/2017 Inactive sitagliptin 50 mg tablet RxNorm: 367396 1 Tablet(s) PO daily 02/07/2018 Inactive tolterodine 1 mg tablet RxNorm: 598117 1 Tablet(s) PO BID 12/1903/18/2018 Inactive warfarin 3 mg tablet RxNorm: 630710 1 Tablet(s) PO UD MWF, 2mg T/Th/Sat/Sun 12/15/2017 01/02/2018 Inactive ciprofloxacin 250 mg tablet RxNorm: 145926 1 Tablet(s) PO BID 12/05/2017 12/09/2017 Inactive multivitamin oral RxNorm: 99378 oral No Start Date Active Xanax 0.25 mg tablet RxNorm: 563254 1 Tablet(s) PO daily as needed No Start Date Active Restasis MultiDose 0.05 % eye drops RxNorm: 389330 1 Drop(s) both ophthalmic (eye ) BID No Start Date Active hydrocodone 5 mg-acetaminophen 325 mg tablet RxNorm: 935085 1 Tablet(s) PO Q6 as needed No Start Date Active Oyster Calcium 375 mg-200 unit-800 unit tablet RxNorm: 2 Tablet(s) PO daily No Start Date Active cyanocobalamin (vit B-12) 1,000 mcg tablet RxNorm: 267935 1 Tablet(s) PO daily No Start Date Active aspirin 81 mg tablet RxNorm: 308205 1 Tablet(s) PO daily No Start Date Active lisinopril 10 mg tablet RxNorm: 587477 1 Tablet(s) PO daily No Start Date 05/03/2018 Inactive levothyroxine 25 mcg tablet RxNorm: 186859 1 Tablet(s) PO daily No Start Date 05/03/2018 Inactive warfarin 2 mg tablet RxNorm: 907091 1 Tablet(s) PO daily No Start Date 12/24/2017 Inactive tolterodine 1 mg tablet RxNorm: 386969 1 Tablet(s) PO BID No Start Date 12/18/2017 Inactive nystatin 100,000 unit/gram topical cream RxNorm: 682054 1 Gram(s) TOP TID until healed et then PRN No Start Date 2017 Inactive omeprazole 10 mg capsule,delayed release RxNorm: 099078 1 Capsule(s) PO daily No Start Date 09/05/2018 Inactive Toprol XL 100 mg tablet,extended release RxNorm: 921025 1 Tablet(s) PO daily No Start Date 05/03/2018 Inactive gabapentin 300 mg capsule RxNorm: 609293 1 Capsule(s) PO TID No Start Date 05/03/2018 Inactive atorvastatin 40 mg tablet RxNorm: 902649 1 Tablet(s) PO QHS No Start Date 05/03/2018 Inactive clopidogrel 75 mg tablet RxNorm: 370297 1 Tablet(s) PO daily No Start Date 10/25/2018 Inactive amlodipine 5 mg tablet RxNorm: 518684 1 Tablet(s) PO daily No Start Date 03/27/2018 Inactive sitagliptin 50 mg tablet RxNorm: 520983 1 Tablet(s) PO daily No Start Date [...] specified ICD-10: N39.0 ICD-9: 599.0 02/08/2018 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 ICD-10: Z79.01 ICD-9: [...] 28.6 pg 09/28/2018 Cbc With Differential Ord2 [place]% 8.2 % 09/28/2018 Cbc With Differential Ord2 [...] 1.93 K/ul 09/28/2018 Cbc With Differential Ord2 [place] ABS# 0.5 K/ul 09/28/2018 Cbc With Differential Ord2 Eos ABS# 0.1 K/ul 09/28/2018 Cbc With Differential Ord2 Baso ABS# 0.0 K/ul 09/28/2018 %Hba1C Jmb400 % HbA1c 55039-8 6.6 % 09/28/2018 %Hba1C Wwv152 Gluc Ave 143 mg/dL 09/28/2018 Comp Metabolic Wer641 NA 142 mEq/L 09/28/2018 Comp Metabolic Elb110 K 4.2 mEq/L 09/28/2018 Comp Metabolic Kwc206 CL 107 mEq/L 09/28/2018 Comp Metabolic Flr334 CO2 30.0 mEq/L 09/28/2018 Comp Metabolic Hng942 ANION GAP 9 09/28/2018 Comp Metabolic Lwp687 GLUCOSE 117 mg/dL 09/28/2018 Comp Metabolic Uat566 Creat 1.2 mg/dL 09/28/2018 Comp Metabolic Oiy251 eGFR 47 ml/min/1.73m2 09/28/2018 Comp Metabolic Clp732 BUN 19 mg/dL 09/28/2018 Comp Metabolic Qti408 B/C Ratio 16.5 Ratio 09/28/2018 Comp Metabolic Txc890 CALCIUM 8.6 mg/dL 09/28/2018 Comp Metabolic Iik168 ALK PHOS 101 U/L 09/28/2018 Comp Metabolic Ygg809 AST(SGOT) 16 U/L 09/28/2018 Comp Metabolic Gdl166 ALT(SGPT) 13 U/L 09/28/2018 Comp Metabolic Uvy563 BILI T 0.4 mg/dL 09/28/2018 Comp Metabolic Pjs039 ALBUMIN 3.4 g/dL 09/28/2018 Comp Metabolic Qao888 TPRO 6.1 g/dL 09/28/2018 Comp Metabolic Otl716 GLOB 2.7 g/dL 09/28/2018 Comp Metabolic Pix738 A/G Ratio 1.3 Ratio 09/28/2018 Comp Metabolic Ruh081 Osmo 286 mOsmo 09/28/2018 Tsh Ord6 TSH (3rd IS) 0.80 uIU/mL 09/28/2018 Lipid Ord30 CHOL 89 mg/dL 09/28/2018 Lipid Ord30 HDL 33.0 mg/dl 09/28/2018 Lipid Ord30 TRIG 78 mg/dL 09/28/2018 Lipid Ord30 LDL 40 mg/dL 09/28/2018 Lipid Ord30 C/HDL 2.7 Ratio 09/28/2018 Pt Iuv3775 PT 17.8 seconds 12/15/2017 Pt Glk7064 INR 1.5 12/15/2017 Pt Wds2402 Low Intensity - 1.5-2.0 12/15/2017 Pt Gyh3198 Mod intensity - 2.0-3.0 12/15/2017 Pt Dcx3975 Hi intensity - 3.0-4.0 12/15/2017 Urinalysis Ord28 [...] hours from collection if refrigerated) 12/12/2017 Pt Ahp3776 PT 15.2 seconds 12/11/2017 Pt Glr0614 INR 1.2 12/11/2017 Pt Sne8021 Low Intensity - 1.5-2.0 12/11/2017 Pt Qle6004 Mod intensity - 2.0-3.0 12/11/2017 Pt Sxf3685 Hi intensity - 3.0-4.0 12/11/2017 Pt Zuy8936 PT 14.7 seconds 12/08/2017 Pt Gum8124 INR 1.2 12/08/2017 Pt Wci8209 Low Intensity - 1.5-2.0 12/08/2017 Pt Hfe4081 Mod intensity - 2.0-3.0 12/08/2017 Pt Btl4577 Hi intensity - 3.0-4.0 12/08/2017 Review of [...] FLU VACC PRSV FREE INC ANTIG CPT-4: 10426 07/18/2018 Vital Signs Date Vital 11/07/2018 Blood Pressure 1: 110/58 Code : 8480-6 BMI: 30.7 Code : 07077-9 Heart Rate 1 : 70 bpm Height: 4'11" SpO2: 97% Weight: 152 lbs 09/25/2018 Blood Pressure 1: 140/70 Code : 8480-6 BMI: 30.9 Code : 86774-4 Heart Rate 1 : 67 bpm Height: 4'11" SpO2: 91% Weight: 153 lbs 03/19/2018 Blood Pressure 1: 140/58 Code : 8480-6 BMI: 28.5 Code : 57204-1 Heart Rate 1 : 59 bpm Height: 4'11" SpO2: 98% Weight: 141 lbs 02/08/2018 Blood Pressure 1: 130/68 Code : 8480-6 BMI: 28.5 Code : 03354-0 Heart Rate 1 : 73 bpm Height: 4'11" SpO2: 98% Weight: 141 lbs 01/03/2018 Blood Pressure 1: 116/64 Code : 8480-6 BMI: 27.7 Code : 54920-2 Heart Rate 1 : 68 bpm Height: [...] giddiness[ICD10: R42] [facility] CPT-4: 32222 11/07/2018 [id number]) [id number] EST. PATIENT, LEVEL IV Diagnosis: Essential (primary) hypertension[ICD10: I10] Diagnosis: Chronic kidney disease, stage 3 (moderate)[ICD10: N18.3] Diagnosis: Atrophy of thyroid (acquired)[ICD10: E03.4] Diagnosis: Type 2 diabetes mellitus without complications[ICD10: E11.9] [facility] CPT-4: 00729 09/25/2018 ([id number]) 25069 EST. PATIENT, LEVEL IV Diagnosis: Type 2 diabetes mellitus without complications[ICD10: E11.9] Diagnosis: Atrophy of thyroid (acquired)[ICD10: E03.4] Diagnosis: Essential (primary) hypertension[ICD10: I10] Diagnosis: Urgency of urination[ICD10: R39.15] Jossie Booker MD, [facility] CPT-4: 53106 03/19/2018 ([id number] 89914 EST. PATIENT, LEVEL IV Diagnosis: Orthostatic hypotension[ICD10: I95.1] Diagnosis: Urinary tract infection, site not specified[ICD10: N39.0] Diagnosis: Type 2 diabetes mellitus without complications[ICD10: E11.9] Armida Booker MD, [facility] CPT-4: 72616 02/08/2018 ([id number]) 71599 EST. PATIENT, LEVEL IV Diagnosis: Type 2 diabetes mellitus without complications[ICD10: E11.9] Diagnosis: Essential (primary) hypertension[ICD10: I10] Diagnosis: Atrophy of thyroid (acquired)[ICD10: E03.4] Jossie Booker MD, [facility] CPT-4: 78705 01/03/2018 ([id number]) 65962 EST. 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] Diagnosis: Type 2 diabetes mellitus without complications[ICD10: E11.9] Diagnosis: Chronic kidney disease, stage 3 (moderate)[ICD10: N18.3] Diagnosis: skilled nursing (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 anticoagulants[ICD10: Z79.01] Annika Booker MD, [facility] CPT-4: 16578 12/08/2017 Plan of Care Planned Activity Notes Codes Status Date Visit Plan: UTI - pt with positive urinalysis - culture sent if appropriate. Antibiotic electronically prescribed to pt's pharmacy of choice. Pt to call if symptoms do not improve. 11/07/2018 Appointment: Annika Nguyen WPtel: [address] [place], [place] [phone] (15 min) Moderate 11/07/2018 Patient Education: Patient [...] of control. 09/25/2018 Appointment: Jossie Booker WPtel: [address] [place], [place] [phone] (15 min) Moderate 09/25/2018 Patient Education: Patient Medication Summary Completed 09/25/2018 Patient Education: Diabetes Completed 09/25/2018 Care Plan: Comp Metabolic Pending 09/25/2018 Care Plan: Cbc With Differential Pending 09/25/2018 Care Plan: %Hba1C LOINC : 27709-2 Pending 09/25/2018 Care Plan: Lipid Pending 09/25/2018 [...] of control. 03/19/2018 Appointment: Jossie Booker WPtel: [phone] [facility] [place] (15 min) Moderate 03/19/2018 Patient Education: Patient Medication Summary Completed 03/19/2018 Visit Plan: Bsnnalzhgkd-zmrcpdxs-qdbwvsq blood pressures DM -okay to stay off januvia-monitor blood sugars and call if they become elevated UTI-finished treatment 02/08/2018 Appointment: [facility] [phone] [phone] [place] (15 min) Moderate 02/08/2018 Patient Education: [...] pharmacy. 01/03/2018 [facility]ment[facility] [phone] [facility] (15 min) Moderate 01/03/2018 Patient Education: Patient [...] of control. 12/08/2017 Appointment: Annika Nguyen WPtel: [facility] New Patient 12/08/2017 Patient Education: Patient Medication [...] CAN GET YOUR RECORDS FROM [facility] . Rkmhuzwolca-kuikekln-ubvbvwu blood pressures DM-okay to stay off januvia-monitor [...]
[2018-11-19] MEDS ORDERED: NS IV 1000 ML 1,000 ML IV ONE (17:34)
[2018-11-19] MEDS ORDERED: RT-ALBUTEROL/IPRATROPIUM 3 ML (DUONEB) VIAL INH ONE (17:45)
--- NOTE | 2018-11-19 17:45 | NUR ---
PATIENT MOVED FROM FT2 TO TRAUMA 4 DUE TO SHORTNESS OF BREATH. OXYGEN SATURATION WAS 85% ON ROOM AIR. PATIENT PLACED ON OXYGEN AT 2 LPM AND OXYGEN LEVEL IS NOW 100%. PATIENT STATES BREATHING IS NOW IMPROVED. IV STARTED AND FLUIDS INFUSING.
[2018-11-19 18:05] LABS: BASOPHILS % (AUTO) 0 % (0-10); EOSINOPHILS % (AUTO) 0 % (0-10); HEMATOCRIT 37 % (35-52); HEMOGLOBIN 11.8 G/DL (11.5-16.0); LYMPHOCYTES # (AUTO) 1.7 X 10^3 (1.0-4.0); LYMPHOCYTES % (AUTO) 20 % (12-44); MEAN CORPUSCULAR HEMOGLOBIN 29 PG (25-34); MEAN CORPUSCULAR HGB CONC 32 G/DL (32-36); MEAN CORPUSCULAR VOLUME 90 FL (80-99); MEAN PLATELET VOLUME 9.5 FL (7.4-10.4); MONOCYTES # (AUTO) 0.8 X 10^3 (0.0-1.0); MONOCYTES % (AUTO) 9 % (0-12); NEUTROPHILS # (AUTO) 5.9 X 10^3 (1.8-7.8); NEUTROPHILS % (AUTO) 70 % (42-75); PLATELET COUNT 153 10^3/uL (130-400); RED CELL DISTRIBUTION WIDTH 15.2 % (10.0-14.5); WHITE BLOOD COUNT 8.4 10^3/uL (4.3-11.0)
--- NOTE | 2018-11-19 18:11 | NUR ---
PATIENT HAS BLACK SCABS AND KIRKLAND TO MIDDLE OF BACK. PATIENT'S DAUGHTER STATES THAT HER BROTHER PLACED A HEAT PACK ON PATIENT'S BACK SEVERAL DAYS AGO BECAUSE THE PATIENT WAS COMPLAINING OF BACK PAIN AND IT CAUSED THE KIRKLAND. DR. THOMPSON NOTIFIED.
--- NOTE | 2018-11-19 18:18 | Diagnostic Imaging Report ---
INDICATION: Congestion and fever. FINDINGS: There is trace subsegmental perihilar and basilar partial atelectasis. There are no findings of pneumonia. There is mild elevation of the right diaphragm. There is no failure pattern. There is no effusion or pneumothorax. IMPRESSION: Elevated right diaphragm and linear trace subsegmental left-sided partial atelectasis; otherwise, negative. Dictated by: Dictated on workstation # [id number]
[2018-11-19 18:21] LABS: BILIRUBIN,TOTAL 0.3 MG/DL (0.1-1.0); CALCIUM 8.8 MG/DL (8.5-10.1); CREATININE SERUM 1.71 MG/DL (0.60-1.30); POTASSIUM 4.6 MMOL/L (3.6-5.0)
[2018-11-19 18:22] LABS: ALBUMIN 3.5 GM/DL (3.2-4.5)
--- NOTE | 2018-11-19 18:31 | ED General ---
General Chief Complaint: Cough/Cold/Flu Symptoms Stated Complaint: CONGESTED,FEVER Nursing Triage Note: PATIENT TO ER WITH DAUGHTER VIA WHEELCHAIR WITH COMPLAINT OF COUGH, CHEST CONGESTION, AUDIBLE WHEEZING, AND INCREASED FATIGUE X 1 WEEK. PATIENT STATES SHE WAS SEEN HERE TWO WEEKS AGO AND DIAGNOSED WITH FRACTURED VERTEBRAE. PATIENT HAS AUDIBLE WHEEZING PRESENT TODAY IN ER. PATIENT IS POOR HISTORIAN AND DAUGHTER HAS DIFFICULTY ANSWERING QUESTIONS FOR PATIENT. Nursing Sepsis Screen: No Definite Risk Source of Information: Patient, Family, Old Records Exam Limitations: No Limitations History of Present Illness Date Seen by Provider: Nov 19, 2018 Time Seen by Provider: 16:43 Initial Comments This 88-year-old woman presents to the emergency room with complaints of shortness of air, cough, chest congestion, weakness, chest discomfort, and wheezing for about one week. She actually has not been feeling well for a few weeks but has become acutely worse, especially today. She is audibly wheezing from across the room and has rhonchi as well. Patient denies baseline history of COPD or other respiratory problems. She also had a fall on November 11 and was seen in this ER. She was assessed by CT of the lumbar spine and found to have vertebral compression fractures. When asked about history of heart disease , she states lately it "grabs" in the left upper chest. Patient request DNR status. Nursing staff notes that patient's pulse ox drops into the mid 80s when she transfers from chair to bed. Allergies and Home Medications Allergies Coded Allergies: gatifloxacin (Verified Allergy, Unknown, Tongue Turns Red and Swells, ) Home Medications Tramadol HCl 50 Mg Tablet, 50 MG PO Q6H PRN for PAIN Prescribed by: KRISSY CAT on 11/11/18 1572 Patient Home Medication List Home Medication List Reviewed: Yes Review of Systems Review of Systems Constitutional: see HPI EENTM: see HPI Respiratory: see HPI Cardiovascular: no symptoms reported Gastrointestinal: no symptoms reported Genitourinary: no symptoms reported : No Musculoskeletal: see HPI Skin: no symptoms reported Psychiatric/Neurological: No Symptoms Reported Hematologic/Lymphatic: No Symptoms Reported Immunological/Allergic: no symptoms reported Past Ioqknyr-Pjvwxm-Kysklw Hx Past Med/Social Hx: Reviewed and Corrections made Patient Social History Alcohol Use: Denies Use Recreational Drug Use: No Smoking Status: Never a Smoker 2nd Hand Smoke Exposure: No Recent Foreign Travel: No Contact w/Someone Who Travel: No Recent Infectious Disease Expo: No Recent Hopitalizations: No Physical Abuse: No Sexual Abuse: No Fear: No Immunizations Up To Date Tetanus Booster (TDap): Unknown Seasonal Allergies Seasonal Allergies: No Past Medical History Surgeries: Yes Cardiac (cardiac catheter reportedly negative), Gallbladder, Orthopedic Respiratory: No Cardiac: Yes High Cholesterol, Hypertension Neurological: Yes Neuropathy, Stroke : No Reproductive Disorders: No Genitourinary: No Gastrointestinal: No Musculoskeletal: Yes Arthritis, Fractures Endocrine: No HEENT: No Cancer: No Psychosocial: No Integumentary: No Blood Disorders: No Physical Exam Vital Signs Vital Signs - First Documented 11/19/18 11/19/18 11/19/18 16:54 18:28 18:43 Temp 98.3 Pulse 66 Resp 22 B/P (MAP) 143/61 (88) Pulse Ox 100 O2 Delivery Room Air O2 Flow Rate 2.00 Capillary Refill : Less Than 3 Seconds Height, Weight, BMI Height: 4'11.00" Weight: 150lbs. oz. 68.535113xz; BMI Method:Stated General Appearance: No Apparent Distress, WD/WN, Other (appears fatigued and generally ill) HEENT: PERRL/EOMI, TMs Normal, Normal ENT Inspection, Other (mucous membranes very dry) Neck: Normal Inspection Respiratory: No Accessory Muscle Use, No Respiratory Distress, Rhonci, Wheezing Cardiovascular: Regular Rate, Rhythm, No Edema, No Murmur Gastrointestinal: Normal Bowel Sounds, Non Tender, Soft Extremity: Normal Inspection, No Pedal Edema Neurologic/Psychiatric: Alert, Oriented x3, No Motor/Sensory Deficits, Normal Mood/Affect, water technician II-XII Norm as Tested Skin: Normal Color, Warm/Dry Progress/Results/Core Measures Suspected Sepsis Recent Fever Within 48 Hours: No Infection Criteria Present: None New/Unexplained Altered Menta: No Sepsis Screen: No Definite Risk SIRS Temperature:98.3 Pulse: 66 Respiratory Rate: 22 Laboratory Tests 11/19/18 17:54: White Blood Count 8.4 Blood Pressure 143 /61 Mean: 88 Laboratory Tests 11/19/18 17:54: Creatinine 1.71H, Platelet Count 153, Total Bilirubin 0.3 Results/Orders Lab Results Laboratory Tests Test 11/19/18 17:54 Range/Units White Blood Count 8.4 4.3-11.0 10^3/uL Red Blood Count 4.11 L 4.35-5.85 10^6/uL Hemoglobin 11.8 11.5-16.0 G/DL Hematocrit 37 35-52 % Mean Corpuscular Volume 90 80-99 FL Mean Corpuscular Hemoglobin 29 25-34 PG Mean Corpuscular Hemoglobin Concent 32 32-36 G/DL Red Cell Distribution Width 15.2 H 10.0-14.5 % Platelet Count 153 130-400 10^3/uL Mean Platelet Volume 9.5 7.4-10.4 FL Neutrophils (%) (Auto) 70 42-75 % Lymphocytes (%) (Auto) 20 12-44 % Monocytes (%) (Auto) 9 0-12 % Eosinophils (%) (Auto) 0 0-10 % Basophils (%) (Auto) 0 0-10 % Neutrophils # (Auto) 5.9 1.8-7.8 X 10^3 Lymphocytes # (Auto) 1.7 1.0-4.0 X 10^3 Monocytes # (Auto) 0.8 0.0-1.0 X 10^3 Eosinophils # (Auto) 0.0 0.0-0.3 10^3/uL Basophils # (Auto) 0.0 0.0-0.1 10^3/uL Sodium Level 138 135-145 MMOL/L Potassium Level 4.6 3.6-5.0 MMOL/L Chloride Level 105 98-107 MMOL/L Carbon Dioxide Level 23 21-32 MMOL/L Anion Gap 10 5-14 MMOL/L Blood Urea Nitrogen 34 H 7-18 MG/DL Creatinine 1.71 H 0.60-1.30 MG/DL Estimat Glomerular Filtration Rate 28 BUN/Creatinine Ratio 20 Glucose Level 116 H 70-105 MG/DL Calcium Level 8.8 8.5-10.1 MG/DL Corrected Calcium 9.2 8.5-10.1 MG/DL Total Bilirubin 0.3 0.1-1.0 MG/DL Aspartate Amino Transf (AST/SGOT) 36 H 5-34 U/L Alanine Aminotransferase (ALT/SGPT) 20 0-55 U/L Alkaline Phosphatase 140 H 40-136 U/L C-Reactive Protein High Sensitivity 9.65 H 0.00-0.50 MG/DL Total Protein 7.0 6.4-8.2 GM/DL Albumin 3.5 3.2-4.5 GM/DL Micro Results Microbiology 11/19/18 Influenza Types A,B Antigen (SENA) - Final, Complete My Orders Orders - JAZLYN THOMPSON MD Influenza A And B Antigens (11/19/18 16:43) Cbc With Automated Diff (11/19/18 17:34) Comprehensive Metabolic Panel (11/19/18 17:34) Hs C Reactive Protein (11/19/18 17:34) Ua Culture If Indicated (11/19/18 17:34) Saline Lock/Iv-Start (11/19/18 17:34) Ns Iv 1000 Ml (Sodium Chloride 0.9%) (11/19/18 17:34) Chest 1 View, Ap/Pa Only (11/19/18 17:34) Albuterol/Ipra Inhalation Soln (Duoneb I (11/19/18 17:45) Svn Small Volume Nebulizer (11/19/18 17:34) Oseltamivir 30 Mg Capsule (Tamiflu 30 Mg (11/19/18 18:45) Troponin I (11/19/18 18:46) Ekg Tracing (11/19/18 18:46) Medications Given in ED Current Medications Medications Dose Ordered Sig/Linda Route Start Time Stop Time Status Last Admin Dose Admin Albuterol/ Ipratropium 3 ml ONCE ONCE INH 11/19/18 17:45 11/19/18 17:46 DC 11/19/18 18:27 3 ML Oseltamivir Phosphate 30 mg ONCE ONCE PO 11/19/18 18:45 11/19/18 18:46 DC 11/19/18 18:55 30 MG Sodium Chloride 1,000 ml @ 0 mls/hr Q0M ONCE IV 11/19/18 17:34 11/19/18 17:36 DC 11/19/18 18:02 1,000 MLS/HR Vital Signs/I&O 11/19/18 11/19/18 11/19/18 16:54 18:28 18:43 Temp 98.3 Pulse 66 71 Resp 22 14 B/P (MAP) 143/61 (88) 177/88 (117) Pulse Ox 100 93 O2 Delivery Room Air Room Air Nasal Cannula O2 Flow Rate 2.00 Capillary Refill : Less Than 3 Seconds Blood Pressure Mean: 88 Progress Note : Progress Note Influenza screen was positive. Patient is being treated with Tamiflu at the renal dose. No definite evidence of secondary pneumonia on chest x-ray. Patient's creatinine has increased from her prior visit. She appears to have acute kidney injury. IV hydration has been ordered. DuoNeb has been administered with improved aeration. Patient is more alert and talkative after DuoNeb treatment. Patient appears to be quite fragile with her respiratory status and renal function at age of 88. Admission is appropriate for her. Unfortunately, no bed is available at [facility]. Patient requests transfer to [facility] where she has been seen previously. EKG and troponin were ordered. EKG is unremarkable. Troponin is pending. Care of this patient is being transferred to Jean Vásquez APRN at this time. He has arranged transfer to [facility] to Dr. Anderson who has graciously accepted. ECG Initial ECG Impression Date: Nov 19, 2018 Initial ECG Impression Time: 18:54 Initial ECG Rate: 75 Initial ECG Rhythm: Normal Sinus Initial ECG Intervals: Normal Comment Normal sinus rhythm with no ST elevation or depression. No abnormal intervals or axis deviation. Diagnostic Imaging Diagonstic Imaging: Xray Plain Films/CT/US/NM/MRI: chest Comments Chest x-ray viewed by me and report reviewed. See report below: NAME: KESLI ANGELO J MED REC#: [id number] PT STATUS: REG ER : 1930 PHYSICIAN: JAZLYN THOMPSON MD ADMIT DATE: 11/19/18/ER Draft Date of Exam:11/19/18 CHEST 1 VIEW, AP/PA ONLY INDICATION: Congestion and fever. FINDINGS: There is trace subsegmental perihilar and basilar partial atelectasis. There are no findings of pneumonia. There is mild elevation of the right diaphragm. There is no failure pattern. There is no effusion or pneumothorax. IMPRESSION: Elevated right diaphragm and linear trace subsegmental left-sided partial atelectasis; otherwise, negative. Dictated on workstation # [id number] Dict: 11/19/181813 Trans: 11/19/181817 [id number] Interpreted by: MAMTA ROSADO Departure Impression Primary Impression: Influenza A Additional Impressions: Bronchospasm Acute kidney injury Chest discomfort Hypoxia Disposition: 02 XFER SHT-TRM HOSP Condition: Improved Transfer Time Spoke to Accepting Phy: 18:45 Transfer Progress Notes Transfer graciously accepted by Dr. Anderson. Transfer Facility: [facility] Method of Transfer: EMS Departure-Patient Inst. Referrals: RHONA PRESCOTT MD (PCP/Family) Primary Care Physician JAZLYN THOMPSON MD Nov 19, 2018 18:31
[2018-11-19 18:43] VITALS: BP 177/88
[2018-11-19] MEDS ORDERED: OSELTAMIVIR 30 MG (TAMIFLU) CAPSULE PO ONE (18:45)
--- NOTE | 2018-11-19 19:36 | NUR ---
ERICK CALLED AND ROOM # [id number] GIVEN. REPORT # [phone] TO CALL REPORT. [facility] IS ON ANOTHER TRANSFER AT THIS TIME AND WILL BE A WHILE BEFORE THEY CAN TAKE THE TRANSFER.
[2018-11-19 20:23] VITALS: BP 180/84
--- NOTE | 2018-11-19 20:29 | NUR ---
PATIENT TRANSFERRED TO [facility] VIA [facility]. IV [address] UPON TRANSFER WITH NO SIGNS OF INFILTRATION. PATIENT IS AWAKE AND ALERT AT TIME OF TRANSFER. PATIENT ON O2 AT 2 LPM VIA NASAL CANNULA.
== END 2018-11-19 20:31 | disposition short-term general hospital (02) ==
LOC: EDUNIT# 16:30 → ER 16:32
DX: J10.1 Influenza due to other identified influenza virus with other respiratory manifestations (principal); J98.01 Acute bronchospasm; N17.9 Acute kidney failure, unspecified; R07.89 Other chest pain; E78.00 Pure hypercholesterolemia, unspecified; I10 Essential (primary) hypertension; Z86.73 Personal history of transient ischemic attack (TIA), and cerebral infarction without residual deficits; Z88.8 Allergy status to other drugs, medicaments and biological substances; Z98.890 Other specified postprocedural states
CPT/HCPCS: 36415; 71045; 80053; 84484; 85025; 86141; 87804; 93005; 94640

== ENCOUNTER 2018-12-06 12:52 | Emergency (ER) | payer MEDICARE ==
[~2018-12-06] VITALS: Ht 154.9 cm; Wt 72.6 kg
--- OUTSIDE RECORDS SUMMARY | 2018-12-06 13:00 | XMS REPORT | CCD ---
Author Author [facility] Address [address] [place] [address] Phone Care Team Providers Care Weather Forcaster Name Role Phone PP Unavailable CCM Unavailable Summary Purpose Interface Exchange Insurance Providers Payer name Policy type / Coverage type Covered alliance party ID Effective Begin Date Effective End Date [employer] CLAIMS Commercial Insurance [id number] 2017 Unknown Family History Family History data not found Social History Social History Element Codes Description Effective Dates Marital status Unknown [place] 12/08/2017 Number of children Unknown 2 12/08/2017 Employment Unknown Retired 12/08/[address]: 560305705 Never smoker 12/08/[address]: 531771127 Never drinks alcohol 12/08/2017 Allergies, Adverse Reactions, Alerts Substance Reaction Codes Entered Date Inactivated Date Status * NO KNOWN DRUG ALLERGIES Unknown 01/03/2018 No Inactive Date Active Past Medical History Illness Codes Condition Status Onset Date Resolved Date Encounter for follow-up examination after completed treatment for conditions other than malignant neoplasm ICD-9: V67.59 ICD-10: Z09 Active 11/27/2018 Unknown Influenza due to identified novel influenza A virus with other manifestations ICD-9: 488.09 ICD-10: J09.X9 Active 11/27/2018 Unknown Low back pain ICD-9: 724.2 ICD-10: M54.5 Active 11/27/2018 Unknown Slow transit constipation ICD-9: 564.01 ICD-10: K59.01 Active 11/27/2018 Unknown Dizziness and giddiness ICD-9: 780.4 ICD-10: R42 [...] ICD-9: 244.9 ICD-10: E03.9 Active 12/08/2017 Unknown long-term (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 anticoagulants ICD-9: V58.61 ICD-10: Z79.01 Active 12/08/2017 Unknown Problems Condition Codes Effective Dates Condition Status Encounter for follow-up examination after completed treatment for conditions other than malignant neoplasm ICD-9: V67.59 ICD-10: Z09 11/27/2018 Active Influenza due to identified novel influenza A virus with other manifestations ICD-9: 488.09 ICD-10: J09.X9 11/27/2018 Active Low back pain ICD-9: 724.2 ICD-10: M54.5 11/27/2018 Active Slow transit constipation ICD-9: 564.01 ICD-10: K59.01 11/27/2018 Active Dizziness and giddiness ICD-9: 780.4 ICD-10: R42 [...] ICD-9: 244.9 ICD-10: E03.9 12/08/2017 Active 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 ICD-9: V58.61 ICD-10: Z79.01 12/08/2017 Active Medications Medication Codes Instructions Start Date Stop Date Status Fill Instructions tramadol 50 mg tablet RxNorm: 361152 1/2-1 Tablet(s) PO BID as needed 11/23/2018 01/21/2019 Active clopidogrel 75 mg tablet RxNorm: 757016 1 Tablet(s) PO daily 11/01/2019 Active Keflex 500 mg capsule RxNorm: 735134 1 Capsule(s) PO TID 201811/13/2018 Inactive clopidogrel 75 mg tablet RxNorm: 562237 1 Tablet(s) PO daily 11/06/2018 Inactive clopidogrel 75 mg tablet RxNorm: 591571 1 Tablet(s) PO daily 10/29/2018 Inactive omeprazole 10 mg capsule,delayed release RxNorm: 529779 1 Capsule(s) PO daily 10/05/2018 12/28/2019 Active escitalopram 10 mg tablet RxNorm: 714010 TAKE 1 TABLET BY MOUTH ONCE DAILY IN THE EVENING 09/06/2018 No Stop Date Active omeprazole 10 mg capsule,delayed release RxNorm: 250305 1 Capsule(s) PO daily 09/06/2018 10/04/2018 Inactive cyanocobalamin (vit B-12) 1,000 mcg tablet RxNorm: 065946 1 Tablet(s) PO daily 08/08/2018 10/31/2019 Active cyanocobalamin (vit B-12) 1,000 mcg tablet RxNorm: 986595 1 Tablet(s) PO daily 08/08/2018 08/07/2018 Inactive levofloxacin 250 mg tablet RxNorm: 093319 1 Tablet(s) PO daily 06/04/2018 06/08/2018 Inactive levofloxacin 250 mg tablet RxNorm: 704069 1 Tablet(s) PO daily 06/04/2018 06/03/2018 Inactive lisinopril 10 mg tablet RxNorm: 446706 1 Tablet(s) PO daily 05/02/2019 Active Toprol XL 100 mg tablet,extended release RxNorm: 387695 1 Tablet(s) PO daily 05/08/2018 05/02/2019 Active atorvastatin 40 mg tablet RxNorm: 617358 1 Tablet(s) PO QHS No Stop Date Active gabapentin 300 mg capsule RxNorm: 184575 1 Capsule(s) PO TID 04/28/2019 Active levothyroxine 25 mcg tablet RxNorm: 488190 1 Tablet(s) PO daily 05/04/2018 04/28/2019 Active Toprol XL 100 mg tablet,extended release RxNorm: 343044 1 Tablet(s) PO daily 05/04/2018 05/07/2018 Inactive lisinopril 10 mg tablet RxNorm: 719543 1 Tablet(s) PO daily 05/07/2018 Inactive amlodipine 5 mg tablet RxNorm: 810390 1 Tablet(s) PO daily 03/31/2019 Active amlodipine 5 mg tablet RxNorm: 525040 1 Tablet(s) PO daily 07/201804/05/2018 Inactive tolterodine 2 mg tablet RxNorm: 432461 1 Tablet(s) PO QPM 03/1909/24/2018 Inactive nystatin 100,000 unit/gram topical cream RxNorm: 547655 1 Gram(s) TOP TID until healed et then PRN 01/09/2018 No Stop Date Active D/c powder escitalopram 10 mg tablet RxNorm: 948505 1 Tablet(s) PO QPM 07/31/2018 Inactive nystatin (bulk) 100 million unit powder RxNorm: 1 Miscellaneous QID 12/25/2017 01/08/2018 Inactive warfarin 2 mg tablet RxNorm: 696085 1 Tablet(s) PO daily 201701/02/2018 Inactive nystatin (bulk) 100 million unit powder RxNorm: 1 Miscellaneous QID 12/25/2017 12/24/2017 Inactive sitagliptin 50 mg tablet RxNorm: 200251 1 Tablet(s) PO daily 02/07/2018 Inactive tolterodine 1 mg tablet RxNorm: 547490 1 Tablet(s) PO BID 12/1903/18/2018 Inactive warfarin 3 mg tablet RxNorm: 415529 1 Tablet(s) PO UD MWF, 2mg //Sat/Sun 12/15/2017 01/02/2018 Inactive ciprofloxacin 250 mg tablet RxNorm: 267984 1 Tablet(s) PO BID 12/05/2017 12/09/2017 Inactive multivitamin oral RxNorm: 33245 oral No Start Date Active Xanax 0.25 mg tablet RxNorm: 576371 1 Tablet(s) PO daily as needed No Start Date Active Restasis MultiDose 0.05 % eye drops RxNorm: 083479 1 Drop(s) both ophthalmic (eye ) BID No Start Date Active hydrocodone 5 mg-acetaminophen 325 mg tablet RxNorm: 003630 1 Tablet(s) PO Q6 as needed No Start Date Active Oyster Calcium 375 mg-200 unit-800 unit tablet RxNorm: 2 Tablet(s) PO daily No Start Date Active cyanocobalamin (vit B-12) 1,000 mcg tablet RxNorm: 477643 1 Tablet(s) PO daily No Start Date Active aspirin 81 mg tablet RxNorm: 480540 1 Tablet(s) PO daily No Start Date Active lisinopril 10 mg tablet RxNorm: 133206 1 Tablet(s) PO daily No Start Date 05/03/2018 Inactive levothyroxine 25 mcg tablet RxNorm: 237105 1 Tablet(s) PO daily No Start Date 05/03/2018 Inactive warfarin 2 mg tablet RxNorm: 355453 1 Tablet(s) PO daily No Start Date 12/24/2017 Inactive tolterodine 1 mg tablet RxNorm: 163762 1 Tablet(s) PO BID No Start Date 12/18/2017 Inactive nystatin 100,000 unit/gram topical cream RxNorm: 812606 1 Gram(s) TOP TID until healed et then PRN No Start Date 2017 Inactive omeprazole 10 mg capsule,delayed release RxNorm: 819436 1 Capsule(s) PO daily No Start Date 09/05/2018 Inactive Toprol XL 100 mg tablet,extended release RxNorm: 993051 1 Tablet(s) PO daily No Start Date 05/03/2018 Inactive gabapentin 300 mg capsule RxNorm: 415446 1 Capsule(s) PO TID No Start Date 05/03/2018 Inactive atorvastatin 40 mg tablet RxNorm: 627535 1 Tablet(s) PO QHS No Start Date 05/03/2018 Inactive clopidogrel 75 mg tablet RxNorm: 889919 1 Tablet(s) PO daily No Start Date 10/25/2018 Inactive amlodipine 5 mg tablet RxNorm: 074059 1 Tablet(s) PO daily No Start Date 03/27/2018 Inactive sitagliptin 50 mg tablet RxNorm: 371170 1 Tablet(s) PO daily No Start Date 12/18/2017 Inactive Medication Administered No Medication Administered data Immunizations Vaccine Codes Date Status Influenza CVX: 141 07/18/2018 completed Assessments Condition Codes Effective Dates Low back pain ICD-10: M54.5 ICD-9: 724.2 11/27/2018 Slow transit constipation ICD-10: K59.01 ICD-9: 564.01 11/27/2018 Influenza due to identified novel influenza A virus with other manifestations ICD-10: J09.X9 ICD-9: 488.09 11/27/2018 Encounter for follow-up examination after completed treatment for conditions other than malignant neoplasm ICD-10: Z09 ICD-9: V67.59 11/27/2018 Dysuria ICD-10: R30.0 ICD-9: 788.1 11/07/2018 Dizziness [...] not specified ICD-10: N39.0 ICD-9: 599.0 02/08/2018 long-term (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 anticoagulants ICD-10: Z79.01 ICD-9: V58.61 12/08/2017 Other specified hypothyroidism ICD-10: E03.8 ICD-9: 244.8 12/08/2017 Reason For Visit Reason For Visit Effective Dates Notes Hospital Follow Up 11/27/2018 syncope 11/07/2018 hypertension 09/25/2018 vaccination against influenza [...] 28.6 pg 09/28/2018 Cbc With Differential Ord2 [place]% 8.2 % 09/28/2018 Cbc With Differential Ord2 [...] 1.93 K/ul 09/28/2018 Cbc With Differential Ord2 [place] ABS# 0.5 K/ul 09/28/2018 Cbc With Differential Ord2 Eos ABS# 0.1 K/ul 09/28/2018 Cbc With Differential Ord2 Baso ABS# 0.0 K/ul 09/28/2018 %Hba1C Ots439 % HbA1c 19981-7 6.6 % 09/28/2018 %Hba1C Ndd208 Gluc Ave 143 mg/dL 09/28/2018 Comp Metabolic Gks058 NA 142 mEq/L 09/28/2018 Comp Metabolic Cic618 K 4.2 mEq/L 09/28/2018 Comp Metabolic Rvr784 CL 107 mEq/L 09/28/2018 Comp Metabolic Dmg188 CO2 30.0 mEq/L 09/28/2018 Comp Metabolic Abi611 ANION GAP 9 09/28/2018 Comp Metabolic Ilv574 GLUCOSE 117 mg/dL 09/28/2018 Comp Metabolic Tdf903 Creat 1.2 mg/dL 09/28/2018 Comp Metabolic Dsv488 eGFR 47 ml/min/1.73m2 09/28/2018 Comp Metabolic Pnj845 BUN 19 mg/dL 09/28/2018 Comp Metabolic Nje265 B/C Ratio 16.5 Ratio 09/28/2018 Comp Metabolic Alk232 CALCIUM 8.6 mg/dL 09/28/2018 Comp Metabolic Dwf906 ALK PHOS 101 U/L 09/28/2018 Comp Metabolic Mce092 AST(SGOT) 16 U/L 09/28/2018 Comp Metabolic Fvt925 ALT(SGPT) 13 U/L 09/28/2018 Comp Metabolic Rpn149 BILI T 0.4 mg/dL 09/28/2018 Comp Metabolic Ebv436 ALBUMIN 3.4 g/dL 09/28/2018 Comp Metabolic Mjm163 TPRO 6.1 g/dL 09/28/2018 Comp Metabolic Oha721 GLOB 2.7 g/dL 09/28/2018 Comp Metabolic Dlt640 A/G Ratio 1.3 Ratio 09/28/2018 Comp Metabolic Khb234 Osmo 286 mOsmo 09/28/2018 Tsh Ord6 TSH (3rd IS) 0.80 uIU/mL 09/28/2018 Lipid Ord30 CHOL 89 mg/dL 09/28/2018 Lipid Ord30 HDL 33.0 mg/dl 09/28/2018 Lipid Ord30 TRIG 78 mg/dL 09/28/2018 Lipid Ord30 LDL 40 mg/dL 09/28/2018 Lipid Ord30 C/HDL 2.7 Ratio 09/28/2018 Pt Vdv5481 PT 17.8 seconds 12/15/2017 Pt Bvg4374 INR 1.5 12/15/2017 Pt Aek2744 Low Intensity - 1.5-2.0 12/15/2017 Pt Axs2543 Mod intensity - 2.0-3.0 12/15/2017 Pt Wzr1492 Hi intensity - 3.0-4.0 12/15/2017 Urinalysis Ord28 [...] hours from collection if refrigerated) 12/12/2017 Pt Itx9102 PT 15.2 seconds 12/11/2017 Pt Gxk3756 INR 1.2 12/11/2017 Pt Vjs3239 Low Intensity - 1.5-2.0 12/11/2017 Pt Yni1243 Mod intensity - 2.0-3.0 12/11/2017 Pt Kuh8244 Hi intensity - 3.0-4.0 12/11/2017 Pt Tha6685 PT 14.7 seconds 12/08/2017 Pt Byr0405 INR 1.2 12/08/2017 Pt Vmr8732 Low Intensity - 1.5-2.0 12/08/2017 Pt Jce1595 Mod intensity - 2.0-3.0 12/08/2017 Pt Tuq6860 Hi intensity - 3.0-4.0 12/08/2017 Review of Systems System Result Effective Dates Constitutional recent illness 11/27/2018 Constitutional No chills 11/27/2018 Constitutional No diaphoresis 11/27/2018 Constitutional No fever 11/27/2018 Eyes No blindness 11/27/2018 Ears/Nose/Throat/Neck dry mouth 2018 Ears/Nose/Throat/Neck No nasal allergies 11/27/2018 Ears/Nose/Throat/Neck No nasal discharge 11/27/2018 Ears/Nose/Throat/Neck No sore throat 08/2019 Ears/Nose/Throat/Neck No sinus congestion 11/27/2018 Cardiovascular No chest pain/pressure 08/2019 Cardiovascular No dyspnea 11/27/2018 Respiratory No chest congestion 2018 Respiratory cough 11/27/2018 Gastrointestinal No abdominal pain 2018 Gastrointestinal constipation 11/27/2018 Gastrointestinal No diarrhea 11/27/2018 Gastrointestinal No nausea 11/27/2018 Gastrointestinal No vomiting 11/27/2018 Genitourinary/Nephrology nocturia 2018 Dermatologic No rash 11/27/2018 Neurologic No alteration of consciousness 11/27/2018 Psychiatric anxiety 11/27/2018 Psychiatric depression 11/27/2018 Constitutional fatigue 11/27/2018 Musculoskeletal back pain 11/27/2018 Constitutional No recent illness 2018 Constitutional No [...] 1994 Constitutional general appearance Overall: well developed 11/27/2018 None Full Exam - General 1994 Constitutional general appearance Overall: in no acute distress 11/27/2018 None Full Exam - General 1994 Constitutional general appearance Overall: well nourished 11/27/2018 None Full Exam - General 1994 Eyes conjunctiva /eyelids Overall: conjunctiva clear 11/27/2018 None Full Exam - General 1994 Eyes conjunctiva /eyelids Overall: cornea clear 11/27/2018 None Full Exam - General 1994 Eyes conjunctiva /eyelids Overall: eyelids normal 11/27/2018 None Full Exam - General 1994 Eyes pupils and irises Overall: pupils equal, round, reactive to light and accomodation 11/27/2018 None Full Exam - General 1994 Ears/Nose/Throat lips/teeth/gingiva Overall: benign lips 11/27/2018 None Full Exam - General 1994 Ears/Nose/Throat oral cavity/pharynx/larynx Overall: oral mucosa clear 11/27/2018 None Full Exam - General 1994 Respiratory auscultation Overall: breath sounds clear bilaterally 11/27/2018 None Full Exam - General 1994 Respiratory respiratory effort/rhythm Overall: no retractions 11/27/2018 None Full Exam - General 1994 Respiratory respiratory effort/rhythm Overall: normal rate 11/27/2018 None Full Exam - General 1994 Cardiovascular extremities Overall: no clubbing 11/27/2018 None Full Exam - General 1994 Cardiovascular auscultation of heart Rate: regular rate 11/27/2018 None Full Exam - General 1994 Cardiovascular auscultation of heart Rhythm: regular rhythm 11/27/2018 None Full Exam - General 1994 Abdomen abdominal exam Overall: no tenderness 11/27/2018 None Full Exam - General 1994 Abdomen abdominal exam Overall: normal bowel sounds 11/27/2018 None Full Exam - General 1994 Musculoskeletal head and neck Overall: head atraumatic 11/27/2018 None Full Exam - General 1994 Neurologic cranial nerves Overall: crainial nerves 2 - 12 grossly intact 11/27/2018 None Full Exam - General 1994 Psychiatric orientation/consciousness Overall: oriented to person, place and time 11/27/2018 None Full Exam - General 1994 Psychiatric mood and affect Overall: normal mood and affect 11/27/2018 None Full Exam - General 1994 Psychiatric appearance Overall: well-groomed, good eye contact 11/27/2018 None Full Exam - General 1994 Respiratory auscultation Diffuse: rhonchi 11/27/2018 cleared with cough Full Exam - General 1994 Ears/Nose/Throat lips/teeth/gingiva Teeth: wears dentures 11/27/2018 None Full Exam - General 1994 Ears/Nose/Throat otoscopic exam Tympanic membrane: not visualized 11/27/2018 bilateral hearing aids Full Exam - General 1994 Constitutional general [...] lips 11/07/2018 None Full Exam - General 1995 Ears/Nose/Throat oral cavity/pharynx/larynx Overall: oral mucosa clear 11/07/2018 None Full Exam - General 1994 Respiratory respiratory effort/rhythm Overall: no retractions 11/07/2018 None Full Exam - General 1995 Respiratory respiratory effort/rhythm Overall: normal rate 11/07/2018 None Full Exam - General 1995 Cardiovascular auscultation of heart Overall: regular rate [...] FLU VACC PRSV FREE INC ANTIG CPT-4: 13115 07/18/2018 Vital Signs Date Vital 11/27/2018 Blood Pressure 1: 136/58 Code : 8480-6 Heart Rate 1: 82 bpm Height: 4'11" SpO2: 96% Temperature: 36.8 (C) / 98.2 (F) Weight: 11/07/2018 Blood Pressure 1: 110/58 Code : 8480-6 BMI: 30.7 Code : 64543-6 Heart Rate 1 : 70 bpm Height: 4'11" SpO2: 97% Weight: 152 lbs 09/25/2018 Blood Pressure 1: 140/70 Code : 8480-6 BMI: 30.9 Code : 07973-1 Heart Rate 1 : 67 bpm Height: 4'11" SpO2: 91% Weight: 153 lbs 03/19/2018 Blood Pressure 1: 140/58 Code : 8480-6 BMI: 28.5 Code : 39064-4 Heart Rate 1 : 59 bpm Height: 4'11" SpO2: 98% Weight: 141 lbs 02/08/2018 Blood Pressure 1: 130/68 Code : 8480-6 BMI: 28.5 Code : 03291-1 Heart Rate 1 : 73 bpm Height: 4'11" SpO2: 98% Weight: 141 lbs 01/03/2018 Blood Pressure 1: 116/64 Code : 8480-6 BMI: 27.7 Code : 01834-7 Heart Rate 1 : 68 bpm Height: 4'11" SpO2: 98% Weight: 137 lbs 12/08/2017 Blood Pressure 1: 122/74 Code : 8480-6 Heart Rate 1: 79 bpm Height: 4'11" SpO2: 97% Weight: Functional Status No Functional Status data History of Present Illness Symptom Name Status Result Effective Date Notes _ Other: flu a 2018 None Quality intermittent 11/27/2018 None Quality intermittent 11/07/2018 None Onset and Resolution [...] data Encounters Encounter Performer Location Codes Date [id number]) [id number] EST. PATIENT, LEVEL IV Diagnosis: Influenza due to identified novel influenza A virus with other manifestations[ICD10: J09.X9] Diagnosis: Encounter for follow-up examination after completed treatment for conditions other than malignant neoplasm[ICD10: Z09] Diagnosis: Low back pain[ICD10: M54.5] Diagnosis: Slow transit constipation[ICD10: K59.01] Armida Booker MD, [facility] CPT-4: 17365 11/27/2018 [id number] EST. PATIENT, LEVEL III Diagnosis: Dysuria[ICD10: R30.0] Diagnosis: Dizziness and giddiness[ICD10: R42] Annika Booker MD, [facility] CPT-4: 76718 11/07/2018 ([id number]) 35884 EST. PATIENT, LEVEL IV Diagnosis: Essential (primary) hypertension[ICD10: I10] Diagnosis: Chronic kidney disease, stage 3 (moderate)[ICD10: N18.3] Diagnosis: Atrophy of thyroid (acquired)[ICD10: E03.4] Diagnosis: Type 2 diabetes mellitus without complications[ICD10: E11.9] Jossie Booker MD, [facility] CPT-4: 52296 09/25/[phone]) 01942 EST. PATIENT, LEVEL IV Diagnosis: Type 2 diabetes mellitus without complications[ICD10: E11.9] Diagnosis: Atrophy of thyroid (acquired)[ICD10: E03.4] Diagnosis: Essential (primary) hypertension[ICD10: I10] Diagnosis: Urgency of urination[ICD10: R39.15] Jossie Booker MD, [facility] CPT-4: 03809 03/19/[id number]) [phone] EST. PATIENT, LEVEL IV Diagnosis: Orthostatic hypotension[ICD10: I95.1] Diagnosis: Urinary tract infection, site not specified[ICD10: N39.0] Diagnosis: Type 2 diabetes mellitus without complications[ICD10: E11.9] [facility] CPT-4: 16662 02/08/2018 ([id number]) 34655 EST. PATIENT, LEVEL IV Diagnosis: Type 2 diabetes mellitus without complications[ICD10: E11.9] Diagnosis: Essential (primary) hypertension[ICD10: I10] Diagnosis: Atrophy of thyroid (acquired)[ICD10: E03.4] [facility] CPT-4: 92999 01/03/2018 ([id number]) 74331 EST. 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] [facility] CPT-4: 02455 12/08/2017 Plan of Care Planned Activity Notes Codes Status Date Visit Plan: Hospital follow up with influenza A -patient is doing well -no further treatment indicated Constipation -add milk of magnesia as needed Low back pain -patient is seeing Ortho later today -continue tylenol/tramadol as needed for pain 11/27/2018 Patient Education: Patient Medication Summary Completed 11/27/2018 Patient Education: Back Pain Completed 11/27/2018 Appointment: Annika Nguyen WPtel: [address] [place], [place] [phone] (15 min) Moderate 11/20/2018 Visit Plan: UTI - pt with positive urinalysis - culture sent if appropriate. Antibiotic electronically prescribed to pt's pharmacy of choice. Pt to call if symptoms do not improve. 11/07/2018 Appointment: Annika Nguyen WPtel: [address] [place], [place] [phone] (15 min) Moderate 11/07/2018 Patient Education: Patient [...] of control. 09/25/2018 Appointment: [facility]oss[facility] Booker [facility]el[phone] (15 min) Moderate 09/25/2018 Patient Education: Patient Medication Summary Completed 09/25/2018 Patient Education: Diabetes Completed 09/25/2018 Care Plan: Comp Metabolic Pending 09/25/2018 Care Plan: Cbc With Differential Pending 09/25/2018 Care Plan: %Hba1C LOINC : 94994-3 Pending 09/25/2018 Care Plan: Lipid Pending 09/25/2018 [...] of control. 03/19/2018 Appointment: Jossie Booker WPtel: [phone] [phone] (15 min) Moderate 03/19/2018 Patient Education: Patient Medication Summary Completed 03/19/2018 Visit Plan: Sapvgdnuusr-bkenxoud-feueuqn blood pressures DM -okay to stay off januvia-monitor blood sugars and call if they become elevated UTI-finished treatment 02/08/2018 Appointment: Armida Nicolas WPtel: [phone] [phone] [place] (15 min) Moderate 02/08/2018 Patient Education: [...] pharmacy. 01/03/2018 Appointment: Jossie Booker WPtel: [phone] [phone] (15 min) Moderate 01/03/2018 Patient Education: Patient [...] control. 12/08/2017 Appointment: Annika Nguyen WPtel: [phone] [phone] New Patient 12/08/2017 Patient Education: Patient Medication [...] CAN GET YOUR RECORDS FROM [facility] . Xnvpllzvjve-embtfliw-yqlabdp blood pressures DM-okay to stay off januvia-monitor [...] based on previous levels of control. . Hospital follow up with influenza A -patient is doing well -no further treatment indicated Constipation -add milk of magnesia as needed Low back pain -patient is seeing Ortho later today -continue tylenol/tramadol as needed for pain change the tolterodine to 2 mg at [...]
--- OUTSIDE RECORDS SUMMARY | 2018-12-06 13:01 | XMS REPORT | CCD ---
Author Author [facility] Address [address] [place] [address] Phone Care Team Providers Care Water Treatment Operator Name Role Phone PP Unavailable CCM Unavailable Summary Purpose Interface Exchange Insurance Providers Payer name Policy type / Coverage type Covered constitution party ID Effective Begin Date Effective End Date [employer] CLAIMS Commercial Insurance [id number] 2017 Unknown Family History Family History data not found Social History Social History Element Codes Description Effective Dates Marital status Unknown [place] 12/08/2017 Number of children Unknown 2 12/08/2017 Employment Unknown Retired 12/08/[address]: 173506969 Never smoker 12/08/[address]: 787022655 Never drinks alcohol 12/08/2017 Allergies, Adverse Reactions, [...] ICD-9: 244.9 ICD-10: E03.9 Active 12/08/2017 Unknown alf (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 anticoagulants ICD-9: V58.61 ICD-10: [...] unspecified ICD-9: 244.9 ICD-10: E03.9 12/08/2017 Active 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 ICD-9: V58.61 ICD-10: Z79.01 12/08/2017 Active Medications Medication Codes Instructions Start Date Stop Date Status Fill Instructions tramadol 50 mg tablet RxNorm: 572695 1/2-1 Tablet(s) PO BID as needed 11/23/2018 01/21/2019 Active clopidogrel 75 mg tablet RxNorm: 730000 1 Tablet(s) PO daily 11/01/2019 Active Keflex 500 mg capsule RxNorm: 907658 1 Capsule(s) PO TID 201811/13/2018 Inactive clopidogrel 75 mg tablet RxNorm: 920876 1 Tablet(s) PO daily 11/06/2018 Inactive clopidogrel 75 mg tablet RxNorm: 603623 1 Tablet(s) PO daily 10/29/2018 Inactive omeprazole 10 mg capsule,delayed release RxNorm: 562103 1 Capsule(s) PO daily 10/05/2018 12/28/2019 Active escitalopram 10 mg tablet RxNorm: 962165 TAKE 1 TABLET BY MOUTH ONCE DAILY IN THE EVENING 09/06/2018 No Stop Date Active omeprazole 10 mg capsule,delayed release RxNorm: 158351 1 Capsule(s) PO daily 09/06/2018 10/04/2018 Inactive cyanocobalamin (vit B-12) 1,000 mcg tablet RxNorm: 559660 1 Tablet(s) PO daily 08/08/2018 10/31/2019 Active cyanocobalamin (vit B-12) 1,000 mcg tablet RxNorm: 688141 1 Tablet(s) PO daily 08/08/2018 08/07/2018 Inactive levofloxacin 250 mg tablet RxNorm: 857115 1 Tablet(s) PO daily 06/04/2018 06/08/2018 Inactive levofloxacin 250 mg tablet RxNorm: 042023 1 Tablet(s) PO daily 06/04/2018 06/03/2018 Inactive lisinopril 10 mg tablet RxNorm: 123559 1 Tablet(s) PO daily 05/02/2019 Active Toprol XL 100 mg tablet,extended release RxNorm: 987830 1 Tablet(s) PO daily 05/08/2018 05/02/2019 Active atorvastatin 40 mg tablet RxNorm: 194755 1 Tablet(s) PO QHS No Stop Date Active gabapentin 300 mg capsule RxNorm: 006038 1 Capsule(s) PO TID 04/28/2019 Active levothyroxine 25 mcg tablet RxNorm: 012996 1 Tablet(s) PO daily 05/04/2018 04/28/2019 Active Toprol XL 100 mg tablet,extended release RxNorm: 442866 1 Tablet(s) PO daily 05/04/2018 05/07/2018 Inactive lisinopril 10 mg tablet RxNorm: 745814 1 Tablet(s) PO daily 05/07/2018 Inactive amlodipine 5 mg tablet RxNorm: 079837 1 Tablet(s) PO daily 03/31/2019 Active amlodipine 5 mg tablet RxNorm: 068573 1 Tablet(s) PO daily 07/201804/05/2018 Inactive tolterodine 2 mg tablet RxNorm: 925217 1 Tablet(s) PO QPM 03/1909/24/2018 Inactive nystatin 100,000 unit/gram topical cream RxNorm: 544286 1 Gram(s) TOP TID until healed et then PRN 01/09/2018 No Stop Date Active D/c powder escitalopram 10 mg tablet RxNorm: 256353 1 Tablet(s) PO QPM 07/31/2018 Inactive nystatin (bulk) 100 million unit powder RxNorm: 1 Miscellaneous QID 12/25/2017 01/08/2018 Inactive warfarin 2 mg tablet RxNorm: 458171 1 Tablet(s) PO daily 201701/02/2018 Inactive nystatin (bulk) 100 million unit powder RxNorm: 1 Miscellaneous QID 12/25/2017 12/24/2017 Inactive sitagliptin 50 mg tablet RxNorm: 007304 1 Tablet(s) PO daily 02/07/2018 Inactive tolterodine 1 mg tablet RxNorm: 689158 1 Tablet(s) PO BID 12/1903/18/2018 Inactive warfarin 3 mg tablet RxNorm: 254294 1 Tablet(s) PO UD MWF, 2mg //Sat/Sun 12/15/2017 01/02/2018 Inactive ciprofloxacin 250 mg tablet RxNorm: 602149 1 Tablet(s) PO BID 12/05/2017 12/09/2017 Inactive multivitamin oral RxNorm: 45204 oral No Start Date Active Xanax 0.25 mg tablet RxNorm: 921177 1 Tablet(s) PO daily as needed No Start Date Active Restasis MultiDose 0.05 % eye drops RxNorm: 963911 1 Drop(s) both ophthalmic (eye ) BID No Start Date Active hydrocodone 5 mg-acetaminophen 325 mg tablet RxNorm: 385330 1 Tablet(s) PO Q6 as needed No Start Date Active Oyster Calcium 375 mg-200 unit-800 unit tablet RxNorm: 2 Tablet(s) PO daily No Start Date Active cyanocobalamin (vit B-12) 1,000 mcg tablet RxNorm: 106707 1 Tablet(s) PO daily No Start Date Active aspirin 81 mg tablet RxNorm: 266168 1 Tablet(s) PO daily No Start Date Active lisinopril 10 mg tablet RxNorm: 020194 1 Tablet(s) PO daily No Start Date 05/03/2018 Inactive levothyroxine 25 mcg tablet RxNorm: 824900 1 Tablet(s) PO daily No Start Date 05/03/2018 Inactive warfarin 2 mg tablet RxNorm: 007032 1 Tablet(s) PO daily No Start Date 12/24/2017 Inactive tolterodine 1 mg tablet RxNorm: 785980 1 Tablet(s) PO BID No Start Date 12/18/2017 Inactive nystatin 100,000 unit/gram topical cream RxNorm: 860654 1 Gram(s) TOP TID until healed et then PRN No Start Date 2017 Inactive omeprazole 10 mg capsule,delayed release RxNorm: 362418 1 Capsule(s) PO daily No Start Date 09/05/2018 Inactive Toprol XL 100 mg tablet,extended release RxNorm: 511302 1 Tablet(s) PO daily No Start Date 05/03/2018 Inactive gabapentin 300 mg capsule RxNorm: 871837 1 Capsule(s) PO TID No Start Date 05/03/2018 Inactive atorvastatin 40 mg tablet RxNorm: 723295 1 Tablet(s) PO QHS No Start Date 05/03/2018 Inactive clopidogrel 75 mg tablet RxNorm: 934396 1 Tablet(s) PO daily No Start Date 10/25/2018 Inactive amlodipine 5 mg tablet RxNorm: 960203 1 Tablet(s) PO daily No Start Date 03/27/2018 Inactive sitagliptin 50 mg tablet RxNorm: 377327 1 Tablet(s) PO daily No Start Date [...] not specified ICD-10: N39.0 ICD-9: 599.0 02/08/2018 alf (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 anticoagulants ICD-10: Z79.01 ICD-9: [...] 28.6 pg 09/28/2018 Cbc With Differential Ord2 [place]% 8.2 % 09/28/2018 Cbc With Differential Ord2 [...] 1.93 K/ul 09/28/2018 Cbc With Differential Ord2 [place] ABS# 0.5 K/ul 09/28/2018 Cbc With Differential Ord2 Eos ABS# 0.1 K/ul 09/28/2018 Cbc With Differential Ord2 Baso ABS# 0.0 K/ul 09/28/2018 %Hba1C Ufc807 % HbA1c 55015-5 6.6 % 09/28/2018 %Hba1C Bbr573 Gluc Ave 143 mg/dL 09/28/2018 Comp Metabolic Whz935 NA 142 mEq/L 09/28/2018 Comp Metabolic Qrs443 K 4.2 mEq/L 09/28/2018 Comp Metabolic Qwi911 CL 107 mEq/L 09/28/2018 Comp Metabolic Ypg546 CO2 30.0 mEq/L 09/28/2018 Comp Metabolic Ybf924 ANION GAP 9 09/28/2018 Comp Metabolic Sgb313 GLUCOSE 117 mg/dL 09/28/2018 Comp Metabolic Iou639 Creat 1.2 mg/dL 09/28/2018 Comp Metabolic Zsd434 eGFR 47 ml/min/1.73m2 09/28/2018 Comp Metabolic Egm397 BUN 19 mg/dL 09/28/2018 Comp Metabolic Nek496 B/C Ratio 16.5 Ratio 09/28/2018 Comp Metabolic Mfv943 CALCIUM 8.6 mg/dL 09/28/2018 Comp Metabolic Zqi129 ALK PHOS 101 U/L 09/28/2018 Comp Metabolic Mos301 AST(SGOT) 16 U/L 09/28/2018 Comp Metabolic Qef546 ALT(SGPT) 13 U/L 09/28/2018 Comp Metabolic Crt455 BILI T 0.4 mg/dL 09/28/2018 Comp Metabolic Lue275 ALBUMIN 3.4 g/dL 09/28/2018 Comp Metabolic Onn303 TPRO 6.1 g/dL 09/28/2018 Comp Metabolic Fjm904 GLOB 2.7 g/dL 09/28/2018 Comp Metabolic Rqw761 A/G Ratio 1.3 Ratio 09/28/2018 Comp Metabolic Jtj883 Osmo 286 mOsmo 09/28/2018 Tsh Ord6 TSH (3rd IS) 0.80 uIU/mL 09/28/2018 Lipid Ord30 CHOL 89 mg/dL 09/28/2018 Lipid Ord30 HDL 33.0 mg/dl 09/28/2018 Lipid Ord30 TRIG 78 mg/dL 09/28/2018 Lipid Ord30 LDL 40 mg/dL 09/28/2018 Lipid Ord30 C/HDL 2.7 Ratio 09/28/2018 Pt Vtf7535 PT 17.8 seconds 12/15/2017 Pt Cld7934 INR 1.5 12/15/2017 Pt Uni6775 Low Intensity - 1.5-2.0 12/15/2017 Pt Tjd2601 Mod intensity - 2.0-3.0 12/15/2017 Pt Mxf0891 Hi intensity - 3.0-4.0 12/15/2017 Urinalysis Ord28 [...] hours from collection if refrigerated) 12/12/2017 Pt Pjb9327 PT 15.2 seconds 12/11/2017 Pt Omn7322 INR 1.2 12/11/2017 Pt Qlx2316 Low Intensity - 1.5-2.0 12/11/2017 Pt Hud2095 Mod intensity - 2.0-3.0 12/11/2017 Pt Hjv8640 Hi intensity - 3.0-4.0 12/11/2017 Pt Man2401 PT 14.7 seconds 12/08/2017 Pt Afh4041 INR 1.2 12/08/2017 Pt Znr7005 Low Intensity - 1.5-2.0 12/08/2017 Pt Obh8333 Mod intensity - 2.0-3.0 12/08/2017 Pt Fxc3566 Hi intensity - 3.0-4.0 12/08/2017 Review of [...] FLU VACC PRSV FREE INC ANTIG CPT-4: 75330 07/18/2018 Vital Signs Date Vital 11/27/2018 Blood Pressure 1: 136/58 Code : 8480-6 Heart Rate 1: 82 bpm Height: 4'11" SpO2: 96% Temperature: 36.8 (C) / 98.2 (F) Weight: 11/07/2018 Blood Pressure 1: 110/58 Code : 8480-6 BMI: 30.7 Code : 65127-3 Heart Rate 1 : 70 bpm Height: 4'11" SpO2: 97% Weight: 152 lbs 09/25/2018 Blood Pressure 1: 140/70 Code : 8480-6 BMI: 30.9 Code : 98617-7 Heart Rate 1 : 67 bpm Height: 4'11" SpO2: 91% Weight: 153 lbs 03/19/2018 Blood Pressure 1: 140/58 Code : 8480-6 BMI: 28.5 Code : 33365-7 Heart Rate 1 : 59 bpm Height: 4'11" SpO2: 98% Weight: 141 lbs 02/08/2018 Blood Pressure 1: 130/68 Code : 8480-6 BMI: 28.5 Code : 85652-3 Heart Rate 1 : 73 bpm Height: 4'11" SpO2: 98% Weight: 141 lbs 01/03/2018 Blood Pressure 1: 116/64 Code : 8480-6 BMI: 27.7 Code : 77421-7 Heart Rate 1 : 68 bpm Height: [...] data Encounters Encounter Performer Location Codes Date ([id number]) [id number] EST. PATIENT, LEVEL IV Diagnosis: Influenza due to identified novel influenza A virus with other manifestations[ICD10: J09.X9] Diagnosis: Encounter for follow-up examination after completed treatment for conditions other than malignant neoplasm[ICD10: Z09] Diagnosis: Low back pain[ICD10: M54.5] Diagnosis: Slow transit constipation[ICD10: K59.01] Armida Booker MD, [facility] CPT-4: 49992 11/27/2018 04654 EST. PATIENT, LEVEL III Diagnosis: Dysuria[ICD10: R30.0] Diagnosis: Dizziness and giddiness[ICD10: R42] Annika Booker MD, [facility] CPT-4: 17125 11/07/2018 ([id number]) 37931 EST. PATIENT, LEVEL IV Diagnosis: Essential (primary) hypertension[ICD10: I10] Diagnosis: Chronic kidney disease, stage 3 (moderate)[ICD10: N18.3] Diagnosis: Atrophy of thyroid (acquired)[ICD10: E03.4] Diagnosis: Type 2 diabetes mellitus without complications[ICD10: E11.9] Jossie Booker MD, [facility] CPT-4: 73544 09/25/2018 [id number]) 11776 EST. PATIENT, LEVEL IV Diagnosis: Type 2 diabetes mellitus without complications[ICD10: E11.9] Diagnosis: Atrophy of thyroid (acquired)[ICD10: E03.4] Diagnosis: Essential (primary) hypertension[ICD10: I10] Diagnosis: Urgency of urination[ICD10: R39.15] Jossie Booker MD, [facility] CPT-4: 13090 03/19/2018 [id number]) 64759 EST. PATIENT, LEVEL IV Diagnosis: Orthostatic hypotension[ICD10: I95.1] Diagnosis: Urinary tract infection, site not specified[ICD10: N39.0] Diagnosis: Type 2 diabetes mellitus without complications[ICD10: E11.9] [facility] CPT-4: 50111 02/08/2018 ([id number]) 50564 EST. 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 Antibiotic electronically prescribed to pt's pharmacy of choice. Pt to call if symptoms do not improve. 11/07/2018 Appointment: Annika Nguyen WPtel: [address] [place], [place] [phone] (15 min) Moderate 11/07/2018 Patient Education: Patient [...] control. 09/25/2018 Appointment: Jossie Booker WPtel: [phone] (15 min) Moderate 09/25/2018 Patient Education: Patient Medication Summary Completed 09/25/2018 Patient Education: Diabetes Completed 09/25/2018 Care Plan: Comp Metabolic Pending 09/25/2018 Care Plan: Cbc With Differential Pending 09/25/2018 Care Plan: %Hba1C LOINC : 21754-8 Pending 09/25/2018 Care Plan: Lipid Pending 09/25/2018 [...] of control. 03/19/2018 Appointment: Jossie Booker WPtel: [phone] [facility] (15 min) Moderate 03/19/2018 Patient Education: Patient Medication Summary Completed 03/19/2018 Visit Plan: Zndnfalidaa-tkgrndlw-uugueur blood pressures DM -okay to stay off januvia-monitor blood sugars and call if they become elevated UTI-finished treatment 02/08/2018 Appointment: Armida Nicolas WPtel: [phone] [phone] [place] (15 min) Moderate 02/08/2018 Patient [...] Booker WPtel: [phone] [facility] (15 min) Moderate 01/03/2018 Patient Education: Patient [...] control. 12/08/2017 Appointment: Annika Nguyen WPtel: [phone] [facility] New Patient 12/08/2017 Patient Education: Patient [...] CAN GET YOUR RECORDS FROM [facility] . Vpwxnqrcpjv-qvcorhdx-rgywnvw blood pressures DM-okay to stay off januvia-monitor [...]
[2018-12-06] MEDS ORDERED: fentaNYL INJECTION 100 MCG/2 ML AMP IVP PRN (13:15)
[2018-12-06 13:20] LABS: BILIRUBIN,URINE NEGATIVE (NEGATIVE); CLARITY,URINE CLEAR; COLOR,URINE YELLOW; GLUCOSE, URINE (UA) NEGATIVE (NEGATIVE); KETONES,URINE NEGATIVE (NEGATIVE); LEUKOCYTE ESTERASE ,URINE 2+ (NEGATIVE); NITRITE,URINE NEGATIVE (NEGATIVE); PH,URINE 6.5 (5-9); PROTEIN,URINE 1+ (NEGATIVE); UROBILINOGEN,URINE NORMAL (NORMAL)
--- NOTE | 2018-12-06 13:20 | ED General ---
General Stated Complaint: BILAT HIP PAIN Source of Information: Patient, Family Exam Limitations: No Limitations History of Present Illness Date Seen by Provider: Dec 06, 2018 Time Seen by Provider: 13:18 Initial Comments To ER for EMS from her home in [facility] where she reportedly fell last night. She was able to get herself up and go to bed. Today, family became concerned about her weakness and inability to care for herself and called [address] Booker. She was released from nursing facility back to her home yesterday. She states that she did fall and her head. She complains of some neck pain. Denies headache. She complains of some bilateral lower abdominal /hip pain. Timing/Duration: 1-2 Days Severity: Moderate Associated Systoms: Denies Symptoms; No Fever/Chills; Headaches Allergies and Home Medications Allergies Coded Allergies: gatifloxacin (Verified Allergy, Unknown, Tongue Turns Red and Swells, ) Home Medications Tramadol HCl 50 Mg Tablet, 50 MG PO Q6H PRN for PAIN Prescribed by: KRISSY CAT on 11/11/182 Patient Home Medication List Home Medication List Reviewed: Yes Review of Systems Review of Systems Constitutional: see HPI, weakness EENTM: see HPI Respiratory: no symptoms reported Cardiovascular: no symptoms reported Genitourinary: no symptoms reported Musculoskeletal: no symptoms reported Skin: see HPI Psychiatric/Neurological: See HPI; Denies Headache Hematologic/Lymphatic: No Symptoms Reported Past Keitpmw-Ajnlkq-Tycerd Hx Patient Social History 2nd Hand Smoke Exposure: No Recent Hopitalizations: No Immunizations Up To Date Tetanus Booster (TDap): Unknown Seasonal Allergies Seasonal Allergies: No Past Medical History Surgeries: Yes Cardiac, Gallbladder, Orthopedic Respiratory: No Cardiac: Yes High Cholesterol, Hypertension Neurological: Yes Neuropathy, Stroke Reproductive Disorders: No Genitourinary: No Gastrointestinal: No Musculoskeletal: Yes Arthritis, Fractures Endocrine: No HEENT: No Cancer: No Psychosocial: No Integumentary: No Blood Disorders: No Physical Exam Vital Signs Vital Signs - First Documented 12/06/18 13:32 Temp 97.6 Pulse 88 Resp 18 B/P (MAP) 197/91 (126) Pulse Ox 96 O2 Delivery Room Air Capillary Refill : Height, Weight, BMI Height: 4'11.00" Weight: 150lbs. oz. 68.465879gh; BMI Method:Stated General Appearance: No Apparent Distress, WD/WN (She), Other (alert and oriented GCS 15) Eyes: Bilateral Eye Normal Inspection, Bilateral Eye PERRL, Bilateral Eye EOMI ( will) HEENT: PERRL/EOMI Neck: Full Range of Motion, Normal Inspection Respiratory: Normal Breath Sounds, No Accessory Muscle Use, No Respiratory Distress Gastrointestinal: Normal Bowel Sounds, Soft, Other (suprapubic tenderness to palpation though she states that she has to urinate and this may simply be related full bladder.) Extremity: Normal Capillary Refill Neurologic/Psychiatric: Alert, Oriented x3, No Motor/Sensory Deficits Skin: Normal Color, Warm/Dry Progress/Results/Core Measures Suspected Sepsis SIRS Temperature: Pulse: Respiratory Rate: Laboratory Tests 12/06/18 13:40: White Blood Count 8.8 Blood Pressure / Mean: Laboratory Tests 12/06/18 13:20: Creatinine 0.98, Total Bilirubin 0.5 12/06/18 13:40: Platelet Count 213 Results/Orders Lab Results Laboratory Tests Test 12/06/18 13:10 12/06/18 13:20 12/06/18 13:40 Range/Units Urine Color YELLOW Urine Clarity CLEAR Urine pH 6.5 5-9 Urine Specific [place] 1.010 L 1.016-1.022 Urine Protein 1+ H NEGATIVE Urine Glucose (UA) NEGATIVE NEGATIVE Urine Ketones NEGATIVE NEGATIVE Urine Nitrite NEGATIVE NEGATIVE Urine Bilirubin NEGATIVE NEGATIVE Urine Urobilinogen NORMAL NORMAL MG/DL Urine Leukocyte Esterase 2+ H NEGATIVE Urine RBC (Auto) NEGATIVE NEGATIVE Urine RBC RARE /HPF Urine WBC >100 H /HPF Urine Squamous Epithelial Cells 2-5 /HPF Urine Crystals NONE /LPF Urine Bacteria LARGE H /HPF Urine Casts NONE /LPF Urine Mucus NEGATIVE /LPF Urine Culture Indicated YES Sodium Level 140 135-145 MMOL/L Potassium Level 4.4 3.6-5.0 MMOL/L Chloride Level 105 98-107 MMOL/L Carbon Dioxide Level 26 21-32 MMOL/L Anion Gap 9 5-14 MMOL/L Blood Urea Nitrogen 16 7-18 MG/DL Creatinine 0.98 0.60-1.30 MG/DL Estimat Glomerular Filtration Rate 54 BUN/Creatinine Ratio 16 Glucose Level 104 70-105 MG/DL Calcium Level 9.4 8.5-10.1 MG/DL Corrected Calcium 9.8 8.5-10.1 MG/DL Total Bilirubin 0.5 0.1-1.0 MG/DL Aspartate Amino Transf (AST/SGOT) 24 5-34 U/L Alanine Aminotransferase (ALT/SGPT) 15 0-55 U/L Alkaline Phosphatase 154 H 40-136 U/L Total Creatine Kinase 118 29-168 U/L Myoglobin 299.3 H 10.0-92.0 NG/ML Total Protein 7.2 6.4-8.2 GM/DL Albumin 3.5 3.2-4.5 GM/DL White Blood Count 8.8 4.3-11.0 10^3/uL Red Blood Count 4.22 L 4.35-5.85 10^6/uL Hemoglobin 12.1 11.5-16.0 G/DL Hematocrit 38 35-52 % Mean Corpuscular Volume 91 80-99 FL Mean Corpuscular Hemoglobin 29 25-34 PG Mean Corpuscular Hemoglobin Concent 32 32-36 G/DL Red Cell Distribution Width 14.9 H 10.0-14.5 % Platelet Count 213 130-400 10^3/uL Mean Platelet Volume 9.0 7.4-10.4 FL Neutrophils (%) (Auto) 71 42-75 % Lymphocytes (%) (Auto) 18 12-44 % Monocytes (%) (Auto) 10 0-12 % Eosinophils (%) (Auto) 2 0-10 % Basophils (%) (Auto) 0 0-10 % Neutrophils # (Auto) 6.2 1.8-7.8 X 10^3 Lymphocytes # (Auto) 1.6 1.0-4.0 X 10^3 Monocytes # (Auto) 0.9 0.0-1.0 X 10^3 Eosinophils # (Auto) 0.1 0.0-0.3 10^3/uL Basophils # (Auto) 0.0 0.0-0.1 10^3/uL My Orders Orders - COOPER GOINS APRN Comprehensive Metabolic Panel (12/06/18 13:13) Ua Culture If Indicated (12/06/18 13:13) Creatine Kinase (12/06/18 13:13) Myoglobin Serum (12/06/18 13:13) Ct Head/Cervical Spine Wo (12/06/18 13:13) Ct Abdomen/Pelvis Wo (12/06/18 13:13) Cbc With Automated Diff (12/06/18 13:13) Iv Heplock-Insert (Order) (12/06/18 13:13) Fentanyl Injection (Sublimaze Injection (12/06/18 13:15) Urine Culture (12/06/18 13:10) Ceftriaxone For Iv Use (Rocephin For I (12/06/18 13:30) Ns Iv 500 Ml (Sodium Chloride 0.9%) (12/06/18 13:45) Tramadol Tablet (Ultram Tablet) (12/06/18 15:30) Medications Given in ED Current Medications Medications Dose Ordered Sig/Linda Route Start Time Stop Time Status Last Admin Dose Admin Ceftriaxone Sodium 1000 mg/ Sterile Water 10 ml @ 200 mls/hr ONCE ONCE IV 12/06/18 13:30 12/06/18 13:32 DC 12/06/18 13:46 200 MLS/HR Fentanyl Citrate 25 mcg ONCE PRN IVP 12/06/18 13:15 12/06/18 13:45 25 MCG Vital Signs/I&O 12/06/18 13:32 Temp 97.6 Pulse 88 Resp 18 B/P (MAP) 197/91 (126) Pulse Ox 96 O2 Delivery Room Air Capillary Refill : Departure Communication (Admissions) Spoke with Dr. Booker. Recommends discharge back to group home for [facility]. I then spoke with [facility] staff who states they will be happy to take her back but they do need readmission orders. I relayed this to Dr. Booker, she'll fax over orders and the patient can be transferred from here directly to [facility]. Impression Primary Impression: Urinary tract infection Qualified Codes: N30.00 - Acute cystitis without hematuria Disposition: XFER SNF Condition: Stable Departure-Patient Inst. Decision time for Depature: 15:27 Referrals: RHONA BOOKER MD (PCP/Family) Primary Care Physician Patient Instructions: Urinary Tract Infection, Adult (DC) Add. Discharge Instructions: 1. Go directly from here to [facility]. COOPER GOINS APRN Dec 06, 2018 13:20
[2018-12-06 13:27] LABS: BACTERIA,URINE LARGE /HPF; RBC,URINE RARE /HPF; WBC,URINE >100 /HPF
[2018-12-06] MEDS ORDERED: cefTRIAXone FOR IV USE 1,000 MG in WATER (STERILE) FOR INJECTION 10 ML IV ONE (13:30)
[2018-12-06] MEDS ORDERED: NS IV 500 ML 500 ML IV SCH (13:45)
[2018-12-06 13:50] LABS: HEMATOCRIT 38 % (35-52); HEMOGLOBIN 12.1 G/DL (11.5-16.0); MEAN CORPUSCULAR HEMOGLOBIN 29 PG (25-34); MEAN CORPUSCULAR HGB CONC 32 G/DL (32-36); MEAN CORPUSCULAR VOLUME 91 FL (80-99); WHITE BLOOD COUNT 8.8 10^3/uL (4.3-11.0)
[2018-12-06 13:51] LABS: BASOPHILS % (AUTO) 0 % (0-10); EOSINOPHILS # (AUTO) 0.1 10^3/uL (0.0-0.3); EOSINOPHILS % (AUTO) 2 % (0-10); LYMPHOCYTES # (AUTO) 1.6 X 10^3 (1.0-4.0); LYMPHOCYTES % (AUTO) 18 % (12-44); MONOCYTES # (AUTO) 0.9 X 10^3 (0.0-1.0); MONOCYTES % (AUTO) 10 % (0-12); NEUTROPHILS # (AUTO) 6.2 X 10^3 (1.8-7.8); NEUTROPHILS % (AUTO) 71 % (42-75); PLATELET COUNT 213 10^3/uL (130-400); RED CELL DISTRIBUTION WIDTH 14.9 % (10.0-14.5)
[2018-12-06 13:54] LABS: ALBUMIN 3.5 GM/DL (3.2-4.5); BILIRUBIN,TOTAL 0.5 MG/DL (0.1-1.0); CALCIUM 9.4 MG/DL (8.5-10.1); CREATININE SERUM 0.98 MG/DL (0.60-1.30); POTASSIUM 4.4 MMOL/L (3.6-5.0); TOTAL PROTEIN 7.2 GM/DL (6.4-8.2)
[2018-12-06 14:03] LABS: MYOGLOBIN SERUM 299.3 NG/ML (10.0-92.0)
--- NOTE | 2018-12-06 14:49 | Diagnostic Imaging Report ---
PROCEDURE: CT head and CT cervical spine without contrast. TECHNIQUE: Multiple contiguous axial images were obtained through the brain and cervical spine without the use of intravenous contrast. Sagittal and coronal reformations through the cervical spine were then performed. Auto Exposure Controls were utilized during the CT exam to meet ALARA standards for radiation dose reduction. INDICATION: Fever. COMPARISON: No prior studies are available for comparison. CT HEAD: The ventricles and sulci are consistent with the patient's age. Moderate periventricular hypodensity is noted consistent with senescent changes. 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 No sulcal effacement or midline shift is identified. No acute intra-axial or extra-axial hemorrhage is detected. Cisterns are patent. Visualized paranasal sinuses are clear. IMPRESSION: Chronic and senescent changes. No acute intracranial process is detected. CT CERVICAL SPINE: Curvature and alignment of the cervical spine is normal. No fracture or subluxation is seen. The prevertebral tissues are within normal limits. The odontoid is intact. Generalized cervical degenerative disc and facet disease is seen. IMPRESSION: No acute bony abnormality is detected. Dictated by: Dictated on workstation # [id number]
--- NOTE | 2018-12-06 15:02 | Diagnostic Imaging Report ---
PROCEDURE: CT abdomen and pelvis without contrast. TECHNIQUE: Multiple contiguous axial images were obtained through the abdomen and pelvis without the use of intravenous contrast. Auto Exposure Controls were utilized during the CT exam to meet ALARA standards for radiation dose reduction. INDICATION: Abdominal pain fever FINDINGS: There is coronary atherosclerosis. There is a large sliding hiatal hernia. There is pneumobilia. Liver parenchyma appears normal. The gallbladder is surgically absent. There is compensatory dilatation of the common duct. The pancreas appears normal. There are scattered calcified granulomas in the spleen. Kidneys and adrenals appear normal. There is calcific atherosclerosis of the aorta with no aneurysm. Small bowel was not dilated. The appendix is normal. There is a moderate amount of stool in the colon with diverticula in the sigmoid region. Urinary bladder is normal. Uterus is present and appears normal. Adnexa are unremarkable. There is no intraperitoneal free air or free fluid. IMPRESSION: 1. Postop changes from cholecystectomy. 2. The patient has pneumobilia which is probably related to the aforementioned surgery. 3. There is uncomplicated diverticulosis of the colon. 4. There is a large sliding hiatal hernia. Dictated by: Dictated on workstation # [id number]
[2018-12-06] MEDS ORDERED: ONDANSETRON 4 MG/2 ML (SDV) Z0FRAN IVP ONE (15:30)
[2018-12-06] MEDS ORDERED: ONDANSETRON 4 MG/2 ML (SDV) Z0FRAN ONE (15:31)
[2018-12-06] MEDS ORDERED: cloNIDine 0.1 MG (CATAPRES) TAB PO ONE (15:45)
[2018-12-06 15:49] VITALS: BP 183/97
== END 2018-12-06 15:56 ==
LOC: EDUNIT# 12:52 → ER 12:53
DX: N39.0 Urinary tract infection, site not specified (principal); M54.2 Cervicalgia; I10 Essential (primary) hypertension; E78.00 Pure hypercholesterolemia, unspecified; Z88.1 Allergy status to other antibiotic agents; Z98.890 Other specified postprocedural states; Z86.73 Personal history of transient ischemic attack (TIA), and cerebral infarction without residual deficits; W19.XXXA Unspecified fall, initial encounter
CPT/HCPCS: 36415; 70450; 72125; 74176; 80053; 81000; 82550; 83874; 85025; 87077; 87088; 87186

== ENCOUNTER 2018-12-08 11:56 | Inpatient (IN) | payer MEDICARE ==
[~2018-12-08] VITALS: Ht 149.9 cm; Wt 64.4 kg
--- OUTSIDE RECORDS SUMMARY | 2018-12-08 12:02 | XMS REPORT | CCD ---
Author Author [facility] Address [address] [place] [address] Phone Care Team Providers Care Litigation Partner Name Role Phone PP Unavailable CCM Unavailable Summary Purpose Interface Exchange Insurance Providers Payer name Policy type / Coverage type Covered libertarian ID Effective Begin Date Effective End Date [employer] CLAIMS Commercial Insurance [id number] 2017 Unknown Family History Family History data not found Social History Social History Element Codes Description Effective Dates Marital status Unknown [place] 12/08/2017 Number of children Unknown 2 12/08/2017 Employment Unknown Retired 12/08/[address]: 619900572 Never smoker 12/08/[address]: 314781830 Never drinks alcohol 12/08/2017 Allergies, Adverse Reactions, [...] ICD-9: 244.9 ICD-10: E03.9 Active 12/08/2017 Unknown [facility] (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 anticoagulants ICD-9: V58.61 ICD-10: [...] unspecified ICD-9: 244.9 ICD-10: E03.9 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 ICD-9: V58.61 ICD-10: Z79.01 12/08/2017 Active Medications Medication Codes Instructions Start Date Stop Date Status Fill Instructions tramadol 50 mg tablet RxNorm: 332418 1 Tablet(s) PO Q12H as needed 12/07/2018 02/04/2019 Active tramadol 50 mg tablet RxNorm: 025613 1/2-1 Tablet(s) PO BID as needed 11/23/2018 12/06/2018 Inactive clopidogrel 75 mg tablet RxNorm: 419305 1 Tablet(s) PO daily 11/01/2019 Active Keflex 500 mg capsule RxNorm: 131175 1 Capsule(s) PO TID 201811/13/2018 Inactive clopidogrel 75 mg tablet RxNorm: 444609 1 Tablet(s) PO daily 11/06/2018 Inactive clopidogrel 75 mg tablet RxNorm: 200809 1 Tablet(s) PO daily 10/29/2018 Inactive omeprazole 10 mg capsule,delayed release RxNorm: 645028 1 Capsule(s) PO daily 10/05/2018 12/28/2019 Active escitalopram 10 mg tablet RxNorm: 490202 TAKE 1 TABLET BY MOUTH ONCE DAILY IN THE EVENING 09/06/2018 No Stop Date Active omeprazole 10 mg capsule,delayed release RxNorm: 042707 1 Capsule(s) PO daily 09/06/2018 10/04/2018 Inactive cyanocobalamin (vit B-12) 1,000 mcg tablet RxNorm: 855403 1 Tablet(s) PO daily 08/08/2018 10/31/2019 Active cyanocobalamin (vit B-12) 1,000 mcg tablet RxNorm: 238134 1 Tablet(s) PO daily 08/08/2018 08/07/2018 Inactive levofloxacin 250 mg tablet RxNorm: 016522 1 Tablet(s) PO daily 06/04/2018 06/08/2018 Inactive levofloxacin 250 mg tablet RxNorm: 468680 1 Tablet(s) PO daily 06/04/2018 06/03/2018 Inactive lisinopril 10 mg tablet RxNorm: 310807 1 Tablet(s) PO daily 05/02/2019 Active Toprol XL 100 mg tablet,extended release RxNorm: 147491 1 Tablet(s) PO daily 05/08/2018 05/02/2019 Active atorvastatin 40 mg tablet RxNorm: 080855 1 Tablet(s) PO QHS No Stop Date Active gabapentin 300 mg capsule RxNorm: 355002 1 Capsule(s) PO TID 04/28/2019 Active levothyroxine 25 mcg tablet RxNorm: 611964 1 Tablet(s) PO daily 05/04/2018 04/28/2019 Active Toprol XL 100 mg tablet,extended release RxNorm: 910087 1 Tablet(s) PO daily 05/04/2018 05/07/2018 Inactive lisinopril 10 mg tablet RxNorm: 903430 1 Tablet(s) PO daily 05/07/2018 Inactive amlodipine 5 mg tablet RxNorm: 312967 1 Tablet(s) PO daily 03/31/2019 Active amlodipine 5 mg tablet RxNorm: 424416 1 Tablet(s) PO daily 07/201804/05/2018 Inactive tolterodine 2 mg tablet RxNorm: 260618 1 Tablet(s) PO QPM 03/1909/24/2018 Inactive nystatin 100,000 unit/gram topical cream RxNorm: 348170 1 Gram(s) TOP TID until healed et then PRN 01/09/2018 No Stop Date Active D/c powder escitalopram 10 mg tablet RxNorm: 248612 1 Tablet(s) PO QPM 07/31/2018 Inactive nystatin (bulk) 100 million unit powder RxNorm: 1 Miscellaneous QID 12/25/2017 01/08/2018 Inactive warfarin 2 mg tablet RxNorm: 285502 1 Tablet(s) PO daily 201701/02/2018 Inactive nystatin (bulk) 100 million unit powder RxNorm: 1 Miscellaneous QID 12/25/2017 12/24/2017 Inactive sitagliptin 50 mg tablet RxNorm: 289823 1 Tablet(s) PO daily 02/07/2018 Inactive tolterodine 1 mg tablet RxNorm: 097547 1 Tablet(s) PO BID 12/1903/18/2018 Inactive warfarin 3 mg tablet RxNorm: 192134 1 Tablet(s) PO UD MWF, 2mg T/Th/Sat/Sun 12/15/2017 01/02/2018 Inactive ciprofloxacin 250 mg tablet RxNorm: 148846 1 Tablet(s) PO BID 12/05/2017 12/09/2017 Inactive multivitamin oral RxNorm: 36458 oral No Start Date Active Xanax 0.25 mg tablet RxNorm: 133906 1 Tablet(s) PO daily as needed No Start Date Active Restasis MultiDose 0.05 % eye drops RxNorm: 986530 1 Drop(s) both ophthalmic (eye ) BID No Start Date Active hydrocodone 5 mg-acetaminophen 325 mg tablet RxNorm: 111572 1 Tablet(s) PO Q6 as needed No Start Date Active Oyster Calcium 375 mg-200 unit-800 unit tablet RxNorm: 2 Tablet(s) PO daily No Start Date Active cyanocobalamin (vit B-12) 1,000 mcg tablet RxNorm: 559443 1 Tablet(s) PO daily No Start Date Active aspirin 81 mg tablet RxNorm: 431741 1 Tablet(s) PO daily No Start Date Active lisinopril 10 mg tablet RxNorm: 330139 1 Tablet(s) PO daily No Start Date 05/03/2018 Inactive levothyroxine 25 mcg tablet RxNorm: 884822 1 Tablet(s) PO daily No Start Date 05/03/2018 Inactive warfarin 2 mg tablet RxNorm: 824243 1 Tablet(s) PO daily No Start Date 12/24/2017 Inactive tolterodine 1 mg tablet RxNorm: 474184 1 Tablet(s) PO BID No Start Date 12/18/2017 Inactive nystatin 100,000 unit/gram topical cream RxNorm: 051234 1 Gram(s) TOP TID until healed et then PRN No Start Date 2017 Inactive omeprazole 10 mg capsule,delayed release RxNorm: 334275 1 Capsule(s) PO daily No Start Date 09/05/2018 Inactive Toprol XL 100 mg tablet,extended release RxNorm: 336033 1 Tablet(s) PO daily No Start Date 05/03/2018 Inactive gabapentin 300 mg capsule RxNorm: 814883 1 Capsule(s) PO TID No Start Date 05/03/2018 Inactive atorvastatin 40 mg tablet RxNorm: 852478 1 Tablet(s) PO QHS No Start Date 05/03/2018 Inactive clopidogrel 75 mg tablet RxNorm: 552656 1 Tablet(s) PO daily No Start Date 10/25/2018 Inactive amlodipine 5 mg tablet RxNorm: 834272 1 Tablet(s) PO daily No Start Date 03/27/2018 Inactive sitagliptin 50 mg tablet RxNorm: 100170 1 Tablet(s) PO daily No Start Date [...] not specified ICD-10: N39.0 ICD-9: 599.0 02/08/2018 [facility] (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 anticoagulants ICD-10: Z79.01 ICD-9: [...] Result Date Cbc With Differential Ord2 WBC 9.62 K/ul 11/30/2018 Cbc With Differential Ord2 RBC 3.97 M/ul 11/30/2018 Cbc With Differential Ord2 HGB 11.4 g/dl 11/30/2018 Cbc With Differential Ord2 HCT 36.6 % 11/30/2018 Cbc With Differential Ord2 Neut% 69.6 % 11/30/2018 Cbc With Differential Ord2 MCV 92.2 fl 11/30/2018 Cbc With Differential Ord2 Lymph% 22.1 % 11/30/2018 Cbc With Differential Ord2 MCH 28.7 pg 11/30/2018 Cbc With Differential Ord2 Mcdonald% 8.1 % 11/30/2018 Cbc With Differential Ord2 Eos% 0.2 % 11/30/2018 Cbc With Differential Ord2 MCHC 31.1 pg 11/30/2018 Cbc With Differential Ord2 PLT 382 K/ul 11/30/2018 Cbc With Differential Ord2 Baso% 0.0 % 11/30/2018 Cbc With Differential Ord2 RDW 14.9 % 11/30/2018 Cbc With Differential Ord2 Neut ABS# 6.69 K/ul 11/30/2018 Cbc With Differential Ord2 Lymph ABS# 2.13 K/ul 11/30/2018 Cbc With Differential Ord2 Mcdonald ABS# 0.8 K/ul 11/30/2018 Cbc With Differential Ord2 Eos ABS# 0.0 K/ul 11/30/2018 Cbc With Differential Ord2 Baso ABS# 0.0 K/ul 11/30/2018 Hepatic Iac923 ALBUMIN 3.1 g/dL 11/28/2018 Hepatic Quy482 TPRO 6.0 g/dL 11/28/2018 Hepatic Abg342 GLOB 2.9 g/dL 11/28/2018 Hepatic Oaf446 A/G Ratio 1.1 Ratio 11/28/2018 Hepatic Fgp088 ALK PHOS 102 U/L 11/28/2018 Hepatic Wih175 ALT(SGPT) 19 U/L 11/28/2018 Hepatic Kka623 AST(SGOT) 18 U/L 11/28/2018 Hepatic Xsg359 BILI T 0.4 mg/dL 11/28/2018 Hepatic Aow441 BILI D 0.1 mg/dL 11/28/2018 Hepatic Etm873 BILI I 0.3 mg/dL 11/28/2018 Cbc With Differential Ord2 WBC 10.47 K/ul 11/28/2018 Cbc With Differential Ord2 RBC 3.67 M/ul 11/28/2018 Cbc With Differential Ord2 HGB 10.5 g/dl 11/28/2018 Cbc With Differential Ord2 HCT 33.6 % 11/28/2018 Cbc With Differential Ord2 Neut% 68.2 % 11/28/2018 Cbc With Differential Ord2 MCV 91.6 fl 11/28/2018 Cbc With Differential Ord2 Lymph% 22.5 % 11/28/2018 Cbc With Differential Ord2 MCH 28.6 pg 11/28/2018 Cbc With Differential Ord2 Mcdonald% 8.9 % 11/28/2018 Cbc With Differential Ord2 Eos% 0.3 % 11/28/2018 Cbc With Differential Ord2 MCHC 31.3 pg 11/28/2018 Cbc With Differential Ord2 Baso% 0.1 % 11/28/2018 Cbc With Differential Ord2 PLT 314 K/ul 11/28/2018 Cbc With Differential Ord2 RDW 14.5 % 11/28/2018 Cbc With Differential Ord2 Neut ABS# 7.14 K/ul 11/28/2018 Cbc With Differential Ord2 Lymph ABS# 2.36 K/ul 11/28/2018 Cbc With Differential Ord2 Mcdonald ABS# 0.9 K/ul 11/28/2018 Cbc With Differential Ord2 Eos ABS# 0.0 K/ul 11/28/2018 Cbc With Differential Ord2 Baso ABS# 0.0 K/ul 11/28/2018 Urine Culture Ucult Complete >100,000 col/ml aerobic [...] 28.6 pg 09/28/2018 Cbc With Differential Ord2 Mcdonald% 8.2 % 09/28/2018 Cbc With Differential Ord2 [...] 1.93 K/ul 09/28/2018 Cbc With Differential Ord2 Mcdonald ABS# 0.5 K/ul 09/28/2018 Cbc With Differential Ord2 Eos ABS# 0.1 K/ul 09/28/2018 Cbc With Differential Ord2 Baso ABS# 0.0 K/ul 09/28/2018 %Hba1C Sgt101 % HbA1c 02293-8 6.6 % 09/28/2018 %Hba1C Rjg147 Gluc Ave 143 mg/dL 09/28/2018 Comp Metabolic Yqv890 NA 142 mEq/L 09/28/2018 Comp Metabolic Rkc656 K 4.2 mEq/L 09/28/2018 Comp Metabolic Smn636 CL 107 mEq/L 09/28/2018 Comp Metabolic Yrm585 CO2 30.0 mEq/L 09/28/2018 Comp Metabolic Zza769 ANION GAP 9 09/28/2018 Comp Metabolic Rjf289 GLUCOSE 117 mg/dL 09/28/2018 Comp Metabolic Lvb716 Creat 1.2 mg/dL 09/28/2018 Comp Metabolic Zgt882 eGFR 47 ml/min/1.73m2 09/28/2018 Comp Metabolic Pic701 BUN 19 mg/dL 09/28/2018 Comp Metabolic Udy053 B/C Ratio 16.5 Ratio 09/28/2018 Comp Metabolic Uom395 CALCIUM 8.6 mg/dL 09/28/2018 Comp Metabolic Ofc361 ALK PHOS 101 U/L 09/28/2018 Comp Metabolic Zbw836 AST(SGOT) 16 U/L 09/28/2018 Comp Metabolic Zej220 ALT(SGPT) 13 U/L 09/28/2018 Comp Metabolic Xzw561 BILI T 0.4 mg/dL 09/28/2018 Comp Metabolic Qfv411 ALBUMIN 3.4 g/dL 09/28/2018 Comp Metabolic Sjr230 TPRO 6.1 g/dL 09/28/2018 Comp Metabolic Lof295 GLOB 2.7 g/dL 09/28/2018 Comp Metabolic Ekd793 A/G Ratio 1.3 Ratio 09/28/2018 Comp Metabolic Bgb694 Osmo 286 mOsmo 09/28/2018 Tsh Ord6 TSH (3rd IS) 0.80 uIU/mL 09/28/2018 Lipid Ord30 CHOL 89 mg/dL 09/28/2018 Lipid Ord30 HDL 33.0 mg/dl 09/28/2018 Lipid Ord30 TRIG 78 mg/dL 09/28/2018 Lipid Ord30 LDL 40 mg/dL 09/28/2018 Lipid Ord30 C/HDL 2.7 Ratio 09/28/2018 Pt Tsv9256 PT 17.8 seconds 12/15/2017 Pt Uzl8328 INR 1.5 12/15/2017 Pt Oti0528 Low Intensity - 1.5-2.0 12/15/2017 Pt Gez6132 Mod intensity - 2.0-3.0 12/15/2017 Pt Mok8525 Hi intensity - 3.0-4.0 12/15/2017 Urinalysis Ord28 [...] hours from collection if refrigerated) 12/12/2017 Pt Zll2652 PT 15.2 seconds 12/11/2017 Pt Bwz9120 INR 1.2 12/11/2017 Pt Svb8841 Low Intensity - 1.5-2.0 12/11/2017 Pt Atr8187 Mod intensity - 2.0-3.0 12/11/2017 Pt Enh9259 Hi intensity - 3.0-4.0 12/11/2017 Pt Ehd0806 PT 14.7 seconds 12/08/2017 Pt Nzq7247 INR 1.2 12/08/2017 Pt Vnq4713 Low Intensity - 1.5-2.0 12/08/2017 Pt Jhy6467 Mod intensity - 2.0-3.0 12/08/2017 Pt Bal2671 Hi intensity - 3.0-4.0 12/08/2017 Review of [...] sounds 11/27/2018 None Full Exam - General 1995 Musculoskeletal head and neck Overall: head atraumatic 11/27/2018 None Full Exam - General 1994 Neurologic cranial nerves Overall: crainial nerves 2 - 12 grossly intact 11/27/2018 None Full Exam - General 1994 Psychiatric orientation/consciousness Overall: oriented to person, place and time 11/27/2018 None Full Exam - General 1995 Psychiatric mood and affect Overall: normal mood [...] FLU VACC PRSV FREE INC ANTIG CPT-4: 43665 07/18/2018 Vital Signs Date Vital 11/27/2018 Blood Pressure 1: 136/58 Code : 8480-6 Heart Rate 1: 82 bpm Height: 4'11" SpO2: 96% Temperature: 36.8 (C) / 98.2 (F) Weight: 11/07/2018 Blood Pressure 1: 110/58 Code : 8480-6 BMI: 30.7 Code : 75424-4 Heart Rate 1 : 70 bpm Height: 4'11" SpO2: 97% Weight: 152 lbs 09/25/2018 Blood Pressure 1: 140/70 Code : 8480-6 BMI: 30.9 Code : 92521-7 Heart Rate 1 : 67 bpm Height: 4'11" SpO2: 91% Weight: 153 lbs 03/19/2018 Blood Pressure 1: 140/58 Code : 8480-6 BMI: 28.5 Code : 58855-7 Heart Rate 1 : 59 bpm Height: 4'11" SpO2: 98% Weight: 141 lbs 02/08/2018 Blood Pressure 1: 130/68 Code : 8480-6 BMI: 28.5 Code : 00334-1 Heart Rate 1 : 73 bpm Height: 4'11" SpO2: 98% Weight: 141 lbs 01/03/2018 Blood Pressure 1: 116/64 Code : 8480-6 BMI: 27.7 Code : 97193-4 Heart Rate 1 : 68 bpm Height: [...] data Encounters Encounter Performer Location Codes Date ([id number]) [id number] EST. PATIENT, LEVEL IV Diagnosis: Influenza due to identified novel influenza A virus with other manifestations[ICD10: J09.X9] Diagnosis: Encounter for follow-up examination after completed treatment for conditions other than malignant neoplasm[ICD10: Z09] Diagnosis: Low back pain[ICD10: M54.5] Diagnosis: Slow transit constipation[ICD10: K59.01] Armida Booker MD, [facility] CPT-4: 17627 11/27/2018 71207 EST. PATIENT, LEVEL III Diagnosis: Dysuria[ICD10: R30.0] Diagnosis: Dizziness and giddiness[ICD10: R42] Annika Booker MD, [facility] CPT-4: 50659 11/07/2018 ([id number]) 07198 EST. PATIENT, LEVEL IV Diagnosis: Essential (primary) hypertension[ICD10: I10] Diagnosis: Chronic kidney disease, stage 3 (moderate)[ICD10: N18.3] Diagnosis: Atrophy of thyroid (acquired)[ICD10: E03.4] Diagnosis: Type 2 diabetes mellitus without complications[ICD10: E11.9] Jossie Booker MD, [facility] CPT-4: 63232 09/25/2018 ([id number]) 43847 EST. PATIENT, LEVEL IV Diagnosis: Type 2 diabetes mellitus without complications[ICD10: E11.9] Diagnosis: Atrophy of thyroid (acquired)[ICD10: E03.4] Diagnosis: Essential (primary) hypertension[ICD10: I10] Diagnosis: Urgency of urination[ICD10: R39.15] Jossie Booker MD, [facility] CPT-4: 22256 03/19/2018 ([id number]) 94806 EST. PATIENT, LEVEL IV Diagnosis: Orthostatic hypotension[ICD10: I95.1] Diagnosis: Urinary tract infection, site not specified[ICD10: N39.0] Diagnosis: Type 2 diabetes mellitus without complications[ICD10: E11.9] Armida Booker MD, [facility] CPT-4: 39500 02/08/2018 ([id number]) 01378 EST. PATIENT, LEVEL IV Diagnosis: Type 2 diabetes mellitus without complications[ICD10: E11.9] Diagnosis: Essential (primary) hypertension[ICD10: I10] Diagnosis: Atrophy of thyroid (acquired)[ICD10: E03.4] Jossie Booker MD, [facility] CPT-4: 62446 01/03/2018 ([id number]) 42253 EST. 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] Diagnosis: Type 2 diabetes mellitus without complications[ICD10: E11.9] Diagnosis: Chronic kidney disease, stage 3 (moderate)[ICD10: N18.3] Diagnosis: FPC (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 anticoagulants[ICD10: Z79.01] Annika Booker MD, [facility] CPT-4: 31459 12/08/2017 Plan of Care Planned Activity Notes Codes Status Date Appointment: Annika Nguyen WPtel: [phone] [facility]66[facility] (15 min) Moderate 11/28/2018 Visit Plan: Hospital follow up with influenza A -patient is doing well -no further treatment indicated Constipation -add milk of magnesia as needed Low back pain -patient is seeing Ortho later today -continue tylenol/tramadol as needed for pain 11/27/2018 Appointment: Armida Nicolas WPtel: [facility]0 [phone] [place] (15 min) Moderate 11/27/2018 Patient Education: Patient Medication Summary Completed 11/27/2018 Patient Education: Back Pain Completed 11/27/2018 Appointment: Annika Nguyen WPtel: [facility]5 [facility] (15 min) Moderate 11/20/2018 Visit Plan: UTI - pt with positive urinalysis - culture sent if appropriate. Antibiotic electronically prescribed to pt's pharmacy of choice. Pt to call if symptoms do not improve. 11/07/2018 Appointment: Annika Nguyen WPtel: [facility]4 [facility] (15 min) Moderate 11/07/2018 Patient Education: Patient [...] 09/25/2018 Appointment: Jossie Booker WPtel: [facility] (15 min) Moderate 09/25/2018 Patient Education: Patient Medication Summary Completed 09/25/2018 Patient Education: Diabetes Completed 09/25/2018 Care Plan: Comp Metabolic Pending 09/25/2018 Care Plan: Cbc With Differential Pending 09/25/2018 Care Plan: %Hba1C LOINC : 45902-9 Pending 09/25/2018 Care Plan: Lipid Pending 09/25/2018 [...] control. 03/19/2018 Appointment: Jossie Booker WPtel: [phone] [facility] [place] (15 min) Moderate 03/19/2018 Patient Education: Patient Medication Summary Completed 03/19/2018 Visit Plan: Vtylsbxyddn-qsqluani-bbztckt blood pressures DM -okay to stay off januvia-monitor blood sugars and call if they become elevated UTI-finished treatment 02/08/2018 Appointment: Armida Nicolas WPtel: [phone] [phone] [place] (15 min) Moderate 02/08/2018 Patient [...] to pharmacy. 01/03/2018 Appointment: Jossie Booker WPtel: [phone] [place] (15 min) Moderate 01/03/2018 Patient Education: [...] control. 12/08/2017 [facility]: [phone] [facility] 12/08/2017 Patient Education: Patient Medication [...] CAN GET YOUR RECORDS FROM E[facility] . Fypkwxhtkpq-cblphdxg-jcnbnvi blood pressures DM-okay to stay off januvia-monitor [...]
[2018-12-08] MEDS ORDERED: fentaNYL INJECTION 100 MCG/2 ML AMP IVP PRN (12:45)
--- NOTE | 2018-12-08 12:45 | ED Abdominal Pain ---
General Stated Complaint: NO BM IN 2 WEEKS Source of Information: Patient, [facility] Records Exam Limitations: No Limitations History of Present Illness Date Seen by Provider: Dec 08, 2018 Time Seen by Provider: 12:41 Initial Comments To ER per private vehicle from local jail with reports of no bowel movement for 2 weeks. After arriving at the jail she fell, she has an abrasion to the right sacroiliac region. She denies nausea or vomiting but she has severe diffuse abdominal pain. Timing/Duration: Getting Worse Severity/Quality: Moderate Location: Generalized Abdomen Radiation: No Radiation Activities at Onset: None Associated Symptoms: Nausea/Vomiting Allergies and Home Medications Allergies Coded Allergies: gatifloxacin (Verified Allergy, Unknown, Tongue Turns Red and Swells, ) Home Medications Tramadol HCl 50 Mg Tablet, 50 MG PO Q6H PRN for PAIN Prescribed by: KRISSY CAT on 11/11/18 1823 Patient Home Medication List Home Medication List Reviewed: Yes Review of Systems Review of Systems Constitutional: see HPI; No chills, No fever EENTM: No Symptoms Reported Respiratory: No Symptoms Reported; Denies Orthopnea, Denies Shortness of Air Cardiovascular: See HPI; Denies Chest Pain Gastrointestinal: See HPI, Abdominal Pain, Constipated Genitourinary: No Symptoms Reported Musculoskeletal: no symptoms reported Skin: no symptoms reported Psychiatric/Neurological: No Symptoms Reported Endocrine: No Symptoms Reported Hematologic/Lymphatic: No Symptoms Reported Past Okkgbwp-Pprxul-Kdukbw Hx Patient Social History 2nd Hand Smoke Exposure: No Recent Hopitalizations: No Immunizations Up To Date Tetanus Booster (TDap): Unknown Seasonal Allergies Seasonal Allergies: No Past Medical History Surgeries: Yes Cardiac, Gallbladder, Orthopedic Respiratory: No Cardiac: Yes High Cholesterol, Hypertension Neurological: Yes Neuropathy, Stroke Reproductive Disorders: No Genitourinary: No Gastrointestinal: No Musculoskeletal: Yes Arthritis, Fractures Endocrine: No HEENT: No Cancer: No Psychosocial: No Integumentary: No Blood Disorders: No Physical Exam Vital Signs Vital Signs - First Documented 12/08/18 12:35 Temp 97.9 Pulse 92 Resp 12 B/P (MAP) 146/95 (112) Pulse Ox 88 O2 Delivery Room Air Capillary Refill : Height/Weight/BMI Height: 5'1.00" Weight: 160lbs. oz. 72.203390xw; BMI Method:Estimated General Appearance: WD/WN, moderate distress, other (splinting her abdomen, diffusely very tender to palpation. Digital rectal exam done with Keesha INMAN at the bedside and there is no fecal impaction palpable. When she breathes and breathes shallow, subsequently her SPO2 is 83% on room air. Increased to 97% with the application of 3 L of oxygen. She is alert and she is oriented. She is noted to have rhonchi/crackles onExhalation Diffusely) HEENT: PERRL/EOMI, normal ENT inspection Neck: non-tender, full range of motion Respiratory: normal breath sounds, no respiratory distress, no accessory muscle use, rales, rhonchi Cardiovascular: regular rate, rhythm, no murmur Gastrointestinal: normal bowel sounds, soft; No distended, No guarding; tenderness Extremities: normal range of motion, non-tender Back: other (abrasion 3 x 4 cm to the top of the superior right buttock) Neurologic/Psychiatric: alert, normal mood/affect, oriented x 3 Skin: normal color, warm/dry Focused Exam Lactate Level 12/08/18 12:50: Lactic Acid Level 0.98 Lactic Acid Level Laboratory Tests Test 12/08/18 12:50 Lactic Acid Level 0.98 MMOL/L (0.50-2.00) Progress/Results/Core Measures Results/Orders Lab Results Laboratory Tests Test 12/08/18 12:50 Range/Units White Blood Count 9.4 4.3-11.0 10^3/uL Red Blood Count 3.71 L 4.35-5.85 10^6/uL Hemoglobin 10.6 L 11.5-16.0 G/DL Hematocrit 34 L 35-52 % Mean Corpuscular Volume 91 80-99 FL Mean Corpuscular Hemoglobin 29 25-34 PG Mean Corpuscular Hemoglobin Concent 32 32-36 G/DL Red Cell Distribution Width 15.1 H 10.0-14.5 % Platelet Count 199 130-400 10^3/uL Mean Platelet Volume 9.6 7.4-10.4 FL Neutrophils (%) (Auto) 74 42-75 % Lymphocytes (%) (Auto) 14 12-44 % Monocytes (%) (Auto) 11 0-12 % Eosinophils (%) (Auto) 1 0-10 % Basophils (%) (Auto) 0 0-10 % Neutrophils # (Auto) 6.9 1.8-7.8 X 10^3 Lymphocytes # (Auto) 1.3 1.0-4.0 X 10^3 Monocytes # (Auto) 1.0 0.0-1.0 X 10^3 Eosinophils # (Auto) 0.1 0.0-0.3 10^3/uL Basophils # (Auto) 0.0 0.0-0.1 10^3/uL Sodium Level 137 135-145 MMOL/L Potassium Level 3.9 3.6-5.0 MMOL/L Chloride Level 102 98-107 MMOL/L Carbon Dioxide Level 25 21-32 MMOL/L Anion Gap 10 5-14 MMOL/L Blood Urea Nitrogen 17 7-18 MG/DL Creatinine 1.10 0.60-1.30 MG/DL Estimat Glomerular Filtration Rate 47 BUN/Creatinine Ratio 15 Glucose Level 122 H 70-105 MG/DL Lactic Acid Level 0.98 0.50-2.00 MMOL/L Calcium Level 8.7 8.5-10.1 MG/DL Corrected Calcium 9.3 8.5-10.1 MG/DL Total Bilirubin 0.7 0.1-1.0 MG/DL Aspartate Amino Transf (AST/SGOT) 20 5-34 U/L Alanine Aminotransferase (ALT/SGPT) 14 0-55 U/L Alkaline Phosphatase 129 40-136 U/L Troponin I < 0.028 <0.028 NG/ML B-Type Natriuretic Peptide 88.7 <100.0 PG/ML Total Protein 6.5 6.4-8.2 GM/DL Albumin 3.2 3.2-4.5 GM/DL Lipase 20 8-78 U/L My Orders Orders - COOPER GOINS APRN Cbc With Automated Diff (12/08/18 12:38) Comprehensive Metabolic Panel (12/08/18 12:38) Lipase (12/08/18 12:38) Ct Abdomen/Pelvis W (12/08/18 12:38) Chest 1 View, Ap/Pa Only (12/08/18 12:38) Ekg Tracing (12/08/18 12:38) Troponin I (12/08/18 12:38) Iv Heplock-Insert (Order) (12/08/18 12:38) Fentanyl Injection (Sublimaze Injection (12/08/18 12:45) Lactic Acid Analyzer (12/08/18 12:52) Blood Culture (12/08/18 12:52) BNP (12/08/18 12:53) Ns Iv 500 Ml (Sodium Chloride 0.9%) (12/08/18 14:45) Piperacillin/Tazobactam (Bulk) (Zosyn In (12/08/18 15:15) Piperacillin Sodium/Tazobactam (Zosyn Vi (12/08/18 15:22) Ns (Ivpb) (Sodium Chloride 0.9% Ivpb Bag (12/08/18 15:23) Medications Given in ED Current Medications Medications Dose Ordered Sig/Linda Route Start Time Stop Time Status Last Admin Dose Admin Fentanyl Citrate 25 mcg ONCE PRN IVP 12/08/18 12:45 12/08/18 13:03 25 MCG Vital Signs/I&O 12/08/18 12:35 Temp 97.9 Pulse 92 Resp 12 B/P (MAP) 146/95 (112) Pulse Ox 88 O2 Delivery Room Air Diagnostic Imaging Diagonstic Imaging: CT Comments NAME: KELSI ANGELO Connie [facility] REC#: [id number] PT STATUS: REG ER : 1930 PHYSICIAN: COOPER GOINS [employer] STOCK CLERK ADMIT DATE: 12/08/18/ER Draft Date of Exam:12/08/18 CT ABDOMEN/PELVIS W PROCEDURE: CT abdomen and pelvis with contrast. TECHNIQUE: Multiple contiguous axial images were obtained through the abdomen and pelvis after administration of intravenous contrast. Auto Exposure Controls were utilized during the CT exam to meet ALARA standards for radiation dose reduction. INDICATION: Recent fall and abdominal pain. COMPARISON: 12/06/2018. FINDINGS: There is dependent atelectasis in both lung bases. A hiatal hernia is present. There is unchanged pneumobilia. Otherwise, liver, spleen, pancreas, adrenal glands, kidneys, vascular structures, and small bowel are stable. There is mild constipation scattered throughout the colon, most pronounced in the cecum and ascending colon. There is diverticulosis of the sigmoid colon without diverticulitis. Distal ureters and urinary bladder appear grossly unremarkable. There is diffuse osteopenia. There are postoperative changes involving the lumbar spine and left hip. There is an acute-appearing T9 compression fracture. There is minimal retropulsion into the central canal. There is no overt central canal stenosis. The remainder of the osseous structures appear intact. IMPRESSION: 1. Acute-appearing T9 compression fracture. 2. Hiatal hernia. 3. Stable pneumobilia. 4. Mild constipation without overt obstruction. 5. Diverticulosis of the sigmoid colon without diverticulitis. Dictated on workstation # [id number] Dict: 12/08/18 1506 Trans: 12/08/18 1518 [facility] [id number] Interpreted by: LASHA CALDWELL Electronically signed by: Departure Communication (Admissions) Time/Spoke to Admitting Phy: 15:[address] Nam. We'll admit the patient for IV fluids, IV antibiotics using meropenem and vancomycin and pain control. I also spoke with the patient' s son-in-law, the number listed for Eden Dhillon which is the patient's daughter. I spoke with her and informed him of the plan to admit the poor prognosis given the compression fracture of the vertebrae causing pain with coughing and inability to breathe deeply, subsequent pneumonia and her overall frailty and the possibility that this illness would be fatal. He is understanding of this. She is DO NOT RESUSCITATE status and has this paperwork with her Impression Primary Impression: Pneumonia involving left lung Qualified Codes: J18.9 - Pneumonia, unspecified organism Additional Impression: Hypoxia Disposition: ADMITTED INPATIENT Condition: Stable Admissions Decision to Admit Reason: Admit from ER (General) Decision to Admit/Date: Dec 08, 2018 Time/Decision to Admit Time: 15:08 Departure-Patient Inst. Referrals: RHONA PRESCOTT MD (PCP/Family) Primary Care Physician COOPER GOINS APRN Dec 08, 2018 12:45
[2018-12-08 13:03] LABS: BASOPHILS % (AUTO) 0 % (0-10); EOSINOPHILS # (AUTO) 0.1 10^3/uL (0.0-0.3); EOSINOPHILS % (AUTO) 1 % (0-10); HEMATOCRIT 34 % (35-52); HEMOGLOBIN 10.6 G/DL (11.5-16.0); LYMPHOCYTES # (AUTO) 1.3 X 10^3 (1.0-4.0); LYMPHOCYTES % (AUTO) 14 % (12-44); MEAN CORPUSCULAR HEMOGLOBIN 29 PG (25-34); MEAN CORPUSCULAR HGB CONC 32 G/DL (32-36); MEAN CORPUSCULAR VOLUME 91 FL (80-99); MEAN PLATELET VOLUME 9.6 FL (7.4-10.4); MONOCYTES % (AUTO) 11 % (0-12); NEUTROPHILS # (AUTO) 6.9 X 10^3 (1.8-7.8); NEUTROPHILS % (AUTO) 74 % (42-75); PLATELET COUNT 199 10^3/uL (130-400); RED CELL DISTRIBUTION WIDTH 15.1 % (10.0-14.5); WHITE BLOOD COUNT 9.4 10^3/uL (4.3-11.0)
[2018-12-08 13:24] LABS: ALANINE AMINOTRANSFERASE 14 U/L (0-55); ALBUMIN 3.2 GM/DL (3.2-4.5); ALKALINE PHOSPHATASE 129 U/L (40-136); BILIRUBIN,TOTAL 0.7 MG/DL (0.1-1.0); BUN/CREATININE RATIO 15; CALCIUM 8.7 MG/DL (8.5-10.1); CARBON DIOXIDE 25 MMOL/L (21-32); CHLORIDE 102 MMOL/L (98-107); GFR ESTIMATED 47; GLUCOSE 122 MG/DL (70-105); LIPASE 20 U/L (8-78); POTASSIUM 3.9 MMOL/L (3.6-5.0); SODIUM 137 MMOL/L (135-145); TOTAL PROTEIN 6.5 GM/DL (6.4-8.2)
[2018-12-08] MEDS ORDERED: NS IV 500 ML 500 ML IV SCH (14:45)
--- NOTE | 2018-12-08 14:56 | Diagnostic Imaging Report ---
EXAMINATION: Portable erect AP chest at 02:19 p.m. INDICATION: Respiratory distress. FINDINGS: There is shallow inspiration when compared to the prior exam of 11/19/2018. Allowing for this technical factor, the heart is enlarged but stable. In the interval since the previous study, however, alveolar/interstitial pulmonary infiltrates have developed along the periphery of the left mid lung and left lung base. Most likely, these findings are due to pneumonia/atelectasis. The left apex is clear. The right lung is also generally clear although the right lung base is obscured by the elevated right hemidiaphragm. The mediastinum is not widened. The osseous structures are intact. IMPRESSION: The appearance of the chest has worsened since the prior study as pneumonia/atelectasis has developed along the periphery of the left lung. A follow-up study will be recommended for continued evaluation. Dictated by: Dictated on workstation # [id number]
[2018-12-08] MEDS ORDERED: PIPERACILLIN/TAZOBACTAM (BULK) 4.5 GM in NS (IVPB) 100 ML IV ONE (15:15)
--- NOTE | 2018-12-08 15:19 | Diagnostic Imaging Report ---
PROCEDURE: CT abdomen and pelvis with contrast. TECHNIQUE: Multiple contiguous axial images were obtained through the abdomen and pelvis after administration of intravenous contrast. Auto Exposure Controls were utilized during the CT exam to meet ALARA standards for radiation dose reduction. INDICATION: Recent fall and abdominal pain. COMPARISON: 12/06/2018. FINDINGS: There is dependent atelectasis in both lung bases. A hiatal hernia is present. There is unchanged pneumobilia. Otherwise, liver, spleen, pancreas, adrenal glands, kidneys, vascular structures, and small bowel are stable. There is mild constipation scattered throughout the colon, most pronounced in the cecum and ascending colon. There is diverticulosis of the sigmoid colon without diverticulitis. Distal ureters and urinary bladder appear grossly unremarkable. There is diffuse osteopenia. There are postoperative changes involving the lumbar spine and left hip. There is an acute-appearing T9 compression fracture. There is minimal retropulsion into the central canal. There is no overt central canal stenosis. The remainder of the osseous structures appear intact. IMPRESSION: 1. Acute-appearing T9 compression fracture. 2. Hiatal hernia. 3. Stable pneumobilia. 4. Mild constipation without overt obstruction. 5. Diverticulosis of the sigmoid colon without diverticulitis. Dictated by: Dictated on workstation # [id number]
[2018-12-08] MEDS ORDERED: PIPERACILLIN/TAZO 4.5 GM VIAL (ZOSYN) IV ONE (15:22)
[2018-12-08] MEDS ORDERED: NS (IVPB) 100 ML ONE (15:23)
--- NOTE | 2018-12-08 16:15 | NUR ---
see med list
[2018-12-08] MEDS ORDERED: VANCOMYCIN 1500 MG/NS 500 ML IVPB IV NR ×2 (16:41)
[2018-12-08] MEDS ORDERED: ACETAMINOPHEN 325 MG TABLET PO PRN (16:45)
--- NOTE | 2018-12-08 16:45 | NUR ---
VANCOMYCIN DOSING SCR 1.1; CRCL ~ 31; BOLUS VANC 20 MG/KG X 72 KG ~ 1500 MG THEN VANC 15 MG/KG ~ 1 GM Q24H CHECK TROUGH LEVEL 12/11 1599 HOLD DOSE AND CONTACT PHARMACY IF LEVEL IS GREATER THAN 20
[2018-12-08 16:50] VITALS: BP 169/79
[2018-12-08] MEDS: NS IV 1000 ML 1,000 ML IV SCH (17:02)
[2018-12-08] MEDS: MEROPENEM 500 MG/SWFI 10 ML IV PUSH IV SCH ×4 (17:02→23:42)
[2018-12-08] MEDS: fentaNYL INJECTION 100 MCG/2 ML AMP IV PRN ×2 (17:02→20:37)
[2018-12-08] MEDS ORDERED: CYAN10006 PO (19:26)
[2018-12-08] MEDS ORDERED: METO-395 PO (19:26)
[2018-12-08] MEDS ORDERED: AMLO5TAB9 PO (19:26)
[2018-12-08] MEDS ORDERED: LEVO25TA5 PO (19:26)
[2018-12-08] MEDS ORDERED: OMG1KC PO (19:26)
[2018-12-08] MEDS ORDERED: TOLT1TAB13 PO (19:26)
[2018-12-08] MEDS ORDERED: BUDE10.22 IH (19:26)
[2018-12-08] MEDS ORDERED: LISI10TA2 PO (19:26)
[2018-12-08] MEDS ORDERED: MULT-633 PO (19:26)
[2018-12-08] MEDS ORDERED: CALC600T12 PO (19:26)
[2018-12-08] MEDS ORDERED: CLOP75TA69 PO (19:26)
[2018-12-08] MEDS ORDERED: OMEP10CA4 PO (19:26)
[2018-12-08] MEDS ORDERED: ASPI-999 PO (19:26)
[2018-12-08] MEDS ORDERED: ATOR40TA70 PO (19:31)
[2018-12-08] MEDS ORDERED: FERR-84 PO (19:31)
[2018-12-08] MEDS ORDERED: RT-ALBUINH INH (19:31)
[2018-12-08] MEDS ORDERED: ESCI10TA55 PO (19:31)
[2018-12-08] MEDS ORDERED: MELA1TAB27 PO (19:31)
[2018-12-08] MEDS ORDERED: GABA-488 PO (19:31)
[2018-12-08 20:00] VITALS: BP 169/75
[2018-12-08] MEDS: POLYETHYLENE GLYCOL 17 GM (MIRALAX) PACK PO SCH (20:11)
[2018-12-08 23:35] VITALS: BP 149/69
[2018-12-09] MEDS: fentaNYL INJECTION 100 MCG/2 ML AMP IV PRN ×2 (03:30→06:40)
[2018-12-09] MEDS: NS IV 1000 ML 1,000 ML IV SCH ×3 (03:30→22:53)
[2018-12-09 04:15] VITALS: BP 175/81
[2018-12-09 04:58] LABS: BASOPHILS % (AUTO) 0 % (0-10); EOSINOPHILS # (AUTO) 0.1 10^3/uL (0.0-0.3); EOSINOPHILS % (AUTO) 2 % (0-10); HEMATOCRIT 34 % (35-52); HEMOGLOBIN 10.8 G/DL (11.5-16.0); LYMPHOCYTES # (AUTO) 1.1 X 10^3 (1.0-4.0); LYMPHOCYTES % (AUTO) 16 % (12-44); MEAN CORPUSCULAR HEMOGLOBIN 29 PG (25-34); MEAN CORPUSCULAR HGB CONC 32 G/DL (32-36); MEAN CORPUSCULAR VOLUME 91 FL (80-99); MONOCYTES # (AUTO) 0.8 X 10^3 (0.0-1.0); MONOCYTES % (AUTO) 11 % (0-12); NEUTROPHILS % (AUTO) 71 % (42-75); PLATELET COUNT 192 10^3/uL (130-400); RED CELL DISTRIBUTION WIDTH 15.1 % (10.0-14.5)
[2018-12-09 05:19] LABS: BILIRUBIN,TOTAL 0.5 MG/DL (0.1-1.0); CALCIUM 8.3 MG/DL (8.5-10.1); CREATININE SERUM 0.89 MG/DL (0.60-1.30); POTASSIUM 3.9 MMOL/L (3.6-5.0); TOTAL PROTEIN 6.2 GM/DL (6.4-8.2)
--- NOTE | 2018-12-09 06:45 | NUR ---
Dr. Nam notified of increased abdominal pain that is no longer relieved by Fentanyl. New order rec to change pain medication to Dilaudid 0.5 mg iv q 4 hr PRN.
[2018-12-09 08:00] VITALS: BP 181/92
[2018-12-09] MEDS: POLYETHYLENE GLYCOL 17 GM (MIRALAX) PACK PO SCH ×2 (09:00→19:58)
[2018-12-09] MEDS: HYDROmorphone 2 MG/ML VIAL (DILAUDID) IV PRN ×2 (09:05→13:25)
--- NOTE | 2018-12-09 11:30 | History & Physical-Hospitalist ---
History of Present Illness HPI/Chief Complaint CC: Facility acquired pneumonia with T9 compression fracture HPI: This is an 88-year-old white female of Dr. Booker he was just recently discharged from the senior living who suffered a fall was brought in with hypoxia found to have bilateral facility acquired pneumonia in due to recent antibiotic exposure and facility acquired type patient required the use of meropenem and vancomycin before narrowing once conditions stabilizes. T9 compression fracture has been managed with fentanyl but that was not working so I did change that to Dilaudid and it seems to be helping. Patient with dementia not really able to obtain any significant details but appears that she is improved she is sitting up in a chair eating lunch and having improved status. Source: RN/MD Exam Limitations: clinical condition Date Seen 12/09/18 Time Seen by a Provider: 12:00 Attending Physician Jossie Booker MD PCP Jossie Booker MD Referring Physician Date of Admission Dec 08, 2018 at 15:42 Home Medications & Allergies Home Medications Reviewed patient Home Medication Reconciliation performed by pharmacy medication reconciliations medical laboratory technicians and/or nursing. Patients Allergies have been reviewed. Allergies Allergies Coded Allergies gatifloxacin (Verified Allergy, Unknown, Tongue Turns Red and Swells, 11/19/18) Past Qtkiywq-Zhhomk-Ocjayv Hx Past Med/Social Hx: Reviewed Nursing Past Med/Soc Hx, Reviewed and Corrections made Patient Social History Marrital Status: Employed/Student: retired Alcohol Use: Denies Use Recreational Drug Use: No Smoking Status: Unknown if Ever Smoked 2nd Hand Smoke Exposure: No Recent Foreign Travel: No Contact w/other who traveled: No Recent Hopitalizations: No Recent Infectious Disease Expo: No Immunizations Up To Date Tetanus Booster (TDap): Unknown Date of Pneumonia Vaccine: Jul 26, 2016 Date of Influenza Vaccine: Jul 18, 2018 Seasonal Allergies Seasonal Allergies: No Past Medical History Surgeries: Cardiac, Gallbladder, Orthopedic Cardiac: High Cholesterol, Hypertension Neurological: Dementia, Neuropathy, Stroke Reproductive: No Genitourinary: Bladder Infection Musculoskeletal: Arthritis, Fractures Psychosocial: Sleep Difficulties History of Blood Disorders: No Review of Systems Constitutional: see HPI Physical Exam Physical Exam Vital Signs Vital Signs - First Documented 12/08/18 12/08/18 12:35 16:05 Temp 97.9 Pulse 92 Resp 12 B/P (MAP) 146/95 (112) Pulse Ox 88 O2 Delivery Room Air O2 Flow Rate 3.00 Capillary Refill : Less Than 3 Seconds Height, Weight, BMI Height: 4'11.00" Weight: 142lbs. 0.0oz. 64.918940vd; 28.7 BMI Method:Estimated General Appearance: No Apparent Distress, WD/WN, Chronically ill Respiratory: No Accessory Muscle Use, No Respiratory Distress, Crackles, Decreased Breath Sounds, Wheezing Cardiovascular: Regular Rate, Rhythm Neurologic/Psychiatric: Alert, No Motor/Sensory Deficits, seo associate II-XII Norm as Tested, Depressed Affect, Disoriented Results Results/Procedures Labs Laboratory Tests 12/08/18 12:50 12/09/18 04:35 Patient resulted labs reviewed. Assessment/Plan Admission Diagnosis Assessment: Bilateral pneumonia facility acquired requiring meropenem and vancomycin empirically Hypoxia T9 compression fracture with severe pain Dementia Severe debility just discharged from senior living Hypertension Overactive bladder GERD History of CVA on Plavix and aspirin Asthma Plan: Home meds Nebulizers Oxygen Pain control Monitor closely DO NOT RESUSCITATE Admission Status: Inpatient Order (span 2 midnights) Reason for Inpatient Admission: Facility acquired pneumonia will require 4 days of antibiotics Diagnosis/Problems Diagnosis/Problems (1) Pneumonia involving left lung Status: Acute Qualifiers: Pneumonia type: due to unspecified organism Lung location: unspecified part of lung Qualified Codes: J18.9 - Pneumonia, unspecified organism (2) Compression fracture of T9 vertebra Status: Acute (3) Fall Status: Acute Qualifiers: Encounter type: initial encounter Qualified Codes: W19.XXXA - Unspecified fall, initial encounter (4) Dementia Status: Chronic Qualifiers: Dementia type: vascular dementia Dementia behavioral disturbance: without behavioral disturbance Qualified Codes: F01.50 - Vascular dementia without behavioral disturbance (5) Anemia Status: Chronic Qualifiers: Anemia type: iron deficiency Iron deficiency anemia type: unspecified iron deficiency Qualified Codes: D50.9 - Iron deficiency anemia, unspecified (6) Hypothyroidism Status: Chronic Qualifiers: Hypothyroidism type: acquired Qualified Codes: E03.9 - Hypothyroidism, unspecified (7) GERD (gastroesophageal reflux disease) Status: Chronic Qualifiers: Esophagitis presence: without esophagitis Qualified Codes: K21.9 - Gastro- esophageal reflux disease without esophagitis (8) Asthma Status: Chronic Qualifiers: Asthma severity: moderate Asthma persistence: persistent Asthma complication type: unspecified Qualified Codes: J45.40 - Moderate persistent asthma, uncomplicated (9) Hypertension Status: Chronic Qualifiers: Hypertension type: essential hypertension Qualified Codes: I10 - Essential (primary) hypertension (10) Debility Status: Chronic (11) Hypoxia Status: Acute Clinical Quality Measures DVT/VTE Risk/Contraindication: Risk Factor Score Per Nursin RFS Level Per Nursing on Admit: 4+=Very High ENRIQUE VILLALBA DO Dec 09, 2018 11:30
[2018-12-09 12:00] VITALS: BP 180/72
[2018-12-09] MEDS ORDERED: RT-ALBUTEROL SULF 2.5 MG/3 ML PRE-MIX VIAL INH SCH (12:45)
[2018-12-09] MEDS: RT-ALBUTEROL SULF 2.5 MG/3 ML PRE-MIX VIAL INH SCH ×2 (14:23→21:23)
[2018-12-09 15:44] VITALS: BP 153/71
[2018-12-09] MEDS: GABAPENTIN 300 MG (NEURONTIN) CAP PO SCH ×2 (16:50→19:58)
[2018-12-09] MEDS: VANCOMYCIN 1 GM/NS 250 ML IVPB IV SCH ×2 (17:11)
[2018-12-09] MEDS: MEROPENEM 500 MG/SWFI 10 ML IV PUSH IV SCH ×8 (17:22→23:41)
[2018-12-09] MEDS: MELATONIN 3 MG TABLET PO SCH (19:58)
[2018-12-09 20:00] VITALS: BP 163/72
[2018-12-09] MEDS: RT-ADVAIR HFA 45/21 MCG PER PUFF IH SCH (22:25)
[2018-12-09 23:40] VITALS: BP 136/65
[2018-12-10] MEDS: HYDROmorphone 2 MG/ML VIAL (DILAUDID) IV PRN ×3 (00:14→15:46)
[2018-12-10] MEDS: NS IV 1000 ML 1,000 ML IV SCH ×2 (02:40→14:12)
[2018-12-10] MEDS: RT-ALBUTEROL SULF 2.5 MG/3 ML PRE-MIX VIAL INH SCH ×4 (02:43→20:23)
[2018-12-10 04:15] VITALS: BP 155/74
[2018-12-10] MEDS: LEVOTHYROXINE 25 MCG (LEVOTHROID) TAB PO SCH (06:34)
[2018-12-10] MEDS: MULTIVIT W/MINERALS TAB (THERAGRAN M) PO SCH (06:34)
[2018-12-10 08:00] VITALS: BP 172/82
[2018-12-10] MEDS: MEROPENEM 500 MG/SWFI 10 ML IV PUSH IV SCH ×4 (08:08→15:29)
[2018-12-10] MEDS: PANTOPRAZOLE 20 MG TABLET (PROTONIX) PO SCH (08:09)
[2018-12-10] MEDS: lisINopril 10 MG (PRINIVIL) TABLET PO SCH (08:09)
[2018-12-10] MEDS: amLODIPine 5 MG (NORVASC) TAB PO SCH (08:09)
[2018-12-10] MEDS: GABAPENTIN 300 MG (NEURONTIN) CAP PO SCH ×3 (08:09→20:10)
[2018-12-10] MEDS: CLOPIDOGREL 75 MG (PLAVIX) TABLET PO SCH (08:10)
[2018-12-10] MEDS: POLYETHYLENE GLYCOL 17 GM (MIRALAX) PACK PO SCH ×2 (08:10→20:10)
[2018-12-10] MEDS: meTOprolol SUCCINATE 100 MG (TOPROL XL) TAB PO SCH (08:10)
[2018-12-10] MEDS: ASPIRIN 81 MG CHEW (CHILDREN'S ASA) PO SCH (08:10)
--- NOTE | 2018-12-10 09:04 | Progress Note ---
Subjective Date Seen by a Provider: Dec 10, 2018 Time Seen by a Provider: 09:00 Subjective/Events-last exam PT REPORTS THAT SHE IS STILL HAVING A LOT OF ABDOMINAL PAIN. SHE REPORTS THAT SHE DOES NOT HAVE ANY NAUSEA, NO CHEST PAIN, SHE IS SLIGHTLY SHORT OF BREATH. STAFF REPORTS THAT SHE HAD A ROUGH NIGHT, HAD TO BE PLACED ON A DIFFERENT PAIN MEDICATION. Review of Systems General: No Chills; Fatigue HEENT: No Head Aches Pulmonary: No Dyspnea; Cough Cardiovascular: No: Chest Pain, Palpitations Gastrointestinal: Abdominal Pain; No: Nausea Genitourinary: Retention Musculoskeletal: back pain Neurological: Weakness, Confusion Focused Exam Lactate Level 12/08/18 12:50: Lactic Acid Level 0.98 Objective Exam Last Set of Vital Signs Vital Signs Date Time Temp Pulse Resp B/P (MAP) Pulse Ox O2 Delivery O2 Flow Rate FiO2 12/10/18 08:22 93 Nasal Cannula 2.00 12/10/18 04:15 98.5 95 20 155/74 (101) Capillary Refill : Less Than 3 Seconds I&O Intake and Output 12/10/18 00:00 Intake Total 1750 ml Output Total 1300 ml Balance 450 ml Intake Oral 740 ml IV Total 1010 ml Output Urine Total 1300 ml General: Alert, Oriented X3, Cooperative, Mild Distress HEENT: Atraumatic Neck: Supple Lungs: Normal Air Movement, Other (CRACKLES IN BASES BILATERALLY) Heart: Regular Rate Abdomen: Normal Bowel Sounds, Soft, Other (TTP OVER LOWER ABDOMEN BILATERALLY - RIGHT AND LEFT - WITH PALPABLE BLADDER DOME AT UMBILICUS) Skin: No Rashes Neuro: Cranial Nerves 3-12 NL Psych/Mental Status: Mental Status NL, Mood NL Results Lab Microbiology 12/08/18 Blood Culture - Preliminary, Resulted No growth Assessment/Plan Assessment/Plan Assess & Plan/Chief Complaint Bilateral pneumonia facility acquired requiring meropenem and vancomycin empirically Hypoxia T9 compression fracture with severe pain Dementia Severe debility just discharged from group home Hypertension Overactive bladder GERD History of CVA on Plavix and aspirin Asthma Bilateral pneumonia facility acquired - PT ON VANCOMYCIN AND MEROPENEM - CONTINUE WITH TREATMENT AT THIS TIME. Hypoxia - IMPROVED SLIGHTLY- CONTINUE WITH OXYGEN T9 compression fracture with severe pain - ON DILAUDID - CONTINUE WITH THIS TREATMENT FOR PAIN CONTROL, SUPPORTIVE CARE ONLY AT THIS TIME. Dementia- STABLE Severe debility just discharged from group home - WILL START THERAPY ONCE PT IS MORE MEDICALLY STABLE TO TOLERATE THE THERAPIES Hypertension - ELEVATED DUE TO PAIN - CONTROL PAIN - MONITOR PRESSURE Urinary retention - straight cath PRN if over 350mL in bladder and pt unable to void GERD - resume home regimen History of CVA on Plavix and aspirin Clinical Quality Measures DVT/VTE Risk/Contraindication: Risk Factor Score Per Nursin RFS Level Per Nursing on Admit: 4+=Very High RHONA PRESCOTT MD Dec 10, 2018 09:04
--- NOTE | 2018-12-10 09:55 | NUR ---
Dr. Booker requested a bladder scan on patient. Bladder scan completed and showed 334ml presently in bladder. Results given to Dr. Booker and orders received.
[2018-12-10] MEDS ORDERED: MELA3TAB PO (10:41)
[2018-12-10] MEDS ORDERED: CEPH-507 PO (10:41)
[2018-12-10] MEDS ORDERED: TRAM50TA2 PO (10:41)
[2018-12-10] MEDS ORDERED: L.AC1CAP6 PO (10:41)
--- NOTE | 2018-12-10 10:42 | NUR ---
UPDATED MED REC WITH TRANSFER/DISCHARGE REPORT FROM [facility]
[2018-12-10 12:00] VITALS: BP 150/54
[2018-12-10] MEDS: TOLTERODINE LA 2 MG (DETROL LA) CAP PO SCH (13:03)
--- NOTE | 2018-12-10 14:00 | NUR ---
Bladder scan completed and bladder had 35ml. Will continue to watch for bladder retention.
--- NOTE | 2018-12-10 14:20 | NUR ---
Pastoral care visit.
[2018-12-10] MEDS: RT-ADVAIR HFA 45/21 MCG PER PUFF IH SCH ×2 (15:26→20:33)
[2018-12-10 16:00] VITALS: BP 154/66
[2018-12-10] MEDS ORDERED: TROUGH ORDER-PHARMACY XX NR (16:00)
[2018-12-10] MEDS: VANCOMYCIN 1 GM/NS 250 ML IVPB IV SCH ×2 (17:17)
[2018-12-10 20:00] VITALS: BP 163/69
[2018-12-10] MEDS: MELATONIN 3 MG TABLET PO SCH (20:10)
[2018-12-11] MEDS: MEROPENEM 500 MG/SWFI 10 ML IV PUSH IV SCH ×6 (00:40→17:14)
[2018-12-11 00:47] VITALS: BP 179/70
[2018-12-11] MEDS: NS IV 1000 ML 1,000 ML IV SCH ×3 (02:41→23:44)
[2018-12-11] MEDS: HYDROmorphone 2 MG/ML VIAL (DILAUDID) IV PRN ×3 (02:42→17:14)
[2018-12-11] MEDS: RT-ALBUTEROL SULF 2.5 MG/3 ML PRE-MIX VIAL INH SCH ×4 (02:56→21:40)
[2018-12-11 04:00] VITALS: BP 145/61
[2018-12-11] MEDS: LEVOTHYROXINE 25 MCG (LEVOTHROID) TAB PO SCH (05:44)
[2018-12-11] MEDS: MULTIVIT W/MINERALS TAB (THERAGRAN M) PO SCH (05:44)
[2018-12-11 08:00] VITALS: BP 171/74
[2018-12-11] MEDS: CLOPIDOGREL 75 MG (PLAVIX) TABLET PO SCH (08:32)
[2018-12-11] MEDS: POLYETHYLENE GLYCOL 17 GM (MIRALAX) PACK PO SCH ×2 (08:32→20:11)
[2018-12-11] MEDS: amLODIPine 5 MG (NORVASC) TAB PO SCH (08:32)
[2018-12-11] MEDS: lisINopril 10 MG (PRINIVIL) TABLET PO SCH (08:32)
[2018-12-11] MEDS: GABAPENTIN 300 MG (NEURONTIN) CAP PO SCH ×3 (08:32→20:11)
[2018-12-11] MEDS: meTOprolol SUCCINATE 100 MG (TOPROL XL) TAB PO SCH (08:33)
[2018-12-11] MEDS: ASPIRIN 81 MG CHEW (CHILDREN'S ASA) PO SCH (08:33)
[2018-12-11] MEDS: PANTOPRAZOLE 20 MG TABLET (PROTONIX) PO SCH (08:33)
--- NOTE | 2018-12-11 08:34 | NUR ---
b/p prior to a.m medications was 171/74 pulse was 88
[2018-12-11] MEDS: TOLTERODINE LA 2 MG (DETROL LA) CAP PO SCH (08:40)
[2018-12-11] MEDS ORDERED: amLODIPine 5 MG (NORVASC) TAB PO NR (09:00)
--- NOTE | 2018-12-11 09:00 | Progress Note ---
Subjective Date Seen by a Provider: Dec 11, 2018 Time Seen by a Provider: 08:40 Subjective/Events-last exam pt reports that she still has significant abdominal pain - despite straight catheterization of bladder intermittently. staff reports that she had to have extra dilaudid Review of Systems General: Fatigue HEENT: No Head Aches Pulmonary: No Dyspnea, No Cough Cardiovascular: No: Chest Pain, Palpitations Gastrointestinal: Abdominal Pain (bilateral lower abdomen); No: Nausea Musculoskeletal: back pain Neurological: Weakness, Confusion Focused Exam Lactate Level 12/08/18 12:50: Lactic Acid Level 0.98 Objective Exam Last Set of Vital Signs Vital Signs Date Time Temp Pulse Resp B/P (MAP) Pulse Ox O2 Delivery O2 Flow Rate FiO2 12/11/18 08:00 100.0 88 20 171/74 (106) 97 Nasal Cannula 2.00 Capillary Refill : Less Than 3 Seconds I&O Intake and Output 12/11/18 00:00 Intake Total 1950 ml Output Total 1069 ml Balance 881 ml Intake Oral 940 ml IV Total 1010 ml Output Urine Total 1069 ml Bladder Scan Volume Amount 35 ml 120 ml 225 ml General: Alert, Oriented X3, Mild Distress HEENT: Atraumatic, PERRLA Neck: Supple Lungs: Normal Air Movement, Other (crackles in bases - slightly improved) Heart: Regular Rate Abdomen: Normal Bowel Sounds, Soft, Other (ttp over bladder and left greater than right lower abdomen) Skin: No Rashes Psych/Mental Status: Mental Status NL, Mood NL Results Lab Laboratory Tests 12/10/18 16:01: Vancomycin Level Trough 11.5 Microbiology 12/08/18 Blood Culture - Preliminary, Resulted No growth Assessment/Plan Assessment/Plan Assess & Plan/Chief Complaint Bilateral pneumonia facility acquired requiring meropenem and vancomycin empirically Hypoxia T9 compression fracture with severe pain Dementia Severe debility just discharged from correction Hypertension Urinary retention GERD History of CVA on Plavix and aspirin Bilateral pneumonia facility acquired - PT ON MEROPENEM - CONTINUE WITH TREATMENT AT THIS TIME. - check chest xray this morning. Hypoxia - IMPROVED SLIGHTLY- CONTINUE WITH OXYGEN T9 compression fracture with severe pain - ON DILAUDID - CONTINUE WITH THIS TREATMENT FOR PAIN CONTROL, SUPPORTIVE CARE ONLY AT THIS TIME. Dementia- STABLE Severe debility just discharged from correction - WILL START THERAPY ONCE PT IS MORE MEDICALLY STABLE TO TOLERATE THE THERAPIES Hypertension - ELEVATED DUE TO PAIN - CONTROL PAIN - MONITOR PRESSURE Urinary retention - straight cath PRN if over 350mL in bladder and pt unable to void - discussed with dr. crain - he will see the patient today - stop tolterodine. GERD - resume home regimen History of CVA on Plavix and aspirin Clinical Quality Measures DVT/VTE Risk/Contraindication: Risk Factor Score Per Nursin RFS Level Per Nursing on Admit: 4+=Very High RHONA PRESCOTT MD Dec 11, 2018 09:00
[2018-12-11] MEDS ORDERED: amLODIPine 5 MG (NORVASC) TAB ONE (09:13)
[2018-12-11] MEDS ORDERED: lisINopril 10 MG (PRINIVIL) TABLET ONE (09:13)
--- NOTE | 2018-12-11 09:15 | NUR ---
16 sinhala brown placed for retention by this RN. 9 mls placed in bulb. patient tolerated well. Dr. Recinos consulted by Dr Booker this a.m. for retention.
[2018-12-11] MEDS: RT-ADVAIR HFA 45/21 MCG PER PUFF IH SCH ×2 (10:14→21:40)
[2018-12-11 10:45] LABS: HEMOGLOBIN 10.3 G/DL (11.5-16.0); MEAN PLATELET VOLUME 8.8 FL (7.4-10.4); WHITE BLOOD COUNT 8.7 10^3/uL (4.3-11.0)
[2018-12-11 11:06] LABS: ALANINE AMINOTRANSFERASE 13 U/L (0-55); ALBUMIN 2.8 GM/DL (3.2-4.5); ALKALINE PHOSPHATASE 111 U/L (40-136); BILIRUBIN,TOTAL 0.5 MG/DL (0.1-1.0); BUN/CREATININE RATIO 9; CALCIUM 8.3 MG/DL (8.5-10.1); CARBON DIOXIDE 26 MMOL/L (21-32); CHLORIDE 106 MMOL/L (98-107); CREATININE SERUM 0.77 MG/DL (0.60-1.30); GFR ESTIMATED > 60; GLUCOSE 161 MG/DL (70-105); SODIUM 139 MMOL/L (135-145); TOTAL PROTEIN 5.9 GM/DL (6.4-8.2)
[2018-12-11 12:00] VITALS: BP 171/70
[2018-12-11] MEDS ORDERED: lisINopril 10 MG (PRINIVIL) TABLET PO NR (12:00)
--- NOTE | 2018-12-11 12:25 | Diagnostic Imaging Report ---
INDICATION: Lower respiratory infection PA and lateral chest There is a hiatal hernia. There is some atelectasis at the left lung base. Right lung is clear. IMPRESSION: Improving aeration left lung base compared to 12/08/2018. Dictated by: Dictated on workstation # [id number]
--- NOTE | 2018-12-11 13:16 | CONSULTATION REPORT ---
DATE OF SERVICE: 12/11/2018 ATTENDING PHYSICIAN: Dr. Booker. SUMMARY: After reviewing the patient's records, interviewing her and examining her, this is an 88-year-old pleasant, pretty sharp for her age woman, but hard of hearing with a catheter inserted because of 400 mL of water retention in the bladder. She has been having some discomfort in the abdomen, but her CT is negative and on CT, the bladder was not distended and unremarkable. The patient has never had any problem passing urine and except that she was pretty incontinent at home wearing many diapers a day, taking Detrol-LA 2 mg daily, which was held by Dr. Booker. She denies any UTIs before and hematuria before. She is being admitted with pneumonia and hypoxia, but seems to have improved. ALLERGIES: She is allergic to GATIFLOXACIN. Her blood culture so far grew negative. Her white count is normal. Her GFR is normal for her age. PHYSICAL EXAMINATION: ABDOMEN: Soft, nontender. GENITOURINARY: Urine is clear in the catheter. IMPRESSION: Neurogenic bladder with history of incontinence mixed, overactive bladder, intrinsic sphincter deficiency and now some retention. RECOMMENDATIONS: Continue holding the Detrol-LA. We will start her on Flomax for now. We will leave the catheter 2-3 days to allow some clearing of the Detrol-LA from her system and Flomax to kick in. I would not put her on any Urecholine at this point. We will manage according to her response when we take the catheter out. Thank you for letting me participate in the care of this nice lady. We will follow with you. Job ID: [id number] DocumentID: [id number] Dictated Date: 12/11/2018 11:51:09 Lace Inspector Date: 12/11/2018 13:15:34 Dictated By: NICOLE HERNANDEZ MD [facility]
[2018-12-11 16:00] VITALS: BP 155/70
--- NOTE | 2018-12-11 17:00 | NUR ---
REPORT RECEIVED AND CARE TAKEN OVER BY THIS RN.
[2018-12-11] MEDS: TAMSULOSIN 0.4 MG (FLOMAX) CAP PO SCH (17:13)
[2018-12-11 19:52] VITALS: BP 152/66
[2018-12-11] MEDS: MELATONIN 3 MG TABLET PO SCH (20:11)
[2018-12-12] MEDS: MEROPENEM 500 MG/SWFI 10 ML IV PUSH IV SCH ×6 (00:30→16:45)
[2018-12-12 00:35] VITALS: BP 149/67
[2018-12-12] MEDS: HYDROmorphone 2 MG/ML VIAL (DILAUDID) IV PRN ×3 (02:10→16:44)
[2018-12-12] MEDS: RT-ALBUTEROL SULF 2.5 MG/3 ML PRE-MIX VIAL INH SCH ×4 (02:47→20:30)
[2018-12-12 04:00] VITALS: BP 157/69
[2018-12-12] MEDS: LEVOTHYROXINE 25 MCG (LEVOTHROID) TAB PO SCH (06:15)
[2018-12-12] MEDS: MULTIVIT W/MINERALS TAB (THERAGRAN M) PO SCH (06:15)
[2018-12-12 08:00] VITALS: BP 138/76
--- NOTE | 2018-12-12 09:30 | NUR ---
Spoke with Dr. Booker. Exploring the patient's benefits et coverage for skilled services at some point for /February. February reports that she has been at [facility] prior to this hospitalization. Called et spoke with Donna Villalobos et she confirms that the patient has been with them under skilled services with approximately 20 days of skilled used. Benefits et coverage checked with her [employer] insurance is as follows: Days 1-20 covered at 100%; Days 21-100 covered at 71% with 29% being the patient's responsibility until her deductible et out of pocket max has been reached. Deductible is $300.00 and has been met. Out of pocket is $1550.00 et $361.38 has been applied to this. Awaiting order to evaluate for swing bed/skilled order from doctor pending the patient's medical stability. Prior auth phone number is [phone].
[2018-12-12] MEDS: ASPIRIN 81 MG CHEW (CHILDREN'S ASA) PO SCH (09:37)
[2018-12-12] MEDS: meTOprolol SUCCINATE 100 MG (TOPROL XL) TAB PO SCH (09:38)
[2018-12-12] MEDS: GABAPENTIN 300 MG (NEURONTIN) CAP PO SCH ×3 (09:38→20:32)
[2018-12-12] MEDS: amLODIPine 10 MG (NORVASC) TAB PO SCH (09:38)
[2018-12-12] MEDS: CLOPIDOGREL 75 MG (PLAVIX) TABLET PO SCH (09:38)
[2018-12-12] MEDS: PANTOPRAZOLE 20 MG TABLET (PROTONIX) PO SCH (09:38)
[2018-12-12] MEDS: POLYETHYLENE GLYCOL 17 GM (MIRALAX) PACK PO SCH ×2 (09:38→20:32)
[2018-12-12] MEDS: NS IV 1000 ML 1,000 ML IV SCH ×2 (09:40→20:32)
[2018-12-12] MEDS: lisINopril 20 MG (PRINIVIL) TABLET PO SCH (09:45)
[2018-12-12] MEDS: RT-ADVAIR HFA 45/21 MCG PER PUFF IH SCH ×2 (10:30→20:30)
--- NOTE | 2018-12-12 10:39 | Physician Query Clarification ---
PQ-Further Specificity Admission/Discharge Admission Date: Dec 08, 2018 at 15:42 Discharge Date: The medical record reflects the following clinical scenario: History/Risk Factors: Fall at [facility] T9 compression fracture Clinical Findings: CT of abdomen and pelvis findings: Diffuse osteopenia. Treatment:IVP Fentanyl, Tramadol HCI 50 mg. Question: Can you further specify T9 compression fracture per the clinical indicators above? Please document below. 1. T9 pathologic fracture due to osteoporosis. 2. Traumatic T9 fracture due to fall at [facility]. 3. Other, with explanation of the clinical findings. 4. Clinically undetermined, no explanation for the clinical findings. PHYSICIAN RESPONSE Can you specify per above: Other, explanation/clinical finding Explanation/Clinical Findings Compression fx due to fall with osteoporosis and she feel at home since she just went home In responding to this query, please exercise your independent professional judgment. The purpose of this communication is to more accurately reflect the complexity of your patients condition. The fact that a question is asked does not imply that any particular answer is desired or expected. Thank you for your timely response to this clarification. Requestors name: Barbara Ortiz [facility] Phone # ext [phone] or [phone] THIS PHYSICIAN QUERY FORM IS A PERMANENT PART OF THE MEDICAL RECORD BARBARA ORTIZ Dec 12, 2018 10:39 ENRIQUE VILLALBA DO Dec 12, 2018 11:04
--- NOTE | 2018-12-12 11:07 | Progress Note-Urology ---
Progress Note-Urology Progress Notes/Assess & Plan Progress/Assessment & Plan TOLERATES FLOMAX WELL. TOV TOMORROW Final Diagnosis URINE RETENTION NICOLE HERNANDEZ MD Dec 12, 2018 11:07
[2018-12-12 12:00] VITALS: BP 128/61
--- NOTE | 2018-12-12 14:34 | Diagnostic Imaging Report ---
INDICATION: Pneumonia. COMPARISON: 12/11/2018. FINDINGS: Frontal and lateral radiographic views of the chest were obtained and show continued progressive improved aeration of the left lung. Some residual patchy infiltrate-appearing opacities persist within the left mid and lower lung field. Lungs also show low inspiratory volumes with asymmetric elevation of the right hemidiaphragm, as well as small bibasilar effusions. No pneumothorax is seen on either side. Cardiac silhouette and pulmonary vasculature are within normal limits. Bony structures show no gross acute abnormalities. IMPRESSION: 1. Continued interval improved aeration of the left lung, but with some residual infiltrate-appearing opacities. 2. Small bibasilar effusions. Dictated by: Dictated on workstation # [id number]
[2018-12-12 16:20] VITALS: BP 169/70
[2018-12-12] MEDS: TAMSULOSIN 0.4 MG (FLOMAX) CAP PO SCH (17:46)
--- NOTE | 2018-12-12 19:43 | Progress Note ---
Objective Exam Last Set of Vital Signs Vital Signs Date Time Temp Pulse Resp B/P (MAP) Pulse Ox O2 Delivery O2 Flow Rate FiO2 12/12/18 16:25 98 Nasal Cannula 2.00 12/12/18 16:20 99.4 80 18 169/70 (103) Capillary Refill : Less Than 3 SecondsLess Than 3 Seconds I&O Intake and Output 12/12/18 00:00 Intake Total 2330 ml Output Total 2050 ml Balance 280 ml Intake Oral 1320 ml IV Total 1010 ml Output Urine Total 2050 ml Bladder Scan Volume Amount 347 ml 414 ml General: Alert, Oriented X3, Mild Distress HEENT: Atraumatic, PERRLA Neck: Supple Lungs: Normal Air Movement, Other (crackles in bases - slightly improved) Heart: Regular Rate Abdomen: Normal Bowel Sounds, Soft, Other (ttp over bladder and left greater than right lower abdomen) Skin: No Rashes Neuro: Cranial Nerves 3-12 NL Psych/Mental Status: Mental Status NL, Mood NL Results Lab Microbiology 12/08/18 Blood Culture - Preliminary, Resulted No growth Assessment/Plan Assessment/Plan Assess & Plan/Chief Complaint Bilateral pneumonia facility acquired requiring meropenem and vancomycin empirically Hypoxia T9 compression fracture with severe pain Dementia Severe debility just discharged from long term Hypertension Urinary retention GERD History of CVA on Plavix and aspirin Bilateral pneumonia facility acquired - PT ON MEROPENEM - CONTINUE WITH TREATMENT AT THIS TIME. - check chest xray this morning. Hypoxia - IMPROVED SLIGHTLY- CONTINUE WITH OXYGEN T9 compression fracture with severe pain - ON DILAUDID - CONTINUE WITH THIS TREATMENT FOR PAIN CONTROL, SUPPORTIVE CARE ONLY AT THIS TIME. Dementia- STABLE Severe debility just discharged from long term - WILL START THERAPY ONCE PT IS MORE MEDICALLY STABLE TO TOLERATE THE THERAPIES Hypertension - ELEVATED DUE TO PAIN - CONTROL PAIN - MONITOR PRESSURE Urinary retention - straight cath PRN if over 350mL in bladder and pt unable to void - discussed with dr. crain - he will see the patient today - stop tolterodine. GERD - resume home regimen History of CVA on Plavix and aspirin Clinical Quality Measures DVT/VTE Risk/Contraindication: Risk Factor Score Per Nursin RFS Level Per Nursing on Admit: 4+=Very High RHONA PRESCOTT MD Dec 12, 2018 19:43
[2018-12-12 20:30] VITALS: BP 155/70
[2018-12-12] MEDS: MELATONIN 3 MG TABLET PO SCH (20:32)
[2018-12-13] VITALS: BP 151/70
[2018-12-13] MEDS: MEROPENEM 500 MG/SWFI 10 ML IV PUSH IV SCH ×6 (00:08→16:31)
[2018-12-13] MEDS: RT-ALBUTEROL SULF 2.5 MG/3 ML PRE-MIX VIAL INH SCH ×4 (03:27→20:44)
[2018-12-13] MEDS: LEVOTHYROXINE 25 MCG (LEVOTHROID) TAB PO SCH (05:44)
[2018-12-13] MEDS: MULTIVIT W/MINERALS TAB (THERAGRAN M) PO SCH (05:44)
[2018-12-13] MEDS: NS IV 1000 ML 1,000 ML IV SCH ×2 (05:44→16:32)
[2018-12-13] MEDS: HYDROmorphone 2 MG/ML VIAL (DILAUDID) IV PRN ×2 (05:55→21:26)
[2018-12-13 08:00] VITALS: BP 137/69
[2018-12-13] MEDS: lisINopril 20 MG (PRINIVIL) TABLET PO SCH (08:01)
[2018-12-13] MEDS: POLYETHYLENE GLYCOL 17 GM (MIRALAX) PACK PO SCH ×2 (08:01→20:14)
[2018-12-13] MEDS: amLODIPine 10 MG (NORVASC) TAB PO SCH (08:01)
[2018-12-13] MEDS: CLOPIDOGREL 75 MG (PLAVIX) TABLET PO SCH (08:01)
[2018-12-13] MEDS: PANTOPRAZOLE 20 MG TABLET (PROTONIX) PO SCH (08:01)
[2018-12-13] MEDS: meTOprolol SUCCINATE 100 MG (TOPROL XL) TAB PO SCH (08:02)
[2018-12-13] MEDS: GABAPENTIN 300 MG (NEURONTIN) CAP PO SCH ×3 (08:03→20:15)
[2018-12-13] MEDS: ASPIRIN 81 MG CHEW (CHILDREN'S ASA) PO SCH (08:03)
[2018-12-13] MEDS: RT-ADVAIR HFA 45/21 MCG PER PUFF IH SCH ×2 (08:19→20:46)
--- NOTE | 2018-12-13 09:19 | Progress Note ---
Objective Exam Last Set of Vital Signs Vital Signs Date Time Temp Pulse Resp B/P (MAP) Pulse Ox O2 Delivery O2 Flow Rate FiO2 12/13/18 08:20 93 Room Air 12/13/18 08:00 98.0 93 18 137/69 (91) 12/12/18 16:25 2.00 Capillary Refill : Less Than 3 SecondsLess Than 3 Seconds I&O Intake and Output 12/13/18 00:00 Intake Total 2040 ml Output Total 2025 ml Balance 15 ml Intake Oral 1020 ml IV Total 1020 ml Output Urine Total 2025 ml General: Alert, Oriented X3, Mild Distress HEENT: Atraumatic, PERRLA Neck: Supple Lungs: Normal Air Movement, Other (crackles in bases - slightly improved) Heart: Regular Rate Abdomen: Normal Bowel Sounds, Soft, Other (ttp over bladder and left greater than right lower abdomen) Skin: No Rashes Neuro: Cranial Nerves 3-12 NL Psych/Mental Status: Mental Status NL, Mood NL Results Lab Microbiology 12/08/18 Blood Culture - Preliminary, Resulted No growth Assessment/Plan Assessment/Plan Assess & Plan/Chief Complaint Bilateral pneumonia facility acquired requiring meropenem and vancomycin empirically Hypoxia T9 compression fracture with severe pain Dementia Severe debility just discharged from care home Hypertension Urinary retention GERD History of CVA on Plavix and aspirin Bilateral pneumonia facility acquired - PT ON MEROPENEM - CONTINUE WITH TREATMENT AT THIS TIME. - check chest xray this morning. Hypoxia - IMPROVED SLIGHTLY- CONTINUE WITH OXYGEN T9 compression fracture with severe pain - ON DILAUDID - CONTINUE WITH THIS TREATMENT FOR PAIN CONTROL, SUPPORTIVE CARE ONLY AT THIS TIME. Dementia- STABLE Severe debility just discharged from care home - WILL START THERAPY ONCE PT IS MORE MEDICALLY STABLE TO TOLERATE THE THERAPIES Hypertension - ELEVATED DUE TO PAIN - CONTROL PAIN - MONITOR PRESSURE Urinary retention - straight cath PRN if over 350mL in bladder and pt unable to void - discussed with dr. crain - he will see the patient today - stop tolterodine. GERD - resume home regimen History of CVA on Plavix and aspirin Clinical Quality Measures DVT/VTE Risk/Contraindication: Risk Factor Score Per Nursin RFS Level Per Nursing on Admit: 4+=Very High RHONA PRESCOTT MD Dec 13, 2018 09:19
[2018-12-13] MEDS ORDERED: POLYETHYLENE GLYCOL 17 GM (MIRALAX) PACK PO ONE (09:30)
--- NOTE | 2018-12-13 11:24 | Progress Note-Urology ---
Progress Note-Urology Progress Notes/Assess & Plan Progress/Assessment & Plan TOV TODAY Final Diagnosis URINE RETENTION NICOLE HERNANDEZ MD Dec 13, 2018 11:24
--- NOTE | 2018-12-13 11:45 | Physical Therapy Evaluation ---
PT Evaluation-General Medical Diagnosis Admission Date Dec 08, 2018 at 15:42 Medical Diagnosis: pneumonia/hypoxia/T9 compression fracture Onset Date: Dec 08, 2018 Therapy Diagnosis Therapy Diagnosis: debility Height/Weight Height (Feet): 4 Height (Inches): 11.00 Weight (Pounds): 142 Weight (Ounces): 0.0 Precautions Precautions/Isolations: Fall Prevention, Standard Precautions Referral Physician: Jhony Reason for Referral: Evaluation/Treatment Medical History Pertinent Medical History: CVA, HTN, Neuropathy Current History fall at [place] Reviewed History: Yes Social History Home: Halfway Prior/Core FIM Prior Level of Function Therapy Code Descriptions/Definitions Functional [place] Measure: 0=Not Assessed/NA 4=Minimal Assistance 1=Total Assistance 5=Supervision or Setup 2=Maximal Assistance 6=Modified [place] 3=Moderate Assistance 7=Complete [place] Therapy Quality Codes: 6 Independent with activity with or without an assistive device 5 Patient requires set up or clean up by helper. Patient completes activity by themselves 4 Supervision or touching assist (CGA). [place] provide cues , steadying assist 3 The helper provides less than half the effort to complete the activity 2 The helper provides more than half the effort to complete the activity 1 Dependent. The helper does all the effort to complete an activity 7 Patient refused to complete or attempt activity 9 The patient did not perform the activity before the current illness or injury 88 Not attempted due to Medical conditions or safety concerns Functional Abilities and Goals: Independent: Patient completed the activities by him/herself, with or without an assistive device, with no assistance from a helper. Needed Some Help: Patient needed partial assistance from another person to complete activities. Dependent: A helper completed the activities for the patient. Unknown: Not Applicable: Bed Mobility: 4 Transfers (B,C,W/C) (FIM): 4 Gait: 1 Wheelchair Mobility: 4 Indoor Mobility (Ambulation): Needed Some Help Stairs: Not [place] Prior Devices Use: Manual wheelchair, Walker PT Evaluation-Current Subjective Patient is very [place]. Agrees to PT. Pain Numeric Pain Scale: 0-No Pain Location: No Pain Reported Objective Patient Orientation: Person, Time, Situation Problem Solving: Fair Attachments: Patel Catheter, IV ROM/Strength ROM Lower Extremities bilateral LE WFL Strength Lower Extremities 3+/5 grossly bilaterally Integumentary/Posture Integumentary multiple abrasions and wounds Bowel Incontinence: Yes Bladder Incontinence: Patel Cath Posture kyphotic Neuromuscular (Tone, Coordination, Reflexes) grossly intact Sensory Vision: Functional Hearing: Hearing Aid/Aides Sensation Right Lower Extremit: Impaired Sensation Left Lower Extremity: Impaired Transfers Therapy Code Descriptions/Definitions Functional [place] Measure: 0=Not Assessed/NA 4=Minimal Assistance 1=Total Assistance 5=Supervision or Setup 2=Maximal Assistance 6=Modified [place] 3=Moderate Assistance 7=Complete [place] Transfers (B, C, W/C) (FIM): 4 Scootin Supine to/from Sit: 4 Sit to/from Stand: 4 Gait Mode of Locomotion: Both Anticipated Mode of Locomotion: Both Gait (FIM): 2 Distance (FIM): 6=192-27 ft Distance: 50' Gait Level of Assist: 4 Gait Persons Needed: 1 Gait Assistive Device: FWW Comments/Gait Description short distances only/safe and functional gait sequence Balance Sitting Static: Normal Sitting Dynamic: Normal Standing Static: Fair Standing Dynamic: Fair Assessment/Needs 88 y.o. female, will be seen short term by skilled PT to address functional strength and mobility to improve current LOF. Rehab Potential: Fair PT Short Term Goals Short Term Goals Time Frame: Dec 15, 2018 Transfers (B,C,W/C) (FIM): 4 Gait (FIM): 2 Distance (FIM): 0=170-38 ft Gait Level of Assist: 4 Gait Assistive Device: FWW PT Plan Problem List Problem List: Activity Tolerance, Functional Strength, Gait, Transfer, Bed Mobility Treatment/Plan Treatment Plan: Continue Plan of Care Treatment Plan: Bed Mobility, Education, Functional Activity Basia, Functional Strength, Gait, Safety, Therapeutic Exercise, Transfers Treatment Duration: Dec 15, 2018 Frequency: 3 times per week Estimated Hrs Per Day: .25 hour per day Patient and/or Family Agrees t: Yes Discharge Recommendations Therapy D/C Recommendations: Halfway Placement, [facility] (TCU/[facility]) Time/GCodes Time In: 1056 Time Out: 1111 Total Billed Treatment Time: 15 Total Billed Treatment 1 visit EVModC 15 min ROBERT FLOR PT Dec 13, 2018 11:45
--- NOTE | 2018-12-13 14:22 | Occupational Therapy Eval ---
OT Evaluation-General/PLF Medical Diagnosis Admission Date Dec 08, 2018 at 15:42 Medical Diagnosis: pneumonia/hypoxia/T9 compression fracture Onset Date: Dec 08, 2018 Therapy Diagnosis Therapy Diagnosis: Weakness Height/Weight Height (Feet): 4 Height (Inches): 11.00 Weight (Pounds): 142 Weight (Ounces): 0.0 Precautions Precautions/Isolations: Fall Prevention, Standard Precautions Safety Interventions: Bed Exit Alarm, Reorient-PRN Weight Bear Status Weight Bearing Restriction: Full Weight Bearing Location Restriction: L LE, R LE Referral Physician: RHONA PRESCOTT. Referral Reason: Activity Tolerance, Self Care, Evaluation/Treatment, Strengthening/ROM Medical History Pertinent Medical History: CVA, HTN, Neuropathy Additional Medical History Dementia, Neuropathy, Stroke, OA, Sleep difficuilty, severe debility, GERD , Asthma, & DNR. Current History Pt fell on her back in [facility] & had T9 Compression fracture. Reviewed History: Yes Social History Home: [facility] ADL-Prior Level of Function Therapy Code Descriptions/Definitions Functional [place] Measure: 0=Not Assessed/NA 4=Minimal Assistance 1=Total Assistance 5=Supervision or Setup 2=Maximal Assistance 6=Modified [place] 3=Moderate Assistance 7=Complete [place] Therapy Quality Codes: 6 Independent with activity with or without an assistive device 5 Patient requires set up or clean up by helper. Patient completes activity by themselves 4 Supervision or touching assist (CGA). [place] provide cues , steadying assist 3 The helper provides less than half the effort to complete the activity 2 The helper provides more than half the effort to complete the activity 1 Dependent. The helper does all the effort to complete an activity 7 Patient refused to complete or attempt activity 9 The patient did not perform the activity before the current illness or injury 88 Not attempted due to Medical conditions or safety concerns Functional Abilities and Goals: Independent: Patient completed the activities by him/herself, with or without an assistive device, with no assistance from a helper. Needed Some Help: Patient needed partial assistance from another person to complete activities. Dependent: A helper completed the activities for the patient. Unknown: Not Applicable: ADL PLOF Comments As per pt statements, Pt was living in NH & was SBA in all self care task & was ambulating with FWW. Independent in bed mobility & func transfers. Self Care: Needed Some Help Functional Cognition: Needed Some Help Occupation: Retired. OT Current Status Subjective Pt in recliner, alert, oriented , mild confused, [place], Cooperative & agree for therapy. Pain Numeric Pain Scale: 0-No Pain Location: No Pain Reported Mental Status/Objective Patient Orientation: Person, Place Attachments: IV, Saline Lock Current Glasses/Contacts: Yes Hearing Aids: No Dentures/Partials: Yes Hand Dominance: Right Upper Extremity ROM WFL Upper Extremity Coordination Intact Upper Extremity Sensation Intact. Pt has Neuropathy but pt could recognise superficial & deep prick.in BUE. Upper Extremity Strength MS in BUE 4/5 grossly graded. Endurance fair. ADL-Treatment ADL-Current Patient needs SBA in supine to sit in recliner & sit to stand with walker by pushing up arms of recliner . Pt walk inside the room with SBA with FWW. Patient has been educated not to sit on soft couch to prevent sinking-in of body , sit on a hard chair , Recommended No push, No pull , No lift, No twisting / rotation of Trunk , Raised toilet seat to prevent bending forward , No side bending , Use Long handled Building Maintenance Technician, Socks-Aid, Long handled Shoe-Horn , Grab bars , No heavy weight lifting for exercises , Use Max 2 lb weight for arm exercises to prevent strain on back . Therapy Code Descriptions/Definitions Functional [place] Measure: 0=Not Assessed/NA 4=Minimal Assistance 1=Total Assistance 5=Supervision or Setup 2=Maximal Assistance 6=Modified [place] 3=Moderate Assistance 7=Complete [place] Therapy Quality Codes: 6 Independent with activity with or without an assistive device 5 Patient requires set up or clean up by helper. Patient completes activity by themselves 4 Supervision or touching assist (CGA). [place] provide cues , steadying assist 3 The helper provides less than half the effort to complete the activity 2 The helper provides more than half the effort to complete the activity 1 Dependent. The helper does all the effort to complete an activity 7 Patient refused to complete or attempt activity 9 The patient did not perform the activity before the current illness or injury 88 Not attempted due to Medical conditions or safety concerns Eating (FIM): 6 Grooming (FIM): 6 Bathing (FIM): 0 Upper Body Dressing (FIM): 6 Lower Body Dressing (FIM): 4 Toileting (FIM): 5 Transfers (B, C, W/C) (FIM): 5 Toilet/Commode Transfer (FIM): 5 Tub Transfer (FIM): 0 Shower Transfer (FIM): 0 Education OT Patient Education: Correct positioning Teaching Recipient: Patient Teaching Methods: Demonstration Response to Teaching: Verbalize Understanding OT Short Term Goals Short Term Goals Time Frame: Dec 15, 2018 Transfers (B,C,W/C) (FIM): 4 Additional Short Term Goals: 1-Demonstrate ADL Tasks, 2-Verbalize Understanding , 3-ImproveStrength/Basia 1=Demonstrate adherence to instructed precautions during ADL tasks. 2=Patient will verbalize/demonstrate understanding of assistive devices/ modifications for ADL. 3=Patient will improve strength/tolerance for activity to enable patient to perform ADL's. OT Nursing Home Goals Cementer Hand Goals Time Frame: Dec 15, 2018 Eating (FIM): 6 Grooming(FIM): 6 Bathing(FIM): 5 Bathing Location: L Arm, R Arm, L Upper Leg, R Upper Leg, L Lower Leg ( including foot), R Lower Leg (including foot), Chest, Abdomen, Buttocks, Perineal Area Upper Body Dressing(FIM): 6 Lower Body Dressing(FIM): 5 Toileting(FIM): 6 Transfers (B,C,W/C) (FIM): 6 Toilet/Commode Transfer(FIM): 6 Tub Transfer(FIM): 0 Shower Transfer(FIM): 6 Additional Goals: 1-Demonstrate ADL Tasks, 2-Verbalize Understanding, 3- ImproveStrength/Basia 1=Demonstrate adherence to instructed precautions during ADL tasks. 2=Patient will verbalize/demonstrate understanding of assistive devices/ modifications for ADL. 3=Patient will improve strength/tolerance for activity to enable patient to perform ADL's. OT Education/Plan Problem List/Assessment Assessment: Decreased Activ Tolerance, Decreased Safety Aware, Decreased UE Strength, Dependent Transfers, Impaired Bed Mobility, Impaired Funct Balance, Impaired Self-Care Skills Discharge Recommendations Plan/Recommendations: Continue POC Therapy D/C Recommendations: Alf (TCU/NH) Equpiment Recommendations-D/C: Extended Shower Sprayer, Building Maintenance Technician, Sock Aide, Long Shoe Horn, Rails on Toilet, Toilet Riser Patient/Family Goals To return back to [place] with modified [place]. Treatment Plan/Plan of Care Treatment,Training & Education: Yes Patient would benefit from OT for education, treatment and training to promote independence in ADL's, mobility, safety and/or upper extremity function for ADL' s. Plan of Care: ADL Retraining, Functional Mobility, UE Funct Exercise/Act, UE Neuromus Re-Ed/Coord Treatment Duration: Dec 15, 2018 Frequency: 3 times per week Estimated Hrs Per Day: .5 hour per day Agreement: Yes Rehab Potential: Good Time/GCodes Start Time: 13:15 Stop Time: 13:45 Total Time Billed (hr/min): 30 Billed Treatment Time 1, EVM 16 min, FA 14 min. Total 30 minutes. CHITRA CHOUDHURY OT Dec 13, 2018 14:22
[2018-12-13 16:00] VITALS: BP 152/73
[2018-12-13] MEDS: TAMSULOSIN 0.4 MG (FLOMAX) CAP PO SCH (17:10)
[2018-12-13 20:00] VITALS: BP 184/83
[2018-12-13] MEDS: MELATONIN 3 MG TABLET PO SCH (20:15)
[2018-12-13] MEDS ORDERED: POLYETHYLENE GLYCOL 17 GM (MIRALAX) PACK PO SCH (21:00)
[2018-12-13 21:45] VITALS: BP 155/77
[2018-12-13 23:45] VITALS: BP 155/77
[2018-12-14] MEDS: MEROPENEM 500 MG/SWFI 10 ML IV PUSH IV SCH ×4 (00:29→07:33)
[2018-12-14] MEDS: NS IV 1000 ML 1,000 ML IV SCH (03:06)
[2018-12-14] MEDS: RT-ALBUTEROL SULF 2.5 MG/3 ML PRE-MIX VIAL INH SCH ×2 (03:22→07:31)
[2018-12-14] MEDS: LEVOTHYROXINE 25 MCG (LEVOTHROID) TAB PO SCH (05:40)
[2018-12-14] MEDS: MULTIVIT W/MINERALS TAB (THERAGRAN M) PO SCH (05:41)
[2018-12-14] MEDS: HYDROmorphone 2 MG/ML VIAL (DILAUDID) IV PRN ×2 (05:45→08:48)
[2018-12-14] MEDS: RT-ADVAIR HFA 45/21 MCG PER PUFF IH SCH (07:31)
[2018-12-14 08:00] VITALS: BP 200/83
[2018-12-14] MEDS ORDERED: TAMS0.4C98 PO (08:45)
[2018-12-14] MEDS ORDERED: LISI-552 PO (08:45)
[2018-12-14] MEDS ORDERED: POLY17PO31 PO (08:45)
[2018-12-14] MEDS ORDERED: AMLO10TA7 PO (08:45)
[2018-12-14] MEDS ORDERED: TOLT1TAB13 PO (08:45)
[2018-12-14] MEDS: lisINopril 20 MG (PRINIVIL) TABLET PO SCH (08:48)
[2018-12-14] MEDS: meTOprolol SUCCINATE 100 MG (TOPROL XL) TAB PO SCH (08:48)
[2018-12-14] MEDS: CLOPIDOGREL 75 MG (PLAVIX) TABLET PO SCH (08:48)
[2018-12-14] MEDS: amLODIPine 10 MG (NORVASC) TAB PO SCH (08:48)
[2018-12-14] MEDS: GABAPENTIN 300 MG (NEURONTIN) CAP PO SCH (08:48)
[2018-12-14] MEDS: PANTOPRAZOLE 20 MG TABLET (PROTONIX) PO SCH (08:48)
[2018-12-14] MEDS: POLYETHYLENE GLYCOL 17 GM (MIRALAX) PACK PO SCH (08:48)
[2018-12-14] MEDS: ASPIRIN 81 MG CHEW (CHILDREN'S ASA) PO SCH (08:48)
--- NOTE | 2018-12-14 08:52 | NUR ---
prior to b/p medications pulse was 94 b/p was 200/83. will recheck in about one hour and record results
--- NOTE | 2018-12-14 09:35 | NUR ---
THIS RN GAVE REPORT TO STORM BUCIO AT THIS TIME AT [facility]. THIS RN WILL CARE FOR THIS PATIENT UNTIL DISCHARGE.
--- NOTE | 2018-12-14 09:38 | Progress Note-Urology ---
Progress Note-Urology Progress Notes/Assess & Plan Progress/Assessment & Plan VOIDING WELL ON HER OWN. GOING HOME ON FLOMAX. ONCE VOIDING AND EMPTYING WELL, MAY WITHDRAW FROM IT AND IF BACK TO INCONTINENCE, RESUME DETROL LA 2MG DAILY. WE WILL SEE HER PRN Final Diagnosis URINE RETENTION AND INCONTINENCE NICOLE HERNANDEZ MD Dec 14, 2018 09:38
--- NOTE | 2018-12-14 09:41 | NUR ---
RIGHT UPPER ARM MIDLINE REMOVED AT THIS TIME. THIS RN WILL CONT TO MONITOR THIS PATIENT UNTIL DISCHARGE FROM [facility].
--- NOTE | 2018-12-14 09:56 | NUR ---
CM DISCHARGE PLANNING: Discharge today to [facility] skilled for PT, OT, et ST. Patient will be discharged at 11:30. Finalized discharge orders faxed et red discharge packet updated. Notified primary care nurse et [facility]. No further interventions noted.
--- NOTE | 2018-12-14 09:58 | Discharge Summary ---
Diagnosis/Chief Complaint Date of Admission Dec 08, 2018 at 15:42 Date of Discharge Discharge Date: Dec 14, 2018 Discharge Summary Discharge Physical Examination Allergies: Coded Allergies: gatifloxacin (Verified Allergy, Unknown, Tongue Turns Red and Swells, ) Vitals & I&Os Vital Signs Date Time Temp Pulse Resp B/P (MAP) Pulse Ox O2 Delivery O2 Flow Rate FiO2 12/14/18 08:00 98.7 94 18 200/83 (122) 97 12/14/18 07:57 Room Air 12/12/18 16:25 2.00 General Appearance: Alert, Oriented X3, Mild Distress HEENT: Atraumatic, PERRLA Respiratory: Normal Air Movement, Other (crackles in bases - slightly improved) Cardiovascular: Regular Rate Abdominal: Normal Bowel Sounds, Soft, Other (ttp over bladder and left greater than right lower abdomen) Skin: No Rashes Neuro: Cranial Nerves 3-12 NL Psych/Mental Status: Mental Status NL, Mood NL Discharge Instructions to patient/family Please see electronic discharge instructions given to patient. Discharge Medications Reviewed and agree with Discharge Medication list on patient's Discharge Instruction sheet Clinical Quality Measures DVT/VTE Risk/Contraindication: Risk Factor Score Per Nursin RFS Level Per Nursing on Admit: 4+=Very High RHONA PRESCOTT MD Dec 14, 2018 09:58
[2018-12-14] MEDS ORDERED: AMOX-355 PO (10:04)
--- NOTE | 2018-12-14 10:08 | Discharge Inst-Skilled Nursing ---
Discharge Inst-Skilled NF Patient Instructions Patient Problems: urinary tract infection urinary retention t 9 compression fracture constipation hypertension falling episodes weakness dementia Consult/Follow Up/Orders Follow Up Appt.: 1 wk [facility] Skilled NF Admit to: [facility] [place]) I certify that SNF services are required to be given on an inpatient basis because of the above named patient's need for care home care on a continuing basis for the conditions(s) for which he/she was receiving inpatient hospital services prior to his/her transfer to the SNF. Nursing Home Facility Order: Nursing Services, Side Splitter-Evaluate & Treat, Speech Language-Evaluate & Treat Oxygen Delivery Method: Room Air Discharge Diet: Regular Diet Daily Activity as Tolerated: Yes New & Resume Previous Orders Rhona Booker Dec 14, 2018 08:46 Medication List: Active Scripts Active Augmentin 500-125 Tablet (Amoxicillin/Potassium Clav) 1 Each Tablet 1 Each PO BID Polyethylene Glycol 3350 17 Gm Powd.pack 17 Gm PO BID hold for loose stools Lisinopril 20 Mg Tablet 20 Mg PO DAILY@0900 hold if sbp is less than 110 Amlodipine Besylate 10 Mg Tablet 10 Mg PO DAILY Flomax (Tamsulosin HCl) 0.4 Mg Cap 0.4 Mg PO DAILY@1800 Reported Tramadol HCl 50 Mg Tablet 50 Mg PO Q12H PRN Probiotic (L.acidoph & Paracasei,B.lactis) 1 Each Capsule 1 Cap PO TID 10 Days START DATE 12-06-18 END DATE 12-16-18 Melatonin 3 Mg Tablet 3 Mg PO HS PRN Iron (Ferrous Sulfate) 325 Mg Tablet 650 Mg PO Q48H TAKES 2 (325MG) TABLETS Atorvastatin Calcium 40 Mg Tablet 40 Mg PO HS Gabapentin 300 Mg Capsule 300 Mg PO TID Escitalopram Oxalate 10 Mg Tablet 10 Mg PO HS Proventil Hfa (Albuterol Sulfate) 6.7 Gm Hfa.aer.ad 2 Puff INH Q4H Aspirin 81 Mg Tab.chew 81 Mg PO DAILY Daily Value (Multivitamin) 1 Each Tablet 2 Tab PO DAILY Levothyroxine Sodium 25 Mcg Tablet 25 Mcg PO 0600 Omeprazole 10 Mg Capsule.dr 10 Mg PO DAILY Fish Oil 1,000 mg Capsule (Erbacon 3 Polyunsat Fatty Acids) 1,000 Mg Cap 1,000 Mg PO DAILY Symbicort 80-4.5 Mcg Inhaler (Budesonide/Formoterol Fumarate) 10.2 Gm Hfa.aer.ad 2 Puff IH BID Calcium (Calcium Carbonate) 600 Mg Tablet 600 Mg PO DAILY Vitamin B-12 (Cyanocobalamin (Vitamin B-12)) 1,000 Mcg Tablet 1,000 Mcg PO DAILY Metoprolol Succinate 100 Mg Tab.er.24h 100 Mg PO DAILY HOLD FOR SBP <100 OR PULSE <60 Plavix (Clopidogrel Bisulfate) 75 Mg Tablet 75 Mg PO DAILY My orders: Orders - RHONA BOOKER MD Patient Visit (12/13/18 ) Pt Eval Low Complexity (12/13/18 ) Attending Discharge Inpt/Inobs (12/14/18 08:34) RHONA BOOKER MD Dec 14, 2018 08:46
== END 2018-12-14 11:30 | DRG 194 ==
LOC: EDUNIT# 11:56 → ER 11:57 → 4TH 15:42
PROVIDERS: ADMIT Internal Medicine; ATTEND Family Medicine
DX: J18.9 Pneumonia, unspecified organism (principal); M80.08XA Age-related osteoporosis with current pathological fracture, vertebra(e), initial encounter for fracture; S30.810A Abrasion of lower back and pelvis, initial encounter; F01.50 Vascular dementia, unspecified severity, without behavioral disturbance, psychotic disturbance, mood disturbance, and anxiety; D50.9 Iron deficiency anemia, unspecified; Z66 Do not resuscitate; R33.9 Retention of urine, unspecified; E03.9 Hypothyroidism, unspecified; K21.9 Gastro-esophageal reflux disease without esophagitis; J45.40 Moderate persistent asthma, uncomplicated; I10 Essential (primary) hypertension; R53.81 Other malaise; R09.02 Hypoxemia; N32.81 Overactive bladder; E78.00 Pure hypercholesterolemia, unspecified; G62.9 Polyneuropathy, unspecified; M19.91 Primary osteoarthritis, unspecified site; Z86.73 Personal history of transient ischemic attack (TIA), and cerebral infarction without residual deficits; W19.XXXA Unspecified fall, initial encounter; Y92.019 Unspecified place in single-family (private) house as the place of occurrence of the external cause; Z79.02 Long term (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 antithrombotics/antiplatelets; Z79.82 Long term (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 aspirin
CPT/HCPCS: 36415; 71045; 71046; 74177; 76937; 80053; 80202; 83605; 83690; 83880; 84484; 85025; 85027; 87040; 93005; 94640; 94664; 94760; 96365; 96375

== ENCOUNTER 2018-12-16 09:50 | Emergency (ER) | payer MEDICARE ==
[~2018-12-16] VITALS: Ht 149.9 cm; Wt 64.4 kg
[~2018-12-16 09:50] MED LIST changes: +AMLO10TA7 PO; +AMLO5TAB9 PO; +AMOX-355 PO; +ASPI-999 PO; +ATOR40TA70 PO; +BUDE10.22 IH; +CALC600T12 PO; +CEPH-507 PO; +CLOP75TA69 PO; +CYAN10006 PO; +ESCI10TA55 PO; +FERR-84 PO; +GABA-488 PO; +L.AC1CAP6 PO; +LEVO25TA5 PO; +LISI-552 PO; +LISI10TA2 PO; +MELA1TAB27 PO; +MELA3TAB PO; +METO-395 PO; +MULT-633 PO; +OMEP10CA4 PO; +OMG1KC PO; +POLY17PO31 PO; +RT-ALBUINH INH; +TAMS0.4C98 PO; +TOLT1TAB13 PO
[2018-12-16] MEDS ORDERED: FAMOTIDINE 20 MG (PEPCID) TABLET PO STA (10:22)
[2018-12-16] MEDS ORDERED: NS IV 1000 ML 1,000 ML IV SCH (10:22)
--- NOTE | 2018-12-16 10:28 | ED Abdominal Pain ---
General Stated Complaint: ABD PAIN,FLUID RETENTION Source of Information: Patient, Caregiver Exam Limitations: Other (history of dementia, poor historian) History of Present Illness Date Seen by Provider: Dec 16, 2018 Time Seen by Provider: 10:17 Initial Comments Patient presents to the ER by private conveyance with chief complaint of abdominal pain nondescript worse this morning. Complains staff. She took her medicines this morning and says she asked for something when necessary for pain but is not sure what they gave her. She is not having any nausea or vomiting fevers or chills but she did have some nausea week ago. She had been at [facility] in the past and went home did not do well ended up coming back to the hospital was treated for pneumonia and is still on antibiotics back in the care home unit at [facility]. She says her last bowel movement was 3 or 4 days ago. She does have a history of constipation chronically. She denies using any opiate medications and there are none on her list. She is not having any blood per rectum. She does have a history of acid reflux. She rates her pain as moderate. Allergies and Home Medications Allergies Coded Allergies: gatifloxacin (Verified Allergy, Unknown, Tongue Turns Red and Swells, ) Home Medications Albuterol Sulfate 6.7 Gm Hfa.aer.ad, 2 PUFF INH Q4H, (Reported) Amlodipine Besylate 10 Mg Tablet, 10 MG PO DAILY Prescribed by: RHONA BOOKER on 12/14/18 0845 Amoxicillin/Potassium Clav 1 Each Tablet, 1 EACH PO BID Prescribed by: RHONA BOOKER on 12/14/18 1004 Aspirin 81 Mg Tab.chew, 81 MG PO DAILY, (Reported) Atorvastatin Calcium 40 Mg Tablet, 40 MG PO HS, (Reported) Budesonide/Formoterol Fumarate 10.2 Gm Hfa.aer.ad, 2 PUFF IH BID, (Reported) Calcium Carbonate 600 Mg Tablet, 600 MG PO DAILY, (Reported) Clopidogrel Bisulfate 75 Mg Tablet, 75 MG PO DAILY, (Reported) Cyanocobalamin (Vitamin B-12) 1,000 Mcg Tablet, 1,000 MCG PO DAILY, (Reported) Escitalopram Oxalate 10 Mg Tablet, 10 MG PO HS, (Reported) Ferrous Sulfate 325 Mg Tablet, 650 MG PO Q48H, (Reported) TAKES 2 (325MG) TABLETS Gabapentin 300 Mg Capsule, 300 MG PO TID, (Reported) L.acidoph & Paracasei,B.lactis 1 Each Capsule, 1 CAP PO TID, (Reported) START DATE 12-06-18 END DATE 12-16-18 Levothyroxine Sodium 25 Mcg Tablet, 25 MCG PO 0600, (Reported) Lisinopril 20 Mg Tablet, 20 MG PO DAILY@0900 hold if sbp is less than 110 Prescribed by: RHONA BOOKER on 12/14/18 0845 Melatonin 3 Mg Tablet, 3 MG PO HS PRN for SLEEP, (Reported) Metoprolol Succinate 100 Mg Tab.er.24h, 100 MG PO DAILY, (Reported) HOLD FOR SBP <100 OR PULSE <60 Multivitamin 1 Each Tablet, 2 TAB PO DAILY, (Reported) [place] 3 Polyunsat Fatty Acids 1,000 Mg Cap, 1,000 MG PO DAILY, (Reported) Omeprazole 10 Mg Capsule.dr, 10 MG PO DAILY, (Reported) Polyethylene Glycol 3350 17 Gm Powd.pack, 17 GM PO BID hold for loose stools Prescribed by: RHONA BOOKER on 12/14/18 0845 Tamsulosin HCl 0.4 Mg Cap, 0.4 MG PO DAILY@1800 Prescribed by: RHONA BOOKER on 12/14/18 0845 Tramadol HCl 50 Mg Tablet, 50 MG PO Q12H PRN for PAIN-MODERATE, (Reported) Patient Home Medication List Home Medication List Reviewed: Yes Review of Systems Review of Systems Constitutional: No chills, No fever, No malaise EENTM: No Blurred Vision, No Double Vision Respiratory: Denies Cough, Denies Shortness of Air Cardiovascular: Denies Chest Pain, Denies Edema, Denies Irregular Heart Rate Gastrointestinal: See HPI, Abdomen Distended, Abdominal Pain, Constipated (4 days); Denies Diarrhea, Denies Nausea, Denies Poor Appetite, Denies Poor Fluid Intake, Denies Vomiting Genitourinary: Denies Burning, Denies Discharge Musculoskeletal: No back pain, No joint pain Skin: No pruritus, No rash Psychiatric/Neurological: Denies Headache, Denies Numbness Past Djmtusz-Priyno-Vaebap Hx Patient Social History Alcohol Use: Denies Use Recreational Drug Use: No Smoking Status: Never a Smoker 2nd Hand Smoke Exposure: No Recent Foreign Travel: No Contact w/Someone Who Travel: No Recent Hopitalizations: No Immunizations Up To Date Tetanus Booster (TDap): Unknown Date of Pneumonia Vaccine: Jul 26, 2016 Date of Influenza Vaccine: Jul 18, 2018 Seasonal Allergies Seasonal Allergies: No Past Medical History Surgeries: Yes Cardiac, Gallbladder, Orthopedic Respiratory: No Cardiac: Yes High Cholesterol, Hypertension Neurological: Yes Dementia, Neuropathy, Stroke Reproductive Disorders: No Genitourinary: No Bladder Infection Gastrointestinal: No Musculoskeletal: Yes Arthritis, Fractures Endocrine: No HEENT: No Cancer: No Psychosocial: No Sleep Difficulties Integumentary: No Blood Disorders: No Physical Exam Vital Signs Vital Signs - First Documented 12/16/18 10:10 Temp 98.2 Pulse 87 Resp 18 B/P (MAP) 184/98 (126) Pulse Ox 98 O2 Delivery Room Air Capillary Refill : Height/Weight/BMI Height: 4'11.00" Weight: 142lbs. 0.0oz. 64.391430ys; 28.7 BMI Method:Estimated General Appearance: WD/WN, mild distress HEENT: PERRL/EOMI, pharynx normal Neck: non-tender, normal inspection Respiratory: chest non-tender, lungs clear, normal breath sounds, no respiratory distress, no accessory muscle use Cardiovascular: normal peripheral pulses, regular rate, rhythm, no edema Peripheral Pulses: 2+ Radial Pulses (R), 2+ Radial Pulses (L) Gastrointestinal: normal bowel sounds (quite a), soft, tenderness (fall 4 quadrants, diffuse), other (negative for Billy sign or so as her mesenteric signs) Extremities: normal range of motion, no calf tenderness, normal capillary refill Neurologic/Psychiatric: alert, normal mood/affect, oriented x 3 Skin: normal color, warm/dry Progress/Results/Core Measures Results/Orders Lab Results Laboratory Tests Test 12/16/18 10:39 12/16/18 11:26 Range/Units White Blood Count 9.6 4.3-11.0 10^3/uL Red Blood Count 3.95 L 4.35-5.85 10^6/uL Hemoglobin 11.4 L 11.5-16.0 G/DL Hematocrit 35 35-52 % Mean Corpuscular Volume 89 80-99 FL Mean Corpuscular Hemoglobin 29 25-34 PG Mean Corpuscular Hemoglobin Concent 32 32-36 G/DL Red Cell Distribution Width 14.8 H 10.0-14.5 % Platelet Count 292 130-400 10^3/uL Mean Platelet Volume 10.0 7.4-10.4 FL Neutrophils (%) (Auto) 81 H 42-75 % Lymphocytes (%) (Auto) 12 12-44 % Monocytes (%) (Auto) 6 0-12 % Eosinophils (%) (Auto) 1 0-10 % Basophils (%) (Auto) 0 0-10 % Neutrophils # (Auto) 7.7 1.8-7.8 X 10^3 Lymphocytes # (Auto) 1.2 1.0-4.0 X 10^3 Monocytes # (Auto) 0.6 0.0-1.0 X 10^3 Eosinophils # (Auto) 0.1 0.0-0.3 10^3/uL Basophils # (Auto) 0.0 0.0-0.1 10^3/uL Sodium Level 141 135-145 MMOL/L Potassium Level 4.2 3.6-5.0 MMOL/L Chloride Level 101 98-107 MMOL/L Carbon Dioxide Level 24 21-32 MMOL/L Anion Gap 16 H 5-14 MMOL/L Blood Urea Nitrogen 10 7-18 MG/DL Creatinine 0.86 0.60-1.30 MG/DL Estimat Glomerular Filtration Rate > 60 BUN/Creatinine Ratio 12 Glucose Level 135 H 70-105 MG/DL Calcium Level 8.9 8.5-10.1 MG/DL Corrected Calcium 9.6 8.5-10.1 MG/DL Magnesium Level 2.0 1.8-2.4 MG/DL Total Bilirubin 0.6 0.1-1.0 MG/DL Aspartate Amino Transf (AST/SGOT) 36 H 5-34 U/L Alanine Aminotransferase (ALT/SGPT) 18 0-55 U/L Alkaline Phosphatase 159 H 40-136 U/L Total Protein 7.1 6.4-8.2 GM/DL Albumin 3.1 L 3.2-4.5 GM/DL Lipase 34 8-78 U/L Urine Color YELLOW Urine Clarity CLEAR Urine pH 8 5-9 Urine Specific Jerome 1.010 L 1.016-1.022 Urine Protein NEGATIVE NEGATIVE Urine Glucose (UA) NEGATIVE NEGATIVE Urine Ketones NEGATIVE NEGATIVE Urine Nitrite NEGATIVE NEGATIVE Urine Bilirubin NEGATIVE NEGATIVE Urine Urobilinogen NORMAL NORMAL MG/DL Urine Leukocyte Esterase 1+ H NEGATIVE Urine RBC (Auto) NEGATIVE NEGATIVE Urine RBC NONE /HPF Urine WBC RARE /HPF Urine Squamous Epithelial Cells 2-5 /HPF Urine Crystals NONE /LPF Urine Bacteria TRACE /HPF Urine Casts NONE /LPF Urine Mucus NEGATIVE /LPF Urine Culture Indicated NO My Orders Orders - KRISSY CAT Chest 1 View, Ap/Pa Only (12/16/18 10:22) Saline Lock/Iv-Start (12/16/18 10:22) Ns Iv 1000 Ml (Sodium Chloride 0.9%) (12/16/18 10:22) Cbc With Automated Diff (12/16/18 10:22) Comprehensive Metabolic Panel (12/16/18 10:22) Lipase (12/16/18 10:22) Magnesium (12/16/18 10:22) Ua Culture If Indicated (12/16/18 10:22) Lidocaine 2% Viscous 15 Ml (Xylocaine Vi (12/16/18 10:30) Famotidine Tablet (Pepcid Tablet) (12/16/18 10:22) Antacid Suspension (Mylanta Suspension (12/16/18 10:30) Abdomen/Kub 1view (12/16/18 10:22) Ketorolac Injection (Toradol Injection) (12/16/18 12:00) Ct Abdomen/Pelvis W (12/16/18 12:23) Iohexol Injection (Omnipaque 350 Mg/Ml 1 (12/16/18 13:00) Received Contrast (Hold Metformin- Contr (12/16/18 13:00) Sodium Chloride Flush (Catheter Flush Sy (12/16/18 13:00) Medications Given in ED Current Medications Medications Dose Ordered Sig/Linda Route Start Time Stop Time Status Last Admin Dose Admin Al Hydrox/Mg Hydrox/Simethicone 30 ml ONCE ONCE PO 12/16/18 10:30 12/16/18 10:31 DC 12/16/18 10:35 30 ML Iohexol 100 ml ONCE ONCE IV 12/16/18 13:00 12/16/18 13:01 DC 12/16/18 13:02 90 ML Ketorolac Tromethamine 30 mg ONCE ONCE IVP 12/16/18 12:00 12/16/18 12:01 DC 12/16/18 12:18 30 MG Lidocaine HCl 15 ml ONCE ONCE PO 12/16/18 10:30 12/16/18 10:31 DC 12/16/18 10:35 15 ML Sodium Chloride 10 ml NEEDED PRN IV 12/16/18 13:00 12/16/18 13:02 10 ML Vital Signs/I&O 12/16/18 10:10 Temp 98.2 Pulse 87 Resp 18 B/P (MAP) 184/98 (126) Pulse Ox 98 O2 Delivery Room Air Progress Progress Note : Time: 14:24 Progress Note Lengthy conversation with the family several times throughout the patient's stay in the ER. We did discuss the pneumobilia and how we think that it is probably from her constipation and would recommend that she aggressively treat constipation with MiraLAX and enemas. We would recommend close follow-up with primary care this week for reevaluation. We have given strict return precautions. We did offer to transfer to a neighboring hospital they could do MRCP versus just doing a clean out and patient elected to just do the clean out with enemas and MiraLAX. Diagnostic Imaging Diagonstic Imaging: Xray Plain Films/CT/US/NM/MRI: chest (1v) Comments [facility] [place] NAME: KELSI ANGELO [facility] REC#: [id number] PT STATUS: REG ER : 1930 PHYSICIAN: KRISSY CAT MD ADMIT DATE: 12/16/18/ER Draft Date of Exam:12/16/18 CHEST 1 VIEW, AP/PA ONLY INDICATION: Right lower sided chest and upper abdominal pain. TECHNIQUE: Single view chest 11:13 AM. CORRELATION STUDY: 12/12/2018 FINDINGS: Limited depth of inspiration. Given this, there does appear to be areas of atelectasis about the lung lee. Definitive infiltrate is not suggested. Heart size, mediastinum, and vasculature generally stable given differences in technique. IMPRESSION: 1. Scattered patchy areas of likely infiltrate or atelectasis at the lung bases, may be slightly accentuated by limited depth of inspiration. 2. Cardiac enlargement without evidence for overt failure. Dictated on workstation # [id number] Dict: 12/16/18 1117 Trans: 12/16/18 1128 JINA [id number] Interpreted by: CAMILLE BEGUM DO Electronically signed by: Reviewed: Reviewed by Me Diagonstic Imaging: Xray Plain Films/CT/US/NM/MRI: abdomen (kub 1v) Comments [facility] [place], [place] NAME: KELSI ANGELO [facility] REC#: [id number] PT STATUS: REG ER : 1930 PHYSICIAN: KRISSY CAT MD ADMIT DATE: 12/16/18/ER Draft Date of Exam:12/16/18 ABDOMEN/KUB 1VIEW INDICATION: Right-sided pain. FINDINGS: The bowel gas pattern is unremarkable. No abnormal fecal loading. No dilated loops of bowel. There are degenerative changes to the spine and pelvis with left hip replacement and lower lumbar surgical instrumentation. IMPRESSION: Nonobstructive bowel gas pattern, degenerative and postoperative findings. No acute abnormality apparent. Dictated on workstation # [id number] Dict: 12/16/18 1117 Trans: 12/16/18 1125 [facility] [id number] Interpreted by: MAMTA ROSADO Electronically signed by: Reviewed: Reviewed by Me Consults : Consulting Physician: JUNO DUNBAR DO Consults Notes Discussed the case with general surgery and we talked about the differential and the patient doesn't show any evidence of infection. She doesn't have a gallbladder. Does not appear to be obstructed. We suspect the chronic constipation that has been exacerbated since previous CTs likely explains the pneumobilia. Pneumobilia was seen on previous CT scans as well. We are going to discuss with the patient and the family at bedside about what the goals for the patient whether or not an MRCP an inpatient stay as reasonable versus going home and just doing a clean out with enemas and MiraLAX and then following up. Departure Impression Primary Impression: Obstipation Additional Impression: Pneumobilia Disposition: 01 HOME, SELF-CARE Condition: Stable Departure-Patient Inst. Decision time for Depature: 14:27 Referrals: RHONA BOOKER MD (PCP/Family) Primary Care Physician Patient Instructions: Constipation, Adult (DC) Add. Discharge Instructions: Increase your oral fluid intake and mix 1 capful of MiraLAX in 6 ounces of fluids of your choice and take it 4 times a day for the next 4 days. Take an enema twice daily for the next 2 days. If she is having copious liquid diarrhea for 2 days then you may discontinue the medications. Tylenol 1000 mg and/or ibuprofen 800 mg every 8 hours each as necessary for pain. Follow-up with Dr. Booker in 2-3 days for reexamination of the belly. If you have significant pain will not be controlled by distraction for pain medicines then you should return to the nearest ER for reevaluation. Scripts Polyethylene Glycol 3350 (Miralax) 17 Gm Powd.pack 17 GM PO QID for 4 Days, #1 EACH 0 Refills Prov: KRISSY CAT 12/16/18 Na Tutu,M-B/Shahida PhosMegganBa (Fleet Enema) 133 Ml Enema 133 ML RC BID for 2 Days, #4 EA 0 Refills Prov: KRISSY CAT 12/16/18 Copy Copies To 1: RHONA BOOKER MD, TITUS J Dec 16, 2018 10:28
[2018-12-16] MEDS ORDERED: ANTACID SUSP 30 ML UDC (MYLANTA) PO ONE (10:30)
[2018-12-16] MEDS ORDERED: LIDOCAINE 2% VISCOUS 15 ML UDC PO ONE (10:30)
[2018-12-16 10:49] LABS: BASOPHILS % (AUTO) 0 % (0-10); EOSINOPHILS # (AUTO) 0.1 10^3/uL (0.0-0.3); EOSINOPHILS % (AUTO) 1 % (0-10); HEMATOCRIT 35 % (35-52); HEMOGLOBIN 11.4 G/DL (11.5-16.0); LYMPHOCYTES # (AUTO) 1.2 X 10^3 (1.0-4.0); LYMPHOCYTES % (AUTO) 12 % (12-44); MEAN CORPUSCULAR HEMOGLOBIN 29 PG (25-34); MEAN CORPUSCULAR HGB CONC 32 G/DL (32-36); MEAN CORPUSCULAR VOLUME 89 FL (80-99); MONOCYTES # (AUTO) 0.6 X 10^3 (0.0-1.0); MONOCYTES % (AUTO) 6 % (0-12); NEUTROPHILS # (AUTO) 7.7 X 10^3 (1.8-7.8); NEUTROPHILS % (AUTO) 81 % (42-75); PLATELET COUNT 292 10^3/uL (130-400); RED CELL DISTRIBUTION WIDTH 14.8 % (10.0-14.5); WHITE BLOOD COUNT 9.6 10^3/uL (4.3-11.0)
[2018-12-16 11:09] LABS: ALANINE AMINOTRANSFERASE 18 U/L (0-55); ALBUMIN 3.1 GM/DL (3.2-4.5); ALKALINE PHOSPHATASE 159 U/L (40-136); BILIRUBIN,TOTAL 0.6 MG/DL (0.1-1.0); BUN/CREATININE RATIO 12; CALCIUM 8.9 MG/DL (8.5-10.1); CARBON DIOXIDE 24 MMOL/L (21-32); CHLORIDE 101 MMOL/L (98-107); CREATININE SERUM 0.86 MG/DL (0.60-1.30); GFR ESTIMATED > 60; GLUCOSE 135 MG/DL (70-105); LIPASE 34 U/L (8-78); SODIUM 141 MMOL/L (135-145); TOTAL PROTEIN 7.1 GM/DL (6.4-8.2)
[2018-12-16 11:10] LABS: POTASSIUM 4.2 MMOL/L (3.6-5.0)
[2018-12-16 11:26] VITALS: BP 152/75
--- NOTE | 2018-12-16 11:26 | Diagnostic Imaging Report ---
INDICATION: Right-sided pain. FINDINGS: The bowel gas pattern is unremarkable. No abnormal fecal loading. No dilated loops of bowel. There are degenerative changes to the spine and pelvis with left hip replacement and lower lumbar surgical instrumentation. IMPRESSION: Nonobstructive bowel gas pattern, degenerative and postoperative findings. No acute abnormality apparent. Dictated by: Dictated on workstation # [id number]
--- NOTE | 2018-12-16 11:28 | Diagnostic Imaging Report ---
INDICATION: Right lower sided chest and upper abdominal pain. TECHNIQUE: Single view chest 11:13 AM. CORRELATION STUDY: 12/12/2018 FINDINGS: Limited depth of inspiration. Given this, there does appear to be areas of atelectasis about the lung lee. Definitive infiltrate is not suggested. Heart size, mediastinum, and vasculature generally stable given differences in technique. IMPRESSION: 1. Scattered patchy areas of likely infiltrate or atelectasis at the lung bases, may be slightly accentuated by limited depth of inspiration. 2. Cardiac enlargement without evidence for overt failure. Dictated by: Dictated on workstation # [id number]
[2018-12-16 11:32] LABS: BILIRUBIN,URINE NEGATIVE (NEGATIVE); CLARITY,URINE CLEAR; COLOR,URINE YELLOW; GLUCOSE, URINE (UA) NEGATIVE (NEGATIVE); KETONES,URINE NEGATIVE (NEGATIVE); LEUKOCYTE ESTERASE ,URINE 1+ (NEGATIVE); NITRITE,URINE NEGATIVE (NEGATIVE); PH,URINE 8 (5-9); PROTEIN,URINE NEGATIVE (NEGATIVE); UROBILINOGEN,URINE NORMAL (NORMAL)
[2018-12-16 11:57] LABS: WBC,URINE RARE /HPF
[2018-12-16 11:58] LABS: BACTERIA,URINE TRACE /HPF
[2018-12-16] MEDS ORDERED: KETOROLAC 30 MG/ML VIAL IVP ONE (12:00)
[2018-12-16] MEDS ORDERED: IOHEXOL 350 MG/ML 100 ML (OMNIPAQUE 350) VIAL IV ONE (13:00)
[2018-12-16] MEDS ORDERED: HOLD METFORMIN - RECEIVED CONTRAST 20 ML VIAL IV SCH (13:00)
[2018-12-16] MEDS ORDERED: CATHETER FLUSH 10 ML SYR IV PRN (13:00)
--- NOTE | 2018-12-16 13:29 | Diagnostic Imaging Report ---
PROCEDURE: CT abdomen and pelvis with contrast. TECHNIQUE: Multiple contiguous axial images were obtained through the abdomen and pelvis after administration of intravenous contrast. Auto Exposure Controls were utilized during the CT exam to meet ALARA standards for radiation dose reduction. INDICATION: Mid to left upper quadrant area of abdominal pain. Abdominal distention. CORRELATION STUDY: CT abdomen and pelvis 12/08/2018. FINDINGS: There is presence of small pleural effusions appearing slightly increased from prior study. Moderate-sized esophageal hernia is present. There is presence of a moderate amount of pneumobilia. This is likely increased from prior study. Common bile duct is dilated. There is question of some filling defect in the low common bile duct. Definitive calcified stone, however, is not demonstrated. The pancreas is atrophic. Spleen with calcified granulomas. Adrenal glands unremarkable. Dense aortoiliac wall calcification, nonaneurysmal. Kidneys normal enhancement. No hydronephrosis or obstruction. Gastrointestinal tract demonstrate mild severity fecal retention. Colonic diverticulosis without evidence of acute diverticulitis. Normal appendix is present. No small bowel obstruction. Stomach is decompressed. No abdominal ascites or free air. Left hemipelvis largely obscured by extensive metallic artifact from left hip arthroplasty. The urinary bladder is distended. Small amount of gas noted non-dependently. Posterior fusion hardware L4 to S1. Partial visualization of an acute compression deformity T9 level again demonstrated. Unchanged slight loss of height at the L3 level. IMPRESSION: 1. Presence of a extrahepatic and intrahepatic bile duct dilatation with presence of pneumobilia. The amount of pneumobilia appears slightly increased. Possibly filling defect debris or mass at the common bile duct is not completely excluded. Correlation with laboratory evaluation recommended. Further imaging is assessment desired, MRCP would be recommended. 2. Nonobstructive appearing bowel gas pattern. 3. Again demonstrated is an acute to subacute appearing T9 compression fracture. Soft tissue component is noted in this area, possibly of underlying inflammatory/infectious process would be difficult to exclude. Clinical correlation is recommended. 4. Small pleural effusions are slightly more prominent from prior study. Dictated by: Dictated on workstation # [id number]
--- NOTE | 2018-12-16 14:30 | NUR ---
TRIED TO CALL AND GIVE REPORT TO NURSE AT [facility] NO ANSWER
[2018-12-16] MEDS ORDERED: POLY17PO6 PO (14:32)
[2018-12-16] MEDS ORDERED: NA P133E22 RC (14:32)
== END 2018-12-16 14:45 | disposition home or self-care (01) ==
LOC: EDUNIT# 09:50 → ER 09:51
DX: K59.00 Constipation, unspecified (principal); K83.8 Other specified diseases of biliary tract; K21.9 Gastro-esophageal reflux disease without esophagitis; E78.00 Pure hypercholesterolemia, unspecified; I10 Essential (primary) hypertension; F03.90 Unspecified dementia, unspecified severity, without behavioral disturbance, psychotic disturbance, mood disturbance, and anxiety; Z87.448 Personal history of other diseases of urinary system; Z86.73 Personal history of transient ischemic attack (TIA), and cerebral infarction without residual deficits; Z88.1 Allergy status to other antibiotic agents; Z79.82 Long term (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 aspirin; Z87.01 Personal history of pneumonia (recurrent); Z79.02 Long term (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 antithrombotics/antiplatelets; Z98.890 Other specified postprocedural states
CPT/HCPCS: 36415; 71045; 74018; 74177; 80053; 81000; 83690; 83735; 85025; 96361; 96374

== ENCOUNTER 2019-03-23 18:26 | Emergency (ER) | payer MEDICARE ==
[~2019-03-23] VITALS: Ht 149.9 cm; Wt 72.6 kg
[~2019-03-23 18:26] MED LIST changes: +NA P133E22 RC; +POLY17PO6 PO
--- NOTE | 2019-03-23 18:34 | NUR ---
PT HERE BY W/C WITH CARE CENTER STAFF X 1. I TOOK CALL FROM [facility]. UNK TETANUS. PT FELL AGAINST WALL AND PT HEARING AID CUT PT RIGHT EAR. PT ALERT GCS 15. PT MIGHT BE GCS 14 NEG 1 FOR CONFUSION THOUGH PT IS QUITE KLETSEL DEHE [place]. EVEN WITH 1 HEARING AID IN. PT HAS SMALL NONBLEEDING FULL THICKNESS LACERATION RIGHT OUTER EAR. NO OBVIOUS INJURY TO BACK, CHEST, OR ABD ON MY EXAM. PT HAS BRUISES ON BOTH ARMS. LAC. HAPPENED 1515 TODAY. PT DOES NOT AMBULATE BUT CAN BEAR WEIGHT PER CARE CENTER STAFF..
--- NOTE | 2019-03-23 18:44 | ED Fall/Injury ---
General Stated Complaint: LACERATION Source: patient, caregiver Exam Limitations: no limitations History of Present Illness Date Seen by Provider: Mar 23, 2019 Time Seen by Provider: 18:29 Initial Comments Patient presents to ER by private conveyance from the [facility] caregiver and chief complaint that she was dozing off and thought she saw a snake in her wheelchair with her so she jumped up out of the wheelchair fell down and clipped her right ear causing a cut against a table. She denies loss of consciousness. It was witnessed by staff. She said she's had falls in the past in December or November resulting in vertebral fractures and had some falls last night that were not reported that made her hold back pain in her lumbar spine hurt worse. Allergies and Home Medications Allergies Coded Allergies: gatifloxacin (Verified Allergy, Unknown, Tongue Turns Red and Swells, 11/19/18) Home Medications Albuterol Sulfate 6.7 Gm Hfa.aer.ad, 2 PUFF INH Q4H, (Reported) Amlodipine Besylate 10 Mg Tablet, 10 MG PO DAILY Prescribed by: RHONA PRESCOTT on 12/14/18 0845 Amoxicillin/Potassium Clav 1 Each Tablet, 1 EACH PO BID Prescribed by: RHONA PRESCOTT on 12/14/18 1004 Aspirin 81 Mg Tab.chew, 81 MG PO DAILY, (Reported) Atorvastatin Calcium 40 Mg Tablet, 40 MG PO HS, (Reported) Budesonide/Formoterol Fumarate 10.2 Gm Hfa.aer.ad, 2 PUFF IH BID, (Reported) Calcium Carbonate 600 Mg Tablet, 600 MG PO DAILY, (Reported) Clopidogrel Bisulfate 75 Mg Tablet, 75 MG PO DAILY, (Reported) Cyanocobalamin (Vitamin B-12) 1,000 Mcg Tablet, 1,000 MCG PO DAILY, (Reported) Escitalopram Oxalate 10 Mg Tablet, 10 MG PO HS, (Reported) Ferrous Sulfate 325 Mg Tablet, 650 MG PO Q48H, (Reported) TAKES 2 (325MG) TABLETS Gabapentin 300 Mg Capsule, 300 MG PO TID, (Reported) L.acidoph & Paracasei,B.lactis 1 Each Capsule, 1 CAP PO TID, (Reported) START DATE 12-06-18 END DATE 12-16-18 Levothyroxine Sodium 25 Mcg Tablet, 25 MCG PO 0600, (Reported) Lisinopril 20 Mg Tablet, 20 MG PO DAILY@0900 hold if sbp is less than 110 Prescribed by: RHONA PRESCOTT on 12/14/18 0845 Melatonin 3 Mg Tablet, 3 MG PO HS PRN for SLEEP, (Reported) Metoprolol Succinate 100 Mg Tab.er.24h, 100 MG PO DAILY, (Reported) HOLD FOR SBP <100 OR PULSE <60 Multivitamin 1 Each Tablet, 2 TAB PO DAILY, (Reported) Na Phos,M-B/Na Phos,Di-Ba 133 Ml Enema, 133 ML RC BID Prescribed by: KRISSY CAT on 12/16/18 1432 [place] 3 Polyunsat Fatty Acids 1,000 Mg Cap, 1,000 MG PO DAILY, (Reported) Omeprazole 10 Mg Capsule.dr, 10 MG PO DAILY, (Reported) Polyethylene Glycol 3350 17 Gm Powd.pack, 17 GM PO BID hold for loose stools Prescribed by: RHONA PRESCOTT on 12/14/18 0845 Polyethylene Glycol 3350 17 Gm Powd.pack, 17 GM PO QID Prescribed by: KRISSY CAT on 12/16/18 1432 Tamsulosin HCl 0.4 Mg Cap, 0.4 MG PO DAILY@1800 Prescribed by: RHONA PRESCOTT on 12/14/18 0845 Tramadol HCl 50 Mg Tablet, 50 MG PO Q12H PRN for PAIN-MODERATE, (Reported) Patient Home Medication List Home Medication List Reviewed: Yes Review of Systems Review of Systems Constitutional: No chills, No fever Eyes: Denies Blindness, Denies Blurred Vision Ears, Nose, Mouth, Throat: denies ear pain, denies nose pain Respiratory: No cough, No short of breath Cardiovascular: No chest pain, No edema Gastrointestinal: No abdominal pain, No nausea, No vomiting Genitourinary: No discharge, No dysuria Past Zfgtjzj-Kudtww-Zqvlvx Hx Patient Social History Alcohol Use: Denies Use Recreational Drug Use: No Smoking Status: Never a Smoker 2nd Hand Smoke Exposure: No Recent Foreign Travel: No Contact w/Someone Who Travel: No Recent Hopitalizations: No Immunizations Up To Date Tetanus Booster (TDap): Unknown Date of Pneumonia Vaccine: Jul 26, 2016 Date of Influenza Vaccine: Jul 18, 2018 Seasonal Allergies Seasonal Allergies: No Past Medical History Surgeries: Yes Cardiac, Gallbladder, Orthopedic Respiratory: No Cardiac: Yes High Cholesterol, Hypertension Neurological: Yes Dementia, Neuropathy, Stroke Reproductive Disorders: No Genitourinary: No Bladder Infection Gastrointestinal: No Musculoskeletal: Yes Arthritis, Fractures Endocrine: No HEENT: No Cancer: No Psychosocial: No Sleep Difficulties Integumentary: No Blood Disorders: No Physical Exam Vital Signs Vital Signs - First Documented 03/23/19 18:34 Temp 97.4 Pulse 60 Resp 20 B/P (MAP) 159/81 (107) Pulse Ox 95 O2 Delivery Room Air Capillary Refill : Height, Weight, BMI Height: 4'11.00" Weight: 142lbs. 0.0oz. 64.364627tc; 28.7 BMI Method:Estimated General Appearance: WD/WN, no apparent distress HEENT: PERRL/EOMI, TMs normal, pharynx normal, other (right ear tragus has a superficial skin tear approximately 1-1/2 cm curvilinear) Neck: non-tender, full range of motion, supple, normal inspection Cardiovascular: normal peripheral pulses, regular rate, rhythm Respiratory: chest non-tender, lungs clear, normal breath sounds, no respiratory distress, no accessory muscle use Gastrointestinal: normal bowel sounds, soft Back: normal inspection, vertebral tenderness (lumbar spine) Extremities: normal range of motion, non-tender, normal inspection, no pedal edema, normal capillary refill 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 The wound was a laceration/flap through the tragus of the right ear with about 7 mm of skin holding the tragus on. 6 simple interrupted sutures using 5-0 nylon reattach the tragus. Wound was hemostatic and the patient tolerated the procedure well. Progress/Results/Core Measures Results/Orders My Orders Orders - KRISSY CAT Ct Head/Cervical Spine Wo (03/23/19 18:37) Lidocaine 1% Inj 20 Ml (Xylocaine 1% Inj (03/23/19 18:45) Dipht,Pertuss(Acell),Tet Adult (Boostrix (03/23/19 18:45) Lumbar Spine - 2-3 Views (03/23/19 18:45) Medications Given in ED Current Medications Medications Dose Ordered Sig/Linda Route Start Time Stop Time Status Last Admin Dose Admin Diphtheria/ Tetanus/Acell Pertussis 0.5 ml ONCE ONCE IM 03/23/19 18:45 03/23/19 18:47 DC 03/23/19 19:05 0.5 ML Lidocaine HCl 20 ml ONCE ONCE INJ 03/23/19 18:45 03/23/19 18:46 DC 03/23/19 19:15 20 ML Vital Signs/I&O 03/23/19 18:34 Temp 97.4 Pulse 60 Resp 20 B/P (MAP) 159/81 (107) Pulse Ox 95 O2 Delivery Room Air Progress Progress Note : Time: 18:44 Progress Note TDAP, lidocaine and cleaned and sore. Her. CT of her head and neck; plain film of her lumbar spine. Diagnostic Imaging Diagonstic Imaging: Xray Plain Films/CT/US/NM/MRI: other (lumbar spine) Comments NAME: KELSI ANGELO J [facility] REC#: [id number] PT STATUS: REG ER : 1930 PHYSICIAN: KRISSY CAT MD ADMIT DATE: 03/23/19/ER Draft Date of Exam:03/23/19 LUMBAR SPINE - 2-3 VIEWS INDICATION: Fell, lower back pain, history of back surgery. COMPARISON STUDY: CT lumbar spine from 11/11/2018. FINDINGS: Frontal and lateral views of the lumbar spine demonstrate previous bi-pedicular fusion of L4-S1 with decompressive laminectomy. No hardware fractures are present. Severe osteopenia of the L4 and L5 vertebral bodies are again identified making these difficult to visualize on the plain film images. These were severely osteoporotic on the previous CT scan. Compression fracture of the L3 vertebral body is stable. Bridging osteophytes are seen throughout the spine. IMPRESSION: Stable lumbar spine. Dictated on workstation # [id number] Dict: 03/23/191941 Trans: 03/23/191949 JINA [id number] Interpreted by: LUCIA HAGAN MD Electronically signed by: Reviewed: Reviewed by Me Diagonstic Imaging: CT (no IV contrast) Plain Films/CT/US/NM/MRI: c-spine, head Comments NAME: KELSI ANGELO [facility] REC#: [id number] PT STATUS: REG ER : 1930 PHYSICIAN: KRISSY CAT MD ADMIT DATE: 03/23/19/ER Draft Date of Exam:03/23/19 CT HEAD/CERVICAL SPINE WO INDICATION: Fell, blood from right ear. COMPARISON STUDY: CT head and cervical spine from 12/06/2018. FINDINGS: CT head: Noncontrast CT scanning of the head demonstrates stable atrophy and white matter changes. Vascular calcifications are again identified. There is no mass effect, midline shift, hemorrhage or extra-axial fluid collections. 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 No fluid is seen in the mastoid air cells or visualized portions of the paranasal sinuses. On this exam, no blood or debris is seen within the external auditory canal. No fractures are present. 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 No fractures or hemorrhage are evident around the right mastoid. CT cervical spine: Noncontrast CT scanning of the cervical spine demonstrates no fracture or subluxation. Degenerative changes appear stable. There is some calcification of the carotid bifurcations. Calcification nodules in both lobes of the thyroid gland appear stable. IMPRESSION: Stable cervical spine. Dictated on workstation # [id number] Dict: 03/23/191955 Trans: 03/23/192007 [facility] [id number] Interpreted by: LUCIA HAGAN MD Electronically signed by: Reviewed: Reviewed by Me Departure Impression Primary Impression: Fall Qualified Codes: W19.XXXA - Unspecified fall, initial encounter Additional Impression: Laceration of ear region Qualified Codes: S01.311A - Laceration without foreign body of right ear, in itial encounter Disposition: 01 HOME, SELF-CARE Condition: Improved Departure-Patient Inst. Decision time for Depature: 20:35 Referrals: RHONA PRESCOTT MD (PCP/Family) Primary Care Physician Patient Instructions: Laceration Repair With Stitches (DC) Add. Discharge Instructions: Have the sutures removed in 10-14 days. If any signs of infection such as black discoloration, purulence or fever occur have her follow-up with a physician. Take the Keflex one capsule twice a day for the next 3 days to prevent infection. Scripts Cephalexin (Cephalexin) 500 Mg Tablet 500 MG PO BID for 3 Days, #6 TAB 0 Refills Prov: KRISSY CAT 03/23/19 KRISSY CAT Mar 23, 2019 18:43
[2019-03-23] MEDS ORDERED: LIDOCAINE 1% INJ 20 ML 20 ML VIAL INJ ONE (18:45)
[2019-03-23] MEDS ORDERED: TETANUS,DIPTH,PERTUSS P/F (BOOSTRIX) 0.5 ML VIAL IM ONE (18:45)
--- NOTE | 2019-03-23 19:00 | NUR ---
PT WAS INC OF STOOL UPON ARRIVAL. [facility] STAFF AND I CLEANED PT UP THIS CHARTED TIME. [facility] STAFF STAYING TO TAKE PT BACK TO [facility] UPON D/C PER [facility] STAFF HERE X 1.
--- NOTE | 2019-03-23 19:33 | NUR ---
LIDO IN ROOM FOR DR FOR SUTURES EARLIER. BY ME
--- OUTSIDE RECORDS SUMMARY | 2019-03-23 19:45 | XMS REPORT | CCD ---
Author Author [facility] Address [address] [place] [address] Phone Care Team Providers Care Sales Representative Jewelry Name Role Phone PP Unavailable CCM Unavailable Summary Purpose Interface Exchange Insurance Providers Payer name Policy type / Coverage type Covered alliance party ID Effective Begin Date Effective End Date [employer] CLAIMS Commercial Insurance [id number] Unknown Family History Family History data not found Social History Social History Element Codes Description Effective Dates Marital status Unknown [place] 12/08/2017 Number of children Unknown 2 12/08/2017 Employment Unknown Retired 12/08/[address]: 837395245 Never smoker 12/08/[address]: 019601065 Never drinks alcohol 12/08/2017 Allergies, Adverse Reactions, Alerts Substance Reaction Codes Entered Date Inactivated Date Status * NO KNOWN DRUG ALLERGIES Unknown 01/03/2018 No Inactive Date Active Past Medical History Illness Codes Condition Status Onset Date Resolved Date Essential (primary) hypertension ICD-9: 401.1 ICD-10: I10 Active 12/08/2017 Unknown Gastro-esophageal reflux disease without esophagitis ICD-9: 530.81 ICD-10: K21.9 Active 02/27/2019 Unknown Localized edema ICD-9: 782.3 ICD-10: R60.0 Active 02/27/2019 Unknown Unsteadiness on feet ICD- 9: 781.2 ICD-10: R26.81 Active 01/08/2019 Unknown Wedge compression fracture of T9-T10 vertebra, subsequent encounter for fracture with delayed healing ICD-9: V54.17 ICD-10: S22.070G Active 01/08/2019 Unknown Diarrhea, unspecified ICD- 9: 787.91 ICD-10: R19.7 Active 12/17/2018 Unknown Other specified intestinal infections ICD-9: 009.0 ICD-10: A08.8 Active 12/17/2018 Unknown Slow transit constipation ICD-9: 564.01 ICD-10: K59.01 Active 11/27/2018 Unknown Encounter for follow-up examination after completed treatment for conditions other than malignant neoplasm ICD-9: V67.59 ICD-10: Z09 Active 11/27/2018 Unknown Influenza due to identified novel influenza A virus with other manifestations ICD-9: 488.09 ICD-10: J09.X9 Active 11/27/2018 Unknown Low back pain ICD-9: 724.2 ICD-10: M54.5 Active 11/27/2018 Unknown Dizziness and giddiness ICD-9: 780.4 ICD-10: R42 Active 11/07/2018 Unknown Dysuria ICD-9: 788.1 ICD-10: R30.0 Active 11/07/2018 Unknown Atrophy of thyroid (acquired) ICD-9: 244.8 ICD-10: E03.4 Active 01/03/2018 Unknown Chronic kidney disease, stage 3 (moderate) ICD-9: 585.3 ICD-10: N18.3 Active 12/08/2017 Unknown Type 2 diabetes mellitus without complications ICD-9: 250.00 ICD-10: E11.9 Active 12/08/2017 Unknown Encounter for immunization ICD-9: V04.81 ICD-10: Z23 Active 07/18/2018 Unknown Urgency of urination ICD- 9: 788.63 ICD-10: R39.15 Active 03/19/2018 Unknown Orthostatic hypotension ICD-9: 458.0 ICD-10: I95.1 Active 02/08/2018 Unknown Urinary tract infection, site not specified ICD-9: 599.0 ICD-10: N39.0 Active 02/08/2018 Unknown Diabetes Unknown Active 12/08/2017 Unknown Hypothryroidism Unknown Active 12/08/2017 Unknown Hypothyroidism, unspecified ICD-9: 244.9 ICD-10: E03.9 Active 12/08/2017 Unknown senior care (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 anticoagulants ICD-9: V58.61 ICD-10: Z79.01 Active 12/08/2017 Unknown Problems Condition Codes Effective Dates Condition Status Essential (primary) hypertension ICD-9: 401.1 ICD-10: I10 12/08/2017 Active Gastro-esophageal reflux disease without esophagitis ICD-9: 530.81 ICD-10: K21.9 02/27/2019 Active Localized edema ICD-9: 782.3 ICD-10: R60.0 02/27/2019 Active Unsteadiness on feet ICD- 9: 781.2 ICD-10: R26.81 01/08/2019 Active Wedge compression fracture of T9-T10 vertebra, subsequent encounter for fracture with delayed healing ICD-9: V54.17 ICD-10: S22.070G 01/08/2019 Active Diarrhea, unspecified ICD- 9: 787.91 ICD-10: R19.7 12/17/2018 Active Other specified intestinal infections ICD-9: 009.0 ICD-10: A08.8 12/17/2018 Active Slow transit constipation ICD-9: 564.01 ICD-10: K59.01 11/27/2018 Active Encounter for follow-up examination after completed treatment for conditions other than malignant neoplasm ICD-9: V67.59 ICD-10: Z09 11/27/2018 Active Influenza due to identified novel influenza A virus with other manifestations ICD-9: 488.09 ICD-10: J09.X9 11/27/2018 Active Low back pain ICD-9: 724.2 ICD-10: M54.5 11/27/2018 Active Dizziness and giddiness ICD-9: 780.4 ICD-10: R42 11/07/2018 Active Dysuria ICD-9: 788.1 ICD-10: R30.0 11/07/2018 Active Atrophy of thyroid (acquired) ICD-9: 244.8 ICD-10: E03.4 01/03/2018 Active Chronic kidney disease, stage 3 (moderate) ICD-9: 585.3 ICD-10: N18.3 12/08/2017 Active Type 2 diabetes mellitus without complications ICD-9: 250.00 ICD-10: E11.9 12/08/2017 Active Encounter for immunization ICD-9: V04.81 ICD-10: Z23 07/18/2018 Active Urgency of urination ICD- 9: 788.63 ICD-10: R39.15 03/19/2018 Active Orthostatic hypotension ICD-9: 458.0 ICD-10: I95.1 02/08/2018 Active Urinary tract infection, site not specified ICD-9: 599.0 ICD-10: N39.0 02/08/2018 Active Diabetes Unknown 12/08/2017 Active Hypothryroidism Unknown 12/08/2017 Active Hypothyroidism, unspecified ICD-9: 244.9 ICD-10: E03.9 12/08/2017 Active 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 ICD-9: V58.61 ICD-10: Z79.01 12/08/2017 Active Medications Medication Codes Instructions Start Date Stop Date Status Fill Instructions Lasix 20 mg tablet RxNorm: 374050 1 Tablet(s) PO daily as needed 02/28/2019 No Stop Date Active Protonix 40 mg tablet,delayed release RxNorm: 234665 1 Tablet(s) PO daily 02/28/2019 No Stop Date Active Tylenol 500 mg RxNorm: 1 PO BID 01/30/2019 No Stop Date Active gabapentin 300 mg capsule RxNorm: 416348 1 Capsule(s) PO QID 12/19/2018 12/13/2019 Active tramadol 50 mg tablet RxNorm: 100781 1 Tablet(s) PO Q12H as needed 12/07/2018 02/04/2019 Inactive tramadol 50 mg tablet RxNorm: 983675 1/2-1 Tablet(s) PO BID as needed 11/23/2018 12/06/2018 Inactive clopidogrel 75 mg tablet RxNorm: 193687 1 Tablet(s) PO daily 11/07/2018 11/01/2019 Active Keflex 500 mg capsule RxNorm: 346026 1 Capsule(s) PO TID 11/07/2018 11/13/2018 Inactive clopidogrel 75 mg tablet RxNorm: 707381 1 Tablet(s) PO daily 10/30/2018 11/06/2018 Inactive clopidogrel 75 mg tablet RxNorm: 709695 1 Tablet(s) PO daily 10/26/2018 10/29/2018 Inactive omeprazole 10 mg capsule,delayed release RxNorm: 092150 1 Capsule(s) PO daily 10/05/2018 02/18/2019 Inactive escitalopram 10 mg tablet RxNorm: 988512 TAKE 1 TABLET BY MOUTH ONCE DAILY IN THE EVENING 09/06/2018 No Stop Date Active omeprazole 10 mg capsule,delayed release RxNorm: 066767 1 Capsule(s) PO daily 09/06/2018 10/04/2018 Inactive cyanocobalamin (vit B-12) 1,000 mcg tablet RxNorm: 305831 1 Tablet(s) PO daily 08/08/2018 10/31/2019 Active cyanocobalamin (vit B-12) 1,000 mcg tablet RxNorm: 619554 1 Tablet(s) PO daily 08/08/2018 08/07/2018 Inactive levofloxacin 250 mg tablet RxNorm: 909882 1 Tablet(s) PO daily 06/04/2018 06/08/2018 Inactive levofloxacin 250 mg tablet RxNorm: 375470 1 Tablet(s) PO daily 06/04/2018 06/03/2018 Inactive Toprol XL 100 mg tablet,extended release RxNorm: 400524 1 Tablet(s) PO daily 05/08/2018 05/02/2019 Active lisinopril 10 mg tablet RxNorm: 019386 1 Tablet(s) PO daily 05/08/2018 01/29/2019 Inactive atorvastatin 40 mg tablet RxNorm: 052107 1 Tablet(s) PO QHS 05/04/2018 No Stop Date Active levothyroxine 25 mcg tablet RxNorm: 256219 1 Tablet(s) PO daily 05/04/2018 04/28/2019 Active gabapentin 300 mg capsule RxNorm: 375514 1 Capsule(s) PO TID 05/04/2018 12/18/2018 Inactive Toprol XL 100 mg tablet,extended release RxNorm: 752758 1 Tablet(s) PO daily 05/04/2018 05/07/2018 Inactive lisinopril 10 mg tablet RxNorm: 267974 1 Tablet(s) PO daily 05/04/2018 05/07/2018 Inactive amlodipine 5 mg tablet RxNorm: 781772 1 Tablet(s) PO daily 04/06/2018 01/29/2019 Inactive amlodipine 5 mg tablet RxNorm: 394003 1 Tablet(s) PO daily 03/28/2018 04/05/2018 Inactive tolterodine 2 mg tablet RxNorm: 759820 1 Tablet(s) PO QPM 03/19/2018 09/24/2018 Inactive nystatin 100,000 unit/gram topical cream RxNorm: 928949 1 Gram(s) TOP TID until healed et then PRN 01/09/2018 No Stop Date Active D/c powder escitalopram 10 mg tablet RxNorm: 678414 1 Tablet(s) PO QPM 01/03/2018 07/31/2018 Inactive nystatin (bulk) 100 million unit powder RxNorm: 1 Miscellaneous QID 12/25/2017 01/08/2018 Inactive warfarin 2 mg tablet RxNorm: 528520 1 Tablet(s) PO daily 12/25/2017 01/02/2018 Inactive nystatin (bulk) 100 million unit powder RxNorm: 1 Miscellaneous QID 12/25/2017 12/24/2017 Inactive sitagliptin 50 mg tablet RxNorm: 410371 1 Tablet(s) PO daily 12/19/2017 02/07/2018 Inactive tolterodine 1 mg tablet RxNorm: 018728 1 Tablet(s) PO BID 12/19/2017 03/18/2018 Inactive warfarin 3 mg tablet RxNorm: 214195 1 Tablet(s) PO UD MWF, 2mg //Sat/Sun 12/15/2017 01/02/2018 Inactive ciprofloxacin 250 mg tablet RxNorm: 649354 1 Tablet(s) PO BID 12/05/2017 12/09/2017 Inactive ibuprofen 400 mg tablet RxNorm: 219169 1 Tablet(s) PO BID 1000 1800 No Start Date Active ferrous sulfate 325 mg (65 mg iron) tablet RxNorm: 073814 2 Tablet(s) PO every other day No Start Date Active multivitamin oral RxNorm: 71933 oral No Start Date Active melatonin 3 mg tablet RxNorm: 476987 1 Tablet(s) PO QHS as needed No Start Date Active tamsulosin 0.4 mg capsule RxNorm: 391356 1 Capsule(s) PO daily No Start Date Active amlodipine 10 mg tablet RxNorm: 245641 1 Tablet(s) PO daily No Start Date Active lisinopril 20 mg tablet RxNorm: 981587 1 Tablet(s) PO daily No Start Date Active Calcium 600 + D(3) 600 mg (1,500 mg)-200 unit tablet RxNorm: 452160 1 Tablet(s) PO daily No Start Date Active Fish Oil 1,000 mg capsule RxNorm: 1 Capsule(s) PO daily No Start Date Active cyanocobalamin (vit B-12) 1,000 mcg tablet RxNorm: 216688 1 Tablet(s) PO daily No Start Date Active Milk of Magnesia 400 mg/5 mL oral suspension RxNorm: 223779 15 Milliliter(s) PO daily as needed No Start Date Active aspirin 81 mg tablet RxNorm: 228723 1 Tablet(s) PO daily No Start Date Active Senna-S 8.6 mg-50 mg tablet RxNorm: 811515 1 Tablet(s) PO BID No Start Date Active polyethylene glycol 3350 17 gram oral powder packet RxNorm: 099706 1 packet PO BID No Start Date Active Symbicort 80 mcg-4.5 mcg/actuation HFA aerosol inhaler RxNorm: 0071355 2 Puff(s) INH BID No Start Date Active lisinopril 10 mg tablet RxNorm: 388918 1 Tablet(s) PO daily No Start Date 05/03/2018 Inactive levothyroxine 25 mcg tablet RxNorm: 712142 1 Tablet(s) PO daily No Start Date 05/03/2018 Inactive warfarin 2 mg tablet RxNorm: 041491 1 Tablet(s) PO daily No Start Date 12/24/2017 Inactive Xanax 0.25 mg tablet RxNorm: 439437 1 Tablet(s) PO daily as needed No Start Date 01/29/2019 Inactive tolterodine 1 mg tablet RxNorm: 385631 1 Tablet(s) PO BID No Start Date 12/18/2017 Inactive Restasis MultiDose 0.05 % eye drops RxNorm: 543277 1 Drop(s) both ophthalmic (eye) BID No Start Date 01/29/2019 Inactive nystatin 100,000 unit/gram topical cream RxNorm: 762467 1 Gram(s) TOP TID until healed et then PRN No Start Date 01/08/2018 Inactive omeprazole 10 mg capsule,delayed release RxNorm: 684371 1 Capsule(s) PO daily No Start Date 09/05/2018 Inactive Toprol XL 100 mg tablet,extended release RxNorm: 944605 1 Tablet(s) PO daily No Start Date 05/03/2018 Inactive Tylenol 500 mg RxNorm: 1 PO TID 0700 1400 2200 No Start Date 01/29/2019 Inactive gabapentin 300 mg capsule RxNorm: 502481 1 Capsule(s) PO TID No Start Date 05/03/2018 Inactive atorvastatin 40 mg tablet RxNorm: 772546 1 Tablet(s) PO QHS No Start Date 05/03/2018 Inactive hydrocodone 5 mg-acetaminophen 325 mg tablet RxNorm: 091934 1 Tablet(s) PO Q6 as needed No Start Date 01/29/2019 Inactive clopidogrel 75 mg tablet RxNorm: 326457 1 Tablet(s) PO daily No Start Date 10/25/2018 Inactive Oyster Calcium 375 mg-200 unit-800 unit tablet RxNorm: 2 Tablet(s) PO daily No Start Date 12/21/2018 Inactive amlodipine 5 mg tablet RxNorm: 877175 1 Tablet(s) PO daily No Start Date 03/27/2018 Inactive sitagliptin 50 mg tablet RxNorm: 125504 1 Tablet(s) PO daily No Start Date 12/18/2017 Inactive Medication Administered No Medication Administered data Immunizations Vaccine Codes Date Status Influenza CVX: 141 07/18/2018 completed Assessments Condition Codes Effective Dates Gastro-esophageal reflux disease without esophagitis ICD-10: K21.9 ICD-9: 530.81 02/27/2019 Essential (primary) hypertension ICD-10: I10 ICD-9: 401.1 02/27/2019 Localized edema ICD-10: R60.0 ICD-9: 782.3 02/27/2019 Wedge compression fracture of T9-T10 vertebra, subsequent encounter for fracture with delayed healing ICD-10: S22.070G ICD-9: V54.17 01/30/2019 Unsteadiness on feet ICD-10: R26.81 ICD-9: 781.2 01/30/2019 Slow transit constipation ICD-10: K59.01 ICD-9: 564.01 12/17/2018 Low back pain ICD-10: M54.5 ICD-9: 724.2 11/27/2018 Influenza due to identified novel influenza A virus with other manifestations ICD-10: J09.X9 ICD-9: 488.09 11/27/2018 Encounter for follow-up examination after completed treatment for conditions other than malignant neoplasm ICD-10: Z09 ICD-9: V67.59 11/27/2018 Dysuria ICD-10: R30.0 ICD-9: 788.1 11/07/2018 Dizziness and giddiness ICD-10: R42 ICD-9: 780.4 11/07/2018 Type 2 diabetes mellitus without complications ICD-10: E11.9 ICD-9: 250.00 09/25/2018 Atrophy of thyroid (acquired) ICD-10: E03.4 ICD-9: 244.8 09/25/2018 Chronic kidney disease, stage 3 (moderate) ICD-10: N18.3 ICD-9: 585.3 09/25/2018 Encounter for immunization ICD-10: Z23 ICD-9: V04.81 07/18/2018 Urgency of urination ICD-10: R39.15 ICD-9: 788.63 03/19/2018 Orthostatic hypotension ICD-10: I95.1 ICD-9: 458.0 02/08/2018 Urinary tract infection, site not specified ICD-10: N39.0 ICD-9: 599.0 02/08/2018 senior care (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 anticoagulants ICD-10: Z79.01 ICD-9: V58.61 12/08/2017 Other specified hypothyroidism ICD-10: E03.8 ICD-9: 244.8 12/08/2017 Reason For Visit Reason For Visit Effective Dates Notes hypertension 02/27/2019 hypertension 01/30/2019 back pain 01/08/2019 constipation 12/17/2018 Hospital Follow Up 11/27/2018 syncope 11/07/2018 hypertension 09/25/2018 vaccination against influenza 07/18/2018 hypertension 03/19/2018 Hospital Follow Up 02/08/2018 hypertension 01/03/2018 Hospital Follow Up 12/08/2017 Results Observation Observation Code Item Item Code Result Date Urine Culture Ucult Complete >100,000 col/ml aerobic growth sent to ref lab 12/28/2018 Urinalysis Ord28 U-Color Yellow 12/27/2018 Urinalysis Ord28 U-Clarity Cloudy 12/27/2018 Urinalysis Ord28 U-Gluc Negative 12/27/2018 Urinalysis Ord28 U-Bili Negative 12/27/2018 Urinalysis Ord28 U-Ketone Negative 12/27/2018 Urinalysis Ord28 U-SG 1.010 12/27/2018 Urinalysis Ord28 U-Blood Trace-lysed 12/27/2018 Urinalysis Ord28 U-pH 6.0 12/27/2018 Urinalysis Ord28 U-Protein Negative 12/27/2018 Urinalysis Ord28 U-Urobilin 0.2 E.U./dL E.U./dL 12/27/2018 Urinalysis Ord28 U-Nitrites Negative 12/27/2018 Urinalysis Ord28 U-Leuk Moderate 12/27/2018 Urinalysis Ord28 U-Bact 3+ 12/27/2018 Urinalysis Ord28 U-Squamous Epi 0-5 per/HPF 12/27/2018 Urinalysis Ord28 U-Crystal None per/HPF 12/27/2018 Urinalysis Ord28 U-Mucus None 12/27/2018 Urinalysis Ord28 U-Renal tubular epi None 12/27/2018 Urinalysis Ord28 U-RBC None per/HPF 12/27/2018 Urinalysis Ord28 U-Transitional epi None per/HPF 12/27/2018 Urinalysis Ord28 U-WBC TNTC per/HPF 12/27/2018 Urinalysis Ord28 U-Cast None per/lpf 12/27/2018 Urinalysis Ord28 U-VOL VOLUME SUFFICIENT (10mL) 12/27/2018 Urinalysis Ord28 U-Com Culture to follow 12/27/2018 Urinalysis Ord28 U-Yeast NEGATIVE 12/27/2018 Cbc With Differential Ord2 WBC 9.62 K/ul [...] 28.7 pg 11/30/2018 Cbc With Differential Ord2 [place]% 8.1 % 11/30/2018 Cbc With Differential Ord2 [...] 2.13 K/ul 11/30/2018 Cbc With Differential Ord2 [place] ABS# 0.8 K/ul 11/30/2018 Cbc With Differential Ord2 Eos ABS# 0.0 K/ul 11/30/2018 Cbc With Differential Ord2 Baso ABS# 0.0 K/ul 11/30/2018 Hepatic Jis161 ALBUMIN 3.1 g/dL 11/28/2018 Hepatic Nge478 TPRO 6.0 g/dL 11/28/2018 Hepatic Fvp751 GLOB 2.9 g/dL 11/28/2018 Hepatic Xkx426 A/G Ratio 1.1 Ratio 11/28/2018 Hepatic Ifc866 ALK PHOS 102 U/L 11/28/2018 Hepatic Dvi418 ALT(SGPT) 19 U/L 11/28/2018 Hepatic Nsj880 AST(SGOT) 18 U/L 11/28/2018 Hepatic Dgw127 BILI T 0.4 mg/dL 11/28/2018 Hepatic Mii319 BILI D 0.1 mg/dL 11/28/2018 Hepatic Yho129 BILI I 0.3 mg/dL 11/28/2018 Cbc With [...] 28.6 pg 11/28/2018 Cbc With Differential Ord2 [place]% 8.9 % 11/28/2018 Cbc With Differential Ord2 [...] 2.36 K/ul 11/28/2018 Cbc With Differential Ord2 [place] ABS# 0.9 K/ul 11/28/2018 Cbc With Differential [...] 28.6 pg 09/28/2018 Cbc With Differential Ord2 [place]% 8.2 % 09/28/2018 Cbc With Differential Ord2 [...] 1.93 K/ul 09/28/2018 Cbc With Differential Ord2 [place] ABS# 0.5 K/ul 09/28/2018 Cbc With Differential Ord2 Eos ABS# 0.1 K/ul 09/28/2018 Cbc With Differential Ord2 Baso ABS# 0.0 K/ul 09/28/2018 %Hba1C Keb191 % HbA1c 43751- 6 6.6 % 09/28/2018 %Hba1C Jkn289 Gluc Ave 143 mg/dL 09/28/2018 Comp Metabolic Tnu782 NA 142 mEq/L 09/28/2018 Comp Metabolic Ybt050 K 4.2 mEq/L 09/28/2018 Comp Metabolic Ide754 CL 107 mEq/L 09/28/2018 Comp Metabolic Leb943 CO2 30.0 mEq/L 09/28/2018 Comp Metabolic Bnp699 ANION GAP 9 09/28/2018 Comp Metabolic Dzr198 GLUCOSE 117 mg/dL 09/28/2018 Comp Metabolic Ntz013 Creat 1.2 mg/dL 09/28/2018 Comp Metabolic Bml177 eGFR 47 ml/min/1.73m2 09/28/2018 Comp Metabolic Xzm541 BUN 19 mg/dL 09/28/2018 Comp Metabolic Gta861 B/C Ratio 16.5 Ratio 09/28/2018 Comp Metabolic Zzz150 CALCIUM 8.6 mg/dL 09/28/2018 Comp Metabolic Pyb442 ALK PHOS 101 U/L 09/28/2018 Comp Metabolic Arv894 AST(SGOT) 16 U/L 09/28/2018 Comp Metabolic Gph340 ALT(SGPT) 13 U/L 09/28/2018 Comp Metabolic Wkf811 BILI T 0.4 mg/dL 09/28/2018 Comp Metabolic Bcl189 ALBUMIN 3.4 g/dL 09/28/2018 Comp Metabolic Ogt870 TPRO 6.1 g/dL 09/28/2018 Comp Metabolic Xqq622 GLOB 2.7 g/dL 09/28/2018 Comp Metabolic Eas699 A/G Ratio 1.3 Ratio 09/28/2018 Comp Metabolic Fpw605 Osmo 286 mOsmo 09/28/2018 Tsh Ord6 TSH (3rd IS) 0.80 uIU/mL 09/28/2018 Lipid Ord30 CHOL 89 mg/dL 09/28/2018 Lipid Ord30 HDL 33.0 mg/dl 09/28/2018 Lipid Ord30 TRIG 78 mg/dL 09/28/2018 Lipid Ord30 LDL 40 mg/dL 09/28/2018 Lipid Ord30 C/HDL 2.7 Ratio 09/28/2018 Pt Nma1639 PT 17.8 seconds 12/15/2017 Pt Nme1249 INR 1.5 12/15/2017 Pt Xlx3806 Low Intensity - 1.5-2.0 12/15/2017 Pt Qxx1028 Mod intensity - 2.0-3.0 12/15/2017 Pt Vrh6261 Hi intensity - 3.0-4.0 12/15/2017 Urinalysis Ord28 [...] hours from collection if refrigerated) 12/12/2017 Pt Meh9766 PT 15.2 seconds 12/11/2017 Pt Gbe6254 INR 1.2 12/11/2017 Pt Dbd0410 Low Intensity - 1.5-2.0 12/11/2017 Pt Coc6246 Mod intensity - 2.0-3.0 12/11/2017 Pt Duq1248 Hi intensity - 3.0-4.0 12/11/2017 Pt Eun5961 PT 14.7 seconds 12/08/2017 Pt Ioe7712 INR 1.2 12/08/2017 Pt Lfh5594 Low Intensity - 1.5-2.0 12/08/2017 Pt Kzm1732 Mod intensity - 2.0-3.0 12/08/2017 Pt Abv4775 Hi intensity - 3.0-4.0 12/08/2017 Review of Systems System Result Effective Dates Constitutional No recent illness 02/27/2019 Constitutional No chills 02/27/2019 Constitutional No diaphoresis 02/27/2019 Constitutional No fever 02/27/2019 Eyes No eye erythema 02/27/2019 Ears/Nose/Throat/Neck dry mouth 02/27/2019 Ears/Nose/Throat/Neck No nasal allergies 02/27/2019 Ears/Nose/Throat/Neck No nasal discharge 02/27/2019 Ears/Nose/Throat/Neck No sore throat 02/27/2019 Ears/Nose/Throat/Neck No sinus congestion 02/27/2019 Cardiovascular No chest pain/pressure 02/27/2019 Cardiovascular No dyspnea 02/27/2019 Respiratory No chest congestion 02/27/2019 Respiratory No cough 02/27/2019 Gastrointestinal abdominal pain 02/27/2019 Gastrointestinal constipation 02/27/2019 Genitourinary/Nephrology nocturia 02/27/2019 Musculoskeletal back pain 02/27/2019 Dermatologic No rash 02/27/2019 Dermatologic sores 02/27/2019 Neurologic No alteration of consciousness 02/27/2019 Psychiatric anxiety 02/27/2019 Psychiatric depression 02/27/2019 Constitutional No recent illness 01/30/2019 Constitutional No chills 01/30/2019 Constitutional No diaphoresis 01/30/2019 Constitutional No fever 01/30/2019 Eyes No blindness 01/30/2019 Ears/Nose/Throat/Neck dry mouth 01/30/2019 Ears/Nose/Throat/Neck No nasal allergies 01/30/2019 Ears/Nose/Throat/Neck No nasal discharge 01/30/2019 Ears/Nose/Throat/Neck No sore throat 01/30/2019 Ears/Nose/Throat/Neck No sinus congestion 01/30/2019 Cardiovascular No chest pain/pressure 01/30/2019 Cardiovascular No dyspnea 01/30/2019 Respiratory No chest congestion 01/30/2019 Respiratory No cough 01/30/2019 Gastrointestinal abdominal pain 01/30/2019 Gastrointestinal constipation 01/30/2019 Genitourinary/Nephrology nocturia 01/30/2019 Musculoskeletal back pain 01/30/2019 Dermatologic No rash 01/30/2019 Neurologic No alteration of consciousness 01/30/2019 Psychiatric anxiety 01/30/2019 Psychiatric depression 01/30/2019 Dermatologic sores 01/30/2019 Constitutional No recent illness 01/08/2019 Constitutional No chills 01/08/2019 Constitutional No diaphoresis 01/08/2019 Constitutional No fever 01/08/2019 Eyes No blindness 01/08/2019 Ears/Nose/Throat/Neck dry mouth 01/08/2019 Ears/Nose/Throat/Neck No nasal allergies 01/08/2019 Ears/Nose/Throat/Neck No nasal discharge 01/08/2019 Ears/Nose/Throat/Neck No sore throat 01/08/2019 Ears/Nose/Throat/Neck No sinus congestion 01/08/2019 Cardiovascular No chest pain/pressure 01/08/2019 Cardiovascular No dyspnea 01/08/2019 Respiratory No chest congestion 01/08/2019 Respiratory No cough 01/08/2019 Gastrointestinal abdominal pain 01/08/2019 Gastrointestinal constipation 01/08/2019 Genitourinary/Nephrology nocturia 01/08/2019 Dermatologic No rash 01/08/2019 Neurologic No alteration of consciousness 01/08/2019 Psychiatric anxiety 01/08/2019 Psychiatric depression 01/08/2019 Musculoskeletal back pain 01/08/2019 Constitutional recent illness 12/17/2018 Constitutional No chills 12/17/2018 Constitutional No diaphoresis 12/17/2018 Constitutional No fever 12/17/2018 Eyes No eye erythema 12/17/2018 Ears/Nose/Throat/Neck No nasal discharge 12/17/2018 Cardiovascular No chest pain/pressure 12/17/2018 Cardiovascular No dyspnea 12/17/2018 Respiratory No chest congestion 12/17/2018 Respiratory No cough 12/17/2018 Gastrointestinal abdominal pain 12/17/2018 Gastrointestinal constipation 12/17/2018 Gastrointestinal No hematochezia 12/17/2018 Gastrointestinal No melena 12/17/2018 Gastrointestinal No vomiting 12/17/2018 Neurologic No alteration of consciousness 12/17/2018 Neurologic No mental status change 12/17/2018 Constitutional recent illness 11/27/2018 Constitutional No chills 11/27/2018 Constitutional No diaphoresis 11/27/2018 Constitutional No fever 11/27/2018 Eyes No blindness 11/27/2018 Ears/Nose/Throat/Neck dry mouth 11/27/2018 Ears/Nose/Throat/Neck No nasal allergies 11/27/2018 Ears/Nose/Throat/Neck No nasal discharge 11/27/2018 Ears/Nose/Throat/Neck No sore throat 11/27/2018 Ears/Nose/Throat/Neck No sinus congestion 11/27/2018 Cardiovascular No chest pain/pressure 11/27/2018 Cardiovascular No dyspnea 11/27/2018 Respiratory No chest congestion 11/27/2018 Respiratory cough 11/27/2018 Gastrointestinal No abdominal pain 11/27/2018 Gastrointestinal constipation 11/27/2018 Gastrointestinal No diarrhea 11/27/2018 Gastrointestinal No nausea 11/27/2018 Gastrointestinal No vomiting 11/27/2018 Genitourinary/Nephrology nocturia 11/27/2018 Dermatologic No rash 11/27/2018 Neurologic No alteration of consciousness 11/27/2018 Psychiatric anxiety 11/27/2018 Psychiatric depression 11/27/2018 Constitutional fatigue 11/27/2018 Musculoskeletal back pain 11/27/2018 Constitutional No recent illness 11/07/2018 Constitutional No chills 11/07/2018 Constitutional No diaphoresis 11/07/2018 Constitutional No fever 11/07/2018 Eyes No eye erythema 11/07/2018 Ears/Nose/Throat/Neck No nasal discharge 11/07/2018 Cardiovascular No chest pain/pressure 11/07/2018 Respiratory No cough 11/07/2018 Gastrointestinal No abdominal pain 11/07/2018 Genitourinary/Nephrology dysuria 11/07/2018 Genitourinary/Nephrology urinary urgency 11/07/2018 Genitourinary/Nephrology urinary frequency 11/07/2018 Neurologic No alteration of consciousness 11/07/2018 Neurologic No mental status change 11/07/2018 Neurologic syncope 11/07/2018 Constitutional No recent illness 09/25/2018 Constitutional No chills 09/25/2018 Constitutional No diaphoresis 09/25/2018 Constitutional No fever 09/25/2018 Eyes No blindness 09/25/2018 Ears/Nose/Throat/Neck No nasal allergies 09/25/2018 Ears/Nose/Throat/Neck No nasal discharge 09/25/2018 Ears/Nose/Throat/Neck No sore throat 09/25/2018 Ears/Nose/Throat/Neck No sinus congestion 09/25/2018 Cardiovascular No chest pain/pressure 09/25/2018 Cardiovascular No dyspnea 09/25/2018 Respiratory No chest congestion 09/25/2018 Respiratory No cough 09/25/2018 Gastrointestinal No abdominal pain 09/25/2018 Gastrointestinal constipation 09/25/2018 Gastrointestinal No diarrhea 09/25/2018 Gastrointestinal No nausea 09/25/2018 Gastrointestinal No vomiting 09/25/2018 Genitourinary/Nephrology nocturia 09/25/2018 Dermatologic No rash 09/25/2018 Neurologic No alteration of consciousness 09/25/2018 Psychiatric anxiety 09/25/2018 Psychiatric depression 09/25/2018 Ears/Nose/Throat/Neck dry mouth 09/25/2018 Constitutional No recent illness 03/19/2018 Constitutional No chills 03/19/2018 Constitutional No diaphoresis 03/19/2018 Constitutional No fever 03/19/2018 Eyes No blindness 03/19/2018 Ears/Nose/Throat/Neck No nasal allergies 03/19/2018 Ears/Nose/Throat/Neck No nasal discharge 03/19/2018 Ears/Nose/Throat/Neck No sore throat 03/19/2018 Ears/Nose/Throat/Neck No sinus congestion 03/19/2018 Cardiovascular No chest pain/pressure 03/19/2018 Cardiovascular No dyspnea 03/19/2018 Respiratory No chest congestion 03/19/2018 Respiratory No cough 03/19/2018 Gastrointestinal No abdominal pain 03/19/2018 Gastrointestinal constipation 03/19/2018 Gastrointestinal No diarrhea 03/19/2018 Gastrointestinal No nausea 03/19/2018 Gastrointestinal No vomiting 03/19/2018 Dermatologic No rash 03/19/2018 Neurologic No alteration of consciousness 03/19/2018 Psychiatric anxiety 03/19/2018 Psychiatric depression 03/19/2018 Genitourinary/Nephrology nocturia 03/19/2018 Constitutional No recent illness 02/08/2018 Constitutional No chills 02/08/2018 Constitutional No diaphoresis 02/08/2018 Constitutional No fever 02/08/2018 Eyes No blindness 02/08/2018 Ears/Nose/Throat/Neck No nasal allergies 02/08/2018 Ears/Nose/Throat/Neck No nasal discharge 02/08/2018 Ears/Nose/Throat/Neck No sore throat 02/08/2018 Ears/Nose/Throat/Neck No sinus congestion 02/08/2018 Cardiovascular No chest pain/pressure 02/08/2018 Cardiovascular No dyspnea 02/08/2018 Respiratory No chest congestion 02/08/2018 Respiratory No cough 02/08/2018 Gastrointestinal No abdominal pain 02/08/2018 Gastrointestinal No diarrhea 02/08/2018 Gastrointestinal No nausea 02/08/2018 Gastrointestinal No vomiting 02/08/2018 Musculoskeletal joint complaint 02/08/2018 Dermatologic No rash 02/08/2018 Neurologic No alteration of consciousness 02/08/2018 Psychiatric anxiety 02/08/2018 Psychiatric depression 02/08/2018 Constitutional No recent illness 01/03/2018 Constitutional No chills 01/03/2018 Constitutional No diaphoresis 01/03/2018 Constitutional No fever 01/03/2018 Eyes No blindness 01/03/2018 Ears/Nose/Throat/Neck No nasal allergies 01/03/2018 Ears/Nose/Throat/Neck No nasal discharge 01/03/2018 Ears/Nose/Throat/Neck No sinus congestion 01/03/2018 Ears/Nose/Throat/Neck No sore throat 01/03/2018 Cardiovascular No chest pain/pressure 01/03/2018 Cardiovascular No dyspnea 01/03/2018 Respiratory No chest congestion 01/03/2018 Respiratory No cough 01/03/2018 Gastrointestinal No abdominal pain 01/03/2018 Gastrointestinal constipation 01/03/2018 Gastrointestinal No diarrhea 01/03/2018 Gastrointestinal No nausea 01/03/2018 Gastrointestinal No vomiting 01/03/2018 Musculoskeletal joint complaint 01/03/2018 Dermatologic No rash 01/03/2018 Neurologic No alteration of consciousness 01/03/2018 Psychiatric depression 01/03/2018 Psychiatric anxiety 01/03/2018 Constitutional No recent illness 12/08/2017 Constitutional No chills 12/08/2017 Constitutional No diaphoresis 12/08/2017 Constitutional No fever 12/08/2017 Eyes No eye erythema 12/08/2017 Ears/Nose/Throat/Neck No nasal discharge 12/08/2017 Ears/Nose/Throat/Neck No nasal allergies 12/08/2017 Ears/Nose/Throat/Neck No sore throat 12/08/2017 Ears/Nose/Throat/Neck No sinus congestion 12/08/2017 Cardiovascular No chest pain/pressure 12/08/2017 Cardiovascular No dyspnea 12/08/2017 Respiratory No cough 12/08/2017 Respiratory No chest congestion 12/08/2017 Gastrointestinal No abdominal pain 12/08/2017 Gastrointestinal constipation 12/08/2017 Gastrointestinal No diarrhea 12/08/2017 Gastrointestinal No vomiting 12/08/2017 Gastrointestinal No nausea 12/08/2017 Musculoskeletal joint complaint 12/08/2017 Dermatologic No rash 12/08/2017 Neurologic No alteration of consciousness 12/08/2017 Physical Exam Exam Name System Name Item Name Status Result Effective Dates Notes Full Exam - General 1994 Constitutional general appearance Overall: well developed 02/27/2019 None Full Exam - General 1994 Constitutional general appearance Overall: in no acute distress 02/27/2019 None Full Exam - General 1994 Constitutional general appearance Overall: well nourished 02/27/2019 None Full Exam - General 1994 Eyes conjunctiva/eyelids Overall: conjunctiva clear 02/27/2019 None Full Exam - General 1994 Eyes conjunctiva/eyelids Overall: cornea clear 02/27/2019 None Full Exam - General 1994 Eyes conjunctiva/eyelids Overall: eyelids normal 02/27/2019 None Full Exam - General 1994 Ears/Nose/Throat lips/teeth/gingiva Overall: benign lips 02/27/2019 None Full Exam - General 1994 Ears/Nose/Throat oral cavity/pharynx/larynx Overall: oral mucosa clear 02/27/2019 None Full Exam - General 1994 Respiratory auscultation Overall: breath sounds clear bilaterally 02/27/2019 None Full Exam - General 1994 Respiratory respiratory effort/rhythm Overall: no retractions 02/27/2019 None Full Exam - General 1994 Respiratory respiratory effort/rhythm Overall: normal rate 02/27/2019 None Full Exam - General 1994 Cardiovascular extremities Overall: no clubbing 02/27/2019 None Full Exam - General 1994 Cardiovascular extremities Edema present: pitting 02/27/2019 3+ from feet to posterior thighs Full Exam - General 1994 Cardiovascular auscultation of heart Rate: regular rate 02/27/2019 None Full Exam - General 1994 Cardiovascular auscultation of heart Rhythm: regular rhythm 02/27/2019 None Full Exam - General 1994 Abdomen abdominal exam Overall: no tenderness 02/27/2019 None Full Exam - General 1994 Abdomen abdominal exam Overall: normal bowel sounds 02/27/2019 None Full Exam - General 1994 Musculoskeletal head and neck Overall: head atraumatic 02/27/2019 None Full Exam - General 1994 Neurologic cranial nerves Overall: crainial nerves 2 - 12 grossly intact 02/27/2019 None Full Exam - General 1994 Psychiatric orientation/consciousness Overall: oriented to person, place and time 02/27/2019 None Full Exam - General 1994 Psychiatric mood and affect Overall: normal mood and affect 02/27/2019 None Full Exam - General 1994 Psychiatric appearance Overall: well-groomed, good eye contact 02/27/2019 None Full Exam - General 1994 Integument inspection of skin Location: right leg 02/27/2019 ANILA hose and dressing in place Full Exam - General 1994 Constitutional general appearance Overall: well developed 01/30/2019 None Full Exam - General 1994 Constitutional general appearance Overall: in no acute distress 01/30/2019 None Full Exam - General 1994 Constitutional general appearance Overall: well nourished 01/30/2019 None Full Exam - General 1994 Eyes conjunctiva/eyelids Overall: conjunctiva clear 01/30/2019 None Full Exam - General 1994 Eyes conjunctiva/eyelids Overall: cornea clear 01/30/2019 None Full Exam - General 1994 Eyes conjunctiva/eyelids Overall: eyelids normal 01/30/2019 None Full Exam - General 1994 Eyes pupils and irises Overall: pupils equal, round, reactive to light and accomodation 01/30/2019 None Full Exam - General 1994 Ears/Nose/Throat otoscopic exam Overall: external auditory canals clear 01/30/2019 None Full Exam - General 1994 Ears/Nose/Throat otoscopic exam Overall: tympanic membranes clear 01/30/2019 None Full Exam - General 1994 Ears/Nose/Throat lips/teeth/gingiva Overall: benign lips 01/30/2019 None Full Exam - General 1994 Ears/Nose/Throat oral cavity/pharynx/larynx Overall: oral mucosa clear 01/30/2019 None Full Exam - General 1994 Respiratory auscultation Overall: breath sounds clear bilaterally 01/30/2019 None Full Exam - General 1994 Respiratory respiratory effort/rhythm Overall: no retractions 01/30/2019 None Full Exam - General 1994 Respiratory respiratory effort/rhythm Overall: normal rate 01/30/2019 None Full Exam - General 1994 Cardiovascular extremities Overall: no clubbing 01/30/2019 None Full Exam - General 1994 Cardiovascular auscultation of heart Rate: regular rate 01/30/2019 None Full Exam - General 1994 Cardiovascular auscultation of heart Rhythm: regular rhythm 01/30/2019 None Full Exam - General 1994 Abdomen abdominal exam Overall: no tenderness 01/30/2019 None Full Exam - General 1994 Abdomen abdominal exam Overall: normal bowel sounds 01/30/2019 None Full Exam - General 1994 Musculoskeletal head and neck Overall: head atraumatic 01/30/2019 None Full Exam - General 1994 Neurologic cranial nerves Overall: crainial nerves 2 - 12 grossly intact 01/30/2019 None Full Exam - General 1994 Psychiatric orientation/consciousness Overall: oriented to person, place and time 01/30/2019 None Full Exam - General 1994 Psychiatric mood and affect Overall: normal mood and affect 01/30/2019 None Full Exam - General 1994 Psychiatric appearance Overall: well-groomed, good eye contact 01/30/2019 None Full Exam - General 1994 Cardiovascular extremities Edema present: pitting 01/30/2019 3+ from feet to posterior thighs Full Exam - General 1994 Integument inspection of skin Location: left leg 01/30/2019 abrasion on anterior left tibia Full Exam - General 1994 Constitutional general appearance Overall: well developed 01/08/2019 None Full Exam - General 1994 Constitutional general appearance Overall: in no acute distress 01/08/2019 None Full Exam - General 1994 Constitutional general appearance Overall: well nourished 01/08/2019 None Full Exam - General 1994 Eyes conjunctiva/eyelids Overall: conjunctiva clear 01/08/2019 None Full Exam - General 1994 Eyes conjunctiva/eyelids Overall: cornea clear 01/08/2019 None Full Exam - General 1994 Eyes conjunctiva/eyelids Overall: eyelids normal 01/08/2019 None Full Exam - General 1994 Eyes pupils and irises Overall: pupils equal, round, reactive to light and accomodation 01/08/2019 None Full Exam - General 1994 Ears/Nose/Throat otoscopic exam Overall: external auditory canals clear 01/08/2019 None Full Exam - General 1994 Ears/Nose/Throat otoscopic exam Overall: tympanic membranes clear 01/08/2019 None Full Exam - General 1994 Ears/Nose/Throat lips/teeth/gingiva Overall: benign lips 01/08/2019 None Full Exam - General 1994 Ears/Nose/Throat oral cavity/pharynx/larynx Overall: oral mucosa clear 01/08/2019 None Full Exam - General 1994 Respiratory auscultation Overall: breath sounds clear bilaterally 01/08/2019 None Full Exam - General 1994 Respiratory respiratory effort/rhythm Overall: no retractions 01/08/2019 None Full Exam - General 1994 Respiratory respiratory effort/rhythm Overall: normal rate 01/08/2019 None Full Exam - General 1994 Cardiovascular extremities Overall: no clubbing 01/08/2019 None Full Exam - General 1994 Cardiovascular extremities Edema present: pitting 01/08/2019 2+ bilateral lower extremities Full Exam - General 1994 Cardiovascular auscultation of heart Rate: regular rate 01/08/2019 None Full Exam - General 1994 Cardiovascular auscultation of heart Rhythm: regular rhythm 01/08/2019 None Full Exam - General 1994 Abdomen abdominal exam Overall: no tenderness 01/08/2019 None Full Exam - General 1994 Abdomen abdominal exam Overall: normal bowel sounds 01/08/2019 None Full Exam - General 1994 Musculoskeletal head and neck Overall: head atraumatic 01/08/2019 None Full Exam - General 1994 Neurologic cranial nerves Overall: crainial nerves 2 - 12 grossly intact 01/08/2019 None Full Exam - General 1994 Psychiatric orientation/consciousness Overall: oriented to person, place and time 01/08/2019 None Full Exam - General 1994 Psychiatric mood and affect Overall: normal mood and affect 01/08/2019 None Full Exam - General 1994 Psychiatric appearance Overall: well-groomed, good eye contact 01/08/2019 None Full Exam - General 1994 Constitutional general appearance Overall: well developed 12/17/2018 None Full Exam - General 1994 Constitutional general appearance Overall: in no acute distress 12/17/2018 None Full Exam - General 1994 Constitutional general appearance Overall: well nourished 12/17/2018 None Full Exam - General 1994 Eyes conjunctiva/eyelids Overall: conjunctiva clear 12/17/2018 None Full Exam - General 1994 Eyes conjunctiva/eyelids Overall: cornea clear 12/17/2018 None Full Exam - General 1994 Eyes conjunctiva/eyelids Overall: eyelids normal 12/17/2018 None Full Exam - General 1994 Ears/Nose/Throat lips/teeth/gingiva Overall: benign lips 12/17/2018 None Full Exam - General 1994 Ears/Nose/Throat oral cavity/pharynx/larynx Overall: oral mucosa clear 12/17/2018 None Full Exam - General 1994 Respiratory auscultation Overall: breath sounds clear bilaterally 12/17/2018 None Full Exam - General 1994 Respiratory respiratory effort/rhythm Overall: no retractions 12/17/2018 None Full Exam - General 1994 Respiratory respiratory effort/rhythm Overall: normal rate 12/17/2018 None Full Exam - General 1994 Cardiovascular auscultation of heart Overall: regular rate 12/17/2018 None Full Exam - General 1994 Cardiovascular auscultation of heart Overall: normal heart sounds 12/17/2018 None Full Exam - General 1994 Abdomen abdominal exam Bowel sounds: hyperactive 12/17/2018 None Full Exam - General 1994 Musculoskeletal head and neck Overall: head atraumatic 12/17/2018 None Full Exam - General 1994 Neurologic cranial nerves Overall: crainial nerves 2 - 12 grossly intact 12/17/2018 None Full Exam - General 1994 Psychiatric orientation/consciousness Overall: oriented to person, place and time 12/17/2018 None Full Exam - General 1994 Psychiatric mood and affect Overall: normal mood and affect 12/17/2018 None Full Exam - General 1994 Abdomen abdominal exam Lower quadrant: tender to palpation 12/17/2018 None Full Exam - General 1994 Abdomen abdominal exam Lower quadrant: dull pain 12/17/2018 None Full Exam - General 1994 Constitutional general appearance Overall: well developed 11/27/2018 None Full Exam - General 1994 Constitutional general appearance Overall: in no acute distress 11/27/2018 None Full Exam - General 1994 Constitutional general appearance Overall: well nourished 11/27/2018 None Full Exam - General 1994 Eyes conjunctiva/eyelids Overall: conjunctiva clear 11/27/2018 None Full Exam - General 1994 Eyes conjunctiva/eyelids Overall: cornea clear 11/27/2018 None Full Exam - General 1994 Eyes conjunctiva/eyelids Overall: eyelids normal 11/27/2018 None Full Exam [...] nourished 11/07/2018 None Full Exam - General 1995 Eyes conjunctiva/eyelids Overall: conjunctiva clear 11/07/2018 None Full Exam - General 1994 Eyes conjunctiva/eyelids Overall: cornea clear 11/07/2018 None Full Exam - General 1994 Eyes conjunctiva/eyelids Overall: eyelids normal 11/07/2018 None Full Exam [...] None Full Exam - General 1994 Eyes conjunctiva/eyelids Overall: conjunctiva clear 09/25/2018 None Full Exam - General 1994 Eyes conjunctiva/eyelids Overall: cornea clear 09/25/2018 None Full Exam - General 1994 Eyes conjunctiva/eyelids Overall: eyelids normal 09/25/2018 None Full Exam [...] None Full Exam - General 1994 Eyes conjunctiva/eyelids Overall: conjunctiva clear 03/19/2018 None Full Exam - General 1994 Eyes conjunctiva/eyelids Overall: cornea clear 03/19/2018 None Full Exam - General 1994 Eyes conjunctiva/eyelids Overall: eyelids normal 03/19/2018 None Full Exam [...] None Full Exam - General 1994 Eyes conjunctiva/eyelids Overall: conjunctiva clear 02/08/2018 None Full Exam - General 1994 Eyes conjunctiva/eyelids Overall: cornea clear 02/08/2018 None Full Exam - General 1994 Eyes conjunctiva/eyelids Overall: eyelids normal 02/08/2018 None Full Exam [...] None Full Exam - General 1994 Eyes conjunctiva/eyelids Overall: conjunctiva clear 01/03/2018 None Full Exam - General 1994 Eyes conjunctiva/eyelids Overall: cornea clear 01/03/2018 None Full Exam - General 1994 Eyes conjunctiva/eyelids Overall: eyelids normal 01/03/2018 None Full Exam [...] None Full Exam - General 1994 Eyes conjunctiva/eyelids Overall: conjunctiva clear 12/08/2017 None Full Exam - General 1994 Eyes conjunctiva/eyelids Overall: cornea clear 12/08/2017 None Full Exam - General 1994 Eyes conjunctiva/eyelids Overall: eyelids normal 12/08/2017 None Full Exam [...] FLU VACC PRSV FREE INC ANTIG CPT-4: 54421 07/18/2018 Vital Signs Date Vital 02/27/2019 Blood Pressure 1: 112/62 Code: 8480-6 Heart Rate 1: 63 bpm Height: SpO2: 95% Weight: 01/30/2019 Blood Pressure 1: 148/60 Code: 8480-6 Heart Rate 1: 72 bpm Height: SpO2: 95% Weight: 01/08/2019 Blood Pressure 1: 132/76 Code: 8480-6 Heart Rate 1: 68 bpm Height: SpO2: 94% Weight: 12/17/2018 Blood Pressure 1: 138/74 Code: 8480-6 Heart Rate 1: 74 bpm Height: SpO2: 96% Weight: 11/27/2018 Blood Pressure 1: 136/58 Code: 8480-6 Heart Rate 1: 82 bpm Height: 4'11" SpO2: 96% Temperature: 36.8 (C) / 98.2 (F) Weight: 11/07/2018 Blood Pressure 1: 110/58 Code: 8480-6 BMI: 30.7 Code: 24698-8 Heart Rate 1: 70 bpm Height: 4'11" SpO2: 97% Weight: 152 lbs 09/25/2018 Blood Pressure 1: 140/70 Code: 8480-6 BMI: 30.9 Code: 88243-9 Heart Rate 1: 67 bpm Height: 4'11" SpO2: 91% Weight: 153 lbs 03/19/2018 Blood Pressure 1: 140/58 Code: 8480-6 BMI: 28.5 Code: 58399-9 Heart Rate 1: 59 bpm Height: 4'11" SpO2: 98% Weight: 141 lbs 02/08/2018 Blood Pressure 1: 130/68 Code: 8480-6 BMI: 28.5 Code: 24975-7 Heart Rate 1: 73 bpm Height: 4'11" SpO2: 98% Weight: 141 lbs 01/03/2018 Blood Pressure 1: 116/64 Code: 8480-6 BMI: 27.7 Code: 39880-4 Heart Rate 1: 68 bpm Height: 4'11" SpO2: 98% Weight: 137 lbs 12/08/2017 Blood Pressure 1: 122/74 Code: 8480-6 Heart Rate 1: 79 bpm Height: 4'11" SpO2: 97% Weight: Functional Status No Functional Status data History of Present Illness Symptom Name Status Result Effective Date Notes Quality chronic 02/27/2019 None Quality primary hypertension 02/27/2019 None Onset and Resolution ongoing 02/27/2019 None Onset of Symptom during adulthood 02/27/2019 None Blood Pressure Values patient checking blood pressure at home - did not bring in readings 02/27/2019 None Alleviating Factors medication 02/27/2019 None Pertinent Findings Denies dizziness 02/27/2019 None Pertinent Findings Denies dyspnea 02/27/2019 None Pertinent Findings edema 02/27/2019 None Quality non-insulin dependent 02/27/2019 None Quality chronic 02/27/2019 None Exacerbating Factors diet 02/27/2019 None Location lumbar-sacral spine 02/27/2019 None Onset and Resolution ongoing 02/27/2019 None Pertinent Findings weakness 02/27/2019 None Location in the LLQ 02/27/2019 None Quality aching 02/27/2019 None Quality cramping 02/27/2019 None Onset and Resolution ongoing 02/27/2019 None Quality primary hypertension 01/30/2019 None Onset and Resolution ongoing 01/30/2019 None Onset of Symptom during adulthood 01/30/2019 None Alleviating Factors medication 01/30/2019 None Pertinent Findings Denies dizziness 01/30/2019 None Pertinent Findings Denies dyspnea 01/30/2019 None Pertinent Findings edema 01/30/2019 None Quality non-insulin dependent 01/30/2019 None Exacerbating Factors diet 01/30/2019 None Glucose monitoring does not test 01/30/2019 None Quality chronic 01/30/2019 None Quality chronic 01/30/2019 None Location lumbar-sacral spine 01/30/2019 None Onset and Resolution ongoing 01/30/2019 None Blood Pressure Values patient checking blood pressure at home - did not bring in readings 01/30/2019 None Pertinent Findings weakness 01/30/2019 None Location lumbar-sacral spine 01/08/2019 None Quality chronic 01/08/2019 None Onset and Resolution ongoing 01/08/2019 None Pertinent Findings Denies weakness 01/08/2019 None Quality Denies intermittent 01/08/2019 None Location diffusely 01/08/2019 None Pertinent Findings back pain 01/08/2019 None Pertinent Findings Denies fever 01/08/2019 None Quality constant 12/17/2018 None Onset and Resolution ongoing 12/17/2018 None _ Other: flu a 11/27/2018 None Quality intermittent 11/27/2018 None Quality intermittent [...] blood glucose at home, see scanned readings 03/19/2018 None diabetes mellitus Glucose monitoring daily 03/19/2018 [...] data Encounters Encounter Performer Location Codes Date [id number] EST. PATIENT, LEVEL IV Diagnosis: Essential (primary) hypertension[ICD10: I10] Diagnosis: Gastro-esophageal reflux disease without esophagitis[ICD10: K21.9] Diagnosis: Localized edema[ICD10: R60.0] [facility] CPT-4: 13921 02/27/2019 [id number] EST. PATIENT, LEVEL IV Diagnosis: Essential (primary) hypertension[ICD10: I10] Diagnosis: Wedge compression fracture of T9-T10 vertebra, subsequent encounter for fracture with delayed healing[ICD10: S22.070G] Diagnosis: Unsteadiness on feet[ICD10: R26.81] Jossie Booker MD, [facility] CPT- 4: 26022 01/30/2019 ([id number]) [id number] EST. PATIENT, LEVEL IV Diagnosis: Essential (primary) hypertension[ICD10: I10] Diagnosis: Wedge compression fracture of T9-T10 vertebra, subsequent encounter for fracture with delayed healing[ICD10: S22.070G] Diagnosis: Unsteadiness on feet[ICD10: R26.81] Jossie Booker MD, [facility] CPT- 4: 36954 01/08/2019 [id number] EST. PATIENT, LEVEL III Diagnosis: Slow transit constipation[ICD10: K59.01] Annika Booker MD, [facility] CPT-4: 48437 12/17/2018 ([id number]) [id number] EST. PATIENT, LEVEL IV Diagnosis: Influenza due to identified novel influenza A virus with other manifestations[ICD10: J09.X9] Diagnosis: Encounter for follow-up examination after completed treatment for conditions other than malignant neoplasm[ICD10: Z09] Diagnosis: Low back pain[ICD10: M54.5] Diagnosis: Slow transit constipation[ICD10: K59.01] Armida Booker MD, [facility] CPT-4: 57599 11/27/2018 [id number] EST. PATIENT, LEVEL III Diagnosis: Dysuria[ICD10: R30.0] Diagnosis: Dizziness and giddiness[ICD10: R42] Annika Booker MD, [facility] CPT- 4: 08059 11/07/2018 ([id number]) 83247 EST. PATIENT, LEVEL IV Diagnosis: Essential (primary) hypertension[ICD10: I10] Diagnosis: Chronic kidney disease, stage 3 (moderate)[ICD10: N18.3] Diagnosis: Atrophy of thyroid (acquired)[ICD10: E03.4] Diagnosis: Type 2 diabetes mellitus without complications[ICD10: E11.9] Jossie Booker MD, [facility] CPT-4: 77065 09/25/2018 ([id number] EST. 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 PATIENT, LEVEL IV Diagnosis: Orthostatic hypotension[ICD10: I95.1] Diagnosis: Urinary tract infection, site not specified[ICD10: N39.0] Diagnosis: Type 2 diabetes mellitus without complications[ICD10: E11.9] Armida Booker MD, [facility] CPT-4: 83401 02/08/2018 ([id number]) [id number] EST. PATIENT, LEVEL IV Diagnosis: Type 2 diabetes mellitus without complications[ICD10: E11.9] Diagnosis: Essential (primary) hypertension[ICD10: I10] Diagnosis: Atrophy of thyroid (acquired)[ICD10: E03.4] Jossie Booker MD, [facility] CPT-4: 31148 01/03/2018 ([id number]) [id number] EST. 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] Diagnosis: Type 2 diabetes mellitus without complications[ICD10: E11.9] Diagnosis: Chronic kidney disease, stage 3 (moderate)[ICD10: N18.3] Diagnosis: 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[ICD10: Z79.01] Annika Booker MD, [facility] CPT-4: 04156 12/08/2017 Plan of Care Planned Activity Notes Codes Status Date Visit Plan: Hypertension - well controlled - continue with current medications, continue with no added salt diet. Pt has been encouraged to exercise daily. The pt has been advised to call the office if there are any acute concerns about change in blood pressure readings at home. Esophageal Reflux - the patient has been counseled against excessive intake of caffeine, spicy foods, peppermint, and cinnamon - all of which can exacerbate esophageal reflux. The patient is to take medications as prescribed and call the office if the symptoms are not improving. Edema - pt has been advised to elevate legs to prevent dependent edema, compression has been recommended to help to naturally decrease peripheral edema. Diuretic use has been discussed and pt has been instructed in appropriate use of such medication as necessary to further attempt to reduce peripheral edema. 02/27/2019 App[facility]ment: [phone] (15 min) Moderate 02/27/2019 Patient Education: Patient Medication Summary Completed 02/27/2019 Visit Plan: Edema - not optimally controlled - rx for lasix 20mg lasix today and monday and thigh high compression socks. Hypertension - well controlled - continue with current medications, continue with no added salt diet. Pt has been encouraged to exercise daily. The pt has been advised to call the office if there are any acute concerns about change in blood pressure readings at home. T9 compression fracture with delayed healing due to recurrent falling episodes after her first fall with fracture - anticipate pt will have at least 6+ more weeks before the fracture is healed. Unsteadiness on feet - continue with therapy at [facility] for the next 6+ weeks due to her persistent weakness. 01/30/2019 Appointment: Jossie Booker WPtel: [facility] ([facility] min) Moderate 01/30/2019 Patient Education: Patient Medication Summary Completed 01/30/2019 Visit Plan: Hypertension - well controlled - continue with current medications, continue with no added salt diet. Pt has been encouraged to exercise daily. The pt has been advised to call the office if there are any acute concerns about change in blood pressure readings at home. T9 compression fracture with delayed healing due to recurrent falling episodes after her first fall with fracture - anticipate pt will have at least 10+ more weeks before the fracture is healed. Unsteadiness on feet - continue with therapy at [facility]. 01/08/2019 Appointment: [facility] Booker [id number] (15 min) Moderate 01/08/2019 Patient Education: Patient Medication Summary Completed 01/08/2019 Visit Plan: Constipation - uncontrolled - I have discussed with the patient the need for adequate fiber and water intake to facilitate soft, easily passed stools. The pt noted understanding of our conversation. I have given the patient a recipe for "power pudding" - equal parts, bran flakes, prune juice, and apple sauce. The pt is to call if symptoms not improved on this regimen. Pt is to continue the ER orders and notify clinic if symptoms do not continue to improve, or with any changes, questions, or concerns. 12/17/2018 Appointment: Annika Nguyen WPtel: [phone] [facility] (30 min) Complex 12/17/2018 Patient Education: Patient Medication Summary Completed 12/17/2018 Appointment: Annika Nguyen WPtel: [facility]5 [facility] (15 min) Moderate 11/28/2018 Visit Plan: Hospital follow up with influenza A -patient is doing well -no further treatment indicated Constipation -add milk of magnesia as needed Low back pain -patient is seeing Ortho later today -continue ty lenol/tramadol as needed for pain 11/27/2018 Appointment: Armida Nicolsa WPtel: [facility]5 [phone] [place] (15 min) Moderate 11/27/2018 Patient Education: Patient Medication Summary Completed 11/27/2018 Patient Education: Back Pain Completed 11/27/2018 Appointment: Annika Nguyen WPtel: [facility]5 [facility] (15 min) Moderate 11/20/2018 Visit Plan: UTI - pt with positive urinalysis - culture sent if appropriate. Antibiotic electronically prescribed to pt's pharmacy of choice. Pt to call if symptoms do not improve. 11/07/2018 Appointment: Annika Nguyen WPtel: [facility]2 [facility] [place] (15 min) Moderate 11/07/2018 Patient Education: Patient [...] of control. 09/25/2018 Appointment: Jossie Booker WPtel: [address] [place], [place] [id number] (15 min) Moderate 09/25/2018 Patient Education: Patient Medication Summary Completed 09/25/2018 Patient Education: Diabetes Completed 09/25/2018 Care Plan: Comp Metabolic Pending 09/25/2018 Care Plan: Cbc With Differential Pending 09/25/2018 Care Plan: %Hba1C LOINC : 23052-0 Pending 09/25/2018 Care Plan: Lipid Pending 09/25/2018 [...] control. 03/19/2018 Appointment: Jossie Booker WPtel: [phone] [facility] [place] (15 min) Moderate 03/19/2018 Patient Education: Patient Medication Summary Completed 03/19/2018 Visit Plan: Fhjzorkcvzv-ksfikrlv-qlfokdc blood pressures DM- okay to stay off januvia-monitor blood sugars and call if they become elevated UTI-finished treatment 02/08/2018 Appointment: Armida Nicolas WPtel: [phone] [phone] [place] (15 min) Moderate 02/08/2018 Patient [...] WPtel: [phone] [facility] [place] (15 min) Moderate 01/03/2018 Patient Education: [...] of control. 12/08/2017 Appointment: Annika Nguyen WPtel: [address] [place], [place] [id number] [place] New Patient 12/08/2017 Patient Education: Patient [...] CAN GET YOUR RECORDS FROM [facility] . Xaaeurawpdo-jpcfyodd-zmhhtlk blood pressures DM-okay to stay off januvia-monitor blood sugars and call if they become elevated UTI-finished treatment . Hypertension - well controlled - continue with current medications, continue with no added salt diet. Pt has been encouraged to exercise daily. The pt has been advised to call the office if there are any acute concerns about change in blood pressure readings at home. T9 compression fracture with delayed healing due to recurrent falling episodes after her first fall with fracture - anticipate pt will have at least 10+ more weeks before the fracture is healed. Unsteadiness on feet - continue with therapy at [facility]. . Hypertension - well controlled - continue with current medications, continue with no added salt diet. Pt has been encouraged to exercise daily. The pt has been advised to call the office if there are any acute concerns about change in blood pressure readings at home. Esophageal Reflux - the patient has been counseled against excessive intake of caffeine, spicy foods, peppermint, and cinnamon - all of which can exacerbate esophageal reflux. The patient is to take medications as prescribed and call the office if the symptoms are not improving. Edema - pt has been advised to elevate legs to prevent dependent edema, compression has been recommended to help to naturally decrease peripheral edema. Diuretic use has been discussed and pt has been instructed in appropriate use of such medication as necessary to further attempt to reduce peripheral edema. . Constipation - uncontrolled - I have discussed with the patient the need for adequate fiber and water intake to facilitate soft, easily passed stools. The pt noted understanding of our conversation. I have given the patient a recipe for "power pudding" - equal parts, bran flakes, prune juice, and apple sauce. The pt is to call if symptoms not improved on this regimen. Pt is to continue the ER orders and notify clinic if symptoms do not continue to improve, or with any changes, questions, or concerns. . Hospital follow up with influenza A -patient is doing well -no further treatment indicated Constipation -add milk of magnesia as needed Low back pain -patient is seeing Ortho later today -continue tylenol/tramadol as needed for pain stop the TOVIAZ (generic name is Tolterodine) [...] for lexapro to be sent to pharmacy. . Edema - not optimally controlled - rx for lasix 20mg lasix today and monday and thigh high compression socks. Hypertension - well controlled - continue with current medications, continue with no added salt diet. Pt has been encouraged to exercise daily. The pt has been advised to call the office if there are any acute concerns about change in blood pressure readings at home. T9 compression fracture with delayed healing due to recurrent falling episodes after her first fall with fracture - anticipate pt will have at least 6+ more weeks before the fracture is healed. Unsteadiness on feet - continue with therapy at [facility] for the next 6+ weeks due to her persistent weakness. change the tolterodine to 2 mg at [...]
--- OUTSIDE RECORDS SUMMARY | 2019-03-23 19:46 | XMS REPORT | CCD ---
Author Author [facility] Address [address] [place] [address] Phone Care Team Providers Care Microbiology Lab Manager Name Role Phone PP Unavailable CCM Unavailable Summary Purpose Interface Exchange Insurance Providers Payer name Policy type / Coverage type Covered democrat ID Effective Begin Date Effective End Date [employer]MA[employer] CLAIMS Commercial Insurance [id number] Unknown Family History Family History data not found Social History Social History Element Codes Description Effective Dates Marital status Unknown [place] 12/08/2017 Number of children Unknown 2 12/08/2017 Employment Unknown Retired 12/08/[address]: 923826209 Never smoker 12/08/[address]: 436931983 Never drinks alcohol 12/08/2017 Allergies, Adverse Reactions, [...] Fill Instructions Lasix 20 mg tablet RxNorm: 606580 1 Tablet(s) PO daily as needed 02/28/2019 No Stop Date Active Protonix 40 mg tablet,delayed release RxNorm: 858565 1 Tablet(s) PO daily 02/28/2019 No Stop Date Active Tylenol 500 mg RxNorm: 1 PO BID 01/30/2019 No Stop Date Active gabapentin 300 mg capsule RxNorm: 036774 1 Capsule(s) PO QID 12/19/2018 12/13/2019 Active tramadol 50 mg tablet RxNorm: 293701 1 Tablet(s) PO Q12H as needed 12/07/2018 02/04/2019 Inactive tramadol 50 mg tablet RxNorm: 326441 1/2-1 Tablet(s) PO BID as needed 11/23/2018 12/06/2018 Inactive clopidogrel 75 mg tablet RxNorm: 758908 1 Tablet(s) PO daily 11/07/2018 11/01/2019 Active Keflex 500 mg capsule RxNorm: 767193 1 Capsule(s) PO TID 11/07/2018 11/13/2018 Inactive clopidogrel 75 mg tablet RxNorm: 972585 1 Tablet(s) PO daily 10/30/2018 11/06/2018 Inactive clopidogrel 75 mg tablet RxNorm: 345794 1 Tablet(s) PO daily 10/26/2018 10/29/2018 Inactive omeprazole 10 mg capsule,delayed release RxNorm: 986945 1 Capsule(s) PO daily 10/05/2018 02/18/2019 Inactive escitalopram 10 mg tablet RxNorm: 564701 TAKE 1 TABLET BY MOUTH ONCE DAILY IN THE EVENING 09/06/2018 No Stop Date Active omeprazole 10 mg capsule,delayed release RxNorm: 394355 1 Capsule(s) PO daily 09/06/2018 10/04/2018 Inactive cyanocobalamin (vit B-12) 1,000 mcg tablet RxNorm: 034025 1 Tablet(s) PO daily 08/08/2018 10/31/2019 Active cyanocobalamin (vit B-12) 1,000 mcg tablet RxNorm: 421245 1 Tablet(s) PO daily 08/08/2018 08/07/2018 Inactive levofloxacin 250 mg tablet RxNorm: 927087 1 Tablet(s) PO daily 06/04/2018 06/08/2018 Inactive levofloxacin 250 mg tablet RxNorm: 239753 1 Tablet(s) PO daily 06/04/2018 06/03/2018 Inactive Toprol XL 100 mg tablet,extended release RxNorm: 222829 1 Tablet(s) PO daily 05/08/2018 05/02/2019 Active lisinopril 10 mg tablet RxNorm: 310826 1 Tablet(s) PO daily 05/08/2018 01/29/2019 Inactive atorvastatin 40 mg tablet RxNorm: 228008 1 Tablet(s) PO QHS 05/04/2018 No Stop Date Active levothyroxine 25 mcg tablet RxNorm: 622684 1 Tablet(s) PO daily 05/04/2018 04/28/2019 Active gabapentin 300 mg capsule RxNorm: 748769 1 Capsule(s) PO TID 05/04/2018 12/18/2018 Inactive Toprol XL 100 mg tablet,extended release RxNorm: 937244 1 Tablet(s) PO daily 05/04/2018 05/07/2018 Inactive lisinopril 10 mg tablet RxNorm: 289804 1 Tablet(s) PO daily 05/04/2018 05/07/2018 Inactive amlodipine 5 mg tablet RxNorm: 082694 1 Tablet(s) PO daily 04/06/2018 01/29/2019 Inactive amlodipine 5 mg tablet RxNorm: 231306 1 Tablet(s) PO daily 03/28/2018 04/05/2018 Inactive tolterodine 2 mg tablet RxNorm: 552425 1 Tablet(s) PO QPM 03/19/2018 09/24/2018 Inactive nystatin 100,000 unit/gram topical cream RxNorm: 146747 1 Gram(s) TOP TID until healed et then PRN 01/09/2018 No Stop Date Active D/c powder escitalopram 10 mg tablet RxNorm: 146279 1 Tablet(s) PO QPM 01/03/2018 07/31/2018 Inactive nystatin (bulk) 100 million unit powder RxNorm: 1 Miscellaneous QID 12/25/2017 01/08/2018 Inactive warfarin 2 mg tablet RxNorm: 794168 1 Tablet(s) PO daily 12/25/2017 01/02/2018 Inactive nystatin (bulk) 100 million unit powder RxNorm: 1 Miscellaneous QID 12/25/2017 12/24/2017 Inactive sitagliptin 50 mg tablet RxNorm: 410508 1 Tablet(s) PO daily 12/19/2017 02/07/2018 Inactive tolterodine 1 mg tablet RxNorm: 216922 1 Tablet(s) PO BID 12/19/2017 03/18/2018 Inactive warfarin 3 mg tablet RxNorm: 560046 1 Tablet(s) PO UD MWF, 2mg //Sat/Sun 12/15/2017 01/02/2018 Inactive ciprofloxacin 250 mg tablet RxNorm: 481359 1 Tablet(s) PO BID 12/05/2017 12/09/2017 Inactive ibuprofen 400 mg tablet RxNorm: 068561 1 Tablet(s) PO BID 1000 1800 No Start Date Active ferrous sulfate 325 mg (65 mg iron) tablet RxNorm: 767385 2 Tablet(s) PO every other day No Start Date Active multivitamin oral RxNorm: 56823 oral No Start Date Active melatonin 3 mg tablet RxNorm: 612381 1 Tablet(s) PO QHS as needed No Start Date Active tamsulosin 0.4 mg capsule RxNorm: 175001 1 Capsule(s) PO daily No Start Date Active amlodipine 10 mg tablet RxNorm: 909737 1 Tablet(s) PO daily No Start Date Active lisinopril 20 mg tablet RxNorm: 737344 1 Tablet(s) PO daily No Start Date Active Calcium 600 + D(3) 600 mg (1,500 mg)-200 unit tablet RxNorm: 976692 1 Tablet(s) PO daily No Start Date Active Fish Oil 1,000 mg capsule RxNorm: 1 Capsule(s) PO daily No Start Date Active cyanocobalamin (vit B-12) 1,000 mcg tablet RxNorm: 014292 1 Tablet(s) PO daily No Start Date Active Milk of Magnesia 400 mg/5 mL oral suspension RxNorm: 895645 15 Milliliter(s) PO daily as needed No Start Date Active aspirin 81 mg tablet RxNorm: 989899 1 Tablet(s) PO daily No Start Date Active Senna-S 8.6 mg-50 mg tablet RxNorm: 115456 1 Tablet(s) PO BID No Start Date Active polyethylene glycol 3350 17 gram oral powder packet RxNorm: 933317 1 packet PO BID No Start Date Active Symbicort 80 mcg-4.5 mcg/actuation HFA aerosol inhaler RxNorm: 9589792 2 Puff(s) INH BID No Start Date Active lisinopril 10 mg tablet RxNorm: 805269 1 Tablet(s) PO daily No Start Date 05/03/2018 Inactive levothyroxine 25 mcg tablet RxNorm: 695558 1 Tablet(s) PO daily No Start Date 05/03/2018 Inactive warfarin 2 mg tablet RxNorm: 593196 1 Tablet(s) PO daily No Start Date 12/24/2017 Inactive Xanax 0.25 mg tablet RxNorm: 574162 1 Tablet(s) PO daily as needed No Start Date 01/29/2019 Inactive tolterodine 1 mg tablet RxNorm: 196657 1 Tablet(s) PO BID No Start Date 12/18/2017 Inactive Restasis MultiDose 0.05 % eye drops RxNorm: 502221 1 Drop(s) both ophthalmic (eye) BID No Start Date 01/29/2019 Inactive nystatin 100,000 unit/gram topical cream RxNorm: 519570 1 Gram(s) TOP TID until healed et then PRN No Start Date 01/08/2018 Inactive omeprazole 10 mg capsule,delayed release RxNorm: 617052 1 Capsule(s) PO daily No Start Date 09/05/2018 Inactive Toprol XL 100 mg tablet,extended release RxNorm: 026860 1 Tablet(s) PO daily No Start Date 05/03/2018 Inactive Tylenol 500 mg RxNorm: 1 PO TID 0700 1400 2200 No Start Date 01/29/2019 Inactive gabapentin 300 mg capsule RxNorm: 754749 1 Capsule(s) PO TID No Start Date 05/03/2018 Inactive atorvastatin 40 mg tablet RxNorm: 483048 1 Tablet(s) PO QHS No Start Date 05/03/2018 Inactive hydrocodone 5 mg-acetaminophen 325 mg tablet RxNorm: 607612 1 Tablet(s) PO Q6 as needed No Start Date 01/29/2019 Inactive clopidogrel 75 mg tablet RxNorm: 343815 1 Tablet(s) PO daily No Start Date 10/25/2018 Inactive Oyster Calcium 375 mg-200 unit-800 unit tablet RxNorm: 2 Tablet(s) PO daily No Start Date 12/21/2018 Inactive amlodipine 5 mg tablet RxNorm: 105721 1 Tablet(s) PO daily No Start Date 03/27/2018 Inactive sitagliptin 50 mg tablet RxNorm: 404153 1 Tablet(s) PO daily No Start Date [...] 28.7 pg 11/30/2018 Cbc With Differential Ord2 [place]% 8.1 % 11/30/2018 Cbc With Differential Ord2 [...] 2.13 K/ul 11/30/2018 Cbc With Differential Ord2 [place] ABS# 0.8 K/ul 11/30/2018 Cbc With Differential Ord2 Eos ABS# 0.0 K/ul 11/30/2018 Cbc With Differential Ord2 Baso ABS# 0.0 K/ul 11/30/2018 Hepatic Ljp094 ALBUMIN 3.1 g/dL 11/28/2018 Hepatic Ksv788 TPRO 6.0 g/dL 11/28/2018 Hepatic Pki682 GLOB 2.9 g/dL 11/28/2018 Hepatic Ggy308 A/G Ratio 1.1 Ratio 11/28/2018 Hepatic Ibq458 ALK PHOS 102 U/L 11/28/2018 Hepatic Afo309 ALT(SGPT) 19 U/L 11/28/2018 Hepatic Edt314 AST(SGOT) 18 U/L 11/28/2018 Hepatic Qom460 BILI T 0.4 mg/dL 11/28/2018 Hepatic Zzq561 BILI D 0.1 mg/dL 11/28/2018 Hepatic Ukt046 BILI I 0.3 mg/dL 11/28/2018 Cbc With [...] 28.6 pg 11/28/2018 Cbc With Differential Ord2 [place]% 8.9 % 11/28/2018 Cbc With Differential Ord2 [...] 2.36 K/ul 11/28/2018 Cbc With Differential Ord2 [place] ABS# 0.9 K/ul 11/28/2018 Cbc With Differential [...] 28.6 pg 09/28/2018 Cbc With Differential Ord2 [place]% 8.2 % 09/28/2018 Cbc With Differential Ord2 [...] 1.93 K/ul 09/28/2018 Cbc With Differential Ord2 [place] ABS# 0.5 K/ul 09/28/2018 Cbc With Differential Ord2 Eos ABS# 0.1 K/ul 09/28/2018 Cbc With Differential Ord2 Baso ABS# 0.0 K/ul 09/28/2018 %Hba1C Bmk071 % HbA1c 12401- 6 6.6 % 09/28/2018 %Hba1C Rtk840 Gluc Ave 143 mg/dL 09/28/2018 Comp Metabolic Mzi753 NA 142 mEq/L 09/28/2018 Comp Metabolic Uzu464 K 4.2 mEq/L 09/28/2018 Comp Metabolic Wau012 CL 107 mEq/L 09/28/2018 Comp Metabolic Ruc295 CO2 30.0 mEq/L 09/28/2018 Comp Metabolic Kzd725 ANION GAP 9 09/28/2018 Comp Metabolic Ooy277 GLUCOSE 117 mg/dL 09/28/2018 Comp Metabolic Tee866 Creat 1.2 mg/dL 09/28/2018 Comp Metabolic Zwq178 eGFR 47 ml/min/1.73m2 09/28/2018 Comp Metabolic Dih183 BUN 19 mg/dL 09/28/2018 Comp Metabolic Dpn580 B/C Ratio 16.5 Ratio 09/28/2018 Comp Metabolic Jcz803 CALCIUM 8.6 mg/dL 09/28/2018 Comp Metabolic Wwq559 ALK PHOS 101 U/L 09/28/2018 Comp Metabolic Pan038 AST(SGOT) 16 U/L 09/28/2018 Comp Metabolic Gsm560 ALT(SGPT) 13 U/L 09/28/2018 Comp Metabolic Yhe775 BILI T 0.4 mg/dL 09/28/2018 Comp Metabolic Gyy381 ALBUMIN 3.4 g/dL 09/28/2018 Comp Metabolic Jhu239 TPRO 6.1 g/dL 09/28/2018 Comp Metabolic Txf108 GLOB 2.7 g/dL 09/28/2018 Comp Metabolic Crb125 A/G Ratio 1.3 Ratio 09/28/2018 Comp Metabolic Gmi159 Osmo 286 mOsmo 09/28/2018 Tsh Ord6 TSH (3rd IS) 0.80 uIU/mL 09/28/2018 Lipid Ord30 CHOL 89 mg/dL 09/28/2018 Lipid Ord30 HDL 33.0 mg/dl 09/28/2018 Lipid Ord30 TRIG 78 mg/dL 09/28/2018 Lipid Ord30 LDL 40 mg/dL 09/28/2018 Lipid Ord30 C/HDL 2.7 Ratio 09/28/2018 Pt Yvo0998 PT 17.8 seconds 12/15/2017 Pt Yrx9704 INR 1.5 12/15/2017 Pt Hxl2496 Low Intensity - 1.5-2.0 12/15/2017 Pt Prm1760 Mod intensity - 2.0-3.0 12/15/2017 Pt Vgk0175 Hi intensity - 3.0-4.0 12/15/2017 Urinalysis Ord28 [...] hours from collection if refrigerated) 12/12/2017 Pt Rak7193 PT 15.2 seconds 12/11/2017 Pt Vip1861 INR 1.2 12/11/2017 Pt Rhc8448 Low Intensity - 1.5-2.0 12/11/2017 Pt Qbh2153 Mod intensity - 2.0-3.0 12/11/2017 Pt Mve7899 Hi intensity - 3.0-4.0 12/11/2017 Pt Lbw6277 PT 14.7 seconds 12/08/2017 Pt Oys4192 INR 1.2 12/08/2017 Pt Loa8965 Low Intensity - 1.5-2.0 12/08/2017 Pt Svd3265 Mod intensity - 2.0-3.0 12/08/2017 Pt Ryh9341 Hi intensity - 3.0-4.0 12/08/2017 Review of [...] FLU VACC PRSV FREE INC ANTIG CPT-4: 97747 07/18/2018 Vital Signs Date Vital 02/27/2019 Blood [...] 1: 110/58 Code: 8480-6 BMI: 30.7 Code: 97543-7 Heart Rate 1: 70 bpm Height: 4'11" SpO2: 97% Weight: 152 lbs 09/25/2018 Blood Pressure 1: 140/70 Code: 8480-6 BMI: 30.9 Code: 61899-1 Heart Rate 1: 67 bpm Height: 4'11" SpO2: 91% Weight: 153 lbs 03/19/2018 Blood Pressure 1: 140/58 Code: 8480-6 BMI: 28.5 Code: 64933-6 Heart Rate 1: 59 bpm Height: 4'11" SpO2: 98% Weight: 141 lbs 02/08/2018 Blood Pressure 1: 130/68 Code: 8480-6 BMI: 28.5 Code: 00430-5 Heart Rate 1: 73 bpm Height: 4'11" SpO2: 98% Weight: 141 lbs 01/03/2018 Blood Pressure 1: 116/64 Code: 8480-6 BMI: 27.7 Code: 90636-0 Heart Rate 1: 68 bpm Height: 4'11" [...] data Encounters Encounter Performer Location Codes Date 29518 EST. PATIENT, LEVEL IV Diagnosis: Essential (primary) hypertension[ICD10: I10] Diagnosis: Gastro-esophageal reflux disease without esophagitis[ICD10: K21.9] Diagnosis: Localized edema[ICD10: R60.0] [facility] CPT-4: 75692 02/27/2019 [id number] 74312 EST. PATIENT, LEVEL IV Diagnosis: Essential (primary) hypertension[ICD10: I10] Diagnosis: Wedge compression fracture of T9-T10 vertebra, subsequent encounter for fracture with delayed healing[ICD10: S22.070G] Diagnosis: Unsteadiness on feet[ICD10: R26.81] Jossie Booker MD, [facility] CPT- 4: 59895 01/30/2019 ([id number]) 22339 EST. PATIENT, LEVEL IV Diagnosis: Essential (primary) hypertension[ICD10: I10] Diagnosis: Wedge compression fracture of T9-T10 vertebra, subsequent encounter for fracture with delayed healing[ICD10: S22.070G] Diagnosis: Unsteadiness on feet[ICD10: R26.81] Jossie Booker MD, [facility] CPT- 4: 04592 01/08/2019 17518 EST. PATIENT, LEVEL III Diagnosis: Slow transit constipation[ICD10: K59.01] Annika Booker MD, [facility] CPT-4: 30036 12/17/2018 ([id number]) 16056 EST. PATIENT, LEVEL IV Diagnosis: Influenza due to identified novel influenza A virus with other manifestations[ICD10: J09.X9] Diagnosis: Encounter for follow-up examination after completed treatment for conditions other than malignant neoplasm[ICD10: Z09] Diagnosis: Low back pain[ICD10: M54.5] Diagnosis: Slow transit constipation[ICD10: K59.01] Armida Booker MD, [facility] CPT-4: 60348 11/27/2018 73904 EST. PATIENT, LEVEL III Diagnosis: Dysuria[ICD10: R30.0] Diagnosis: Dizziness and giddiness[ICD10: R42] Annika Booker MD, [facility] CPT- 4: 99131 11/07/2018 ([id number]) 11323 EST. PATIENT, LEVEL IV Diagnosis: Essential (primary) hypertension[ICD10: I10] Diagnosis: Chronic kidney disease, stage 3 (moderate)[ICD10: N18.3] Diagnosis: Atrophy of thyroid (acquired)[ICD10: E03.4] Diagnosis: Type 2 diabetes mellitus without complications[ICD10: E11.9] Jossie Booker MD, [facility] CPT-4: 22723 09/25/2018 ([id number] 36081 EST. PATIENT, LEVEL IV Diagnosis: Type 2 diabetes mellitus without complications[ICD10: E11.9] Diagnosis: Atrophy of thyroid (acquired)[ICD10: E03.4] Diagnosis: Essential (primary) hypertension[ICD10: I10] Diagnosis: Urgency of urination[ICD10: R39.15] Jossie Booker MD, [facility] CPT- 4: 55138 03/19/2018 ([id number]) 48133 EST. PATIENT, LEVEL IV Diagnosis: Orthostatic hypotension[ICD10: I95.1] Diagnosis: Urinary tract infection, site not specified[ICD10: N39.0] Diagnosis: Type 2 diabetes mellitus without complications[ICD10: E11.9] Armida Booker MD, [facility] CPT-4: 23846 02/08/2018 ([id number]) 13197 EST. PATIENT, LEVEL IV Diagnosis: Type 2 diabetes mellitus without complications[ICD10: E11.9] Diagnosis: Essential (primary) hypertension[ICD10: I10] Diagnosis: Atrophy of thyroid (acquired)[ICD10: E03.4] Jossie Booker MD, [facility] CPT-4: 26853 01/03/2018 ([id number]) 80378 EST. 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 02/27/2019 [facility] [facility] ([facility] min) Moderate 02/27/2019 Patient Education: [...] on feet - continue with therapy at [facility] for the next 6+ weeks due to her persistent weakness. 01/30/2019 Appointment: Jossie Booker [facility]Ptel[facility] [facility] ([facility] min) Moderate 01/30/2019 Patient Education: Patient [...] on feet - continue with therapy at [facility]. 01/08/2019 Appointment: [facility] [phone] [facility] (15 min) Moderate 01/08/2019 Patient Education: Patient [...] concerns. 12/17/2018 Appointment: Annika Nguyen WPtel: [phone] [facility] (30 min) Complex 12/17/2018 Patient Education: Patient Medication Summary Completed 12/17/2018 Appointment: Annika Nguyen WPtel: [facility] (15 min) Moderate 11/28/2018 Visit Plan: Hospital follow up with influenza A -patient is doing well -no further treatment indicated Constipation -add milk of magnesia as needed Low back pain -patient is seeing Ortho later today -continue ty lenol/tramadol as needed for pain 11/27/2018 Appointment: Armida Nicolas WPtel: [phone] [place] (15 min) Moderate 11/27/2018 Patient Education: Patient Medication Summary Completed 11/27/2018 Patient Education: Back Pain Completed 11/27/2018 Appointment: Annika Nguyen WPtel: [facility]5 [facility] (15 min) Moderate 11/20/2018 Visit Plan: UTI - pt with positive urinalysis - culture sent if appropriate. Antibiotic electronically prescribed to pt's pharmacy of choice. Pt to call if symptoms do not improve. 11/07/2018 Appointment: Annika Nguyen WPtel: [facility] [place] (15 min) Moderate 11/07/2018 Patient [...] of control. 09/25/2018 Appointment: Jossie Booker WPtel: [address] [place], [place] [address] (15 min) Moderate 09/25/2018 Patient Education: Patient Medication Summary Completed 09/25/2018 Patient Education: Diabetes Completed 09/25/2018 Care Plan: Comp Metabolic Pending 09/25/2018 Care Plan: Cbc With Differential Pending 09/25/2018 Care Plan: %Hba1C LOINC : 03701-0 Pending 09/25/2018 Care Plan: Lipid Pending 09/25/2018 [...] control. 03/19/2018 Appointment: Jossie Booker WPtel: [phone] [facility] [place] (15 min) Moderate 03/19/2018 Patient Education: Patient Medication Summary Completed 03/19/2018 Visit Plan: Zrupciqqikb-jdhvgbum-yxlnyiw blood pressures DM- okay to stay off januvia-monitor blood sugars and call if they become elevated UTI-finished treatment 02/08/2018 Appointment: Armida Nicolas WPtel: [phone] [phone] [place] (15 min) Moderate 02/08/2018 Patient [...] Booker WPtel: [address] [facility] [place] (15 min) Moderate 01/03/2018 Patient [...] of control. 12/08/2017 Appointment: Annika Nguyen WPtel: [address] [place], [place] [address] [place] New Patient 12/08/2017 Patient Education: Patient [...] CAN GET YOUR RECORDS FROM [facility] . Cjrjjndepdz-najmxrdw-xomgmkk blood pressures DM-okay to stay off januvia-monitor [...] today -continue tylenol/tramadol as needed for pain . Constipation - uncontrolled - I have [...] with any changes, questions, or concerns. . Hypertension - well controlled - continue [...] on feet - continue with therapy at [facility]. . Hypertension - well controlled - continue [...] to further attempt to reduce peripheral edema. change the tolterodine to 2 mg at [...] based on previous levels of control. . Edema - not optimally controlled - [...] on feet - continue with therapy at [facility] for the next 6+ weeks due to her persistent weakness. . Hypertension - well controlled - continue [...]
--- OUTSIDE RECORDS SUMMARY | 2019-03-23 19:48 | XMS REPORT | CCD ---
Author Author [facility] Address [address] [place] [address] Phone Care Team Providers Care Sales And Service Consultant Name Role Phone PP Unavailable CCM Unavailable Summary Purpose Interface Exchange Insurance Providers Payer name Policy type / Coverage type Covered libertarian ID Effective Begin Date Effective End Date HU[employer] CLAIMS Commercial Insurance [id number] Unknown Family History Family History data not found Social History Social History Element Codes Description Effective Dates Marital status Unknown [place] 12/08/2017 Number of children Unknown 2 12/08/2017 Employment Unknown Retired 12/08/[address]: 382259911 Never smoker 12/08/[address]: 912900622 Never drinks alcohol 12/08/2017 Allergies, Adverse Reactions, Alerts Substance Reaction Codes Entered Date Inactivated Date Status * NO KNOWN DRUG ALLERGIES Unknown 01/03/2018 No Inactive Date Active Past Medical History Illness Codes Condition Status Onset Date Resolved Date Essential (primary) hypertension ICD-9: 401.1 ICD-10: I10 Active 12/08/2017 Unknown Unsteadiness on feet ICD- 9: 781.2 [...] 244.9 ICD-10: E03.9 Active 12/08/2017 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 ICD-9: V58.61 ICD-10: Z79.01 Active 12/08/2017 Unknown Problems Condition Codes Effective Dates Condition Status Essential (primary) hypertension ICD-9: 401.1 ICD-10: I10 12/08/2017 Active Unsteadiness on feet ICD- 9: 781.2 [...] ICD-9: 244.9 ICD-10: E03.9 12/08/2017 Active 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 ICD-9: V58.61 ICD-10: Z79.01 12/08/2017 Active Medications Medication Codes Instructions Start Date Stop Date Status Fill Instructions Tylenol 500 mg RxNorm: 1 PO BID 01/30/2019 No Stop Date Active gabapentin 300 mg capsule RxNorm: 842214 1 Capsule(s) PO QID 12/19/2018 12/13/2019 Active tramadol 50 mg tablet RxNorm: 742101 1 Tablet(s) PO Q12H as needed 12/07/2018 02/04/2019 Active tramadol 50 mg tablet RxNorm: 718946 1/2-1 Tablet(s) PO BID as needed 11/23/2018 12/06/2018 Inactive clopidogrel 75 mg tablet RxNorm: 551048 1 Tablet(s) PO daily 11/07/2018 11/01/2019 Active Keflex 500 mg capsule RxNorm: 154773 1 Capsule(s) PO TID 11/07/2018 11/13/2018 Inactive clopidogrel 75 mg tablet RxNorm: 620206 1 Tablet(s) PO daily 10/30/2018 11/06/2018 Inactive clopidogrel 75 mg tablet RxNorm: 290135 1 Tablet(s) PO daily 10/26/2018 10/29/2018 Inactive omeprazole 10 mg capsule,delayed release RxNorm: 532798 1 Capsule(s) PO daily 10/05/2018 12/28/2019 Active escitalopram 10 mg tablet RxNorm: 090743 TAKE 1 TABLET BY MOUTH ONCE DAILY IN THE EVENING 09/06/2018 No Stop Date Active omeprazole 10 mg capsule,delayed release RxNorm: 467175 1 Capsule(s) PO daily 09/06/2018 10/04/2018 Inactive cyanocobalamin (vit B-12) 1,000 mcg tablet RxNorm: 458332 1 Tablet(s) PO daily 08/08/2018 10/31/2019 Active cyanocobalamin (vit B-12) 1,000 mcg tablet RxNorm: 749262 1 Tablet(s) PO daily 08/08/2018 08/07/2018 Inactive levofloxacin 250 mg tablet RxNorm: 640659 1 Tablet(s) PO daily 06/04/2018 06/08/2018 Inactive levofloxacin 250 mg tablet RxNorm: 078087 1 Tablet(s) PO daily 06/04/2018 06/03/2018 Inactive Toprol XL 100 mg tablet,extended release RxNorm: 990500 1 Tablet(s) PO daily 05/08/2018 05/02/2019 Active lisinopril 10 mg tablet RxNorm: 438936 1 Tablet(s) PO daily 05/08/2018 01/29/2019 Inactive atorvastatin 40 mg tablet RxNorm: 455745 1 Tablet(s) PO QHS 05/04/2018 No Stop Date Active levothyroxine 25 mcg tablet RxNorm: 034295 1 Tablet(s) PO daily 05/04/2018 04/28/2019 Active gabapentin 300 mg capsule RxNorm: 663139 1 Capsule(s) PO TID 05/04/2018 12/18/2018 Inactive Toprol XL 100 mg tablet,extended release RxNorm: 552331 1 Tablet(s) PO daily 05/04/2018 05/07/2018 Inactive lisinopril 10 mg tablet RxNorm: 797668 1 Tablet(s) PO daily 05/04/2018 05/07/2018 Inactive amlodipine 5 mg tablet RxNorm: 313542 1 Tablet(s) PO daily 04/06/2018 01/29/2019 Inactive amlodipine 5 mg tablet RxNorm: 446018 1 Tablet(s) PO daily 03/28/2018 04/05/2018 Inactive tolterodine 2 mg tablet RxNorm: 688758 1 Tablet(s) PO QPM 03/19/2018 09/24/2018 Inactive nystatin 100,000 unit/gram topical cream RxNorm: 845777 1 Gram(s) TOP TID until healed et then PRN 01/09/2018 No Stop Date Active D/c powder escitalopram 10 mg tablet RxNorm: 506669 1 Tablet(s) PO QPM 01/03/2018 07/31/2018 Inactive nystatin (bulk) 100 million unit powder RxNorm: 1 Miscellaneous QID 12/25/2017 01/08/2018 Inactive warfarin 2 mg tablet RxNorm: 193536 1 Tablet(s) PO daily 12/25/2017 01/02/2018 Inactive nystatin (bulk) 100 million unit powder RxNorm: 1 Miscellaneous QID 12/25/2017 12/24/2017 Inactive sitagliptin 50 mg tablet RxNorm: 223231 1 Tablet(s) PO daily 12/19/2017 02/07/2018 Inactive tolterodine 1 mg tablet RxNorm: 296271 1 Tablet(s) PO BID 12/19/2017 03/18/2018 Inactive warfarin 3 mg tablet RxNorm: 050957 1 Tablet(s) PO UD MWF, 2mg T//Sat/Sun 12/15/2017 01/02/2018 Inactive ciprofloxacin 250 mg tablet RxNorm: 955350 1 Tablet(s) PO BID 12/05/2017 12/09/2017 Inactive ibuprofen 400 mg tablet RxNorm: 272967 1 Tablet(s) PO BID 1000 1800 No Start Date Active ferrous sulfate 325 mg (65 mg iron) tablet RxNorm: 118041 2 Tablet(s) PO every other day No Start Date Active multivitamin oral RxNorm: 67872 oral No Start Date Active melatonin 3 mg tablet RxNorm: 286192 1 Tablet(s) PO QHS as needed No Start Date Active tamsulosin 0.4 mg capsule RxNorm: 649385 1 Capsule(s) PO daily No Start Date Active amlodipine 10 mg tablet RxNorm: 152968 1 Tablet(s) PO daily No Start Date Active lisinopril 20 mg tablet RxNorm: 252389 1 Tablet(s) PO daily No Start Date Active Calcium 600 + D(3) 600 mg (1,500 mg)-200 unit tablet RxNorm: 629764 1 Tablet(s) PO daily No Start Date Active Fish Oil 1,000 mg capsule RxNorm: 1 Capsule(s) PO daily No Start Date Active cyanocobalamin (vit B-12) 1,000 mcg tablet RxNorm: 241673 1 Tablet(s) PO daily No Start Date Active Milk of Magnesia 400 mg/5 mL oral suspension RxNorm: 850248 15 Milliliter(s) PO daily as needed No Start Date Active aspirin 81 mg tablet RxNorm: 379118 1 Tablet(s) PO daily No Start Date Active Senna-S 8.6 mg-50 mg tablet RxNorm: 818004 1 Tablet(s) PO BID No Start Date Active polyethylene glycol 3350 17 gram oral powder packet RxNorm: 143068 1 packet PO BID No Start Date Active Symbicort 80 mcg-4.5 mcg/actuation HFA aerosol inhaler RxNorm: 6627509 2 Puff(s) INH BID No Start Date Active lisinopril 10 mg tablet RxNorm: 308000 1 Tablet(s) PO daily No Start Date 05/03/2018 Inactive levothyroxine 25 mcg tablet RxNorm: 225677 1 Tablet(s) PO daily No Start Date 05/03/2018 Inactive warfarin 2 mg tablet RxNorm: 863827 1 Tablet(s) PO daily No Start Date 12/24/2017 Inactive Xanax 0.25 mg tablet RxNorm: 655697 1 Tablet(s) PO daily as needed No Start Date 01/29/2019 Inactive tolterodine 1 mg tablet RxNorm: 407058 1 Tablet(s) PO BID No Start Date 12/18/2017 Inactive Restasis MultiDose 0.05 % eye drops RxNorm: 120769 1 Drop(s) both ophthalmic (eye) BID No Start Date 01/29/2019 Inactive nystatin 100,000 unit/gram topical cream RxNorm: 768254 1 Gram(s) TOP TID until healed et then PRN No Start Date 01/08/2018 Inactive omeprazole 10 mg capsule,delayed release RxNorm: 037405 1 Capsule(s) PO daily No Start Date 09/05/2018 Inactive Toprol XL 100 mg tablet,extended release RxNorm: 140121 1 Tablet(s) PO daily No Start Date 05/03/2018 Inactive Tylenol 500 mg RxNorm: 1 PO TID 0700 1400 2200 No Start Date 01/29/2019 Inactive gabapentin 300 mg capsule RxNorm: 130237 1 Capsule(s) PO TID No Start Date 05/03/2018 Inactive atorvastatin 40 mg tablet RxNorm: 030558 1 Tablet(s) PO QHS No Start Date 05/03/2018 Inactive hydrocodone 5 mg-acetaminophen 325 mg tablet RxNorm: 567646 1 Tablet(s) PO Q6 as needed No Start Date 01/29/2019 Inactive clopidogrel 75 mg tablet RxNorm: 839837 1 Tablet(s) PO daily No Start Date 10/25/2018 Inactive Oyster Calcium 375 mg-200 unit-800 unit tablet RxNorm: 2 Tablet(s) PO daily No Start Date 12/21/2018 Inactive amlodipine 5 mg tablet RxNorm: 608909 1 Tablet(s) PO daily No Start Date 03/27/2018 Inactive sitagliptin 50 mg tablet RxNorm: 363732 1 Tablet(s) PO daily No Start Date 12/18/2017 Inactive Medication Administered No Medication Administered data Immunizations Vaccine Codes Date Status Influenza CVX: 141 07/18/2018 completed Assessments Condition Codes Effective Dates Wedge compression fracture of T9-T10 vertebra, subsequent encounter for fracture with delayed healing ICD-10: S22.070G ICD-9: V54.17 01/30/2019 Essential (primary) hypertension ICD-10: I10 ICD-9: 401.1 01/30/2019 Unsteadiness on feet ICD-10: R26.81 ICD-9: [...] not specified ICD-10: N39.0 ICD-9: 599.0 02/08/2018 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 (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 anticoagulants ICD-10: Z79.01 ICD-9: V58.61 12/08/2017 Other specified hypothyroidism ICD-10: E03.8 ICD-9: 244.8 12/08/2017 Reason For Visit Reason For Visit Effective Dates Notes hypertension 01/30/2019 back pain 01/08/2019 constipation 12/17/2018 [...] 28.7 pg 11/30/2018 Cbc With Differential Ord2 [place]% 8.1 % 11/30/2018 Cbc With Differential Ord2 [...] 2.13 K/ul 11/30/2018 Cbc With Differential Ord2 [place] ABS# 0.8 K/ul 11/30/2018 Cbc With Differential Ord2 Eos ABS# 0.0 K/ul 11/30/2018 Cbc With Differential Ord2 Baso ABS# 0.0 K/ul 11/30/2018 Hepatic Hno486 ALBUMIN 3.1 g/dL 11/28/2018 Hepatic Gho453 TPRO 6.0 g/dL 11/28/2018 Hepatic Jmh395 GLOB 2.9 g/dL 11/28/2018 Hepatic Ljs438 A/G Ratio 1.1 Ratio 11/28/2018 Hepatic Dao131 ALK PHOS 102 U/L 11/28/2018 Hepatic Rth334 ALT(SGPT) 19 U/L 11/28/2018 Hepatic Iur334 AST(SGOT) 18 U/L 11/28/2018 Hepatic Kiw768 BILI T 0.4 mg/dL 11/28/2018 Hepatic Ybh563 BILI D 0.1 mg/dL 11/28/2018 Hepatic Fiy973 BILI I 0.3 mg/dL 11/28/2018 Cbc With [...] 28.6 pg 11/28/2018 Cbc With Differential Ord2 [place]% 8.9 % 11/28/2018 Cbc With Differential Ord2 [...] 2.36 K/ul 11/28/2018 Cbc With Differential Ord2 [place] ABS# 0.9 K/ul 11/28/2018 Cbc With Differential [...] 28.6 pg 09/28/2018 Cbc With Differential Ord2 [place]% 8.2 % 09/28/2018 Cbc With Differential Ord2 [...] 1.93 K/ul 09/28/2018 Cbc With Differential Ord2 [place] ABS# 0.5 K/ul 09/28/2018 Cbc With Differential Ord2 Eos ABS# 0.1 K/ul 09/28/2018 Cbc With Differential Ord2 Baso ABS# 0.0 K/ul 09/28/2018 %Hba1C Hoh859 % HbA1c 89832- 6 6.6 % 09/28/2018 %Hba1C Hjw807 Gluc Ave 143 mg/dL 09/28/2018 Comp Metabolic Orj640 NA 142 mEq/L 09/28/2018 Comp Metabolic Emn207 K 4.2 mEq/L 09/28/2018 Comp Metabolic Tdi905 CL 107 mEq/L 09/28/2018 Comp Metabolic Qta701 CO2 30.0 mEq/L 09/28/2018 Comp Metabolic Wjr091 ANION GAP 9 09/28/2018 Comp Metabolic Nxt062 GLUCOSE 117 mg/dL 09/28/2018 Comp Metabolic Llq803 Creat 1.2 mg/dL 09/28/2018 Comp Metabolic Ist487 eGFR 47 ml/min/1.73m2 09/28/2018 Comp Metabolic Mvb716 BUN 19 mg/dL 09/28/2018 Comp Metabolic Vaz880 B/C Ratio 16.5 Ratio 09/28/2018 Comp Metabolic Tlv108 CALCIUM 8.6 mg/dL 09/28/2018 Comp Metabolic Bvq298 ALK PHOS 101 U/L 09/28/2018 Comp Metabolic Koy177 AST(SGOT) 16 U/L 09/28/2018 Comp Metabolic Kch449 ALT(SGPT) 13 U/L 09/28/2018 Comp Metabolic Eot170 BILI T 0.4 mg/dL 09/28/2018 Comp Metabolic Zbv646 ALBUMIN 3.4 g/dL 09/28/2018 Comp Metabolic Rar028 TPRO 6.1 g/dL 09/28/2018 Comp Metabolic Qgy771 GLOB 2.7 g/dL 09/28/2018 Comp Metabolic Ayr444 A/G Ratio 1.3 Ratio 09/28/2018 Comp Metabolic Ytr133 Osmo 286 mOsmo 09/28/2018 Tsh Ord6 TSH (3rd IS) 0.80 uIU/mL 09/28/2018 Lipid Ord30 CHOL 89 mg/dL 09/28/2018 Lipid Ord30 HDL 33.0 mg/dl 09/28/2018 Lipid Ord30 TRIG 78 mg/dL 09/28/2018 Lipid Ord30 LDL 40 mg/dL 09/28/2018 Lipid Ord30 C/HDL 2.7 Ratio 09/28/2018 Pt Nmx9801 PT 17.8 seconds 12/15/2017 Pt Sop5084 INR 1.5 12/15/2017 Pt Fqc0876 Low Intensity - 1.5-2.0 12/15/2017 Pt Yyy2049 Mod intensity - 2.0-3.0 12/15/2017 Pt Nwt2614 Hi intensity - 3.0-4.0 12/15/2017 Urinalysis Ord28 [...] hours from collection if refrigerated) 12/12/2017 Pt Jow8475 PT 15.2 seconds 12/11/2017 Pt Cjo3942 INR 1.2 12/11/2017 Pt Emj6202 Low Intensity - 1.5-2.0 12/11/2017 Pt Xbx6756 Mod intensity - 2.0-3.0 12/11/2017 Pt Mkc7525 Hi intensity - 3.0-4.0 12/11/2017 Pt Fqb4933 PT 14.7 seconds 12/08/2017 Pt Kck0210 INR 1.2 12/08/2017 Pt Nux9520 Low Intensity - 1.5-2.0 12/08/2017 Pt Lbh0606 Mod intensity - 2.0-3.0 12/08/2017 Pt Bwq0960 Hi intensity - 3.0-4.0 12/08/2017 Review of Systems System Result Effective Dates Constitutional No recent illness 01/30/2019 Constitutional No [...] cleared with cough Full Exam - General 1995 Ears/Nose/Throat lips/teeth/gingiva Teeth: wears dentures 11/27/2018 None Full Exam - General 1995 Ears/Nose/Throat otoscopic exam Tympanic membrane: not visualized 11/27/2018 bilateral hearing aids Full Exam - General 1994 Constitutional general appearance Overall: well developed 11/07/2018 None Full Exam - General 1994 Constitutional general appearance Overall: in no acute distress 11/07/2018 None Full Exam - General 1995 Constitutional general appearance Overall: well nourished 11/07/2018 None Full Exam - General 1995 Eyes conjunctiva/eyelids Overall: conjunctiva clear 11/07/2018 None Full Exam - General 1995 Eyes conjunctiva/eyelids Overall: cornea clear 11/07/2018 None Full Exam - General 1994 Eyes conjunctiva/eyelids Overall: eyelids normal 11/07/2018 None Full Exam - General 1995 Ears/Nose/Throat lips/teeth/gingiva Overall: benign lips 11/07/2018 None [...] nourished 09/25/2018 None Full Exam - General 1995 Eyes conjunctiva/eyelids Overall: conjunctiva clear 09/25/2018 None Full Exam - General 1995 Eyes conjunctiva/eyelids Overall: cornea clear 09/25/2018 None Full Exam - General 1995 Eyes conjunctiva/eyelids Overall: eyelids normal 09/25/2018 None [...] FLU VACC PRSV FREE INC ANTIG CPT-4: 87926 07/18/2018 Vital Signs Date Vital 01/30/2019 Blood Pressure 1: 148/60 Code: 8480-6 [...] 1: 110/58 Code: 8480-6 BMI: 30.7 Code: 29567-0 Heart Rate 1: 70 bpm Height: 4'11" SpO2: 97% Weight: 152 lbs 09/25/2018 Blood Pressure 1: 140/70 Code: 8480-6 BMI: 30.9 Code: 51920-7 Heart Rate 1: 67 bpm Height: 4'11" SpO2: 91% Weight: 153 lbs 03/19/2018 Blood Pressure 1: 140/58 Code: 8480-6 BMI: 28.5 Code: 21808-1 Heart Rate 1: 59 bpm Height: 4'11" SpO2: 98% Weight: 141 lbs 02/08/2018 Blood Pressure 1: 130/68 Code: 8480-6 BMI: 28.5 Code: 87314-5 Heart Rate 1: 73 bpm Height: 4'11" SpO2: 98% Weight: 141 lbs 01/03/2018 Blood Pressure 1: 116/64 Code: 8480-6 BMI: 27.7 Code: 41203-1 Heart Rate 1: 68 bpm Height: 4'11" SpO2: 98% Weight: 137 lbs 12/08/2017 Blood Pressure 1: 122/74 Code: 8480-6 Heart Rate 1: 79 bpm Height: 4'11" SpO2: 97% Weight: Functional Status No Functional Status data History of Present Illness Symptom Name Status Result Effective Date Notes Quality primary hypertension 01/30/2019 None Onset and [...] data Encounters Encounter Performer Location Codes Date ([id number]) 18968 EST. PATIENT, LEVEL IV Diagnosis: Essential (primary) hypertension[ICD10: I10] Diagnosis: Wedge compression fracture of T9-T10 vertebra, subsequent encounter for fracture with delayed healing[ICD10: S22.070G] Diagnosis: Unsteadiness on feet[ICD10: R26.81] Jossie Booker MD, [facility] CPT- 4: 45161 01/30/2019 ([id number]) 76393 EST. PATIENT, LEVEL IV Diagnosis: Essential (primary) hypertension[ICD10: I10] Diagnosis: Wedge compression fracture of T9-T10 vertebra, subsequent encounter for fracture with delayed healing[ICD10: S22.070G] Diagnosis: Unsteadiness on feet[ICD10: R26.81] Jossie Booker MD, [facility] CPT- 4: 75230 01/08/2019 [id number] EST. PATIENT, LEVEL III Diagnosis: Slow transit constipation[ICD10: K59.01] Annika Booker MD, [facility] CPT-4: 07264 12/17/2018 [id number]) 08931 EST. PATIENT, LEVEL IV Diagnosis: Influenza due to identified novel influenza A virus with other manifestations[ICD10: J09.X9] Diagnosis: Encounter for follow-up examination after completed treatment for conditions other than malignant neoplasm[ICD10: Z09] Diagnosis: Low back pain[ICD10: M54.5] Diagnosis: Slow transit constipation[ICD10: K59.01] Armida Booker MD, [facility] CPT-4: 85286 11/27/2018 [id number] EST. PATIENT, LEVEL III Diagnosis: Dysuria[ICD10: R30.0] Diagnosis: Dizziness and giddiness[ICD10: R42] Annika Booker MD, [facility] CPT- 4: 82477 11/07/2018 ([id number]) 01796 EST. PATIENT, LEVEL IV Diagnosis: Essential (primary) hypertension[ICD10: I10] Diagnosis: Chronic kidney disease, stage 3 (moderate)[ICD10: N18.3] Diagnosis: Atrophy of thyroid (acquired)[ICD10: E03.4] Diagnosis: Type 2 diabetes mellitus without complications[ICD10: E11.9] Jossie Booker MD, [facility] CPT-4: 04327 09/25/2018 ([id number]) 78872 EST. PATIENT, LEVEL IV Diagnosis: Type 2 diabetes mellitus without complications[ICD10: E11.9] Diagnosis: Atrophy of thyroid (acquired)[ICD10: E03.4] Diagnosis: Essential (primary) hypertension[ICD10: I10] Diagnosis: Urgency of urination[ICD10: R39.15] Jossie Booker MD, [facility] CPT- 4: 95195 03/19/2018 ([id number]) 67021 EST. PATIENT, LEVEL IV Diagnosis: Orthostatic hypotension[ICD10: I95.1] Diagnosis: Urinary tract infection, site not specified[ICD10: N39.0] Diagnosis: Type 2 diabetes mellitus without complications[ICD10: E11.9] Armida Booker MD, [facility] CPT-4: 11366 02/08/2018 ([id number]) 83748 EST. PATIENT, LEVEL IV Diagnosis: Type 2 diabetes mellitus without complications[ICD10: E11.9] Diagnosis: Essential (primary) hypertension[ICD10: I10] Diagnosis: Atrophy of thyroid (acquired)[ICD10: E03.4] Jossie Booker MD, [facility] CPT-4: 12119 01/03/2018 ([id number]) 34407 EST. 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 01/30/2019 Patient Education: Patient Medication Summary Completed [...] on feet - continue with therapy at [facility]. 01/08/2019 Appointment: Jossie Booker WPtel: [address] [place], [place] [id number] (15 min) Moderate 01/08/2019 Patient Education: Patient [...] concerns. 12/17/2018 Appointment: Annika Nguyen WPtel: [phone] [facility] (30 min) Complex 12/17/2018 Patient Education: Patient Medication Summary Completed 12/17/2018 Appointment: Annika Nguyen WPtel: [facility]5 [facility] (15 min) Moderate 11/28/2018 Visit Plan: Hospital follow up with influenza A -patient is doing well -no further treatment indicated Constipation -add milk of magnesia as needed Low back pain -patient is seeing Ortho later today -continue ty lenol/tramadol as needed for pain 11/27/2018 Appointment: Armida Nicolas WPtel: [facility]7 [phone] [place] (15 min) Moderate 11/27/2018 Patient Education: Patient Medication Summary Completed 11/27/2018 Patient Education: Back Pain Completed 11/27/2018 Appointment: Annika Nguyen WPtel: [facility]3 [facility] (15 min) Moderate 11/20/2018 Visit Plan: UTI - pt with positive urinalysis - culture sent if appropriate. Antibiotic electronically prescribed to pt's pharmacy of choice. Pt to call if symptoms do not improve. 11/07/2018 Appointment: Annika Nguyen WPtel: [facility]9 [facility] (15 min) Moderate 11/07/2018 Patient Education: Patient [...] control. 09/25/2018 [phone] [facility] [place] (15 min) Moderate 09/25/2018 Patient Education: Patient Medication Summary Completed 09/25/2018 Patient Education: Diabetes Completed 09/25/2018 Care Plan: Comp Metabolic Pending 09/25/2018 Care Plan: Cbc With Differential Pending 09/25/2018 Care Plan: %Hba1C LOINC : 10776-6 Pending 09/25/2018 Care Plan: Lipid Pending 09/25/2018 [...] of control. 03/19/2018 Appointment: Jossie Booker WPtel: [phone] [facility] [place] (15 min) Moderate 03/19/2018 Patient Education: Patient Medication Summary Completed 03/19/2018 Visit Plan: Cgmxpzhchvq-rbxokbsw-bvbjhly blood pressures DM- okay to stay off januvia-monitor blood sugars and call if they become elevated UTI-finished treatment 02/08/2018 Appointment: Armida Nicolas WPtel: [phone] [phone] [place] (15 min) Moderate 02/08/2018 Patient [...] to pharmacy. 01/03/2018 Appointment: Jossie Booker WPtel: [facility]9 [facility] [place] (15 min) Moderate 01/03/2018 Patient [...] of control. 12/08/2017 Appointment: Annika Nguyen WPtel: [facility] New Patient 12/08/2017 Patient Education: Patient Medication [...] CAN GET YOUR RECORDS FROM EMA . Zimcaxosbad-pmnemtcn-rwhpgjm blood pressures DM-okay to stay off januvia-monitor [...] on feet - continue with therapy at [facility]. change the tolterodine to 2 mg at [...] controlled - rx for lasix 20mg lasix and monday and thigh high compression socks. [...] on feet - continue with therapy at [facility] for the next 6+ weeks due to [...]
--- NOTE | 2019-03-23 19:51 | Diagnostic Imaging Report ---
INDICATION: Fell, lower back pain, history of back surgery. COMPARISON STUDY: CT lumbar spine from 11/11/2018. FINDINGS: Frontal and lateral views of the lumbar spine demonstrate previous bi-pedicular fusion of L4-S1 with decompressive laminectomy. No hardware fractures are present. Severe osteopenia of the L4 and L5 vertebral bodies are again identified making these difficult to visualize on the plain film images. These were severely osteoporotic on the previous CT scan. Compression fracture of the L3 vertebral body is stable. Bridging osteophytes are seen throughout the spine. IMPRESSION: Stable lumbar spine. Dictated by: Dictated on workstation # [id number]
--- OUTSIDE RECORDS SUMMARY | 2019-03-23 19:52 | XMS REPORT | CCD ---
Author Author [facility] Address [address] [place] [address] Phone Care Team Providers Care Rn Advice Name Role Phone PP Unavailable CCM Unavailable Summary Purpose Interface Exchange Insurance Providers Payer name Policy type / Coverage type Covered libertarian ID Effective Begin Date Effective End Date HU[employer] CLAIMS Commercial Insurance [id number] Unknown Family History Family History data not found Social History Social History Element Codes Description Effective Dates Marital status Unknown [place] 12/08/2017 Number of children Unknown 2 12/08/2017 Employment Unknown Retired 12/08/[address]: 082745735 Never smoker 12/08/[address]: 814185804 Never drinks alcohol 12/08/2017 Allergies, Adverse Reactions, [...] ICD-9: 244.9 ICD-10: E03.9 Active 12/08/2017 Unknown [place] (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 anticoagulants ICD-9: V58.61 ICD-10: [...] unspecified ICD-9: 244.9 ICD-10: E03.9 12/08/2017 Active [place] (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 anticoagulants ICD-9: V58.61 ICD-10: Z79.01 12/08/2017 Active Medications Medication Codes Instructions Start Date Stop Date Status Fill Instructions gabapentin 300 mg capsule RxNorm: 551987 1 Capsule(s) PO QID 12/19/2018 12/13/2019 Active tramadol 50 mg tablet RxNorm: 932575 1 Tablet(s) PO Q12H as needed 12/07/2018 02/04/2019 Active tramadol 50 mg tablet RxNorm: 715801 1/2-1 Tablet(s) PO BID as needed 11/23/2018 12/06/2018 Inactive clopidogrel 75 mg tablet RxNorm: 905187 1 Tablet(s) PO daily 11/07/2018 11/01/2019 Active Keflex 500 mg capsule RxNorm: 822740 1 Capsule(s) PO TID 11/07/2018 11/13/2018 Inactive clopidogrel 75 mg tablet RxNorm: 319760 1 Tablet(s) PO daily 10/30/2018 11/06/2018 Inactive clopidogrel 75 mg tablet RxNorm: 804338 1 Tablet(s) PO daily 10/26/2018 10/29/2018 Inactive omeprazole 10 mg capsule,delayed release RxNorm: 776478 1 Capsule(s) PO daily 10/05/2018 12/28/2019 Active escitalopram 10 mg tablet RxNorm: 833761 TAKE 1 TABLET BY MOUTH ONCE DAILY IN THE EVENING 09/06/2018 No Stop Date Active omeprazole 10 mg capsule,delayed release RxNorm: 602646 1 Capsule(s) PO daily 09/06/2018 10/04/2018 Inactive cyanocobalamin (vit B-12) 1,000 mcg tablet RxNorm: 400978 1 Tablet(s) PO daily 08/08/2018 10/31/2019 Active cyanocobalamin (vit B-12) 1,000 mcg tablet RxNorm: 946627 1 Tablet(s) PO daily 08/08/2018 08/07/2018 Inactive levofloxacin 250 mg tablet RxNorm: 258047 1 Tablet(s) PO daily 06/04/2018 06/08/2018 Inactive levofloxacin 250 mg tablet RxNorm: 602670 1 Tablet(s) PO daily 06/04/2018 06/03/2018 Inactive lisinopril 10 mg tablet RxNorm: 210800 1 Tablet(s) PO daily 05/08/2018 05/02/2019 Active Toprol XL 100 mg tablet,extended release RxNorm: 007443 1 Tablet(s) PO daily 05/08/2018 05/02/2019 Active atorvastatin 40 mg tablet RxNorm: 722517 1 Tablet(s) PO QHS 05/04/2018 No Stop Date Active levothyroxine 25 mcg tablet RxNorm: 746344 1 Tablet(s) PO daily 05/04/2018 04/28/2019 Active gabapentin 300 mg capsule RxNorm: 643375 1 Capsule(s) PO TID 05/04/2018 12/18/2018 Inactive Toprol XL 100 mg tablet,extended release RxNorm: 741906 1 Tablet(s) PO daily 05/04/2018 05/07/2018 Inactive lisinopril 10 mg tablet RxNorm: 747216 1 Tablet(s) PO daily 05/04/2018 05/07/2018 Inactive amlodipine 5 mg tablet RxNorm: 673388 1 Tablet(s) PO daily 04/06/2018 03/31/2019 Active amlodipine 5 mg tablet RxNorm: 589402 1 Tablet(s) PO daily 03/28/2018 04/05/2018 Inactive tolterodine 2 mg tablet RxNorm: 854075 1 Tablet(s) PO QPM 03/19/2018 09/24/2018 Inactive nystatin 100,000 unit/gram topical cream RxNorm: 004651 1 Gram(s) TOP TID until healed et then PRN 01/09/2018 No Stop Date Active D/c powder escitalopram 10 mg tablet RxNorm: 093750 1 Tablet(s) PO QPM 01/03/2018 07/31/2018 Inactive nystatin (bulk) 100 million unit powder RxNorm: 1 Miscellaneous QID 12/25/2017 01/08/2018 Inactive warfarin 2 mg tablet RxNorm: 085794 1 Tablet(s) PO daily 12/25/2017 01/02/2018 Inactive nystatin (bulk) 100 million unit powder RxNorm: 1 Miscellaneous QID 12/25/2017 12/24/2017 Inactive sitagliptin 50 mg tablet RxNorm: 195511 1 Tablet(s) PO daily 12/19/2017 02/07/2018 Inactive tolterodine 1 mg tablet RxNorm: 704041 1 Tablet(s) PO BID 12/19/2017 03/18/2018 Inactive warfarin 3 mg tablet RxNorm: 203315 1 Tablet(s) PO UD MWF, 2mg T/Th/Sat/Sun 12/15/2017 01/02/2018 Inactive ciprofloxacin 250 mg tablet RxNorm: 960772 1 Tablet(s) PO BID 12/05/2017 12/09/2017 Inactive ibuprofen 400 mg tablet RxNorm: 028711 1 Tablet(s) PO BID 1000 1800 No Start Date Active multivitamin oral RxNorm: 37081 oral No Start Date Active Xanax 0.25 mg tablet RxNorm: 711467 1 Tablet(s) PO daily as needed No Start Date Active Restasis MultiDose 0.05 % eye drops RxNorm: 091105 1 Drop(s) both ophthalmic (eye) BID No Start Date Active Tylenol 500 mg RxNorm: 1 PO TID 0700 1400 2200 No Start Date Active hydrocodone 5 mg-acetaminophen 325 mg tablet RxNorm: 938943 1 Tablet(s) PO Q6 as needed No Start Date Active Calcium 600 + D(3) 600 mg (1,500 mg)-200 unit tablet RxNorm: 796549 1 Tablet(s) PO daily No Start Date Active cyanocobalamin (vit B-12) 1,000 mcg tablet RxNorm: 563668 1 Tablet(s) PO daily No Start Date Active Milk of Magnesia 400 mg/5 mL oral suspension RxNorm: 464745 15 Milliliter(s) PO daily as needed No Start Date Active aspirin 81 mg tablet RxNorm: 464706 1 Tablet(s) PO daily No Start Date Active Senna-S 8.6 mg-50 mg tablet RxNorm: 827201 1 Tablet(s) PO BID No Start Date Active lisinopril 10 mg tablet RxNorm: 881398 1 Tablet(s) PO daily No Start Date 05/03/2018 Inactive levothyroxine 25 mcg tablet RxNorm: 024286 1 Tablet(s) PO daily No Start Date 05/03/2018 Inactive warfarin 2 mg tablet RxNorm: 572937 1 Tablet(s) PO daily No Start Date 12/24/2017 Inactive tolterodine 1 mg tablet RxNorm: 719027 1 Tablet(s) PO BID No Start Date 12/18/2017 Inactive nystatin 100,000 unit/gram topical cream RxNorm: 726288 1 Gram(s) TOP TID until healed et then PRN No Start Date 01/08/2018 Inactive omeprazole 10 mg capsule,delayed release RxNorm: 283012 1 Capsule(s) PO daily No Start Date 09/05/2018 Inactive Toprol XL 100 mg tablet,extended release RxNorm: 745065 1 Tablet(s) PO daily No Start Date 05/03/2018 Inactive gabapentin 300 mg capsule RxNorm: 508301 1 Capsule(s) PO TID No Start Date 05/03/2018 Inactive atorvastatin 40 mg tablet RxNorm: 403676 1 Tablet(s) PO QHS No Start Date 05/03/2018 Inactive clopidogrel 75 mg tablet RxNorm: 714913 1 Tablet(s) PO daily No Start Date 10/25/2018 Inactive Oyster Calcium 375 mg-200 unit-800 unit tablet RxNorm: 2 Tablet(s) PO daily No Start Date 12/21/2018 Inactive amlodipine 5 mg tablet RxNorm: 263851 1 Tablet(s) PO daily No Start Date 03/27/2018 Inactive sitagliptin 50 mg tablet RxNorm: 411830 1 Tablet(s) PO daily No Start Date 12/18/2017 Inactive Medication Administered No Medication Administered data Immunizations Vaccine Codes Date Status Influenza CVX: 141 07/18/2018 completed Assessments Condition Codes Effective Dates Unsteadiness on feet ICD-10: R26.81 ICD-9: 781.2 01/08/2019 Essential (primary) hypertension ICD-10: I10 ICD-9: 401.1 01/08/2019 Wedge compression fracture of T9-T10 vertebra, subsequent encounter for fracture with delayed healing ICD-10: S22.070G ICD-9: V54.17 01/08/2019 Slow transit constipation ICD-10: K59.01 ICD-9: 564.01 [...] not specified ICD-10: N39.0 ICD-9: 599.0 02/08/2018 jail (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 anticoagulants ICD-10: Z79.01 ICD-9: V58.61 12/08/2017 Other specified hypothyroidism ICD-10: E03.8 ICD-9: 244.8 12/08/2017 Reason For Visit Reason For Visit Effective Dates Notes back pain 01/08/2019 constipation 12/17/2018 Hospital Follow [...] 28.7 pg 11/30/2018 Cbc With Differential Ord2 [place]% 8.1 % 11/30/2018 Cbc With Differential Ord2 [...] 2.13 K/ul 11/30/2018 Cbc With Differential Ord2 [place] ABS# 0.8 K/ul 11/30/2018 Cbc With Differential Ord2 Eos ABS# 0.0 K/ul 11/30/2018 Cbc With Differential Ord2 Baso ABS# 0.0 K/ul 11/30/2018 Hepatic Gir872 ALBUMIN 3.1 g/dL 11/28/2018 Hepatic Pwo591 TPRO 6.0 g/dL 11/28/2018 Hepatic Eip371 GLOB 2.9 g/dL 11/28/2018 Hepatic Dys854 A/G Ratio 1.1 Ratio 11/28/2018 Hepatic Zdd018 ALK PHOS 102 U/L 11/28/2018 Hepatic Zwu846 ALT(SGPT) 19 U/L 11/28/2018 Hepatic Ctc831 AST(SGOT) 18 U/L 11/28/2018 Hepatic Ter145 BILI T 0.4 mg/dL 11/28/2018 Hepatic Zis380 BILI D 0.1 mg/dL 11/28/2018 Hepatic Gqu335 BILI I 0.3 mg/dL 11/28/2018 Cbc With [...] 28.6 pg 11/28/2018 Cbc With Differential Ord2 [place]% 8.9 % 11/28/2018 Cbc With Differential Ord2 [...] 2.36 K/ul 11/28/2018 Cbc With Differential Ord2 [place] ABS# 0.9 K/ul 11/28/2018 Cbc With Differential [...] 28.6 pg 09/28/2018 Cbc With Differential Ord2 [place]% 8.2 % 09/28/2018 Cbc With Differential Ord2 [...] 1.93 K/ul 09/28/2018 Cbc With Differential Ord2 [place] ABS# 0.5 K/ul 09/28/2018 Cbc With Differential Ord2 Eos ABS# 0.1 K/ul 09/28/2018 Cbc With Differential Ord2 Baso ABS# 0.0 K/ul 09/28/2018 %Hba1C Rei167 % HbA1c 30597- 6 6.6 % 09/28/2018 %Hba1C Mau754 Gluc Ave 143 mg/dL 09/28/2018 Comp Metabolic Lfh056 NA 142 mEq/L 09/28/2018 Comp Metabolic Swy619 K 4.2 mEq/L 09/28/2018 Comp Metabolic Zno576 CL 107 mEq/L 09/28/2018 Comp Metabolic Gua414 CO2 30.0 mEq/L 09/28/2018 Comp Metabolic Umj977 ANION GAP 9 09/28/2018 Comp Metabolic Rqx707 GLUCOSE 117 mg/dL 09/28/2018 Comp Metabolic Gdi702 Creat 1.2 mg/dL 09/28/2018 Comp Metabolic Gpv852 eGFR 47 ml/min/1.73m2 09/28/2018 Comp Metabolic Wsp843 BUN 19 mg/dL 09/28/2018 Comp Metabolic Ngf077 B/C Ratio 16.5 Ratio 09/28/2018 Comp Metabolic Nfi541 CALCIUM 8.6 mg/dL 09/28/2018 Comp Metabolic Npz754 ALK PHOS 101 U/L 09/28/2018 Comp Metabolic Uyx037 AST(SGOT) 16 U/L 09/28/2018 Comp Metabolic Sbf992 ALT(SGPT) 13 U/L 09/28/2018 Comp Metabolic Nmr867 BILI T 0.4 mg/dL 09/28/2018 Comp Metabolic Oey298 ALBUMIN 3.4 g/dL 09/28/2018 Comp Metabolic Bop814 TPRO 6.1 g/dL 09/28/2018 Comp Metabolic Ydt886 GLOB 2.7 g/dL 09/28/2018 Comp Metabolic Nku068 A/G Ratio 1.3 Ratio 09/28/2018 Comp Metabolic Yjc004 Osmo 286 mOsmo 09/28/2018 Tsh Ord6 TSH (3rd IS) 0.80 uIU/mL 09/28/2018 Lipid Ord30 CHOL 89 mg/dL 09/28/2018 Lipid Ord30 HDL 33.0 mg/dl 09/28/2018 Lipid Ord30 TRIG 78 mg/dL 09/28/2018 Lipid Ord30 LDL 40 mg/dL 09/28/2018 Lipid Ord30 C/HDL 2.7 Ratio 09/28/2018 Pt Fzo1498 PT 17.8 seconds 12/15/2017 Pt Kba9132 INR 1.5 12/15/2017 Pt Brz3125 Low Intensity - 1.5-2.0 12/15/2017 Pt Aoy0970 Mod intensity - 2.0-3.0 12/15/2017 Pt Eku7182 Hi intensity - 3.0-4.0 12/15/2017 Urinalysis Ord28 [...] hours from collection if refrigerated) 12/12/2017 Pt Ceq6151 PT 15.2 seconds 12/11/2017 Pt Cbm9165 INR 1.2 12/11/2017 Pt Prv7627 Low Intensity - 1.5-2.0 12/11/2017 Pt Ood4716 Mod intensity - 2.0-3.0 12/11/2017 Pt Fle1663 Hi intensity - 3.0-4.0 12/11/2017 Pt Fya5358 PT 14.7 seconds 12/08/2017 Pt Ywf9180 INR 1.2 12/08/2017 Pt Aur8967 Low Intensity - 1.5-2.0 12/08/2017 Pt Cgx8293 Mod intensity - 2.0-3.0 12/08/2017 Pt Wdc2062 Hi intensity - 3.0-4.0 12/08/2017 Review of Systems System Result Effective Dates Constitutional No recent illness 01/08/2019 Constitutional No [...] bilateral hearing aids Full Exam - General 1995 Constitutional general appearance Overall: well developed 11/07/2018 None Full Exam - General 1995 Constitutional general appearance Overall: in no acute distress 11/07/2018 None Full Exam - General 1995 Constitutional general appearance Overall: well nourished 11/07/2018 None Full Exam - General 1995 Eyes conjunctiva/eyelids Overall: conjunctiva clear 11/07/2018 None Full Exam - General 1995 Eyes conjunctiva/eyelids Overall: cornea clear 11/07/2018 None Full Exam - General 1995 Eyes conjunctiva/eyelids Overall: eyelids normal 11/07/2018 None [...] FLU VACC PRSV FREE INC ANTIG CPT-4: 42622 07/18/2018 Vital Signs Date Vital 01/08/2019 Blood Pressure 1: 132/76 Code: 8480-6 [...] 1: 110/58 Code: 8480-6 BMI: 30.7 Code: 56436-3 Heart Rate 1: 70 bpm Height: 4'11" SpO2: 97% Weight: 152 lbs 09/25/2018 Blood Pressure 1: 140/70 Code: 8480-6 BMI: 30.9 Code: 26416-8 Heart Rate 1: 67 bpm Height: 4'11" SpO2: 91% Weight: 153 lbs 03/19/2018 Blood Pressure 1: 140/58 Code: 8480-6 BMI: 28.5 Code: 32570-9 Heart Rate 1: 59 bpm Height: 4'11" SpO2: 98% Weight: 141 lbs 02/08/2018 Blood Pressure 1: 130/68 Code: 8480-6 BMI: 28.5 Code: 56065-1 Heart Rate 1: 73 bpm Height: 4'11" SpO2: 98% Weight: 141 lbs 01/03/2018 Blood Pressure 1: 116/64 Code: 8480-6 BMI: 27.7 Code: 33489-2 Heart Rate 1: 68 bpm Height: 4'11" SpO2: 98% Weight: 137 lbs 12/08/2017 Blood Pressure 1: 122/74 Code: 8480-6 Heart Rate 1: 79 bpm Height: 4'11" SpO2: 97% Weight: Functional Status No Functional Status data History of Present Illness Symptom Name Status Result Effective Date Notes Location lumbar-sacral spine 01/08/2019 None Quality chronic [...] Directive data Encounters Encounter Performer Location Codes ([id number]) 30161 EST. PATIENT, LEVEL IV Diagnosis: Essential (primary) hypertension[ICD10: I10] Diagnosis: Wedge compression fracture of T9-T10 vertebra, subsequent encounter for fracture with delayed healing[ICD10: S22.070G] Diagnosis: Unsteadiness on feet[ICD10: R26.81] [facility] CPT- 4: 61758 01/08/2019 62745 EST. PATIENT, LEVEL III Diagnosis: Slow transit constipation[ICD10: K59.01] Annika Booker MD, [facility] CPT-4: 22524 12/17/2018 ([id number]) 73463 EST. PATIENT, LEVEL IV Diagnosis: Influenza due to identified novel influenza A virus with other manifestations[ICD10: J09.X9] Diagnosis: Encounter for follow-up examination after completed treatment for conditions other than malignant neoplasm[ICD10: Z09] Diagnosis: Low back pain[ICD10: M54.5] Diagnosis: Slow transit constipation[ICD10: K59.01] Armida Booker MD, [facility] CPT-4: 66757 11/27/2018 01309 EST. PATIENT, LEVEL III Diagnosis: Dysuria[ICD10: R30.0] Diagnosis: Dizziness and giddiness[ICD10: R42] Annika Booker MD, [facility] CPT- 4: 63452 11/07/2018 ([id number]) 38343 EST. PATIENT, LEVEL IV Diagnosis: Essential (primary) hypertension[ICD10: I10] Diagnosis: Chronic kidney disease, stage 3 (moderate)[ICD10: N18.3] Diagnosis: Atrophy of thyroid (acquired)[ICD10: E03.4] Diagnosis: Type 2 diabetes mellitus without complications[ICD10: E11.9] Jossie Booker MD, [facility] CPT-4: 56570 09/25/2018 ([id number]) 03957 EST. PATIENT, LEVEL IV Diagnosis: Type 2 diabetes mellitus without complications[ICD10: E11.9] Diagnosis: Atrophy of thyroid (acquired)[ICD10: E03.4] Diagnosis: Essential (primary) hypertension[ICD10: I10] Diagnosis: Urgency of urination[ICD10: R39.15] Jossie Booker MD, [facility] CPT- 4: 99693 03/19/2018 ([id number]) 45067 EST. PATIENT, LEVEL IV Diagnosis: Orthostatic hypotension[ICD10: I95.1] Diagnosis: Urinary tract infection, site not specified[ICD10: N39.0] Diagnosis: Type 2 diabetes mellitus without complications[ICD10: E11.9] [facility] CPT-4: 83788 02/08/2018 ([id number]) 14680 EST. PATIENT, LEVEL IV Diagnosis: Type 2 diabetes mellitus without complications[ICD10: E11.9] Diagnosis: Essential (primary) hypertension[ICD10: I10] Diagnosis: Atrophy of thyroid (acquired)[ICD10: E03.4] [facility] CPT-4: 06291 01/03/2018 ([id number]) 70163 EST. 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] Diagnosis: Type 2 diabetes mellitus without complications[ICD10: E11.9] Diagnosis: Chronic kidney disease, stage 3 (moderate)[ICD10: N18.3] Diagnosis: jail (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 anticoagulants[ICD10: Z79.01] [facility] CPT-4: 64888 12/08/2017 Plan of Care Planned Activity Notes [...] on feet - continue with therapy at [facility]. 01/08/2019 Patient Education: Patient Medication Summary Completed [...] or concerns. 12/17/2018 Appointment: Annika Nguyen WPtel: [address] [place], [place] [phone] [place] (30 min) Complex 12/17/2018 Patient Education: Patient Medication Summary Completed 12/17/2018 Appointment: Annika Nguyen WPtel: [phone] [facility] [place] (15 min) Moderate 11/28/2018 Visit Plan: Hospital follow up with influenza A -patient is doing well -no further treatment indicated Constipation -add milk of magnesia as needed Low back pain -patient is seeing Ortho later today -continue ty lenol/tramadol as needed for pain 11/27/2018 Appointment: Armida Nicolas WPtel: [phone] [phone] [place] (15 min) Moderate 11/27/2018 Patient Education: Patient Medication Summary Completed 11/27/2018 Patient Education: Back Pain Completed 11/27/2018 Appointment: Annika Nguyen WPtel: [phone] [facility] [place] (15 min) Moderate 11/20/2018 Visit Plan: UTI - pt with positive urinalysis - culture sent if appropriate. Antibiotic electronically prescribed to pt's pharmacy of choice. Pt to call if symptoms do not improve. 11/07/2018 Appointment: Annika Nguyen WPtel: [phone] [facility] [place] (15 min) Moderate 11/07/2018 Patient [...] control. 09/25/2018 [facility] [phone] [facility] ([facility] Moderate 09/25/2018 Patient Education: Patient Medication Summary Completed 09/25/2018 Patient Education: Diabetes Completed 09/25/2018 Care Plan: Comp Metabolic Pending 09/25/2018 Care Plan: Cbc With Differential Pending 09/25/2018 Care Plan: %Hba1C LOINC : 31527-1 Pending 09/25/2018 Care Plan: Lipid Pending 09/25/2018 [...] control. 03/19/2018 [facility] [phone] [facility] (15 min) Moderate 03/19/2018 Patient Education: Patient Medication Summary Completed 03/19/2018 Visit Plan: Btajertdttk-lboqkaae-wtpgyya blood pressures DM- okay to stay off januvia-monitor blood sugars and call if they become elevated UTI-finished treatment 02/08/2018 [facility]ment: [facility] [phone] [phone] (15 min) Moderate 02/08/2018 Patient Education: Patient [...] pharmacy. 01/03/2018 App[facility]ment: [facility] [phone] [facility] [place] (15 min) Moderate 01/03/2018 Patient Education: [...] of control. 12/08/2017 Appointment: Annika Nguyen [facility]Ptel[facility] [place] New Patient 12/08/2017 [...] CAN GET YOUR RECORDS FROM E[facility] . Vthkoxottey-qdszxold-gednqsv blood pressures DM-okay to stay off januvia-monitor [...] on feet - continue with therapy at [facility]. change the tolterodine to 2 mg at [...]
--- OUTSIDE RECORDS SUMMARY | 2019-03-23 19:53 | XMS REPORT | CCD ---
Author Author [facility] Address [address] [place] [address] Phone Care Team Providers Care Manager Field Sales Name Role Phone PP Unavailable CCM Unavailable Summary Purpose Interface Exchange Insurance Providers Payer name Policy type / Coverage type Covered constitution party ID Effective Begin Date Effective End Date [employer] CLAIMS Commercial Insurance [id number] Unknown Family History Family History data not found Social History Social History Element Codes Description Effective Dates Marital status Unknown [place] 12/08/2017 Number of children Unknown 2 12/08/2017 Employment Unknown Retired 12/08/[address]: 965689054 Never smoker 12/08/[address]: 797264948 Never drinks alcohol 12/08/2017 Allergies, Adverse Reactions, Alerts Substance Reaction Codes Entered Date Inactivated Date Status * NO KNOWN DRUG ALLERGIES Unknown 01/03/2018 No Inactive Date Active Past Medical History Illness Codes Condition Status Onset Date Resolved Date Diarrhea, unspecified ICD- 9: 787.91 ICD-10: R19.7 [...] 244.9 ICD-10: E03.9 Active 12/08/2017 Unknown intermediate (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 anticoagulants ICD-9: V58.61 ICD-10: Z79.01 Active 12/08/2017 Unknown Problems Condition Codes Effective Dates Condition Status Diarrhea, unspecified ICD- 9: 787.91 ICD-10: R19.7 [...] unspecified ICD-9: 244.9 ICD-10: E03.9 12/08/2017 Active 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 ICD-9: V58.61 ICD-10: Z79.01 12/08/2017 Active Medications Medication Codes Instructions Start Date Stop Date Status Fill Instructions gabapentin 300 mg capsule RxNorm: 132772 1 Capsule(s) PO QID 12/19/2018 12/13/2019 Active tramadol 50 mg tablet RxNorm: 265613 1 Tablet(s) PO Q12H as needed 12/07/2018 02/04/2019 Active tramadol 50 mg tablet RxNorm: 631953 1/2-1 Tablet(s) PO BID as needed 11/23/2018 12/06/2018 Inactive clopidogrel 75 mg tablet RxNorm: 146261 1 Tablet(s) PO daily 11/07/2018 11/01/2019 Active Keflex 500 mg capsule RxNorm: 693612 1 Capsule(s) PO TID 11/07/2018 11/13/2018 Inactive clopidogrel 75 mg tablet RxNorm: 722467 1 Tablet(s) PO daily 10/30/2018 11/06/2018 Inactive clopidogrel 75 mg tablet RxNorm: 412121 1 Tablet(s) PO daily 10/26/2018 10/29/2018 Inactive omeprazole 10 mg capsule,delayed release RxNorm: 549968 1 Capsule(s) PO daily 10/05/2018 12/28/2019 Active escitalopram 10 mg tablet RxNorm: 698224 TAKE 1 TABLET BY MOUTH ONCE DAILY IN THE EVENING 09/06/2018 No Stop Date Active omeprazole 10 mg capsule,delayed release RxNorm: 115357 1 Capsule(s) PO daily 09/06/2018 10/04/2018 Inactive cyanocobalamin (vit B-12) 1,000 mcg tablet RxNorm: 605682 1 Tablet(s) PO daily 08/08/2018 10/31/2019 Active cyanocobalamin (vit B-12) 1,000 mcg tablet RxNorm: 440553 1 Tablet(s) PO daily 08/08/2018 08/07/2018 Inactive levofloxacin 250 mg tablet RxNorm: 356895 1 Tablet(s) PO daily 06/04/2018 06/08/2018 Inactive levofloxacin 250 mg tablet RxNorm: 044204 1 Tablet(s) PO daily 06/04/2018 06/03/2018 Inactive lisinopril 10 mg tablet RxNorm: 727899 1 Tablet(s) PO daily 05/08/2018 05/02/2019 Active Toprol XL 100 mg tablet,extended release RxNorm: 167171 1 Tablet(s) PO daily 05/08/2018 05/02/2019 Active atorvastatin 40 mg tablet RxNorm: 710477 1 Tablet(s) PO QHS 05/04/2018 No Stop Date Active levothyroxine 25 mcg tablet RxNorm: 152823 1 Tablet(s) PO daily 05/04/2018 04/28/2019 Active gabapentin 300 mg capsule RxNorm: 742976 1 Capsule(s) PO TID 05/04/2018 12/18/2018 Inactive Toprol XL 100 mg tablet,extended release RxNorm: 000755 1 Tablet(s) PO daily 05/04/2018 05/07/2018 Inactive lisinopril 10 mg tablet RxNorm: 378368 1 Tablet(s) PO daily 05/04/2018 05/07/2018 Inactive amlodipine 5 mg tablet RxNorm: 908181 1 Tablet(s) PO daily 04/06/2018 03/31/2019 Active amlodipine 5 mg tablet RxNorm: 368698 1 Tablet(s) PO daily 03/28/2018 04/05/2018 Inactive tolterodine 2 mg tablet RxNorm: 542596 1 Tablet(s) PO QPM 03/19/2018 09/24/2018 Inactive nystatin 100,000 unit/gram topical cream RxNorm: 284810 1 Gram(s) TOP TID until healed et then PRN 01/09/2018 No Stop Date Active D/c powder escitalopram 10 mg tablet RxNorm: 184583 1 Tablet(s) PO QPM 01/03/2018 07/31/2018 Inactive nystatin (bulk) 100 million unit powder RxNorm: 1 Miscellaneous QID 12/25/2017 01/08/2018 Inactive warfarin 2 mg tablet RxNorm: 345423 1 Tablet(s) PO daily 12/25/2017 01/02/2018 Inactive nystatin (bulk) 100 million unit powder RxNorm: 1 Miscellaneous QID 12/25/2017 12/24/2017 Inactive sitagliptin 50 mg tablet RxNorm: 145354 1 Tablet(s) PO daily 12/19/2017 02/07/2018 Inactive tolterodine 1 mg tablet RxNorm: 152394 1 Tablet(s) PO BID 12/19/2017 03/18/2018 Inactive warfarin 3 mg tablet RxNorm: 436286 1 Tablet(s) PO UD MWF, 2mg T/Th/Sat/Sun 12/15/2017 01/02/2018 Inactive ciprofloxacin 250 mg tablet RxNorm: 490354 1 Tablet(s) PO BID 12/05/2017 12/09/2017 Inactive ibuprofen 400 mg tablet RxNorm: 974591 1 Tablet(s) PO BID 1000 1800 No Start Date Active multivitamin oral RxNorm: 62092 oral No Start Date Active Xanax 0.25 mg tablet RxNorm: 596164 1 Tablet(s) PO daily as needed No Start Date Active Restasis MultiDose 0.05 % eye drops RxNorm: 381934 1 Drop(s) both ophthalmic (eye) BID No Start Date Active Tylenol 500 mg RxNorm: 1 PO TID 0700 1400 2200 No Start Date Active hydrocodone 5 mg-acetaminophen 325 mg tablet RxNorm: 931387 1 Tablet(s) PO Q6 as needed No Start Date Active Calcium 600 + D(3) 600 mg (1,500 mg)-200 unit tablet RxNorm: 680208 1 Tablet(s) PO daily No Start Date Active cyanocobalamin (vit B-12) 1,000 mcg tablet RxNorm: 062226 1 Tablet(s) PO daily No Start Date Active aspirin 81 mg tablet RxNorm: 402983 1 Tablet(s) PO daily No Start Date Active Senna-S 8.6 mg-50 mg tablet RxNorm: 204452 1 Tablet(s) PO BID No Start Date Active lisinopril 10 mg tablet RxNorm: 198346 1 Tablet(s) PO daily No Start Date 05/03/2018 Inactive levothyroxine 25 mcg tablet RxNorm: 855052 1 Tablet(s) PO daily No Start Date 05/03/2018 Inactive warfarin 2 mg tablet RxNorm: 777346 1 Tablet(s) PO daily No Start Date 12/24/2017 Inactive tolterodine 1 mg tablet RxNorm: 835776 1 Tablet(s) PO BID No Start Date 12/18/2017 Inactive nystatin 100,000 unit/gram topical cream RxNorm: 626187 1 Gram(s) TOP TID until healed et then PRN No Start Date 01/08/2018 Inactive omeprazole 10 mg capsule,delayed release RxNorm: 651357 1 Capsule(s) PO daily No Start Date 09/05/2018 Inactive Toprol XL 100 mg tablet,extended release RxNorm: 562312 1 Tablet(s) PO daily No Start Date 05/03/2018 Inactive gabapentin 300 mg capsule RxNorm: 350630 1 Capsule(s) PO TID No Start Date 05/03/2018 Inactive atorvastatin 40 mg tablet RxNorm: 677429 1 Tablet(s) PO QHS No Start Date 05/03/2018 Inactive clopidogrel 75 mg tablet RxNorm: 985213 1 Tablet(s) PO daily No Start Date 10/25/2018 Inactive Oyster Calcium 375 mg-200 unit-800 unit tablet RxNorm: 2 Tablet(s) PO daily No Start Date 12/21/2018 Inactive amlodipine 5 mg tablet RxNorm: 384021 1 Tablet(s) PO daily No Start Date 03/27/2018 Inactive sitagliptin 50 mg tablet RxNorm: 193314 1 Tablet(s) PO daily No Start Date 12/18/2017 Inactive Medication Administered No Medication Administered data Immunizations Vaccine Codes Date Status Influenza CVX: 141 07/18/2018 completed Assessments Condition Codes Effective Dates Slow transit constipation ICD-10: K59.01 ICD-9: 564.01 [...] specified ICD-10: N39.0 ICD-9: 599.0 02/08/2018 intermediate (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 anticoagulants ICD-10: Z79.01 ICD-9: V58.61 12/08/2017 Other specified hypothyroidism ICD-10: E03.8 ICD-9: 244.8 12/08/2017 Reason For Visit Reason For Visit Effective Dates Notes constipation 12/17/2018 Hospital Follow Up 11/27/2018 syncope 11/07/2018 hypertension 09/25/2018 vaccination against influenza 07/18/2018 hypertension 03/19/2018 Hospital Follow Up 02/08/2018 hypertension 01/03/2018 Hospital Follow Up 12/08/2017 Results Observation Observation Code Item Item Code Result Date Urinalysis Ord28 U-Color Yellow 12/27/2018 Urinalysis Ord28 [...] 28.7 pg 11/30/2018 Cbc With Differential Ord2 Swain% 8.1 % 11/30/2018 Cbc With Differential Ord2 [...] 2.13 K/ul 11/30/2018 Cbc With Differential Ord2 Swain ABS# 0.8 K/ul 11/30/2018 Cbc With Differential Ord2 Eos ABS# 0.0 K/ul 11/30/2018 Cbc With Differential Ord2 Baso ABS# 0.0 K/ul 11/30/2018 Hepatic Sji751 ALBUMIN 3.1 g/dL 11/28/2018 Hepatic Vaw187 TPRO 6.0 g/dL 11/28/2018 Hepatic Npx359 GLOB 2.9 g/dL 11/28/2018 Hepatic Rqa756 A/G Ratio 1.1 Ratio 11/28/2018 Hepatic Yyg922 ALK PHOS 102 U/L 11/28/2018 Hepatic Iqv865 ALT(SGPT) 19 U/L 11/28/2018 Hepatic Rto262 AST(SGOT) 18 U/L 11/28/2018 Hepatic Jjt051 BILI T 0.4 mg/dL 11/28/2018 Hepatic Cjj990 BILI D 0.1 mg/dL 11/28/2018 Hepatic Pbl190 BILI I 0.3 mg/dL 11/28/2018 Cbc With [...] 28.6 pg 11/28/2018 Cbc With Differential Ord2 Swain% 8.9 % 11/28/2018 Cbc With Differential Ord2 [...] 2.36 K/ul 11/28/2018 Cbc With Differential Ord2 Swain ABS# 0.9 K/ul 11/28/2018 Cbc With Differential [...] 28.6 pg 09/28/2018 Cbc With Differential Ord2 Swain% 8.2 % 09/28/2018 Cbc With Differential Ord2 [...] 1.93 K/ul 09/28/2018 Cbc With Differential Ord2 Swain ABS# 0.5 K/ul 09/28/2018 Cbc With Differential Ord2 Eos ABS# 0.1 K/ul 09/28/2018 Cbc With Differential Ord2 Baso ABS# 0.0 K/ul 09/28/2018 %Hba1C Xyl716 % HbA1c 42149- 6 6.6 % 09/28/2018 %Hba1C Ibd169 Gluc Ave 143 mg/dL 09/28/2018 Comp Metabolic Wrk508 NA 142 mEq/L 09/28/2018 Comp Metabolic Jpo671 K 4.2 mEq/L 09/28/2018 Comp Metabolic Knv107 CL 107 mEq/L 09/28/2018 Comp Metabolic Xmx303 CO2 30.0 mEq/L 09/28/2018 Comp Metabolic Eht797 ANION GAP 9 09/28/2018 Comp Metabolic Mbh792 GLUCOSE 117 mg/dL 09/28/2018 Comp Metabolic Tpg985 Creat 1.2 mg/dL 09/28/2018 Comp Metabolic Wex693 eGFR 47 ml/min/1.73m2 09/28/2018 Comp Metabolic Nxn525 BUN 19 mg/dL 09/28/2018 Comp Metabolic Pje734 B/C Ratio 16.5 Ratio 09/28/2018 Comp Metabolic Fqs185 CALCIUM 8.6 mg/dL 09/28/2018 Comp Metabolic Bvx770 ALK PHOS 101 U/L 09/28/2018 Comp Metabolic Ahd217 AST(SGOT) 16 U/L 09/28/2018 Comp Metabolic Pgz174 ALT(SGPT) 13 U/L 09/28/2018 Comp Metabolic Ffh758 BILI T 0.4 mg/dL 09/28/2018 Comp Metabolic Reg242 ALBUMIN 3.4 g/dL 09/28/2018 Comp Metabolic Uni304 TPRO 6.1 g/dL 09/28/2018 Comp Metabolic Zsw541 GLOB 2.7 g/dL 09/28/2018 Comp Metabolic Tdd399 A/G Ratio 1.3 Ratio 09/28/2018 Comp Metabolic Zev115 Osmo 286 mOsmo 09/28/2018 Tsh Ord6 TSH (3rd IS) 0.80 uIU/mL 09/28/2018 Lipid Ord30 CHOL 89 mg/dL 09/28/2018 Lipid Ord30 HDL 33.0 mg/dl 09/28/2018 Lipid Ord30 TRIG 78 mg/dL 09/28/2018 Lipid Ord30 LDL 40 mg/dL 09/28/2018 Lipid Ord30 C/HDL 2.7 Ratio 09/28/2018 Pt Hmj1192 PT 17.8 seconds 12/15/2017 Pt Qpd8312 INR 1.5 12/15/2017 Pt Moe5416 Low Intensity - 1.5-2.0 12/15/2017 Pt Bhg8923 Mod intensity - 2.0-3.0 12/15/2017 Pt Ojp1652 Hi intensity - 3.0-4.0 12/15/2017 Urinalysis Ord28 [...] hours from collection if refrigerated) 12/12/2017 Pt Hsq5188 PT 15.2 seconds 12/11/2017 Pt Vme6558 INR 1.2 12/11/2017 Pt Anj6261 Low Intensity - 1.5-2.0 12/11/2017 Pt Zxd0620 Mod intensity - 2.0-3.0 12/11/2017 Pt Ksc0898 Hi intensity - 3.0-4.0 12/11/2017 Pt Pre3470 PT 14.7 seconds 12/08/2017 Pt Ujt8933 INR 1.2 12/08/2017 Pt Dsy4784 Low Intensity - 1.5-2.0 12/08/2017 Pt Vew0976 Mod intensity - 2.0-3.0 12/08/2017 Pt Mym7114 Hi intensity - 3.0-4.0 12/08/2017 Review of Systems System Result Effective Dates Constitutional recent illness 12/17/2018 Constitutional No chills [...] - General 1995 Respiratory respiratory effort/rhythm Overall: no retractions 11/07/2018 [...] FLU VACC PRSV FREE INC ANTIG CPT-4: 90295 07/18/2018 Vital Signs Date Vital 12/17/2018 Blood Pressure 1: 138/74 Code: 8480-6 Heart Rate 1: 74 bpm Height: SpO2: 96% Weight: 11/27/2018 Blood Pressure 1: 136/58 Code: 8480-6 Heart Rate 1: 82 bpm Height: 4'11" SpO2: 96% Temperature: 36.8 (C) / 98.2 (F) Weight: 11/07/2018 Blood Pressure 1: 110/58 Code: 8480-6 BMI: 30.7 Code: 14902-4 Heart Rate 1: 70 bpm Height: 4'11" SpO2: 97% Weight: 152 lbs 09/25/2018 Blood Pressure 1: 140/70 Code: 8480-6 BMI: 30.9 Code: 24799-2 Heart Rate 1: 67 bpm Height: 4'11" SpO2: 91% Weight: 153 lbs 03/19/2018 Blood Pressure 1: 140/58 Code: 8480-6 BMI: 28.5 Code: 14011-0 Heart Rate 1: 59 bpm Height: 4'11" SpO2: 98% Weight: 141 lbs 02/08/2018 Blood Pressure 1: 130/68 Code: 8480-6 BMI: 28.5 Code: 55337-6 Heart Rate 1: 73 bpm Height: 4'11" SpO2: 98% Weight: 141 lbs 01/03/2018 Blood Pressure 1: 116/64 Code: 8480-6 BMI: 27.7 Code: 92517-3 Heart Rate 1: 68 bpm Height: 4'11" SpO2: 98% Weight: 137 lbs 12/08/2017 Blood Pressure 1: 122/74 Code: 8480-6 Heart Rate 1: 79 bpm Height: 4'11" SpO2: 97% Weight: Functional Status No Functional Status data History of Present Illness Symptom Name Status Result Effective Date Notes Quality constant 12/17/2018 None Onset and Resolution [...] Codes Date EST. PATIENT, LEVEL III Diagnosis: Slow transit constipation[ICD10: K59.01] Annika Booker MD, [facility] CPT-4: 21653 12/17/2018 ([id number]) [id number] EST. PATIENT, LEVEL IV Diagnosis: Influenza due to identified novel influenza A virus with other manifestations[ICD10: J09.X9] Diagnosis: Encounter for follow-up examination after completed treatment for conditions other than malignant neoplasm[ICD10: Z09] Diagnosis: Low back pain[ICD10: M54.5] Diagnosis: Slow transit constipation[ICD10: K59.01] [facility] CPT-4: 32182 11/27/2018 [id number] EST. PATIENT, LEVEL III Diagnosis: Dysuria[ICD10: R30.0] Diagnosis: Dizziness and giddiness[ICD10: R42] [facility] CPT- 4: 98292 11/07/2018 [id number]) [id number] EST. PATIENT, LEVEL IV Diagnosis: Essential (primary) hypertension[ICD10: I10] Diagnosis: Chronic kidney disease, stage 3 (moderate)[ICD10: N18.3] Diagnosis: Atrophy of thyroid (acquired)[ICD10: E03.4] Diagnosis: Type 2 diabetes mellitus without complications[ICD10: E11.9] Jossie Booker MD, [facility] CPT-4: 11551 09/25/2018 ([id number]) 45110 EST. PATIENT, LEVEL IV Diagnosis: Type 2 diabetes mellitus without complications[ICD10: E11.9] Diagnosis: Atrophy of thyroid (acquired)[ICD10: E03.4] Diagnosis: Essential (primary) hypertension[ICD10: I10] Diagnosis: Urgency of urination[ICD10: R39.15] Jossie Booker MD, [facility] CPT- 4: 66141 03/19/2018 ([id number]) 27096 EST. PATIENT, LEVEL IV Diagnosis: Orthostatic hypotension[ICD10: I95.1] Diagnosis: Urinary tract infection, site not specified[ICD10: N39.0] Diagnosis: Type 2 diabetes mellitus without complications[ICD10: E11.9] Armida Booker MD, [facility] CPT-4: 84910 02/08/2018 ([id number]) 57946 EST. PATIENT, LEVEL IV Diagnosis: Type 2 diabetes mellitus without complications[ICD10: E11.9] Diagnosis: Essential (primary) hypertension[ICD10: I10] Diagnosis: Atrophy of thyroid (acquired)[ICD10: E03.4] Jossie Booker MD, [facility] CPT-4: 64206 01/03/2018 ([id number]) 89502 EST. 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 12/17/2018 Appointment: Annika Nguyen WPtel: [phone] [facility] [place] (30 min) Complex 12/17/2018 Patient Education: Patient Medication Summary Completed 12/17/2018 Appointment: Annika Nguyen WPtel: [phone] [facility] [place] (15 min) Moderate 11/28/2018 Visit Plan: Hospital follow up with influenza A -patient is doing well -no further treatment indicated Constipation -add milk of magnesia as needed Low back pain -patient is seeing Ortho later today -continue ty lenol/tramadol as needed for pain 11/27/2018 Appointment: Armida Nicolas WPtel: [phone] [phone] [place] (15 min) Moderate 11/27/2018 Patient Education: Patient Medication Summary Completed 11/27/2018 Patient Education: Back Pain Completed 11/27/2018 Appointment: Annika Nguyen WPtel: [phone] [facility] [place] (15 min) Moderate 11/20/2018 Visit Plan: UTI - pt with positive urinalysis - culture sent if appropriate. Antibiotic electronically prescribed to pt's pharmacy of choice. Pt to call if symptoms do not improve. 11/07/2018 Appointment: Annika Nguyen WPtel: [phone] [facility] [place] (15 min) Moderate 11/07/2018 Patient Education: [...] control. 09/25/2018 App[facility]ment: [phone] [facility] [place] ([place] min) Moderate 09/25/2018 Patient Education: Patient Medication Summary Completed 09/25/2018 Patient Education: Diabetes Completed 09/25/2018 Care Plan: Comp Metabolic Pending 09/25/2018 Care Plan: Cbc With Differential Pending 09/25/2018 Care Plan: %Hba1C LOINC : 45447-1 Pending 09/25/2018 Care Plan: Lipid Pending 09/25/2018 [...] control. 03/19/2018 Appointment: Jossie Booker WPtel: [phone] [facility] [place] (15 min) Moderate 03/19/2018 Patient Education: Patient Medication Summary Completed 03/19/2018 Visit Plan: Shnvpianyjg-jylbqfrn-pmrcogc blood pressures DM- okay to stay off januvia-monitor blood sugars and call if they become elevated UTI-finished treatment 02/08/2018 Appointment: Armida Nicolas WPtel: [phone] [phone] [place] (15 min) Moderate 02/08/2018 [...] to pharmacy. 01/03/2018 Appointment: Jossie Booker WPtel: [phone] [facility] [place] (15 min) Moderate 01/03/2018 Patient Education: [...] of control. 12/08/2017 Appointment: Annika Nguyen [facility]Ptel[facility] [facility] 12/08/2017 Patient Education: Patient [...] CAN GET YOUR RECORDS FROM [facility] . Muiwjusjigu-atnpbzil-xfttoqr blood pressures DM-okay to stay off januvia-monitor [...] or with any changes, questions, or concerns. change the tolterodine to 2 mg at [...]
--- OUTSIDE RECORDS SUMMARY | 2019-03-23 19:55 | XMS REPORT | CCD ---
Author Author [facility] Address [address] [place] [address] Phone Care Team Providers Care Paper Mill Supervisor Name Role Phone PP Unavailable CCM Unavailable Summary Purpose Interface Exchange Insurance Providers Payer name Policy type / Coverage type Covered alliance party ID Effective Begin Date Effective End Date [employer] CLAIMS Commercial Insurance [id number] Unknown Family History Family History data not found Social History Social History Element Codes Description Effective Dates Marital status Unknown [place] 12/08/2017 Number of children Unknown 2 12/08/2017 Employment Unknown Retired 12/08/[address]: 318013284 Never smoker 12/08/[address]: 950304797 Never drinks alcohol 12/08/2017 Allergies, Adverse Reactions, [...] ICD-9: 244.9 ICD-10: E03.9 Active 12/08/2017 Unknown detention (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 anticoagulants ICD-9: V58.61 ICD-10: [...] unspecified ICD-9: 244.9 ICD-10: E03.9 12/08/2017 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 (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 anticoagulants ICD-9: V58.61 ICD-10: Z79.01 12/08/2017 Active Medications Medication Codes Instructions Start Date Stop Date Status Fill Instructions gabapentin 300 mg capsule RxNorm: 669431 1 Capsule(s) PO QID 12/19/2018 12/13/2019 Active tramadol 50 mg tablet RxNorm: 575819 1 Tablet(s) PO Q12H as needed 12/07/2018 02/04/2019 Active tramadol 50 mg tablet RxNorm: 285376 1/2-1 Tablet(s) PO BID as needed 11/23/2018 12/06/2018 Inactive clopidogrel 75 mg tablet RxNorm: 925009 1 Tablet(s) PO daily 11/07/2018 11/01/2019 Active Keflex 500 mg capsule RxNorm: 679361 1 Capsule(s) PO TID 11/07/2018 11/13/2018 Inactive clopidogrel 75 mg tablet RxNorm: 198512 1 Tablet(s) PO daily 10/30/2018 11/06/2018 Inactive clopidogrel 75 mg tablet RxNorm: 934168 1 Tablet(s) PO daily 10/26/2018 10/29/2018 Inactive omeprazole 10 mg capsule,delayed release RxNorm: 215089 1 Capsule(s) PO daily 10/05/2018 12/28/2019 Active escitalopram 10 mg tablet RxNorm: 605591 TAKE 1 TABLET BY MOUTH ONCE DAILY IN THE EVENING 09/06/2018 No Stop Date Active omeprazole 10 mg capsule,delayed release RxNorm: 432426 1 Capsule(s) PO daily 09/06/2018 10/04/2018 Inactive cyanocobalamin (vit B-12) 1,000 mcg tablet RxNorm: 825026 1 Tablet(s) PO daily 08/08/2018 10/31/2019 Active cyanocobalamin (vit B-12) 1,000 mcg tablet RxNorm: 574087 1 Tablet(s) PO daily 08/08/2018 08/07/2018 Inactive levofloxacin 250 mg tablet RxNorm: 883738 1 Tablet(s) PO daily 06/04/2018 06/08/2018 Inactive levofloxacin 250 mg tablet RxNorm: 531767 1 Tablet(s) PO daily 06/04/2018 06/03/2018 Inactive lisinopril 10 mg tablet RxNorm: 393772 1 Tablet(s) PO daily 05/08/2018 05/02/2019 Active Toprol XL 100 mg tablet,extended release RxNorm: 228740 1 Tablet(s) PO daily 05/08/2018 05/02/2019 Active atorvastatin 40 mg tablet RxNorm: 720823 1 Tablet(s) PO QHS 05/04/2018 No Stop Date Active levothyroxine 25 mcg tablet RxNorm: 928795 1 Tablet(s) PO daily 05/04/2018 04/28/2019 Active gabapentin 300 mg capsule RxNorm: 783234 1 Capsule(s) PO TID 05/04/2018 12/18/2018 Inactive Toprol XL 100 mg tablet,extended release RxNorm: 751469 1 Tablet(s) PO daily 05/04/2018 05/07/2018 Inactive lisinopril 10 mg tablet RxNorm: 778281 1 Tablet(s) PO daily 05/04/2018 05/07/2018 Inactive amlodipine 5 mg tablet RxNorm: 269121 1 Tablet(s) PO daily 04/06/2018 03/31/2019 Active amlodipine 5 mg tablet RxNorm: 996428 1 Tablet(s) PO daily 03/28/2018 04/05/2018 Inactive tolterodine 2 mg tablet RxNorm: 300764 1 Tablet(s) PO QPM 03/19/2018 09/24/2018 Inactive nystatin 100,000 unit/gram topical cream RxNorm: 271810 1 Gram(s) TOP TID until healed et then PRN 01/09/2018 No Stop Date Active D/c powder escitalopram 10 mg tablet RxNorm: 987683 1 Tablet(s) PO QPM 01/03/2018 07/31/2018 Inactive nystatin (bulk) 100 million unit powder RxNorm: 1 Miscellaneous QID 12/25/2017 01/08/2018 Inactive warfarin 2 mg tablet RxNorm: 300831 1 Tablet(s) PO daily 12/25/2017 01/02/2018 Inactive nystatin (bulk) 100 million unit powder RxNorm: 1 Miscellaneous QID 12/25/2017 12/24/2017 Inactive sitagliptin 50 mg tablet RxNorm: 220951 1 Tablet(s) PO daily 12/19/2017 02/07/2018 Inactive tolterodine 1 mg tablet RxNorm: 052738 1 Tablet(s) PO BID 12/19/2017 03/18/2018 Inactive warfarin 3 mg tablet RxNorm: 516874 1 Tablet(s) PO UD MWF, 2mg T/Th/Sat/Sun 12/15/2017 01/02/2018 Inactive ciprofloxacin 250 mg tablet RxNorm: 529331 1 Tablet(s) PO BID 12/05/2017 12/09/2017 Inactive multivitamin oral RxNorm: 30467 oral No Start Date Active Xanax 0.25 mg tablet RxNorm: 065331 1 Tablet(s) PO daily as needed No Start Date Active Restasis MultiDose 0.05 % eye drops RxNorm: 052334 1 Drop(s) both ophthalmic (eye) BID No Start Date Active hydrocodone 5 mg-acetaminophen 325 mg tablet RxNorm: 671837 1 Tablet(s) PO Q6 as needed No Start Date Active Oyster Calcium 375 mg-200 unit-800 unit tablet RxNorm: 2 Tablet(s) PO daily No Start Date Active cyanocobalamin (vit B-12) 1,000 mcg tablet RxNorm: 429574 1 Tablet(s) PO daily No Start Date Active aspirin 81 mg tablet RxNorm: 079312 1 Tablet(s) PO daily No Start Date Active Senna-S 8.6 mg-50 mg tablet RxNorm: 250131 1 Tablet(s) PO BID No Start Date Active lisinopril 10 mg tablet RxNorm: 563853 1 Tablet(s) PO daily No Start Date 05/03/2018 Inactive levothyroxine 25 mcg tablet RxNorm: 407192 1 Tablet(s) PO daily No Start Date 05/03/2018 Inactive warfarin 2 mg tablet RxNorm: 622225 1 Tablet(s) PO daily No Start Date 12/24/2017 Inactive tolterodine 1 mg tablet RxNorm: 174169 1 Tablet(s) PO BID No Start Date 12/18/2017 Inactive nystatin 100,000 unit/gram topical cream RxNorm: 142261 1 Gram(s) TOP TID until healed et then PRN No Start Date 01/08/2018 Inactive omeprazole 10 mg capsule,delayed release RxNorm: 227823 1 Capsule(s) PO daily No Start Date 09/05/2018 Inactive Toprol XL 100 mg tablet,extended release RxNorm: 821936 1 Tablet(s) PO daily No Start Date 05/03/2018 Inactive gabapentin 300 mg capsule RxNorm: 827187 1 Capsule(s) PO TID No Start Date 05/03/2018 Inactive atorvastatin 40 mg tablet RxNorm: 986038 1 Tablet(s) PO QHS No Start Date 05/03/2018 Inactive clopidogrel 75 mg tablet RxNorm: 919100 1 Tablet(s) PO daily No Start Date 10/25/2018 Inactive amlodipine 5 mg tablet RxNorm: 482245 1 Tablet(s) PO daily No Start Date 03/27/2018 Inactive sitagliptin 50 mg tablet RxNorm: 141249 1 Tablet(s) PO daily No Start Date [...] not specified ICD-10: N39.0 ICD-9: 599.0 02/08/2018 detention (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 anticoagulants ICD-10: Z79.01 ICD-9: [...] 28.7 pg 11/30/2018 Cbc With Differential Ord2 [place]% 8.1 % 11/30/2018 Cbc With Differential Ord2 [...] 2.13 K/ul 11/30/2018 Cbc With Differential Ord2 [place] ABS# 0.8 K/ul 11/30/2018 Cbc With Differential Ord2 Eos ABS# 0.0 K/ul 11/30/2018 Cbc With Differential Ord2 Baso ABS# 0.0 K/ul 11/30/2018 Hepatic Awp770 ALBUMIN 3.1 g/dL 11/28/2018 Hepatic Ayw571 TPRO 6.0 g/dL 11/28/2018 Hepatic Keh994 GLOB 2.9 g/dL 11/28/2018 Hepatic Ojm315 A/G Ratio 1.1 Ratio 11/28/2018 Hepatic Uuu994 ALK PHOS 102 U/L 11/28/2018 Hepatic Ajw910 ALT(SGPT) 19 U/L 11/28/2018 Hepatic Nco233 AST(SGOT) 18 U/L 11/28/2018 Hepatic Lou615 BILI T 0.4 mg/dL 11/28/2018 Hepatic Xdj382 BILI D 0.1 mg/dL 11/28/2018 Hepatic Vbt326 BILI I 0.3 mg/dL 11/28/2018 Cbc With [...] 28.6 pg 11/28/2018 Cbc With Differential Ord2 [place]% 8.9 % 11/28/2018 Cbc With Differential Ord2 [...] 2.36 K/ul 11/28/2018 Cbc With Differential Ord2 [place] ABS# 0.9 K/ul 11/28/2018 Cbc With Differential [...] 28.6 pg 09/28/2018 Cbc With Differential Ord2 [place]% 8.2 % 09/28/2018 Cbc With Differential Ord2 [...] 1.93 K/ul 09/28/2018 Cbc With Differential Ord2 [place] ABS# 0.5 K/ul 09/28/2018 Cbc With Differential Ord2 Eos ABS# 0.1 K/ul 09/28/2018 Cbc With Differential Ord2 Baso ABS# 0.0 K/ul 09/28/2018 %Hba1C Jun990 % HbA1c 70298- 6 6.6 % 09/28/2018 %Hba1C Voy663 Gluc Ave 143 mg/dL 09/28/2018 Comp Metabolic Hjr222 NA 142 mEq/L 09/28/2018 Comp Metabolic Afy761 K 4.2 mEq/L 09/28/2018 Comp Metabolic Nuh478 CL 107 mEq/L 09/28/2018 Comp Metabolic Nwx656 CO2 30.0 mEq/L 09/28/2018 Comp Metabolic Vpo773 ANION GAP 9 09/28/2018 Comp Metabolic Ehb256 GLUCOSE 117 mg/dL 09/28/2018 Comp Metabolic Abk317 Creat 1.2 mg/dL 09/28/2018 Comp Metabolic Hdo767 eGFR 47 ml/min/1.73m2 09/28/2018 Comp Metabolic Eil824 BUN 19 mg/dL 09/28/2018 Comp Metabolic Kjn166 B/C Ratio 16.5 Ratio 09/28/2018 Comp Metabolic Mju487 CALCIUM 8.6 mg/dL 09/28/2018 Comp Metabolic Kwf762 ALK PHOS 101 U/L 09/28/2018 Comp Metabolic Onc945 AST(SGOT) 16 U/L 09/28/2018 Comp Metabolic Gum659 ALT(SGPT) 13 U/L 09/28/2018 Comp Metabolic Chr302 BILI T 0.4 mg/dL 09/28/2018 Comp Metabolic Hdr556 ALBUMIN 3.4 g/dL 09/28/2018 Comp Metabolic Zfm776 TPRO 6.1 g/dL 09/28/2018 Comp Metabolic Gbs424 GLOB 2.7 g/dL 09/28/2018 Comp Metabolic Fga130 A/G Ratio 1.3 Ratio 09/28/2018 Comp Metabolic Xzd497 Osmo 286 mOsmo 09/28/2018 Tsh Ord6 TSH (3rd IS) 0.80 uIU/mL 09/28/2018 Lipid Ord30 CHOL 89 mg/dL 09/28/2018 Lipid Ord30 HDL 33.0 mg/dl 09/28/2018 Lipid Ord30 TRIG 78 mg/dL 09/28/2018 Lipid Ord30 LDL 40 mg/dL 09/28/2018 Lipid Ord30 C/HDL 2.7 Ratio 09/28/2018 Pt Nar7084 PT 17.8 seconds 12/15/2017 Pt Dih9421 INR 1.5 12/15/2017 Pt Biq0278 Low Intensity - 1.5-2.0 12/15/2017 Pt Dif9471 Mod intensity - 2.0-3.0 12/15/2017 Pt Mqw9608 Hi intensity - 3.0-4.0 12/15/2017 Urinalysis Ord28 [...] hours from collection if refrigerated) 12/12/2017 Pt Jqp5559 PT 15.2 seconds 12/11/2017 Pt Asw5850 INR 1.2 12/11/2017 Pt Oej4743 Low Intensity - 1.5-2.0 12/11/2017 Pt Thv7435 Mod intensity - 2.0-3.0 12/11/2017 Pt Fvu9092 Hi intensity - 3.0-4.0 12/11/2017 Pt Byd9837 PT 14.7 seconds 12/08/2017 Pt Udf4265 INR 1.2 12/08/2017 Pt Fac1092 Low Intensity - 1.5-2.0 12/08/2017 Pt Dtw3419 Mod intensity - 2.0-3.0 12/08/2017 Pt Qoe6316 Hi intensity - 3.0-4.0 12/08/2017 Review of [...] FLU VACC PRSV FREE INC ANTIG CPT-4: 81039 07/18/2018 Vital Signs Date Vital 12/17/2018 Blood Pressure 1: 138/74 Code: 8480-6 Heart Rate 1: 74 bpm Height: SpO2: 96% Weight: 11/27/2018 Blood Pressure 1: 136/58 Code: 8480-6 Heart Rate 1: 82 bpm Height: 4'11" SpO2: 96% Temperature: 36.8 (C) / 98.2 (F) Weight: 11/07/2018 Blood Pressure 1: 110/58 Code: 8480-6 BMI: 30.7 Code: 09464-1 Heart Rate 1: 70 bpm Height: 4'11" SpO2: 97% Weight: 152 lbs 09/25/2018 Blood Pressure 1: 140/70 Code: 8480-6 BMI: 30.9 Code: 34424-8 Heart Rate 1: 67 bpm Height: 4'11" SpO2: 91% Weight: 153 lbs 03/19/2018 Blood Pressure 1: 140/58 Code: 8480-6 BMI: 28.5 Code: 39778-2 Heart Rate 1: 59 bpm Height: 4'11" SpO2: 98% Weight: 141 lbs 02/08/2018 Blood Pressure 1: 130/68 Code: 8480-6 BMI: 28.5 Code: 63706-6 Heart Rate 1: 73 bpm Height: 4'11" SpO2: 98% Weight: 141 lbs 01/03/2018 Blood Pressure 1: 116/64 Code: 8480-6 BMI: 27.7 Code: 64822-1 Heart Rate 1: 68 bpm Height: 4'11" [...] Slow transit constipation[ICD10: K59.01] [facility] CPT-4: 47131 12/17/2018 ([id number]) 81760 EST. PATIENT, LEVEL IV Diagnosis: Influenza due to identified novel influenza A virus with other manifestations[ICD10: J09.X9] Diagnosis: Encounter for follow-up examination after completed treatment for conditions other than malignant neoplasm[ICD10: Z09] Diagnosis: Low back pain[ICD10: M54.5] Diagnosis: Slow transit constipation[ICD10: K59.01] [facility] CPT-4: 59312 11/27/2018 96032 EST. PATIENT, LEVEL III Diagnosis: Dysuria[ICD10: R30.0] Diagnosis: Dizziness and giddiness[ICD10: R42] [facility] CPT- 4: 52038 11/07/2018 [id number]) 72556 EST. PATIENT, LEVEL IV Diagnosis: Essential (primary) hypertension[ICD10: I10] Diagnosis: Chronic kidney disease, stage 3 (moderate)[ICD10: N18.3] Diagnosis: Atrophy of thyroid (acquired)[ICD10: E03.4] Diagnosis: Type 2 diabetes mellitus without complications[ICD10: E11.9] Jossie Booker MD, [facility] CPT-4: 37705 09/25/2018 ([id number]) 00229 EST. 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 PATIENT, LEVEL IV Diagnosis: Orthostatic hypotension[ICD10: I95.1] Diagnosis: Urinary tract infection, site not specified[ICD10: N39.0] Diagnosis: Type 2 diabetes mellitus without complications[ICD10: E11.9] Armida Booker MD, [facility] CPT-4: 80444 02/08/2018 ([id number]) 37840 EST. 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] Diagnosis: Type 2 diabetes mellitus without complications[ICD10: E11.9] Diagnosis: Chronic kidney disease, stage 3 (moderate)[ICD10: N18.3] Diagnosis: detention (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 anticoagulants[ICD10: Z79.01] Annika Booker MD, [facility] CPT-4: 39426 12/08/2017 Plan of Care Planned Activity Notes [...] or concerns. 12/17/2018 Appointment: Annika Nguyen WPtel: [facility]5 [facility] (30 min) Complex 12/17/2018 Patient Education: Patient Medication Summary Completed 12/17/2018 Appointment: Annika Nguyen WPtel: [facility]5 [facility]66[facility] (15 min) Moderate 11/28/2018 Visit Plan: Hospital follow up with influenza A -patient is doing well -no further treatment indicated Constipation -add milk of magnesia as needed Low back pain -patient is seeing Ortho later today -continue ty lenol/tramadol as needed for pain 11/27/2018 Appointment: Armida Nicolas WPtel: [facility]5 [phone] [place] (15 min) Moderate 11/27/2018 Patient Education: Patient Medication Summary Completed 11/27/2018 Patient Education: Back Pain Completed 11/27/2018 Appointment: Annika Nguyen WPtel: [facility]5 [facility] (15 min) Moderate 11/20/2018 Visit Plan: UTI - pt with positive urinalysis - culture sent if appropriate. Antibiotic electronically prescribed to pt's pharmacy of choice. Pt to call if symptoms do not improve. 11/07/2018 Appointment: Annika Nguyen WPtel: [facility]3 [facility] (15 min) Moderate 11/07/2018 Patient Education: Patient [...] of control. 09/25/2018 Appointment: Jossie Booker WPtel: [address] [place], [place] [phone] (15 min) Moderate 09/25/2018 Patient Education: Patient Medication Summary Completed 09/25/2018 Patient Education: Diabetes Completed 09/25/2018 Care Plan: Comp Metabolic Pending 09/25/2018 Care Plan: Cbc With Differential Pending 09/25/2018 Care Plan: %Hba1C LOINC : 93142-5 Pending 09/25/2018 Care Plan: Lipid Pending 09/25/2018 [...] control. 03/19/2018 Appointment: Jossie Booker WPtel: [phone] [facility] [place] (15 min) Moderate 03/19/2018 Patient Education: Patient Medication Summary Completed 03/19/2018 Visit Plan: Dauuiprfftb-dtskeaxa-ovnxztx blood pressures DM- okay to stay off januvia-monitor blood sugars and call if they become elevated UTI-finished treatment 02/08/2018 Appointment: Armida Nicolas WPtel: [phone] [phone] [place] (15 min) Moderate 02/08/2018 Patient Education: [...] pharmacy. 01/03/2018 Appointment: Jossie Booker WPtel[phone] [place] [place] [place] (15 min) Moderate 01/03/2018 Patient Education: [...] control. 12/08/2017 Appointment: Annika Nguyen WPtel: [address] [place], [place] [phone] [place] New Patient 12/08/2017 Patient Education: Patient [...] CAN GET YOUR RECORDS FROM [facility] . Xshzwiilnjr-vajcussy-hclemdw blood pressures DM-okay to stay off januvia-monitor [...]
--- OUTSIDE RECORDS SUMMARY | 2019-03-23 19:56 | XMS REPORT | CCD ---
Author Author [facility] Address [address] [place] [address] Phone Care Team Providers Care Offset Label Rewinder Name Role Phone PP Unavailable CCM Unavailable Summary Purpose Interface Exchange Insurance Providers Payer name Policy type / Coverage type Covered green party ID Effective Begin Date Effective End Date [employer] CLAIMS Commercial Insurance [id number] Unknown Family History Family History data not found Social History Social History Element Codes Description Effective Dates Marital status Unknown [place] 12/08/2017 Number of children Unknown 2 12/08/2017 Employment Unknown Retired 12/08/[address]: 913665119 Never smoker 12/08/[address]: 134695463 Never drinks alcohol 12/08/2017 Allergies, Adverse Reactions, [...] ICD-9: 244.9 ICD-10: E03.9 Active 12/08/2017 Unknown [facility] (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 anticoagulants ICD-9: V58.61 ICD-10: [...] unspecified ICD-9: 244.9 ICD-10: E03.9 12/08/2017 Active [employer] (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 anticoagulants ICD-9: V58.61 ICD-10: Z79.01 12/08/2017 Active Medications Medication Codes Instructions Start Date Stop Date Status Fill Instructions tramadol 50 mg tablet RxNorm: 064105 1 Tablet(s) PO Q12H as needed 12/07/2018 02/04/2019 Active tramadol 50 mg tablet RxNorm: 773526 1/2-1 Tablet(s) PO BID as needed 11/23/2018 12/06/2018 Inactive clopidogrel 75 mg tablet RxNorm: 555084 1 Tablet(s) PO daily 11/07/2018 11/01/2019 Active Keflex 500 mg capsule RxNorm: 233096 1 Capsule(s) PO TID 11/07/2018 11/13/2018 Inactive clopidogrel 75 mg tablet RxNorm: 490693 1 Tablet(s) PO daily 10/30/2018 11/06/2018 Inactive clopidogrel 75 mg tablet RxNorm: 179840 1 Tablet(s) PO daily 10/26/2018 10/29/2018 Inactive omeprazole 10 mg capsule,delayed release RxNorm: 222916 1 Capsule(s) PO daily 10/05/2018 12/28/2019 Active escitalopram 10 mg tablet RxNorm: 129334 TAKE 1 TABLET BY MOUTH ONCE DAILY IN THE EVENING 09/06/2018 No Stop Date Active omeprazole 10 mg capsule,delayed release RxNorm: 831103 1 Capsule(s) PO daily 09/06/2018 10/04/2018 Inactive cyanocobalamin (vit B-12) 1,000 mcg tablet RxNorm: 264059 1 Tablet(s) PO daily 08/08/2018 10/31/2019 Active cyanocobalamin (vit B-12) 1,000 mcg tablet RxNorm: 292871 1 Tablet(s) PO daily 08/08/2018 08/07/2018 Inactive levofloxacin 250 mg tablet RxNorm: 295761 1 Tablet(s) PO daily 06/04/2018 06/08/2018 Inactive levofloxacin 250 mg tablet RxNorm: 711205 1 Tablet(s) PO daily 06/04/2018 06/03/2018 Inactive lisinopril 10 mg tablet RxNorm: 440810 1 Tablet(s) PO daily 05/08/2018 05/02/2019 Active Toprol XL 100 mg tablet,extended release RxNorm: 426158 1 Tablet(s) PO daily 05/08/2018 05/02/2019 Active atorvastatin 40 mg tablet RxNorm: 018420 1 Tablet(s) PO QHS 05/04/2018 No Stop Date Active gabapentin 300 mg capsule RxNorm: 042593 1 Capsule(s) PO TID 05/04/2018 04/28/2019 Active levothyroxine 25 mcg tablet RxNorm: 811188 1 Tablet(s) PO daily 05/04/2018 04/28/2019 Active Toprol XL 100 mg tablet,extended release RxNorm: 511758 1 Tablet(s) PO daily 05/04/2018 05/07/2018 Inactive lisinopril 10 mg tablet RxNorm: 976820 1 Tablet(s) PO daily 05/04/2018 05/07/2018 Inactive amlodipine 5 mg tablet RxNorm: 222864 1 Tablet(s) PO daily 04/06/2018 03/31/2019 Active amlodipine 5 mg tablet RxNorm: 806710 1 Tablet(s) PO daily 03/28/2018 04/05/2018 Inactive tolterodine 2 mg tablet RxNorm: 887713 1 Tablet(s) PO QPM 03/19/2018 09/24/2018 Inactive nystatin 100,000 unit/gram topical cream RxNorm: 057046 1 Gram(s) TOP TID until healed et then PRN 01/09/2018 No Stop Date Active D/c powder escitalopram 10 mg tablet RxNorm: 366070 1 Tablet(s) PO QPM 01/03/2018 07/31/2018 Inactive nystatin (bulk) 100 million unit powder RxNorm: 1 Miscellaneous QID 12/25/2017 01/08/2018 Inactive warfarin 2 mg tablet RxNorm: 017090 1 Tablet(s) PO daily 12/25/2017 01/02/2018 Inactive nystatin (bulk) 100 million unit powder RxNorm: 1 Miscellaneous QID 12/25/2017 12/24/2017 Inactive sitagliptin 50 mg tablet RxNorm: 689680 1 Tablet(s) PO daily 12/19/2017 02/07/2018 Inactive tolterodine 1 mg tablet RxNorm: 826130 1 Tablet(s) PO BID 12/19/2017 03/18/2018 Inactive warfarin 3 mg tablet RxNorm: 064615 1 Tablet(s) PO UD MWF, 2mg T/Th/Sat/Sun 12/15/2017 01/02/2018 Inactive ciprofloxacin 250 mg tablet RxNorm: 354033 1 Tablet(s) PO BID 12/05/2017 12/09/2017 Inactive multivitamin oral RxNorm: 24964 oral No Start Date Active Xanax 0.25 mg tablet RxNorm: 027560 1 Tablet(s) PO daily as needed No Start Date Active Restasis MultiDose 0.05 % eye drops RxNorm: 310144 1 Drop(s) both ophthalmic (eye) BID No Start Date Active hydrocodone 5 mg-acetaminophen 325 mg tablet RxNorm: 024425 1 Tablet(s) PO Q6 as needed No Start Date Active Oyster Calcium 375 mg-200 unit-800 unit tablet RxNorm: 2 Tablet(s) PO daily No Start Date Active cyanocobalamin (vit B-12) 1,000 mcg tablet RxNorm: 295352 1 Tablet(s) PO daily No Start Date Active aspirin 81 mg tablet RxNorm: 153608 1 Tablet(s) PO daily No Start Date Active lisinopril 10 mg tablet RxNorm: 108779 1 Tablet(s) PO daily No Start Date 05/03/2018 Inactive levothyroxine 25 mcg tablet RxNorm: 954980 1 Tablet(s) PO daily No Start Date 05/03/2018 Inactive warfarin 2 mg tablet RxNorm: 858230 1 Tablet(s) PO daily No Start Date 12/24/2017 Inactive tolterodine 1 mg tablet RxNorm: 169081 1 Tablet(s) PO BID No Start Date 12/18/2017 Inactive nystatin 100,000 unit/gram topical cream RxNorm: 763775 1 Gram(s) TOP TID until healed et then PRN No Start Date 01/08/2018 Inactive omeprazole 10 mg capsule,delayed release RxNorm: 692320 1 Capsule(s) PO daily No Start Date 09/05/2018 Inactive Toprol XL 100 mg tablet,extended release RxNorm: 715361 1 Tablet(s) PO daily No Start Date 05/03/2018 Inactive gabapentin 300 mg capsule RxNorm: 163813 1 Capsule(s) PO TID No Start Date 05/03/2018 Inactive atorvastatin 40 mg tablet RxNorm: 925156 1 Tablet(s) PO QHS No Start Date 05/03/2018 Inactive clopidogrel 75 mg tablet RxNorm: 991749 1 Tablet(s) PO daily No Start Date 10/25/2018 Inactive amlodipine 5 mg tablet RxNorm: 273072 1 Tablet(s) PO daily No Start Date 03/27/2018 Inactive sitagliptin 50 mg tablet RxNorm: 830560 1 Tablet(s) PO daily No Start Date [...] not specified ICD-10: N39.0 ICD-9: 599.0 02/08/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 ICD-10: Z79.01 ICD-9: [...] 28.7 pg 11/30/2018 Cbc With Differential Ord2 [place]% 8.1 % 11/30/2018 Cbc With Differential Ord2 [...] 2.13 K/ul 11/30/2018 Cbc With Differential Ord2 [place] ABS# 0.8 K/ul 11/30/2018 Cbc With Differential Ord2 Eos ABS# 0.0 K/ul 11/30/2018 Cbc With Differential Ord2 Baso ABS# 0.0 K/ul 11/30/2018 Hepatic Pox471 ALBUMIN 3.1 g/dL 11/28/2018 Hepatic Kuw860 TPRO 6.0 g/dL 11/28/2018 Hepatic Lhx128 GLOB 2.9 g/dL 11/28/2018 Hepatic Zsc620 A/G Ratio 1.1 Ratio 11/28/2018 Hepatic Jng963 ALK PHOS 102 U/L 11/28/2018 Hepatic Xbf169 ALT(SGPT) 19 U/L 11/28/2018 Hepatic Hes267 AST(SGOT) 18 U/L 11/28/2018 Hepatic Wkk885 BILI T 0.4 mg/dL 11/28/2018 Hepatic Vwi496 BILI D 0.1 mg/dL 11/28/2018 Hepatic Pea514 BILI I 0.3 mg/dL 11/28/2018 Cbc With [...] 28.6 pg 11/28/2018 Cbc With Differential Ord2 [place]% 8.9 % 11/28/2018 Cbc With Differential Ord2 [...] 2.36 K/ul 11/28/2018 Cbc With Differential Ord2 [place] ABS# 0.9 K/ul 11/28/2018 Cbc With Differential [...] 28.6 pg 09/28/2018 Cbc With Differential Ord2 [place]% 8.2 % 09/28/2018 Cbc With Differential Ord2 [...] 1.93 K/ul 09/28/2018 Cbc With Differential Ord2 [place] ABS# 0.5 K/ul 09/28/2018 Cbc With Differential Ord2 Eos ABS# 0.1 K/ul 09/28/2018 Cbc With Differential Ord2 Baso ABS# 0.0 K/ul 09/28/2018 %Hba1C Pdl382 % HbA1c 74461- 6 6.6 % 09/28/2018 %Hba1C Tco362 Gluc Ave 143 mg/dL 09/28/2018 Comp Metabolic Qwe929 NA 142 mEq/L 09/28/2018 Comp Metabolic Kah574 K 4.2 mEq/L 09/28/2018 Comp Metabolic Mvw761 CL 107 mEq/L 09/28/2018 Comp Metabolic Bbx821 CO2 30.0 mEq/L 09/28/2018 Comp Metabolic Wem110 ANION GAP 9 09/28/2018 Comp Metabolic Tct863 GLUCOSE 117 mg/dL 09/28/2018 Comp Metabolic Zyw728 Creat 1.2 mg/dL 09/28/2018 Comp Metabolic Hud133 eGFR 47 ml/min/1.73m2 09/28/2018 Comp Metabolic Qsj436 BUN 19 mg/dL 09/28/2018 Comp Metabolic Rnl653 B/C Ratio 16.5 Ratio 09/28/2018 Comp Metabolic Qvx450 CALCIUM 8.6 mg/dL 09/28/2018 Comp Metabolic God882 ALK PHOS 101 U/L 09/28/2018 Comp Metabolic Nyt605 AST(SGOT) 16 U/L 09/28/2018 Comp Metabolic Hma469 ALT(SGPT) 13 U/L 09/28/2018 Comp Metabolic Zwn181 BILI T 0.4 mg/dL 09/28/2018 Comp Metabolic Ccc294 ALBUMIN 3.4 g/dL 09/28/2018 Comp Metabolic Oem710 TPRO 6.1 g/dL 09/28/2018 Comp Metabolic Mwp666 GLOB 2.7 g/dL 09/28/2018 Comp Metabolic Wim092 A/G Ratio 1.3 Ratio 09/28/2018 Comp Metabolic Luo858 Osmo 286 mOsmo 09/28/2018 Tsh Ord6 TSH (3rd IS) 0.80 uIU/mL 09/28/2018 Lipid Ord30 CHOL 89 mg/dL 09/28/2018 Lipid Ord30 HDL 33.0 mg/dl 09/28/2018 Lipid Ord30 TRIG 78 mg/dL 09/28/2018 Lipid Ord30 LDL 40 mg/dL 09/28/2018 Lipid Ord30 C/HDL 2.7 Ratio 09/28/2018 Pt Apb6932 PT 17.8 seconds 12/15/2017 Pt Hxk1517 INR 1.5 12/15/2017 Pt Ibz8437 Low Intensity - 1.5-2.0 12/15/2017 Pt Dtg2093 Mod intensity - 2.0-3.0 12/15/2017 Pt Rpw7420 Hi intensity - 3.0-4.0 12/15/2017 Urinalysis Ord28 [...] hours from collection if refrigerated) 12/12/2017 Pt Lfp2885 PT 15.2 seconds 12/11/2017 Pt Hvj8625 INR 1.2 12/11/2017 Pt Fpn3872 Low Intensity - 1.5-2.0 12/11/2017 Pt Oda3474 Mod intensity - 2.0-3.0 12/11/2017 Pt Jjg8627 Hi intensity - 3.0-4.0 12/11/2017 Pt Fiq0449 PT 14.7 seconds 12/08/2017 Pt Xla2524 INR 1.2 12/08/2017 Pt Aeu5159 Low Intensity - 1.5-2.0 12/08/2017 Pt Aee3163 Mod intensity - 2.0-3.0 12/08/2017 Pt Wvx5214 Hi intensity - 3.0-4.0 12/08/2017 Review of [...] lips 12/17/2018 None Full Exam - General 1995 Ears/Nose/Throat [...] accomodation 11/27/2018 None Full Exam - General 1995 Ears/Nose/Throat lips/teeth/gingiva Overall: benign lips 11/27/2018 None [...] General 1994 Eyes conjunctiva/eyelids Overall: conjunctiva clear 11/07/2018 None [...] lips 09/25/2018 None Full Exam - General 1995 [...] FLU VACC PRSV FREE INC ANTIG CPT-4: 19498 07/18/2018 Vital Signs Date Vital 12/17/2018 Blood Pressure 1: 138/74 Code: 8480-6 Heart Rate 1: 74 bpm Height: SpO2: 96% Weight: 11/27/2018 Blood Pressure 1: 136/58 Code: 8480-6 Heart Rate 1: 82 bpm Height: 4'11" SpO2: 96% Temperature: 36.8 (C) / 98.2 (F) Weight: 11/07/2018 Blood Pressure 1: 110/58 Code: 8480-6 BMI: 30.7 Code: 81033-3 Heart Rate 1: 70 bpm Height: 4'11" SpO2: 97% Weight: 152 lbs 09/25/2018 Blood Pressure 1: 140/70 Code: 8480-6 BMI: 30.9 Code: 49407-5 Heart Rate 1: 67 bpm Height: 4'11" SpO2: 91% Weight: 153 lbs 03/19/2018 Blood Pressure 1: 140/58 Code: 8480-6 BMI: 28.5 Code: 55110-9 Heart Rate 1: 59 bpm Height: 4'11" SpO2: 98% Weight: 141 lbs 02/08/2018 Blood Pressure 1: 130/68 Code: 8480-6 BMI: 28.5 Code: 69290-6 Heart Rate 1: 73 bpm Height: 4'11" SpO2: 98% Weight: 141 lbs 01/03/2018 Blood Pressure 1: 116/64 Code: 8480-6 BMI: 27.7 Code: 17259-4 Heart Rate 1: 68 bpm Height: 4'11" [...] Slow transit constipation[ICD10: K59.01] Annika Booker MD, [facility] CPT-4: 07899 12/17/2018 [id number]) [id number] EST. PATIENT, LEVEL IV Diagnosis: Influenza due to identified novel influenza A virus with other manifestations[ICD10: J09.X9] Diagnosis: Encounter for follow-up examination after completed treatment for conditions other than malignant neoplasm[ICD10: Z09] Diagnosis: Low back pain[ICD10: M54.5] Diagnosis: Slow transit constipation[ICD10: K59.01] Armida Booker MD, [facility] CPT-4: 68175 11/27/2018 [id number] EST. PATIENT, LEVEL III Diagnosis: Dysuria[ICD10: R30.0] Diagnosis: Dizziness and giddiness[ICD10: R42] Annika Booker MD, [facility] CPT- 4: 64578 11/07/2018 [id number]) [id number] EST. PATIENT, LEVEL IV Diagnosis: Essential (primary) hypertension[ICD10: I10] Diagnosis: Chronic kidney disease, stage 3 (moderate)[ICD10: N18.3] Diagnosis: Atrophy of thyroid (acquired)[ICD10: E03.4] Diagnosis: Type 2 diabetes mellitus without complications[ICD10: E11.9] Jossie Booker MD, [facility] CPT-4: 14187 09/25/2018 ([id number] 94744 EST. PATIENT, LEVEL IV Diagnosis: Type 2 diabetes mellitus without complications[ICD10: E11.9] Diagnosis: Atrophy of thyroid (acquired)[ICD10: E03.4] Diagnosis: Essential (primary) hypertension[ICD10: I10] Diagnosis: Urgency of urination[ICD10: R39.15] Jossie Booker MD, [facility] CPT- 4: 71256 03/19/2018 ([id number]) 40313 EST. PATIENT, LEVEL IV Diagnosis: Orthostatic hypotension[ICD10: I95.1] Diagnosis: Urinary tract infection, site not specified[ICD10: N39.0] Diagnosis: Type 2 diabetes mellitus without complications[ICD10: E11.9] Armida Booker MD, [facility] CPT-4: 92996 02/08/2018 ([id number]) 76748 EST. 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 12/17/2018 Appointment: Annika Nguyen WPtel: [phone] [facility] (30 min) Complex 12/17/2018 Patient Education: Patient Medication Summary Completed 12/17/2018 Appointment: Annika Nguyen WPtel: [facility]5 [facility]66[facility] (15 min) Moderate 11/28/2018 Visit Plan: Hospital follow up with influenza A -patient is doing well -no further treatment indicated Constipation -add milk of magnesia as needed Low back pain -patient is seeing Ortho later today -continue ty lenol/tramadol as needed for pain 11/27/2018 Appointment: Armida Nicolas WPtel: [phone] [place] [phone] [place] (15 min) Moderate 11/27/2018 Patient Education: Patient Medication Summary Completed 11/27/2018 Patient Education: Back Pain Completed 11/27/2018 Appointment: Annika Nguyen WPtel: [facility]5 [facility]66[facility] (15 min) Moderate 11/20/2018 Visit Plan: UTI - pt with positive urinalysis - culture sent if appropriate. Antibiotic electronically prescribed to pt's pharmacy of choice. Pt to call if symptoms do not improve. 11/07/2018 Appointment: Annika Nguyen WPtel: [facility]5 [facility] (15 min) Moderate 11/07/2018 Patient Education: Patient [...] of control. 09/25/2018 Appointment: Jossie Booker WPtel: [address] [place], [place] [id number] (15 min) Moderate 09/25/2018 Patient Education: Patient Medication Summary Completed 09/25/2018 Patient Education: Diabetes Completed 09/25/2018 Care Plan: Comp Metabolic Pending 09/25/2018 Care Plan: Cbc With Differential Pending 09/25/2018 Care Plan: %Hba1C LOINC : 79126-5 Pending 09/25/2018 Care Plan: Lipid Pending 09/25/2018 [...] control. 03/19/2018 Appointment: Jossie Booker WPtel: [phone] [facility] [place] (15 min) Moderate 03/19/2018 Patient Education: Patient Medication Summary Completed 03/19/2018 Visit Plan: Rewabxheawd-ojhgkfiz-zstctun blood pressures DM- okay to stay off januvia-monitor blood sugars and call if they become elevated UTI-finished treatment 02/08/2018 Appointment: Armida Nicolas WPtel: [phone] [phone] [place] (15 min) Moderate 02/08/2018 Patient Education: [...] to pharmacy. 01/03/2018 Appointment: Jossie Booker WPtel: [phone] [facility] [place] (15 min) Moderate 01/03/2018 Patient [...] control. 12/08/2017 App[facility]ment: [facility] Nguyen [facility]el[phone] [facility] 12/08/2017 Patient Education: Patient [...] CAN GET YOUR RECORDS FROM [facility] . Rqfyxjjecap-lczcqhud-miigsen blood pressures DM-okay to stay off januvia-monitor [...]
--- OUTSIDE RECORDS SUMMARY | 2019-03-23 19:57 | XMS REPORT | CCD ---
Author Author [facility] Address [address] [place] [address] Phone Care Team Providers Care Hockey Player Name Role Phone PP Unavailable CCM Unavailable Summary Purpose Interface Exchange Insurance Providers Payer name Policy type / Coverage type Covered green party ID Effective Begin Date Effective End Date [employer] CLAIMS Commercial Insurance [id number] Unknown Family History Family History data not found Social History Social History Element Codes Description Effective Dates Marital status Unknown [place] 12/08/2017 Number of children Unknown 2 12/08/2017 Employment Unknown Retired 12/08/[address]: 508991016 Never smoker 12/08/[address]: 186658944 Never drinks alcohol 12/08/2017 Allergies, Adverse Reactions, [...] ICD-9: 244.9 ICD-10: E03.9 Active 12/08/2017 Unknown 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 (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 anticoagulants ICD-9: V58.61 ICD-10: [...] ICD-9: 244.9 ICD-10: E03.9 12/08/2017 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 ICD-9: V58.61 ICD-10: Z79.01 12/08/2017 Active Medications Medication Codes Instructions Start Date Stop Date Status Fill Instructions tramadol 50 mg tablet RxNorm: 340550 1 Tablet(s) PO Q12H as needed 12/07/2018 02/04/2019 Active tramadol 50 mg tablet RxNorm: 432724 1/2-1 Tablet(s) PO BID as needed 11/23/2018 12/06/2018 Inactive clopidogrel 75 mg tablet RxNorm: 401023 1 Tablet(s) PO daily 11/07/2018 11/01/2019 Active Keflex 500 mg capsule RxNorm: 334338 1 Capsule(s) PO TID 11/07/2018 11/13/2018 Inactive clopidogrel 75 mg tablet RxNorm: 436162 1 Tablet(s) PO daily 10/30/2018 11/06/2018 Inactive clopidogrel 75 mg tablet RxNorm: 850906 1 Tablet(s) PO daily 10/26/2018 10/29/2018 Inactive omeprazole 10 mg capsule,delayed release RxNorm: 588039 1 Capsule(s) PO daily 10/05/2018 12/28/2019 Active escitalopram 10 mg tablet RxNorm: 310177 TAKE 1 TABLET BY MOUTH ONCE DAILY IN THE EVENING 09/06/2018 No Stop Date Active omeprazole 10 mg capsule,delayed release RxNorm: 112358 1 Capsule(s) PO daily 09/06/2018 10/04/2018 Inactive cyanocobalamin (vit B-12) 1,000 mcg tablet RxNorm: 181629 1 Tablet(s) PO daily 08/08/2018 10/31/2019 Active cyanocobalamin (vit B-12) 1,000 mcg tablet RxNorm: 643608 1 Tablet(s) PO daily 08/08/2018 08/07/2018 Inactive levofloxacin 250 mg tablet RxNorm: 406127 1 Tablet(s) PO daily 06/04/2018 06/08/2018 Inactive levofloxacin 250 mg tablet RxNorm: 996770 1 Tablet(s) PO daily 06/04/2018 06/03/2018 Inactive lisinopril 10 mg tablet RxNorm: 989289 1 Tablet(s) PO daily 05/08/2018 05/02/2019 Active Toprol XL 100 mg tablet,extended release RxNorm: 622797 1 Tablet(s) PO daily 05/08/2018 05/02/2019 Active atorvastatin 40 mg tablet RxNorm: 427476 1 Tablet(s) PO QHS 05/04/2018 No Stop Date Active gabapentin 300 mg capsule RxNorm: 504309 1 Capsule(s) PO TID 05/04/2018 04/28/2019 Active levothyroxine 25 mcg tablet RxNorm: 641875 1 Tablet(s) PO daily 05/04/2018 04/28/2019 Active Toprol XL 100 mg tablet,extended release RxNorm: 021774 1 Tablet(s) PO daily 05/04/2018 05/07/2018 Inactive lisinopril 10 mg tablet RxNorm: 011771 1 Tablet(s) PO daily 05/04/2018 05/07/2018 Inactive amlodipine 5 mg tablet RxNorm: 600510 1 Tablet(s) PO daily 04/06/2018 03/31/2019 Active amlodipine 5 mg tablet RxNorm: 357161 1 Tablet(s) PO daily 03/28/2018 04/05/2018 Inactive tolterodine 2 mg tablet RxNorm: 324177 1 Tablet(s) PO QPM 03/19/2018 09/24/2018 Inactive nystatin 100,000 unit/gram topical cream RxNorm: 167901 1 Gram(s) TOP TID until healed et then PRN 01/09/2018 No Stop Date Active D/c powder escitalopram 10 mg tablet RxNorm: 336037 1 Tablet(s) PO QPM 01/03/2018 07/31/2018 Inactive nystatin (bulk) 100 million unit powder RxNorm: 1 Miscellaneous QID 12/25/2017 01/08/2018 Inactive warfarin 2 mg tablet RxNorm: 431083 1 Tablet(s) PO daily 12/25/2017 01/02/2018 Inactive nystatin (bulk) 100 million unit powder RxNorm: 1 Miscellaneous QID 12/25/2017 12/24/2017 Inactive sitagliptin 50 mg tablet RxNorm: 613416 1 Tablet(s) PO daily 12/19/2017 02/07/2018 Inactive tolterodine 1 mg tablet RxNorm: 245551 1 Tablet(s) PO BID 12/19/2017 03/18/2018 Inactive warfarin 3 mg tablet RxNorm: 924800 1 Tablet(s) PO UD MWF, 2mg T/Th/Sat/Sun 12/15/2017 01/02/2018 Inactive ciprofloxacin 250 mg tablet RxNorm: 586284 1 Tablet(s) PO BID 12/05/2017 12/09/2017 Inactive multivitamin oral RxNorm: 44924 oral No Start Date Active Xanax 0.25 mg tablet RxNorm: 912012 1 Tablet(s) PO daily as needed No Start Date Active Restasis MultiDose 0.05 % eye drops RxNorm: 668221 1 Drop(s) both ophthalmic (eye) BID No Start Date Active hydrocodone 5 mg-acetaminophen 325 mg tablet RxNorm: 715331 1 Tablet(s) PO Q6 as needed No Start Date Active Oyster Calcium 375 mg-200 unit-800 unit tablet RxNorm: 2 Tablet(s) PO daily No Start Date Active cyanocobalamin (vit B-12) 1,000 mcg tablet RxNorm: 576363 1 Tablet(s) PO daily No Start Date Active aspirin 81 mg tablet RxNorm: 599217 1 Tablet(s) PO daily No Start Date Active lisinopril 10 mg tablet RxNorm: 892687 1 Tablet(s) PO daily No Start Date 05/03/2018 Inactive levothyroxine 25 mcg tablet RxNorm: 103757 1 Tablet(s) PO daily No Start Date 05/03/2018 Inactive warfarin 2 mg tablet RxNorm: 328991 1 Tablet(s) PO daily No Start Date 12/24/2017 Inactive tolterodine 1 mg tablet RxNorm: 028330 1 Tablet(s) PO BID No Start Date 12/18/2017 Inactive nystatin 100,000 unit/gram topical cream RxNorm: 072816 1 Gram(s) TOP TID until healed et then PRN No Start Date 01/08/2018 Inactive omeprazole 10 mg capsule,delayed release RxNorm: 705648 1 Capsule(s) PO daily No Start Date 09/05/2018 Inactive Toprol XL 100 mg tablet,extended release RxNorm: 191761 1 Tablet(s) PO daily No Start Date 05/03/2018 Inactive gabapentin 300 mg capsule RxNorm: 937832 1 Capsule(s) PO TID No Start Date 05/03/2018 Inactive atorvastatin 40 mg tablet RxNorm: 755395 1 Tablet(s) PO QHS No Start Date 05/03/2018 Inactive clopidogrel 75 mg tablet RxNorm: 933647 1 Tablet(s) PO daily No Start Date 10/25/2018 Inactive amlodipine 5 mg tablet RxNorm: 248845 1 Tablet(s) PO daily No Start Date 03/27/2018 Inactive sitagliptin 50 mg tablet RxNorm: 790732 1 Tablet(s) PO daily No Start Date [...] not specified ICD-10: N39.0 ICD-9: 599.0 02/08/2018 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 ICD-10: Z79.01 ICD-9: [...] 28.7 pg 11/30/2018 Cbc With Differential Ord2 [place]% 8.1 % 11/30/2018 Cbc With Differential Ord2 [...] 2.13 K/ul 11/30/2018 Cbc With Differential Ord2 [place] ABS# 0.8 K/ul 11/30/2018 Cbc With Differential Ord2 Eos ABS# 0.0 K/ul 11/30/2018 Cbc With Differential Ord2 Baso ABS# 0.0 K/ul 11/30/2018 Hepatic Tzc802 ALBUMIN 3.1 g/dL 11/28/2018 Hepatic Kvv757 TPRO 6.0 g/dL 11/28/2018 Hepatic Exa182 GLOB 2.9 g/dL 11/28/2018 Hepatic Zqm135 A/G Ratio 1.1 Ratio 11/28/2018 Hepatic Ssu336 ALK PHOS 102 U/L 11/28/2018 Hepatic Syl943 ALT(SGPT) 19 U/L 11/28/2018 Hepatic Sfd394 AST(SGOT) 18 U/L 11/28/2018 Hepatic Syj356 BILI T 0.4 mg/dL 11/28/2018 Hepatic Jcy879 BILI D 0.1 mg/dL 11/28/2018 Hepatic Ccg552 BILI I 0.3 mg/dL 11/28/2018 Cbc With [...] 28.6 pg 11/28/2018 Cbc With Differential Ord2 [place]% 8.9 % 11/28/2018 Cbc With Differential Ord2 [...] 2.36 K/ul 11/28/2018 Cbc With Differential Ord2 [place] ABS# 0.9 K/ul 11/28/2018 Cbc With Differential [...] 28.6 pg 09/28/2018 Cbc With Differential Ord2 [place]% 8.2 % 09/28/2018 Cbc With Differential Ord2 [...] 1.93 K/ul 09/28/2018 Cbc With Differential Ord2 [place] ABS# 0.5 K/ul 09/28/2018 Cbc With Differential Ord2 Eos ABS# 0.1 K/ul 09/28/2018 Cbc With Differential Ord2 Baso ABS# 0.0 K/ul 09/28/2018 %Hba1C Roh813 % HbA1c 44458- 6 6.6 % 09/28/2018 %Hba1C Ldn353 Gluc Ave 143 mg/dL 09/28/2018 Comp Metabolic Lbj687 NA 142 mEq/L 09/28/2018 Comp Metabolic Yhh841 K 4.2 mEq/L 09/28/2018 Comp Metabolic Dea614 CL 107 mEq/L 09/28/2018 Comp Metabolic Dmd602 CO2 30.0 mEq/L 09/28/2018 Comp Metabolic Cjk858 ANION GAP 9 09/28/2018 Comp Metabolic Lhr536 GLUCOSE 117 mg/dL 09/28/2018 Comp Metabolic Mda777 Creat 1.2 mg/dL 09/28/2018 Comp Metabolic Mec219 eGFR 47 ml/min/1.73m2 09/28/2018 Comp Metabolic Hff056 BUN 19 mg/dL 09/28/2018 Comp Metabolic Luw212 B/C Ratio 16.5 Ratio 09/28/2018 Comp Metabolic Dmw195 CALCIUM 8.6 mg/dL 09/28/2018 Comp Metabolic Tpf904 ALK PHOS 101 U/L 09/28/2018 Comp Metabolic Qgd289 AST(SGOT) 16 U/L 09/28/2018 Comp Metabolic Jqi496 ALT(SGPT) 13 U/L 09/28/2018 Comp Metabolic Aps254 BILI T 0.4 mg/dL 09/28/2018 Comp Metabolic Jsh323 ALBUMIN 3.4 g/dL 09/28/2018 Comp Metabolic Rwk174 TPRO 6.1 g/dL 09/28/2018 Comp Metabolic Tby832 GLOB 2.7 g/dL 09/28/2018 Comp Metabolic Avt498 A/G Ratio 1.3 Ratio 09/28/2018 Comp Metabolic Fxn288 Osmo 286 mOsmo 09/28/2018 Tsh Ord6 TSH (3rd IS) 0.80 uIU/mL 09/28/2018 Lipid Ord30 CHOL 89 mg/dL 09/28/2018 Lipid Ord30 HDL 33.0 mg/dl 09/28/2018 Lipid Ord30 TRIG 78 mg/dL 09/28/2018 Lipid Ord30 LDL 40 mg/dL 09/28/2018 Lipid Ord30 C/HDL 2.7 Ratio 09/28/2018 Pt Sow5070 PT 17.8 seconds 12/15/2017 Pt Ejk7406 INR 1.5 12/15/2017 Pt Xyz6588 Low Intensity - 1.5-2.0 12/15/2017 Pt Ngb7867 Mod intensity - 2.0-3.0 12/15/2017 Pt Hat8198 Hi intensity - 3.0-4.0 12/15/2017 Urinalysis Ord28 [...] hours from collection if refrigerated) 12/12/2017 Pt Dtb5240 PT 15.2 seconds 12/11/2017 Pt Ovu0485 INR 1.2 12/11/2017 Pt Cva7740 Low Intensity - 1.5-2.0 12/11/2017 Pt Rbk6164 Mod intensity - 2.0-3.0 12/11/2017 Pt Qjb7812 Hi intensity - 3.0-4.0 12/11/2017 Pt Ktp1789 PT 14.7 seconds 12/08/2017 Pt Ytb2539 INR 1.2 12/08/2017 Pt Zzh8513 Low Intensity - 1.5-2.0 12/08/2017 Pt Wgi7161 Mod intensity - 2.0-3.0 12/08/2017 Pt Kca2650 Hi intensity - 3.0-4.0 12/08/2017 Review of [...] FLU VACC PRSV FREE INC ANTIG CPT-4: 65250 07/18/2018 Vital Signs Date Vital 12/17/2018 Blood Pressure 1: 138/74 Code: 8480-6 Heart Rate 1: 74 bpm Height: SpO2: 96% Weight: 11/27/2018 Blood Pressure 1: 136/58 Code: 8480-6 Heart Rate 1: 82 bpm Height: 4'11" SpO2: 96% Temperature: 36.8 (C) / 98.2 (F) Weight: 11/07/2018 Blood Pressure 1: 110/58 Code: 8480-6 BMI: 30.7 Code: 16206-8 Heart Rate 1: 70 bpm Height: 4'11" SpO2: 97% Weight: 152 lbs 09/25/2018 Blood Pressure 1: 140/70 Code: 8480-6 BMI: 30.9 Code: 11317-1 Heart Rate 1: 67 bpm Height: 4'11" SpO2: 91% Weight: 153 lbs 03/19/2018 Blood Pressure 1: 140/58 Code: 8480-6 BMI: 28.5 Code: 65633-4 Heart Rate 1: 59 bpm Height: 4'11" SpO2: 98% Weight: 141 lbs 02/08/2018 Blood Pressure 1: 130/68 Code: 8480-6 BMI: 28.5 Code: 21597-7 Heart Rate 1: 73 bpm Height: 4'11" SpO2: 98% Weight: 141 lbs 01/03/2018 Blood Pressure 1: 116/64 Code: 8480-6 BMI: 27.7 Code: 69841-2 Heart Rate 1: 68 bpm Height: 4'11" [...] Slow transit constipation[ICD10: K59.01] Annika Booker MD, [facility] CPT-4: 01607 12/17/2018 [id number]) [id number] EST. PATIENT, LEVEL IV Diagnosis: Influenza due to identified novel influenza A virus with other manifestations[ICD10: J09.X9] Diagnosis: Encounter for follow-up examination after completed treatment for conditions other than malignant neoplasm[ICD10: Z09] Diagnosis: Low back pain[ICD10: M54.5] Diagnosis: Slow transit constipation[ICD10: K59.01] Armida Booker MD, [facility] CPT-4: 66445 11/27/2018 [id number] EST. PATIENT, LEVEL III Diagnosis: Dysuria[ICD10: R30.0] Diagnosis: Dizziness and giddiness[ICD10: R42] Annika Booker MD, [facility] CPT- 4: 17410 11/07/2018 [id number]) [id number] EST. PATIENT, LEVEL IV Diagnosis: Essential (primary) hypertension[ICD10: I10] Diagnosis: Chronic kidney disease, stage 3 (moderate)[ICD10: N18.3] Diagnosis: Atrophy of thyroid (acquired)[ICD10: E03.4] Diagnosis: Type 2 diabetes mellitus without complications[ICD10: E11.9] Jossie Booker MD, [facility] CPT-4: 22791 09/25/2018 ([phone] EST. 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 PATIENT, LEVEL IV Diagnosis: Orthostatic hypotension[ICD10: I95.1] Diagnosis: Urinary tract infection, site not specified[ICD10: N39.0] Diagnosis: Type 2 diabetes mellitus without complications[ICD10: E11.9] Armida Booker MD, [facility] CPT-4: 86427 02/08/2018 ([id number]) 82897 EST. PATIENT, LEVEL IV Diagnosis: Type 2 diabetes mellitus without complications[ICD10: E11.9] Diagnosis: Essential (primary) hypertension[ICD10: I10] Diagnosis: Atrophy of thyroid (acquired)[ICD10: E03.4] Jossie Booker MD, [facility] CPT-4: 39092 01/03/2018 ([id number]) 71440 EST. 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 12/17/2018 Appointment: Annika Nguyen WPtel: [phone] [facility] (30 min) Complex 12/17/2018 Patient Education: Patient Medication Summary Completed 12/17/2018 Appointment: Annika Nguyen WPtel: [facility] (15 min) Moderate 11/28/2018 Visit Plan: Hospital follow up with influenza A -patient is doing well -no further treatment indicated Constipation -add milk of magnesia as needed Low back pain -patient is seeing Ortho later today -continue ty lenol/tramadol as needed for pain 11/27/2018 Appointment: Armida Nicolas WPtel: [phone] [place] [place] [phone] [place] (15 min) Moderate 11/27/2018 Patient Education: Patient Medication Summary Completed 11/27/2018 Patient Education: Back Pain Completed 11/27/2018 Appointment: Annika Nguyen WPtel: [facility]5 [facility]66[facility] (15 min) Moderate 11/20/2018 Visit Plan: UTI - pt with positive urinalysis - culture sent if appropriate. Antibiotic electronically prescribed to pt's pharmacy of choice. Pt to call if symptoms do not improve. 11/07/2018 Appointment: Annika Nguyen WPtel: [facility]5 [facility] (15 min) Moderate 11/07/2018 Patient Education: [...] of control. 09/25/2018 Appointment: Jossie Booker WPtel: [address] [place], [place] [id number] (15 min) Moderate 09/25/2018 Patient Education: Patient Medication Summary Completed 09/25/2018 Patient Education: Diabetes Completed 09/25/2018 Care Plan: Comp Metabolic Pending 09/25/2018 Care Plan: Cbc With Differential Pending 09/25/2018 Care Plan: %Hba1C LOINC : 28986-8 Pending 09/25/2018 Care Plan: Lipid Pending 09/25/2018 [...] control. 03/19/2018 Appointment: Jossie Booker WPtel: [phone] [facility] [place] (15 min) Moderate 03/19/2018 Patient Education: Patient Medication Summary Completed 03/19/2018 Visit Plan: Yfzsjnfvlzx-wqscfruo-vocglnz blood pressures DM- okay to stay off januvia-monitor blood sugars and call if they become elevated UTI-finished treatment 02/08/2018 Appointment: Armida Nicolas WPtel: [phone] [phone] [place] (15 min) Moderate 02/08/2018 Patient [...] pharmacy. 01/03/2018 Appointment: Jossie Booker WPtel: [address] [facility] [place] (15 min) Moderate 01/03/2018 Patient Education: [...] previous levels of control. 12/08/2017 Appointment: [phone] [facility] 12/08/2017 Patient Education: [...] CAN GET YOUR RECORDS FROM [facility] . Nowocgwodnm-jucfddid-aofccad blood pressures DM-okay to stay off januvia-monitor [...]
--- OUTSIDE RECORDS SUMMARY | 2019-03-23 20:08 | XMS REPORT | Continuity of Care Document ---
Author Organization Unknown Address Unknown Allergies Active Description Code Type Severity Reaction Onset Reported/Identified Relationship to Patient Clinical Status Yes No Allergy Information Available [id number] Drug Allergy Unknown N/A 11/11/2018 Yes gatifloxacin [id number] Drug Allergy Unknown Tongue Turns Re 11/19/2018 Medications There is no data. Problems Date Dx Coded Attending Type Code Diagnosis Diagnosed By 11/11/2018 KRISSY CAT MD Ot M54.5 LOW BACK PAIN 11/11/2018 KRISSY CAT MD Ot S32.038A OTH FRACTURE OF THIRD LUMBAR VERTEBRA, I 11/11/2018 KRISSY CAT MD Ot W19.XXXA UNSPECIFIED FALL, INITIAL ENCOUNTER 11/11/2018 KRISSY CAT MD Ot Z79.02 AUTOMOBILE TESTER (CURRENT) USE OF ANTITHROMBOTI 11/11/2018 KRISSY CAT MD Ot Z88.8 ALLERGY STATUS TO OTH DRUG/MEDS/BIOL SUB 11/13/2018 KRISSY CAT MD Ot M54.5 LOW BACK PAIN 11/13/2018 KRISSY CAT MD Ot S32.038A OTH FRACTURE OF THIRD LUMBAR VERTEBRA, I 11/13/2018 KRISSY CAT MD Ot W19.XXXA UNSPECIFIED FALL, INITIAL ENCOUNTER 11/13/2018 KRISSY CAT MD Ot Z79.02 AUTOMOBILE TESTER (CURRENT) USE OF ANTITHROMBOTI 11/13/2018 KRISSY CAT MD Ot Z88.8 ALLERGY STATUS TO OTH DRUG/MEDS/BIOL SUB 11/19/2018 BERNOT, CLARITZA Ot E78.00 PURE HYPERCHOLESTEROLEMIA, UNSPECIFIED 11/19/2018 BERNOT CLARITZA Ot I10 ESSENTIAL (PRIMARY) HYPERTENSION 11/19/2018 BERNEUGENE SYKESIS Ot J10.1 FLU DUE TO OTH IDENT INFLUENZA VIRUS W O 11/19/2018 CLARITZA EUBANKS Ot J98.01 ACUTE BRONCHOSPASM 11/19/2018 CLARITZA EUBANKS Ot N17.9 ACUTE KIDNEY FAILURE, UNSPECIFIED 11/19/2018 CHA CLARITZA Ot R06.02 SHORTNESS OF BREATH 11/19/2018 EUGENE EUBANKSIS Ot R07.89 OTHER CHEST PAIN 11/19/2018 CLARITZA EUBANKS Ot Z86.73 PRSNL HX OF TIA (TIA), AND CEREB INFRC W 11/19/2018 CLARITZA EUBANKS Ot Z88.8 ALLERGY STATUS TO OTH DRUG/MEDS/BIOL SUB 11/19/2018 CLARITZA EUBANKS Ot Z98.890 OTHER SPECIFIED POSTPROCEDURAL STATES 12/06/2018 COOPER GOINS APRN Ot E78.00 PURE HYPERCHOLESTEROLEMIA, UNSPECIFIED 12/06/2018 COOPER GOINS APRN Ot I10 ESSENTIAL (PRIMARY) HYPERTENSION 12/06/2018 COOPER GOINS APRN Ot M54.2 CERVICALGIA 12/06/2018 COOPER GOINS APRN Ot N39.0 URINARY TRACT INFECTION, SITE NOT SPECIF 12/06/2018 COOPER GOINS APRN Ot R10.31 RIGHT LOWER QUADRANT PAIN 12/06/2018 COOPER GOINS APRN Ot W19.XXXA UNSPECIFIED FALL, INITIAL ENCOUNTER 12/06/2018 COOPER GOINS APRN Ot Z86.73 PRSNL HX OF TIA (TIA), AND CEREB INFRC W 12/06/2018 COOPER GOINS APRN Ot Z88.1 ALLERGY STATUS TO OTHER ANTIBIOTIC AGENT 12/06/2018 COOPER GOINS APRN Ot Z98.890 OTHER SPECIFIED POSTPROCEDURAL STATES 12/08/2018 COOPER GOINS APRN Ot E78.00 PURE HYPERCHOLESTEROLEMIA, UNSPECIFIED 12/08/2018 COOPER GOINS APRN Ot I10 ESSENTIAL (PRIMARY) HYPERTENSION 12/08/2018 COOPER GOINS APRN Ot M54.2 CERVICALGIA 12/08/2018 COOPER GOINS APRN Ot N39.0 URINARY TRACT INFECTION, SITE NOT SPECIF 12/08/2018 COOPER GOINS APRN Ot R10.31 RIGHT LOWER QUADRANT PAIN 12/08/2018 COOPER GOINS APRN Ot W19.XXXA UNSPECIFIED FALL, INITIAL ENCOUNTER 12/08/2018 COOPER GOINS APRN Ot Z86.73 PRSNL HX OF TIA (TIA), AND CEREB INFRC W 12/08/2018 COOPER GOINS FINANCIAL RECORDING CLERK Ot Z88.1 ALLERGY STATUS TO OTHER ANTIBIOTIC AGENT 12/08/2018 COOPER GOINS FINANCIAL RECORDING CLERK Ot Z98.890 OTHER SPECIFIED POSTPROCEDURAL STATES 12/12/2018 RHONA PRESCOTT MD Ot J18.9 PNEUMONIA, UNSPECIFIED ORGANISM 12/13/2018 RHONA PRESCOTT MD Ot D50.9 IRON DEFICIENCY ANEMIA, UNSPECIFIED 12/13/2018 RHONA PRESCOTT MD Ot E03.9 HYPOTHYROIDISM, UNSPECIFIED 12/13/2018 RHONA PRESCOTT MD Ot E78.00 PURE HYPERCHOLESTEROLEMIA, UNSPECIFIED 12/13/2018 RHONA PRESCOTT MD Ot 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 12/13/2018 RHONA PRESCOTT MD Ot G62.9 POLYNEUROPATHY, UNSPECIFIED 12/13/2018 RHONA PRESCOTT MD Ot I10 ESSENTIAL (PRIMARY) HYPERTENSION 12/13/2018 RHONA PRESCOTT MD Ot J18.9 PNEUMONIA, UNSPECIFIED ORGANISM 12/13/2018 RHONA PRESCOTT MD Ot J45.40 MODERATE PERSISTENT ASTHMA, UNCOMPLICATE 12/13/2018 RHONA PRESCOTT MD Ot K21.9 GASTRO-ESOPHAGEAL REFLUX DISEASE WITHOUT 12/13/2018 RHONA PRESCOTT MD Ot M19.91 PRIMARY OSTEOARTHRITIS, UNSPECIFIED SITE 12/13/2018 RHONA PRESCOTT MD Ot 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 12/13/2018 RHONA PRESCOTT MD Ot N32.81 OVERACTIVE BLADDER 12/13/2018 RHONA PRESCOTT MD Ot R09.02 HYPOXEMIA 12/13/2018 RHONA PRESCOTT MD Ot R33.9 RETENTION OF URINE, UNSPECIFIED 12/13/2018 RHONA PRESCOTT MD Ot R53.81 OTHER MALAISE 12/13/2018 RHONA PRESCOTT MD Ot S30.810A ABRASION OF LOWER BACK AND PELVIS, INITI 12/13/2018 RHONA PRESCOTT MD Ot W19.XXXA UNSPECIFIED FALL, INITIAL ENCOUNTER 12/13/2018 RHONA PRESCOTT MD Ot Y92.[address] [facility]ACE 12/13/2018 RHONA PRESCOTT MD Ot Z66 DO NOT RESUSCITATE 12/13/2018 RHONA PRESCOTT MD, Ot Z79.02 AUTOMOBILE TESTER (CURRENT) USE OF ANTITHROMBOTI 12/13/2018 RHONA PRESCOTT MD, Ot Z79.82 AUTOMOBILE TESTER (CURRENT) USE OF ASPIRIN 12/14/2018 RHONA PRESCOTT MD Ot D50.9 IRON DEFICIENCY ANEMIA, UNSPECIFIED 12/14/2018 RHONA PRESCOTT MD Ot E03.9 HYPOTHYROIDISM, UNSPECIFIED 12/14/2018 RHONA PRESCOTT MD Ot E78.00 PURE HYPERCHOLESTEROLEMIA, UNSPECIFIED 12/14/2018 RHONA PRESCOTT MD Ot 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 12/14/2018 RHONA PRESCOTT MD, Ot G62.9 POLYNEUROPATHY, UNSPECIFIED 12/14/2018 RHONA PRESCOTT MD, Ot I10 ESSENTIAL (PRIMARY) HYPERTENSION 12/14/2018 RHONA PRESCOTT MD Ot J18.9 PNEUMONIA, UNSPECIFIED ORGANISM 12/14/2018 RHONA PRESCOTT MD Ot J45.40 MODERATE PERSISTENT ASTHMA, UNCOMPLICATE 12/14/2018 RHONA PRESCOTT MD Ot K21.9 GASTRO-ESOPHAGEAL REFLUX DISEASE WITHOUT 12/14/2018 RHONA PRESCOTT MD Ot M19.91 PRIMARY OSTEOARTHRITIS, UNSPECIFIED SITE 12/14/2018 RHONA PRESCOTT MD Ot 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 12/14/2018 RHONA PRESCOTT MD, Ot N32.81 OVERACTIVE BLADDER 12/14/2018 RHONA PRESCOTT MD Ot R09.02 HYPOXEMIA 12/14/2018 RHONA PRESCOTT MD, Ot R33.9 RETENTION OF URINE, UNSPECIFIED 12/14/2018 RHONA PRESCOTT MD, Ot R53.81 OTHER MALAISE 12/14/2018 RHONA PRESCOTT MD Ot S22.070A WEDGE COMPRESSION FRACTURE OF T9-T10 CIPRIANO 12/14/2018 RHONA PRESCOTT MD, Ot S30.810A ABRASION OF LOWER BACK AND PELVIS, INITI 12/14/2018 RHONA PRESCOTT MD, Ot W19.XXXA UNSPECIFIED FALL, INITIAL ENCOUNTER 12/14/2018 RHONA PRESCOTT MD Ot Y92.[address] IN SINGLE-FAMILY (PRIVATE) 12/14/2018 RHONA PRESCOTT MD, Ot Y92.[address] [facility]ACE 12/14/2018 RHONA PRESCOTT MD Ot Z66 DO NOT RESUSCITATE 12/14/2018 RHONA PRESCOTT MD Ot Z79.02 CARE HOME (CURRENT) USE OF ANTITHROMBOTI 12/14/2018 RHONA PRESCOTT MD Ot Z79.82 CARE HOME (CURRENT) USE OF ASPIRIN 12/14/2018 RHONA PRECSOTT MD Ot Z86.73 PRSNL HX OF TIA (TIA), AND CEREB INFRC W 12/16/2018 KRISSY CAT MD Ot E78.00 PURE HYPERCHOLESTEROLEMIA, UNSPECIFIED 12/16/2018 KRISSY CAT MD Ot F03.90 UNSPECIFIED DEMENTIA WITHOUT BEHAVIORAL 12/16/2018 KRISSY CAT MD Ot I10 ESSENTIAL (PRIMARY) HYPERTENSION 12/16/2018 KRISSY CAT MD Ot K21.9 GASTRO-ESOPHAGEAL REFLUX DISEASE WITHOUT 12/16/2018 KRISSY CAT MD Ot K59.00 CONSTIPATION, UNSPECIFIED 12/16/2018 KRISSY CAT MD Ot K83.8 OTHER SPECIFIED DISEASES OF BILIARY TRAC 12/16/2018 KRISSY CAT MD Ot R10.9 UNSPECIFIED ABDOMINAL PAIN 12/16/2018 RKISSY CAT MD Ot Z79.02 AUTOMOBILE TESTER (CURRENT) USE OF ANTITHROMBOTI 12/16/2018 KRISSY CAT MD Ot Z79.82 AUTOMOBILE TESTER (CURRENT) USE OF ASPIRIN 12/16/2018 KRISSY CAT MD Ot Z86.73 PRSNL HX OF TIA (TIA), AND CEREB INFRC W 12/16/2018 KRISSY CAT MD Ot Z87.01 PERSONAL HISTORY OF PNEUMONIA (RECURRENT 12/16/2018 KRISSY CAT MD Ot Z87.448 PERSONAL HISTORY OF OTHER DISEASES OF UR 12/16/2018 KRISSY CAT MD Ot Z88.1 ALLERGY STATUS TO OTHER ANTIBIOTIC AGENT 12/16/2018 KRISSY CAT MD Ot Z98.890 OTHER SPECIFIED POSTPROCEDURAL STATES 12/19/2018 KRISSY CAT MD Ot E78.00 PURE HYPERCHOLESTEROLEMIA, UNSPECIFIED 12/19/2018 KRISSY CAT MD Ot F03.90 UNSPECIFIED DEMENTIA WITHOUT BEHAVIORAL 12/19/2018 KRISSY CAT MD Ot I10 ESSENTIAL (PRIMARY) HYPERTENSION 12/19/2018 KRISSY CAT MD Ot K21.9 GASTRO-ESOPHAGEAL REFLUX DISEASE WITHOUT 12/19/2018 KRISSY CAT MD, Ot K59.00 CONSTIPATION, UNSPECIFIED 12/19/2018 KRISSY CAT MD Ot K83.8 OTHER SPECIFIED DISEASES OF BILIARY TRAC 12/19/2018 KRISSY CAT MD Ot R10.9 UNSPECIFIED ABDOMINAL PAIN 12/19/2018 KRISSY CAT MD, Ot Z79.02 CARE HOME (CURRENT) USE OF ANTITHROMBOTI 12/19/2018 KRISSY CAT MD Ot Z79.82 CARE HOME (CURRENT) USE OF ASPIRIN 12/19/2018 KRISSY CAT MD, Ot Z86.73 PRSNL HX OF TIA (TIA), AND CEREB INFRC W 12/19/2018 KRISSY CAT MD, Ot Z87.01 PERSONAL HISTORY OF PNEUMONIA (RECURRENT 12/19/2018 KRISSY CAT MD, Ot Z87.448 PERSONAL HISTORY OF OTHER DISEASES OF UR 12/19/2018 KRISSY CAT MD, Ot Z88.1 ALLERGY STATUS TO OTHER ANTIBIOTIC AGENT 12/19/2018 KRISSY CAT MD, Ot Z98.890 OTHER SPECIFIED POSTPROCEDURAL STATES Procedures There is no data. Results Test Result Range Complete urinalysis with reflex to culture - 11/11/18 20:26 Urine color determination YELLOW NRG Urine clarity determination SLIGHTLY CLOUDY NRG Urine pH measurement by test strip 5 5-9 Specific gravity of urine by test strip 1.020 1.016-1.022 Urine protein assay by test strip, semi-quantitative 1+ NEGATIVE Urine glucose detection by automated test strip NEGATIVE NEGATIVE Erythrocytes detection in urine sediment by light microscopy 1+ NEGATIVE Urine ketones detection by automated test strip NEGATIVE NEGATIVE Urine nitrite detection by test strip NEGATIVE NEGATIVE Urine total bilirubin detection by test strip NEGATIVE NEGATIVE Urine urobilinogen measurement by automated test strip (mass/volume) NORMAL NORMAL Urine leukocyte esterase detection by dipstick 1+ NEGATIVE Automated urine sediment erythrocyte count by microscopy (number/high power field) RARE NRG Automated urine sediment leukocyte count by microscopy (number/high power field) [HPF] NRG Bacteria detection in urine sediment by light microscopy NEGATIVE NRG Squamous epithelial cells detection in urine sediment by light microscopy 2-5 NRG Crystals detection in urine sediment by light microscopy NONE NRG Casts detection in urine sediment by light microscopy NONE NRG Mucus detection in urine sediment by light microscopy SMALL NRG Complete urinalysis with reflex to culture NO NRG Complete blood count (CBC) with automated white blood cell (WBC) differential - 11/11/18 21:13 Blood leukocytes automated count (number/volume) 9.4 10*3/uL 4.3-11.0 Blood erythrocytes automated count (number/volume) 4.23 10*6/uL 4.35-5.85 Venous blood hemoglobin measurement (mass/volume) 12.3 g/dL 11.5-16.0 Blood hematocrit (volume fraction) 38 % 35-52 Automated erythrocyte mean corpuscular volume 89 [foz_us] 80-99 Automated erythrocyte mean corpuscular hemoglobin (mass per erythrocyte) 29 pg 25-34 Automated erythrocyte mean corpuscular hemoglobin concentration measurement (mass/volume) 33 g/dL 32-36 Automated erythrocyte distribution width ratio 14.8 % 10.0- 14.5 Automated blood platelet count (count/volume) 184 10*3/uL 130-400 Automated blood platelet mean volume measurement 9.7 [foz_us] 7.4-10.4 Automated blood neutrophils/100 leukocytes 78 % 42-75 Automated blood lymphocytes/100 leukocytes 13 % 12-44 Blood monocytes/100 leukocytes 7 % 0-12 Automated blood eosinophils/100 leukocytes 1 % 0-10 Automated blood basophils/100 leukocytes 0 % 0-10 Blood neutrophils automated count (number/volume) 7.3 10*3 1.8-7.8 Blood lymphocytes automated count (number/volume) 1.2 10*3 1.0-4.0 Blood monocytes automated count (number/volume) 0.7 10*3 0.0- 1.0 Automated eosinophil count 0.1 10*3/uL 0.0-0.3 Automated blood basophil count (count/volume) 0.0 10*3/uL 0.0-0.1 Comprehensive metabolic panel - 11/11/18 21:13 Serum or plasma sodium measurement (moles/volume) 138 mmol/L 135-145 Serum or plasma potassium measurement (moles/volume) 4.6 mmol/L 3.6-5.0 Serum or plasma chloride measurement (moles/volume) 102 mmol/L 98-107 Carbon dioxide 24 mmol/L 21-32 Serum or plasma anion gap determination (moles/volume) 12 mmol/L 5-14 Serum or plasma urea nitrogen measurement (mass/volume) 23 mg/dL 7-18 Serum or plasma creatinine measurement (mass/volume) 1.32 mg/dL 0.60-1.30 Serum or plasma urea nitrogen/creatinine mass ratio 17 NRG Serum or plasma creatinine measurement with calculation of estimated glomerular filtration rate 38 NRG Serum or plasma glucose measurement (mass/volume) 149 mg/dL 70-105 Serum or plasma calcium measurement (mass/volume) 9.4 mg/dL 8.5-10.1 Serum or plasma total bilirubin measurement (mass/volume) 0.5 mg/dL 0.1-1.0 Serum or plasma alkaline phosphatase measurement (enzymatic activity/volume) 124 U/L 40-136 Serum or plasma aspartate aminotransferase measurement (enzymatic activity/volume) 22 U/L 5-34 Serum or plasma alanine aminotransferase measurement (enzymatic activity/volume) 17 U/L 0-55 Serum or plasma protein measurement (mass/volume) 7.8 g/dL 6.4-8.2 Serum or plasma albumin measurement (mass/volume) 3.8 g/dL 3.2-4.5 CALCIUM CORRECTED 9.6 mg/dL 8.5-10.1 Influenza virus A and B antigen detection - 11/19/18 16:50 CALL POSITIVES (F1 HELP) [facility] FLU RESULT POSITIVE FOR INFLUENZA A ANTIGEN, NEG FOR B ANTIGEN, BY [facility] Complete blood count (CBC) with automated white blood cell (WBC) differential - 11/19/18 17:54 Blood leukocytes automated count (number/volume) 8.4 10*3/uL 4.3-11.0 Blood erythrocytes automated count (number/volume) 4.11 10*6/uL 4.35-5.85 Venous blood hemoglobin measurement (mass/volume) 11.8 g/dL 11.5-16.0 Blood hematocrit (volume fraction) 37 % 35-52 Automated erythrocyte mean corpuscular volume 90 [foz_us] 80-99 Automated erythrocyte mean corpuscular hemoglobin (mass per erythrocyte) 29 pg 25-34 Automated erythrocyte mean corpuscular hemoglobin concentration measurement (mass/volume) 32 g/dL 32-36 Automated erythrocyte distribution width ratio 15.2 % 10.0- 14.5 Automated blood platelet count (count/volume) 153 10*3/uL 130-400 Automated blood platelet mean volume measurement 9.5 [foz_us] 7.4-10.4 Automated blood neutrophils/100 leukocytes 70 % 42-75 Automated blood lymphocytes/100 leukocytes 20 % 12-44 Blood monocytes/100 leukocytes 9 % 0-12 Automated blood eosinophils/100 leukocytes 0 % 0-10 Automated blood basophils/100 leukocytes 0 % 0-10 Blood neutrophils automated count (number/volume) 5.9 10*3 1.8-7.8 Blood lymphocytes automated count (number/volume) 1.7 10*3 1.0-4.0 Blood monocytes automated count (number/volume) 0.8 10*3 0.0- 1.0 Automated eosinophil count 0.0 10*3/uL 0.0-0.3 Automated blood basophil count (count/volume) 0.0 10*3/uL 0.0-0.1 Comprehensive metabolic panel - 11/19/18 17:54 Serum or plasma sodium measurement (moles/volume) 138 mmol/L 135-145 Serum or plasma potassium measurement (moles/volume) 4.6 mmol/L 3.6-5.0 Serum or plasma chloride measurement (moles/volume) 105 mmol/L 98-107 Carbon dioxide 23 mmol/L 21-32 Serum or plasma anion gap determination (moles/volume) 10 mmol/L 5-14 Serum or plasma urea nitrogen measurement (mass/volume) 34 mg/dL 7-18 Serum or plasma creatinine measurement (mass/volume) 1.71 mg/dL 0.60-1.30 Serum or plasma urea nitrogen/creatinine mass ratio 20 NRG Serum or plasma creatinine measurement with calculation of estimated glomerular filtration rate 28 NRG Serum or plasma glucose measurement (mass/volume) 116 mg/dL 70-105 Serum or plasma calcium measurement (mass/volume) 8.8 mg/dL 8.5-10.1 Serum or plasma total bilirubin measurement (mass/volume) 0.3 mg/dL 0.1-1.0 Serum or plasma alkaline phosphatase measurement (enzymatic activity/volume) 140 U/L 40-136 Serum or plasma aspartate aminotransferase measurement (enzymatic activity/volume) 36 U/L 5-34 Serum or plasma alanine aminotransferase measurement (enzymatic activity/volume) 20 U/L 0-55 Serum or plasma protein measurement (mass/volume) 7.0 g/dL 6.4-8.2 Serum or plasma albumin measurement (mass/volume) 3.5 g/dL 3.2-4.5 CALCIUM CORRECTED 9.2 mg/dL 8.5-10.1 Serum or plasma C reactive protein measurement (mass/volume) - 11/19/18 17:54 Serum or plasma C reactive protein measurement (mass/volume) 9.65 mg/dL 0.00-0.50 Serum or plasma troponin i.cardiac measurement (mass/volume) - 11/19/18 17:54 Serum or plasma troponin i.cardiac measurement (mass/volume) < ng/mL <0.028 Complete urinalysis with reflex to culture - 12/06/18 13:10 Urine color determination YELLOW NRG Urine clarity determination CLEAR NRG Urine pH measurement by test strip 6.5 5-9 Specific gravity of urine by test strip 1.010 1.016-1.022 Urine protein assay by test strip, semi-quantitative 1+ NEGATIVE Urine glucose detection by automated test strip NEGATIVE NEGATIVE Erythrocytes detection in urine sediment by light microscopy NEGATIVE NEGATIVE Urine ketones detection by automated test strip NEGATIVE NEGATIVE Urine nitrite detection by test strip NEGATIVE NEGATIVE Urine total bilirubin detection by test strip NEGATIVE NEGATIVE Urine urobilinogen measurement by automated test strip (mass/volume) NORMAL NORMAL Urine leukocyte esterase detection by dipstick 2+ NEGATIVE Automated urine sediment erythrocyte count by microscopy (number/high power field) RARE NRG Automated urine sediment leukocyte count by microscopy (number/high power field) > [HPF] NRG Bacteria detection in urine sediment by light microscopy LARGE NRG Squamous epithelial cells detection in urine sediment by light microscopy 2-5 NRG Crystals detection in urine sediment by light microscopy NONE NRG Casts detection in urine sediment by light microscopy NONE NRG Mucus detection in urine sediment by light microscopy NEGATIVE NRG Complete urinalysis with reflex to culture YES NRG Bacterial urine culture - 12/06/18 13:10 Bacterial urine culture [id number] NRG COLONY COUNT >100,000/ML NRG FTX;REPORTABLE SUSCEPTIBILITY REPORT RCD 12/08 08:05 NRG RML Sensitivity Panel - 12/06/18 13:10 Gentamicin susceptibility test by minimum inhibitory concentration > NRG Trimethoprim/sulfamethoxazole susceptibility test by minimum inhibitoryconcentration > NRG Levofloxacin susceptibility test by minimum inhibitory concentration > NRG Ampicillin susceptibility test by minimum inhibitory concentration > NRG Cefazolin susceptibility test by minimum inhibitory concentration 2 NRG Ceftriaxone susceptibility test by minimum inhibitory concentration <= NRG Ciprofloxacin susceptibility test by minimum inhibitory concentration > NRG Meropenem susceptibility test by minimum inhibitory concentration <= NRG Nitrofurantoin susceptibility test by minimum inhibitory concentration > NRG Amoxicillin and clavulanate potassium [facility] SENA = NRG Comprehensive metabolic panel - 12/06/18 13:20 Serum or plasma sodium measurement (moles/volume) 140 mmol/L 135-145 Serum or plasma potassium measurement (moles/volume) 4.4 mmol/L 3.6-5.0 Serum or plasma chloride measurement (moles/volume) 105 mmol/L 98-107 Carbon dioxide 26 mmol/L 21-32 Serum or plasma anion gap determination (moles/volume) 9 mmol/L 5-14 Serum or plasma urea nitrogen measurement (mass/volume) 16 mg/dL 7-18 Serum or plasma creatinine measurement (mass/volume) 0.98 mg/dL 0.60-1.30 Serum or plasma urea nitrogen/creatinine mass ratio 16 NRG Serum or plasma creatinine measurement with calculation of estimated glomerular filtration rate 54 NRG Serum or plasma glucose measurement (mass/volume) 104 mg/dL 70-105 Serum or plasma calcium measurement (mass/volume) 9.4 mg/dL 8.5-10.1 Serum or plasma total bilirubin measurement (mass/volume) 0.5 mg/dL 0.1-1.0 Serum or plasma alkaline phosphatase measurement (enzymatic activity/volume) 154 U/L 40-136 Serum or plasma aspartate aminotransferase measurement (enzymatic activity/volume) 24 U/L 5-34 Serum or plasma alanine aminotransferase measurement (enzymatic activity/volume) 15 U/L 0-55 Serum or plasma protein measurement (mass/volume) 7.2 g/dL 6.4-8.2 Serum or plasma albumin measurement (mass/volume) 3.5 g/dL 3.2-4.5 CALCIUM CORRECTED 9.8 mg/dL 8.5-10.1 Serum or plasma creatine kinase measurement (enzymatic activity/volume) - 12/06/18 13:20 Serum or plasma creatine kinase measurement (enzymatic activity/volume) 118 U/L 29-168 Myoglobin, serum - 12/06/18 13:20 Myoglobin, serum 299.3 ng/mL 10.0-92.0 Complete blood count (CBC) with automated white blood cell (WBC) differential - 12/06/18 13:40 Blood leukocytes automated count (number/volume) 8.8 10*3/uL 4.3-11.0 Blood erythrocytes automated count (number/volume) 4.22 10*6/uL 4.35-5.85 Venous blood hemoglobin measurement (mass/volume) 12.1 g/dL 11.5-16.0 Blood hematocrit (volume fraction) 38 % 35-52 Automated erythrocyte mean corpuscular volume 91 [foz_us] 80-99 Automated erythrocyte mean corpuscular hemoglobin (mass per erythrocyte) 29 pg 25-34 Automated erythrocyte mean corpuscular hemoglobin concentration measurement (mass/volume) 32 g/dL 32-36 Automated erythrocyte distribution width ratio 14.9 % 10.0- 14.5 Automated blood platelet count (count/volume) 213 10*3/uL 130-400 Automated blood platelet mean volume measurement 9.0 [foz_us] 7.4-10.4 Automated blood neutrophils/100 leukocytes 71 % 42-75 Automated blood lymphocytes/100 leukocytes 18 % 12-44 Blood monocytes/100 leukocytes 10 % 0-12 Automated blood eosinophils/100 leukocytes 2 % 0-10 Automated blood basophils/100 leukocytes 0 % 0-10 Blood neutrophils automated count (number/volume) 6.2 10*3 1.8-7.8 Blood lymphocytes automated count (number/volume) 1.6 10*3 1.0-4.0 Blood monocytes automated count (number/volume) 0.9 10*3 0.0- 1.0 Automated eosinophil count 0.1 10*3/uL 0.0-0.3 Automated blood basophil count (count/volume) 0.0 10*3/uL 0.0-0.1 Complete blood count (CBC) with automated white blood cell (WBC) differential - 12/08/18 12:50 Blood leukocytes automated count (number/volume) 9.4 10*3/uL 4.3-11.0 Blood erythrocytes automated count (number/volume) 3.71 10*6/uL 4.35-5.85 Venous blood hemoglobin measurement (mass/volume) 10.6 g/dL 11.5-16.0 Blood hematocrit (volume fraction) 34 % 35-52 Automated erythrocyte mean corpuscular volume 91 [foz_us] 80-99 Automated erythrocyte mean corpuscular hemoglobin (mass per erythrocyte) 29 pg 25-34 Automated erythrocyte mean corpuscular hemoglobin concentration measurement (mass/volume) 32 g/dL 32-36 Automated erythrocyte distribution width ratio 15.1 % 10.0- 14.5 Automated blood platelet count (count/volume) 199 10*3/uL 130-400 Automated blood platelet mean volume measurement 9.6 [foz_us] 7.4-10.4 Automated blood neutrophils/100 leukocytes 74 % 42-75 Automated blood lymphocytes/100 leukocytes 14 % 12-44 Blood monocytes/100 leukocytes 11 % 0-12 Automated blood eosinophils/100 leukocytes 1 % 0-10 Automated blood basophils/100 leukocytes 0 % 0-10 Blood neutrophils automated count (number/volume) 6.9 10*3 1.8-7.8 Blood lymphocytes automated count (number/volume) 1.3 10*3 1.0-4.0 Blood monocytes automated count (number/volume) 1.0 10*3 0.0- 1.0 Automated eosinophil count 0.1 10*3/uL 0.0-0.3 Automated blood basophil count (count/volume) 0.0 10*3/uL 0.0-0.1 Blood lactic acid measurement (moles/volume) - 12/08/18 12:50 Blood lactic acid measurement (moles/volume) 0.98 mmol/L 0.50- 2.00 Comprehensive metabolic panel - 12/08/18 12:50 Serum or plasma sodium measurement (moles/volume) 137 mmol/L 135-145 Serum or plasma potassium measurement (moles/volume) 3.9 mmol/L 3.6-5.0 Serum or plasma chloride measurement (moles/volume) 102 mmol/L 98-107 Carbon dioxide 25 mmol/L 21-32 Serum or plasma anion gap determination (moles/volume) 10 mmol/L 5-14 Serum or plasma urea nitrogen measurement (mass/volume) 17 mg/dL 7-18 Serum or plasma creatinine measurement (mass/volume) 1.10 mg/dL 0.60-1.30 Serum or plasma urea nitrogen/creatinine mass ratio 15 NRG Serum or plasma creatinine measurement with calculation of estimated glomerular filtration rate 47 NRG Serum or plasma glucose measurement (mass/volume) 122 mg/dL 70-105 Serum or plasma calcium measurement (mass/volume) 8.7 mg/dL 8.5-10.1 Serum or plasma total bilirubin measurement (mass/volume) 0.7 mg/dL 0.1-1.0 Serum or plasma alkaline phosphatase measurement (enzymatic activity/volume) 129 U/L 40-136 Serum or plasma aspartate aminotransferase measurement (enzymatic activity/volume) 20 U/L 5-34 Serum or plasma alanine aminotransferase measurement (enzymatic activity/volume) 14 U/L 0-55 Serum or plasma protein measurement (mass/volume) 6.5 g/dL 6.4-8.2 Serum or plasma albumin measurement (mass/volume) 3.2 g/dL 3.2-4.5 CALCIUM CORRECTED 9.3 mg/dL 8.5-10.1 Serum or plasma troponin i.cardiac measurement (mass/volume) - 12/08/18 12:50 Serum or plasma troponin i.cardiac measurement (mass/volume) < ng/mL <0.028 Lipase - 12/08/18 12:50 Lipase 20 U/L 8-78 Serum or plasma lithium measurement (moles/volume) - 12/08/18 12:50 BNP level 88.7 pg/mL <100.0 Bacterial blood culture - 12/08/18 12:50 Bacterial blood culture NG NRG Bacterial blood culture - 12/08/18 13:28 Bacterial blood culture NG NRG Complete blood count (CBC) with automated white blood cell (WBC) differential - 12/09/18 04:35 Blood leukocytes automated count (number/volume) 7.0 10*3/uL 4.3-11.0 Blood erythrocytes automated count (number/volume) 3.78 10*6/uL 4.35-5.85 Venous blood hemoglobin measurement (mass/volume) 10.8 g/dL 11.5-16.0 Blood hematocrit (volume fraction) 34 % 35-52 Automated erythrocyte mean corpuscular volume 91 [foz_us] 80-99 Automated erythrocyte mean corpuscular hemoglobin (mass per erythrocyte) 29 pg 25-34 Automated erythrocyte mean corpuscular hemoglobin concentration measurement (mass/volume) 32 g/dL 32-36 Automated erythrocyte distribution width ratio 15.1 % 10.0- 14.5 Automated blood platelet count (count/volume) 192 10*3/uL 130-400 Automated blood platelet mean volume measurement 9.0 [foz_us] 7.4-10.4 Automated blood neutrophils/100 leukocytes 71 % 42-75 Automated blood lymphocytes/100 leukocytes 16 % 12-44 Blood monocytes/100 leukocytes 11 % 0-12 Automated blood eosinophils/100 leukocytes 2 % 0-10 Automated blood basophils/100 leukocytes 0 % 0-10 Blood neutrophils automated count (number/volume) 5.0 10*3 1.8-7.8 Blood lymphocytes automated count (number/volume) 1.1 10*3 1.0-4.0 Blood monocytes automated count (number/volume) 0.8 10*3 0.0- 1.0 Automated eosinophil count 0.1 10*3/uL 0.0-0.3 Automated blood basophil count (count/volume) 0.0 10*3/uL 0.0-0.1 Comprehensive metabolic panel - 12/09/18 04:35 Serum or plasma sodium measurement (moles/volume) 140 mmol/L 135-145 Serum or plasma potassium measurement (moles/volume) 3.9 mmol/L 3.6-5.0 Serum or plasma chloride measurement (moles/volume) 105 mmol/L 98-107 Carbon dioxide 26 mmol/L 21-32 Serum or plasma anion gap determination (moles/volume) 9 mmol/L 5-14 Serum or plasma urea nitrogen measurement (mass/volume) 11 mg/dL 7-18 Serum or plasma creatinine measurement (mass/volume) 0.89 mg/dL 0.60-1.30 Serum or plasma urea nitrogen/creatinine mass ratio 12 NRG Serum or plasma creatinine measurement with calculation of estimated glomerular filtration rate 60 NRG Serum or plasma glucose measurement (mass/volume) 96 mg/dL 70-105 Serum or plasma calcium measurement (mass/volume) 8.3 mg/dL 8.5-10.1 Serum or plasma total bilirubin measurement (mass/volume) 0.5 mg/dL 0.1-1.0 Serum or plasma alkaline phosphatase measurement (enzymatic activity/volume) 128 U/L 40-136 Serum or plasma aspartate aminotransferase measurement (enzymatic activity/volume) 18 U/L 5-34 Serum or plasma alanine aminotransferase measurement (enzymatic activity/volume) 14 U/L 0-55 Serum or plasma protein measurement (mass/volume) 6.2 g/dL 6.4-8.2 Serum or plasma albumin measurement (mass/volume) 3.0 g/dL 3.2-4.5 CALCIUM CORRECTED 9.1 mg/dL 8.5-10.1 Vancomycin trough - 12/10/18 16:01 Vancomycin trough 11.5 ug/mL 10.0-20.0 Automated blood complete blood count (hemogram) panel - 12/11/18 10:40 Blood leukocytes automated count (number/volume) 8.7 10*3/uL 4.3-11.0 Blood erythrocytes automated count (number/volume) 3.60 10*6/uL 4.35-5.85 Venous blood hemoglobin measurement (mass/volume) 10.3 g/dL 11.5-16.0 Blood hematocrit (volume fraction) 33 % 35-52 Automated erythrocyte mean corpuscular volume 91 [foz_us] 80-99 Automated erythrocyte mean corpuscular hemoglobin (mass per erythrocyte) 29 pg 25-34 Automated erythrocyte mean corpuscular hemoglobin concentration measurement (mass/volume) 31 g/dL 32-36 Automated erythrocyte distribution width ratio 15.0 % 10.0- 14.5 Automated blood platelet count (count/volume) 154 10*3/uL 130-400 Automated blood platelet mean volume measurement 8.8 [foz_us] 7.4-10.4 Comprehensive metabolic panel - 12/11/18 10:40 Serum or plasma sodium measurement (moles/volume) 139 mmol/L 135-145 Serum or plasma potassium measurement (moles/volume) 4.0 mmol/L 3.6-5.0 Serum or plasma chloride measurement (moles/volume) 106 mmol/L 98-107 Carbon dioxide 26 mmol/L 21-32 Serum or plasma anion gap determination (moles/volume) 7 mmol/L 5-14 Serum or plasma urea nitrogen measurement (mass/volume) 7 mg/dL 7-18 Serum or plasma creatinine measurement (mass/volume) 0.77 mg/dL 0.60-1.30 Serum or plasma urea nitrogen/creatinine mass ratio 9 NRG Serum or plasma creatinine measurement with calculation of estimated glomerular filtration rate > NRG Serum or plasma glucose measurement (mass/volume) 161 mg/dL 70-105 Serum or plasma calcium measurement (mass/volume) 8.3 mg/dL 8.5-10.1 Serum or plasma total bilirubin measurement (mass/volume) 0.5 mg/dL 0.1-1.0 Serum or plasma alkaline phosphatase measurement (enzymatic activity/volume) 111 U/L 40-136 Serum or plasma aspartate aminotransferase measurement (enzymatic activity/volume) 19 U/L 5-34 Serum or plasma alanine aminotransferase measurement (enzymatic activity/volume) 13 U/L 0-55 Serum or plasma protein measurement (mass/volume) 5.9 g/dL 6.4-8.2 Serum or plasma albumin measurement (mass/volume) 2.8 g/dL 3.2-4.5 CALCIUM CORRECTED 9.3 mg/dL 8.5-10.1 Complete blood count (CBC) with automated white blood cell (WBC) differential - 12/16/18 10:39 Blood leukocytes automated count (number/volume) 9.6 10*3/uL 4.3-11.0 Blood erythrocytes automated count (number/volume) 3.95 10*6/uL 4.35-5.85 Venous blood hemoglobin measurement (mass/volume) 11.4 g/dL 11.5-16.0 Blood hematocrit (volume fraction) 35 % 35-52 Automated erythrocyte mean corpuscular volume 89 [foz_us] 80-99 Automated erythrocyte mean corpuscular hemoglobin (mass per erythrocyte) 29 pg 25-34 Automated erythrocyte mean corpuscular hemoglobin concentration measurement (mass/volume) 32 g/dL 32-36 Automated erythrocyte distribution width ratio 14.8 % 10.0- 14.5 Automated blood platelet count (count/volume) 292 10*3/uL 130-400 Automated blood platelet mean volume measurement 10.0 [foz_us] 7.4-10.4 Automated blood neutrophils/100 leukocytes 81 % 42-75 Automated blood lymphocytes/100 leukocytes 12 % 12-44 Blood monocytes/100 leukocytes 6 % 0-12 Automated blood eosinophils/100 leukocytes 1 % 0-10 Automated blood basophils/100 leukocytes 0 % 0-10 Blood neutrophils automated count (number/volume) 7.7 10*3 1.8-7.8 Blood lymphocytes automated count (number/volume) 1.2 10*3 1.0-4.0 Blood monocytes automated count (number/volume) 0.6 10*3 0.0- 1.0 Automated eosinophil count 0.1 10*3/uL 0.0-0.3 Automated blood basophil count (count/volume) 0.0 10*3/uL 0.0-0.1 Comprehensive metabolic panel - 12/16/18 10:39 Serum or plasma sodium measurement (moles/volume) 141 mmol/L 135-145 Serum or plasma potassium measurement (moles/volume) 4.2 mmol/L 3.6-5.0 Serum or plasma chloride measurement (moles/volume) 101 mmol/L 98-107 Carbon dioxide 24 mmol/L 21-32 Serum or plasma anion gap determination (moles/volume) 16 mmol/L 5-14 Serum or plasma urea nitrogen measurement (mass/volume) 10 mg/dL 7-18 Serum or plasma creatinine measurement (mass/volume) 0.86 mg/dL 0.60-1.30 Serum or plasma urea nitrogen/creatinine mass ratio 12 NRG Serum or plasma creatinine measurement with calculation of estimated glomerular filtration rate > NRG Serum or plasma glucose measurement (mass/volume) 135 mg/dL 70-105 Serum or plasma calcium measurement (mass/volume) 8.9 mg/dL 8.5-10.1 Serum or plasma total bilirubin measurement (mass/volume) 0.6 mg/dL 0.1-1.0 Serum or plasma alkaline phosphatase measurement (enzymatic activity/volume) 159 U/L 40-136 Serum or plasma aspartate aminotransferase measurement (enzymatic activity/volume) 36 U/L 5-34 Serum or plasma alanine aminotransferase measurement (enzymatic activity/volume) 18 U/L 0-55 Serum or plasma protein measurement (mass/volume) 7.1 g/dL 6.4-8.2 Serum or plasma albumin measurement (mass/volume) 3.1 g/dL 3.2-4.5 CALCIUM CORRECTED 9.6 mg/dL 8.5-10.1 Magnesium - 12/16/18 10:39 Magnesium 2.0 mg/dL 1.8-2.4 Lipase - 12/16/18 10:39 Lipase 34 U/L 8-78 Complete urinalysis with reflex to culture - 12/16/18 11:26 Urine color determination YELLOW NRG Urine clarity determination CLEAR NRG Urine pH measurement by test strip 8 5-9 Specific gravity of urine by test strip 1.010 1.016-1.022 Urine protein assay by test strip, semi-quantitative NEGATIVE NEGATIVE Urine glucose detection by automated test strip NEGATIVE NEGATIVE Erythrocytes detection in urine sediment by light microscopy NEGATIVE NEGATIVE Urine ketones detection by automated test strip NEGATIVE NEGATIVE Urine nitrite detection by test strip NEGATIVE NEGATIVE Urine total bilirubin detection by test strip NEGATIVE NEGATIVE Urine urobilinogen measurement by automated test strip (mass/volume) NORMAL NORMAL Urine leukocyte esterase detection by dipstick 1+ NEGATIVE Automated urine sediment erythrocyte count by microscopy (number/high power field) NONE NRG Automated urine sediment leukocyte count by microscopy (number/high power field) RARE NRG Bacteria detection in urine sediment by light microscopy TRACE NRG Squamous epithelial cells detection in urine sediment by light microscopy 2-5 NRG Crystals detection in urine sediment by light microscopy NONE NRG Casts detection in urine sediment by light microscopy NONE NRG Mucus detection in urine sediment by light microscopy NEGATIVE NRG Complete urinalysis with reflex to culture NO NRG Encounters ACCT No. Visit Date/Time Discharge Status Pt. Type Provider Facility Loc./Unit Complaint [id number] 12/16/2018 09:51:00 12/16/2018 14:45:00 DIS Emergency KRISSY CAT MD [facility] ER ABD PAIN,FLUID RETENTION [id number] 12/08/2018 15:42:00 12/14/2018 11:30:00 DIS Inpatient GENIE ROGER, RHONA Sauceda [facility] 4TH L PNEUMONIA,HYPOXIA,T9 COMPRESSION FX [id number] 12/06/2018 12:53:00 12/06/2018 15:56:00 DIS Emergency COOPER GOINS APRN [facility] ER BILAT HIP PAIN [id number] 11/19/2018 16:32:00 11/19/2018 20:31:00 DIS Emergency CLARITZA EUBANKS [facility] ER CONGESTED,FEVER [id number] 11/11/2018 19:23:00 11/11/2018 22:27:00 DIS Emergency KRISSY CAT MD [facility] ER BACK PAIN
--- NOTE | 2019-03-23 20:09 | Diagnostic Imaging Report ---
INDICATION: Fell, blood from right ear. COMPARISON STUDY: CT head and cervical spine from 12/06/2018. FINDINGS: CT head: Noncontrast CT scanning of the head demonstrates stable atrophy and white matter changes. Vascular calcifications are again identified. There is no mass effect, midline shift, hemorrhage or extra-axial fluid collections. 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 No fluid is seen in the mastoid air cells or visualized portions of the paranasal sinuses. On this exam, no blood or debris is seen within the external auditory canal. No fractures are present. 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 No fractures or hemorrhage are evident around the right mastoid. CT cervical spine: Noncontrast CT scanning of the cervical spine demonstrates no fracture or subluxation. Degenerative changes appear stable. There is some calcification of the carotid bifurcations. Calcification nodules in both lobes of the thyroid gland appear stable. IMPRESSION: Stable cervical spine. Dictated by: Dictated on workstation # [id number]
--- NOTE | 2019-03-23 20:33 | NUR ---
SAID 6 SUTURES
[2019-03-23] MEDS ORDERED: CEPH500T PO (20:38)
--- NOTE | 2019-03-23 20:48 | NUR ---
I CALLED REPORT BACK TO [facility]. SPOKE WITH AZ. AZ TOLD UPDATE TETANUSAND WHEN SUTURES OUT.
[2019-03-23 20:53] VITALS: BP 156/65
--- NOTE | 2019-03-23 20:53 | NUR ---
D/C INSTRUCTIONS GIVEN TO [facility] WHICH THERE ARE 2 NOW. BP MACHINE IS 156/65 [facility] HR 64 REG [facility] RESP 20 NORMAL RECHECK TEMP 97.3 P OX R/A IS 94. PT CAME FROM [phone] HERE IN [place]. PT HAD NO IV. SCRIPT PAPER ONLY WHICH [facility] KNOWS.
--- NOTE | 2019-03-23 20:53 | NUR ---
[facility] TAKING PT BACK TO [facility]
== END 2019-03-23 20:53 | disposition home or self-care (01) ==
LOC: EDUNIT# 18:26 → ER 18:28
DX: S01.311A Laceration without foreign body of right ear, initial encounter (principal); I10 Essential (primary) hypertension; E78.00 Pure hypercholesterolemia, unspecified; F03.90 Unspecified dementia, unspecified severity, without behavioral disturbance, psychotic disturbance, mood disturbance, and anxiety; G62.9 Polyneuropathy, unspecified; Z86.73 Personal history of transient ischemic attack (TIA), and cerebral infarction without residual deficits; Z88.1 Allergy status to other antibiotic agents; Z79.82 Long term (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 aspirin; Z79.02 Long term (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 antithrombotics/antiplatelets; W05.0XXA Fall from non-moving wheelchair, initial encounter; W26.8XXA Contact with other sharp object(s), not elsewhere classified, initial encounter; Y93.39 Activity, other involving climbing, rappelling and jumping off; Y92.129 Unspecified place in nursing home as the place of occurrence of the external cause
CPT/HCPCS: 70450; 72100; 72125; 90471; 90715